=== PATIENT | female | born 1955 | race Caucasian/White ===

== ENCOUNTER → 2019-01-12 09:40 | Outpatient (CLI) | payer MEDICARE, SELFPAY ==
[2017-05-14 10:19] VITALS: BMI 25.9
[2019-01-12 13:11] LABS: Hemoglobin A1c 6.1 % (4.2-6.3)
[2019-01-12 13:15] LABS: Anion Gap 7 (5-15); BUN 26 mg/dL (7-18); BUN/Creat Ratio 25.2 RATIO (10-20); Chloride 107 mmol/L (98-107); Cholesterol 159 mg/dL (200); Creatinine, Serum 1.03 mg/dL (0.55-1.02); EST Glomerular Filtration Rate 57 mL/min (>60); Est Glom Filt Rate - Afr Amer 69 mL/min (>60); Glucose 116 mg/dL (74-106); High Density Lipoprotein 55 mg/dL; Potassium 4.9 mmol/L (3.5-5.1); Sodium Level 141 mmol/L (136-145); Triglycerides 110 mg/dL; Very Low Density Lipoprotein 22 mg/dL (5-40)
[2019-01-19 11:02] LABS: HPV Reflexed? NOT INDICATED
== END ==
PROVIDERS: Family Provider Family Medicine; PCP Family Medicine; Referring Provider Family Medicine; Visit Provider Family Medicine
DX: Z01.419 Encounter for gynecological examination (general) (routine) without abnormal findings (principal); E11.9 Type 2 diabetes mellitus without complications
CPT/HCPCS: 36415; 80048; 80061; 83036; 84443; 88175; G0145

== ENCOUNTER → 2019-12-30 11:39 | Outpatient (CLI) | payer MEDICARE, SELFPAY ==
[2017-05-14 10:19] VITALS: BMI 25.9
[2019-12-30 15:42] LABS: Absolute Lymphocyte Count 0.77 X10^3/uL (0.83-4.51); Absolute Neutrophil Count 5.3 X10^3/uL (2.0-7.7); Basophil# 0.01 X10^3/uL; Basophil% 0.2 % (0-1); Hematocrit 42.1 % (37-47); Hemoglobin 13.7 g/dL (12.0-15.0); Lymphocyte # 0.77 X10^3/ul (4.0); Lymphocyte % 12.5 % (19-41); Mean Corp Hgb Conc 32.5 g/dL (32-36); Mean Platelet Vol. 11.1 fl (6.2-12.0); Monocyte# 0.09 X10^3/uL; Monocyte% 1.5 % (0-10); NRBC Flagged by Analyzer 0 % (0-5); Neutrophil # 5.27 X10^3/uL (2.7-7.7); Neutrophil % 85.5 % (47-70); Platelet Count 211 K/mm3 (150-450); RBC Distribution Width CV 13.4 % (11.6-14.6); RBC Distribution Width SD 43.9 fl (35.1-43.9); Red Blood Count 4.73 M/mm3 (4.2-5.4); White Blood Count 6.2 K/mm3 (4.4-11.0)
[2019-12-30 16:14] LABS: ALB/GLOB Ratio 1.1 RATIO (0.9-2.4); AST(SGOT) 23 U/L (15-37); Alanine Aminotransfer ALT/SGPT 30 U/L (13-56); Albumin, Serum 4.2 g/dL (3.2-5.0); Alkaline Phosphatase 79 U/L (45-117); Anion Gap 4 (5-15); BUN 29 mg/dL (7-18); BUN/Creat Ratio 28.7 RATIO (10-20); Calcium,Total 9.4 mg/dL (8.5-10.1); Chloride 108 mmol/L (98-107); Creatinine, Serum 1.01 mg/dL (0.55-1.02); EST Glomerular Filtration Rate 59 mL/min (>60); Est Glom Filt Rate - Afr Amer 71 mL/min (>60); Globulin 3.7 g/dL (2.2-4.2); Glucose 178 mg/dL (74-106); Potassium 4.6 mmol/L (3.5-5.1); Protein, Total 7.9 g/dL (6.4-8.2); Sodium Level 139 mmol/L (136-145); Thyroid Stim Hormone (TSH) 0.53 uIU/mL (0.358-3.74)
== END ==
PROVIDERS: PCP Family Medicine; Referring Provider Family Medicine; Visit Provider Family Medicine
DX: E11.9 Type 2 diabetes mellitus without complications (principal); I10 Essential (primary) hypertension
CPT/HCPCS: 36415; 80053; 83036; 84443; 85025

== ENCOUNTER 2020-01-05 08:12 | Observation (INO) | payer MEDICARE, SELFPAY ==
[2020-01-05] VITALS (13 sets, daily range): BP systolic 142–192; BP diastolic 74–127; PULSE 68–93; RESP 16–22; TEMP 36.2–37; O2SAT 97–100; BMI 33.3; BMI 30.2; BMI 30.3
--- NOTE | 2020-01-05 08:15 | EKG12_ITS ---
Test Reason : STROKE Blood Pressure : / mmHG Vent. Rate : 085 BPM Atrial Rate : 085 BPM P-R Int : 184 ms QRS Dur : 090 ms QT Int : 352 ms P-R-T Axes : 032 -21 015 degrees QTc Int : 418 ms Normal sinus rhythm Minimal voltage criteria for LVH, may be normal variant Borderline ECG Confirmed by AFIA HOGAN, REGINALDO ([id number]), telegraph editor SAUL DUGAN ([id number]) on 01/11/2020 7:55:49 AM Referred By: GAVIN Confirmed By:NICKIE OREILLY MD
--- NOTE | 2020-01-05 08:16 | CT_ITS ---
STUDY: CTA HEAD AND NECK WITH CONTRAST REASON FOR EXAM: Female, 64 years old. NEURO DEFICIT, SEIZURES BIPOLAR, RECENT CVA RADIATION DOSAGE (If Supplied By Facility): CTDIvol = ( 27.96 ) mGy, DLP = ( 1650.69 ) mGycm TECHNIQUE: CT angiography was performed with a multi-detector CT scanner. Data acquisition was obtained from the skull base through the vertex following intravenous administration of IV 100ML ISOVUE 370. MIP images were reconstructed from the axial data set. Post-processing of the angiographic images was performed, with multiplanar reformation and 3D reconstruction. Individualized dose optimization techniques were used for this CT. COMPARISON: No relevant priors. FINDINGS: Normal bilateral petrous carotid arteries. Normal right cavernous carotid artery with a normal supraclinoid bifurcation. Normal left cavernous carotid artery with a normal supraclinoid bifurcation. Normal right A1 segments of the anterior cerebral artery. Normal left A1 segments of the anterior cerebral artery. Normal intact anterior communicating artery (ACOM). Normal bilateral A2 segments of the anterior cerebral arteries. Normal right M1 and M2 segments of the middle cerebral arteries, with a normal M1 bifurcation. Normal left M1 and M2 segments of the middle cerebral arteries, with a normal M1 bifurcation. Normal right posterior communicating artery (PCOM). Normal left posterior communicating artery (PCOM). Normal bilateral vertebral arteries. Normal basilar artery with a normal basilar bifurcation. The visualized bilateral superior cerebellar (SCA) arteries are normal. Normal bilateral P1, P2 and visualized P3 segments of the posterior cerebral arteries. There is no demonstrated aneurysm of the [place]. Stable lacunar type infarcts in the body and tail portions of the left caudate nucleus and right thalamus. AORTIC ARCH: Normal visualized aortic arch. Normal origins of the brachiocephalic, left common carotid, and left subclavian arteries. Atherosclerotic plaque formation at the origin of the left subclavian artery. RIGHT CAROTID ARTERIES: Normal right common carotid artery (CCA). Normal right common carotid bulb. There is moderate atherosclerotic plaque formation of the origin of the right internal carotid artery with an estimated stenosis of 50-69% stenosis. Normal visualized cervical portion of the right internal carotid artery. Normal origin of the right external carotid artery (ECA). LEFT CAROTID ARTERIES: Normal left common carotid artery (CCA). Normal left common carotid bulb. There is extensive atherosclerotic and soft plaque formation of the origin of the left internal carotid artery with an estimated stenosis of greater than 70%. Normal visualized cervical portion of the left internal carotid artery. Normal origin of the left external carotid artery (ECA). VERTEBRAL ARTERIES: Normal bilateral vertebral arteries. CT/CTA Head AND Neck W/ Contrast IMPRESSION: Greater than 70% stenosis at the origin of left internal carotid artery caused by combination of calcific and soft plaque. 50-69% stenosis at the origins of the right internal carotid artery secondary to atherosclerotic plaque. Electronically Signed: Germain Billings, at 9:44 EDT , Service support ,
[2020-01-05 08:24] LABS: Absolute Lymphocyte Count 1.74 X10^3/uL (0.83-4.51); Absolute Neutrophil Count 5.2 X10^3/uL (2.0-7.7); Basophil# 0.03 X10^3/uL; Basophil% 0.4 % (0-1); Eosinophil# 0.18 X10^3/uL; Eosinophils% 2.4 % (0-5); Hematocrit 42.3 % (37-47); Hemoglobin 13.9 g/dL (12.0-15.0); Lymphocyte # 1.74 X10^3/ul (4.0); Mean Corp Hgb Conc 32.9 g/dL (32-36); Mean Corpuscular Hgb 29.1 pg (27.0-32.0); Mean Corpuscular Volume 88.7 fL (81-99); Mean Platelet Vol. 10.3 fl (6.2-12.0); Monocyte# 0.38 X10^3/uL; NRBC Flagged by Analyzer 0 % (0-5); Neutrophil # 5.22 X10^3/uL (2.7-7.7); Neutrophil % 68.8 % (47-70); Platelet Count 180 K/mm3 (150-450); RBC Distribution Width CV 13.4 % (11.6-14.6); RBC Distribution Width SD 43.6 fl (35.1-43.9); Red Blood Count 4.77 M/mm3 (4.2-5.4); White Blood Count 7.6 K/mm3 (4.4-11.0)
[2020-01-05 08:32] LABS: Prothrombin Time (Protime)PT. 12.6 SECONDS (11.7-14.9)
[2020-01-05 08:33] LABS: Partial Thromboplast Time 24.9 Seconds (24.1-36.2)
[2020-01-05 08:45] LABS: Anion Gap 4 (5-15); BUN 21 mg/dL (7-18); BUN/Creat Ratio 19.3 RATIO (10-20); Calcium,Total 9.3 mg/dL (8.5-10.1); Chloride 105 mmol/L (98-107); Creatinine, Serum 1.09 mg/dL (0.55-1.02); EST Glomerular Filtration Rate 54 mL/min (>60); Est Glom Filt Rate - Afr Amer 65 mL/min (>60); Estimated Creatinine Clearance 43.13 ml/min; Glucose 164 mg/dL (74-106); Potassium 3.8 mmol/L (3.5-5.1); Sodium Level 138 mmol/L (136-145)
--- NOTE | 2020-01-05 09:04 | ED.VISSUMM ---
- ER Visit Summary Date of Service: 01/05/20 Chief Complaint: Slurred speech History of Present Illness: The patient is a [address] Daniel Lopez. She has an expressive aphasia that makes it difficult to obtain a history for her. She states that she has a history of a stroke 3 years ago that left her with right upper extremity paralysis and slurred speech. However, her speech is much worse over the past 4 days. She denies any numbness or weakness. No change in her vision. No vertigo. Patient denies chest pain or palpitations. No fever or chills. No dysuria or frequency. No headache. Physical Examination: Vitals: Stable. Afebrile. General: Well-nourished and well-developed. Head: Normocephalic atraumatic. Neck: Supple, no lymphadenopathy. No JVD. Nontender. Cardiovascular: Regular rate and rhythm. No murmurs. Respiratory: No respiratory distress. Clear to auscultation bilaterally. Abdominal: Soft, nontender, nondistended, normal bowel sounds. No guarding, rebound, or peritoneal signs. Back: Nontender. Extremities: Nontender, no edema. Skin: Normal color, no rash. Neurologic: Alert and oriented ?3. Cranial nerves II through XII are intact. 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 She has an NIH scale of 8 for this flaccid paralysis and her speech difficulties. Psych: Normal affect. Test Results: EKG is sinus at [address] changes. She does have a T wave inversion in lead III. However, this is unchanged from 2018. Troponin is negative. Coags are normal. Chem-7 shows a creatinine 1.09 and glucose 164. CBC is normal. UA shows 5-10 white blood cells. No bacteria. This was sent for culture. CT brain shows prior infarcts that are stable. No acute disease. Clinical Impression(s) from Imaging Studies Head/Neck CTA 01/05/20 08:16 IMPRESSION: Greater than 70% stenosis at the origin of left internal carotid artery caused by combination of calcific and soft plaque. 50-69% stenosis at the origins of the right internal carotid artery secondary to atherosclerotic plaque. Electronically Signed: Germain Billings, at 9:44 EDT , Service support , Emergency Department Course and Treatment: Patient is not a TPA candidate as this is occurred over the past 4 days. A CTA of the head was obtained to rule out a large vessel occlusion. Treatment Plan: Patient will be discussed with the hospitalist and admitted for further evaluation and treatment. Disposition: Admitted in stable condition. Impression: 1. Stroke. 2. Left internal carotid artery stenosis. This note was generated with [employer] dictation software. It may contain incorrect words, spelling, and punctuation that were not noted in review of the chart prior to signing ED Disposition - Plan for ED Patient: Referrals: Daniel Lopez MD [Primary Care Provider] -
[2020-01-05 09:38] LABS: Bacteria 0 SEEN /hpf (None Seen); Mucous, Urine 0 SEEN /hpf (<or=2+); Red Blood Cells-Urine 0 SEEN /hpf (0-5)
[2020-01-05 09:43] LABS: Color, Urine Yellow (Yellow); Glucose, Dipstick Normal (Normal); Ketone-Dipstick Negative (Negative); Leukocyte Esterase-Dipstick 500 /ul (Negative); Nitrite-Dipstick Negative (Negative); Occult Blood-Urine 10 /ul (Negative); Protein-Dipstick Negative (Negative); Urine Bilirubin Dipstick Negative (Negative); Urine Clarity Clear (Clear); Urine Urobilinogen Normal (Normal)
[2020-01-05 09:49] LABS: Squamous Epithelial Cells - UA 0-5 SEEN /hpf (5-10); White Blood Cells 5-10 SEEN /hpf (0-5)
[2020-01-05 10:02] LABS: Bedside Glucose 166 mg/dL (70-110)
--- NOTE | 2020-01-05 10:02 | NURSING ---
DR WEBSTER FOR DR ALONSO
--- NOTE | 2020-01-05 10:06 | NURSING ---
PCU OBS STROKE KOTSONIS
--- NOTE | 2020-01-05 11:42 | ECHOD_ITS ---
Reason For Study: TIA/CVA Procedure This was a 2D Doppler, Color Flow transthoracic echocardiogram. The study was technically difficult. Exam performed portable in patient room. Left Ventricle Normal LV size. The estimated ejection fraction is 55 %. Normal diastology for age. No regional wall motion abnormalities noted. Right Ventricle Normal RV size. Normal systolic function. Atria Normal left atrium. Normal right atrium. No doppler evidence for ASD. Mitral Valve There is no mitral valve stenosis. No mitral valve insufficiency. Tricuspid Valve There is no tricuspid stenosis. Unable to estimate RV systolic pressure due to inadequate jet, pulmonary artery pressure probably normal. Aortic Valve Trisinus/trileaflet aortic valve. There is no aortic stenosis. No aortic valve insufficiency. Pulmonic Valve There is no pulmonic valvular stenosis. No pulmonic valve insufficiency. Great Vessels Normal aortic root. Pericardium/Pleural No pericardial effusion. Medication Negative bubble study on previous echo. MMode/2D Measurements & Calculations LVIDd: 3.4 cm IVSd: 1.1 cm Ao root diam: 3.2 cm LVIDs: 2.0 cm LVPWd: 0.91 cm RVDd: 3.1 cm FS: 41.0 % LAV(MOD-bp): 36.5 ml LA A4 area: 13.7 cm2 LA dimension(2D): 2.9 cm LAV(MOD-bp) Indexed: 20.2 ml/m2 LAV(MOD-sp2): 39.4 ml LAV(MOD-sp4): 31.0 ml RA A4 area: 13.0 cm2 Doppler Measurements & Calculations MV E max reginald: 71.9 cm/sec Lat Peak E' Reginald: 6.0 cm/sec Med Peak E' Reginald: 5.9 cm/sec MV A max reginald: 105.5 cm/sec E/E' lat: 12.0 E/E' med: 12.1 MV E/A: 0.68 Ao V2 max: 122.4 cm/sec LV V1 max: 104.4 cm/sec PA V2 max: 90.4 cm/sec Ao max P.0 mmHg LV V1 max P.4 mmHg Interpretation Summary The estimated ejection fraction is 55 %. Normal diastology for age. Ordering Physician: Getachew Romeor Referring Physician: Daniel Lopez MD Performed By: Bhakti Ray RDCS
--- NOTE | 2020-01-05 11:42 | MRI_ITS ---
STUDY: MRI BRAIN WITHOUT CONTRAST REASON FOR EXAM: Female, 64 years old. CVA -- hx stroke 2017 with residual paralysis and speech change, increase garbled speech past 4 days TECHNIQUE: Standardized multiplanar fat and water weighted pulse sequences were obtained. COMPARISON: 05/08/2017 FINDINGS: There is moderate cerebral atrophy with widening of the extra-axial spaces and ventricular dilatation. There are multiple white matter hyperintensities, distributed throughout the deep white matter tracts of the cerebral hemispheres, consistent with moderate chronic white matter ischemic changes. Encephalomalacia and gliosis in left parietal lobe consistent with a chronic infarct. There is no evidence for recent intracranial ischemia or other cause of cytotoxic edema on diffusion weighted imaging (DWI). Normal T2* images of the brain without demonstrated susceptibility artifact. There is no demonstrated hemosiderin stain. Normal bilateral basal ganglia. Normal thalami. There is no extra-axial fluid accumulation. Normal flow voids within the major intracranial circulation suggesting patency by spin echo criteria. Normal sella turcica, pituitary gland, infundibular stalk, optic chiasm and hypothalamus. Normal tectal plate and pineal gland. Normal midbrain, jodie and medulla. Normal cerebellum. Normal basal cisterns. Normal bilateral temporal bones. Normal bilateral internal auditory canals. No demonstrated orbital abnormality, within the constraints of a routine brain study. Normal visualized paranasal sinuses. Normal calvarium and skull base. Normal visualized soft tissue structures. Normal visualized upper cervical spine. MRI/Brain without Contrast IMPRESSION: Involutional changes of the brain, as described above. No acute infarct. Electronically Signed: Joshua Livingston MD at 13:03 EDT Tel , Service support ,
--- NOTE | 2020-01-05 11:42 | CDU_ITS ---
Reason For Study: CVA Rt. Velocities/BP Lt. Velocities/BP Prox CCA 60.8/15.7 cm/sec. Prox CCA 69.2/14.2 cm/sec. Mid CCA 55.3/13.5 cm/sec. Mid CCA 63.9/16.8 cm/sec. Dist CCA 53.1/16.8 cm/sec. Dist CCA 53.5/16 cm/sec. Prox ICA 49.8/19 cm/sec. Prox ICA 115.6/37.1 cm/sec. Mid ICA 87.1/30 cm/sec. Mid ICA 90/35.3 cm/sec. Dist ICA 85/34.4 cm/sec. Dist ICA 77.3/24.3 cm/sec. Rt. ICA/CCA = 1.58. Lt. ICA/CCA = 1.81. Prox ECA 102.8 cm/sec. Prox ECA 96/8 cm/sec. Rt. Vert. 42.1/11.6 cm/sec. Lt. Vert. 50.9/24.5 cm/sec. Right Extracranial There is intimal thickening but no significant atherosclerotic plaque noted in the right common carotid artery. There is intimal thickening but no significant atherosclerotic plaque noted in the right internal carotid artery. There is heterogeneous, irregular atherosclerotic plaque noted in the right external carotid artery. Antegrade flow is noted in the right vertebral artery. Left Extracranial There is homogeneous, smooth atherosclerotic plaque noted in the left common carotid artery. There is heterogeneous, irregular atherosclerotic plaque noted in the left internal carotid artery. There is intimal thickening but no significant atherosclerotic plaque noted in the left external carotid artery. Antegrade flow is noted in the left vertebral artery. Procedure Carotid Duplex 22033. Exam performed portable in patient room. Interpretation Summary Minimal smooth plaque at the proximal right internal carotid artery with less than 50% stenosis. Irregular calcific plaque at the proximal right external carotid artery with less than 50% stenosis. Irregular calcific plaque with shadowing at the proximal left internal carotid artery with less than 50% stenosis. Less than 50% stenosis left external carotid artery Patent and antegrade vertebrals bilaterally Ordering Physician: Getachew Romero Referring Physician: Daniel Lopez MD Performed By: Justa Pires RVT
[2020-01-05] MEDS: 0.9% Normal Saline 1,000 ML 100 ML IV ×2 (13:30→22:48)
[2020-01-05] MEDS: 0.9% Saline Lock 10 ML Syringe IV ×2 (14:13→21:05)
[2020-01-05] MEDS: Clopidogrel Bisulfate 75 MG Tablet PO (14:13)
--- NOTE | 2020-01-05 16:31 | HP.PCM_ITS ---
History of Present Illness Date of Admission: 01/05/20 Chief Complaint: CVA The patient is a 64 year old F with a PMH as below who presents from home, with slurred speech. She has aphasia it appears at baseline however it has worsened over the last 4 days. It is difficult to obtain a history from her given her aphasia. But she did have a stroke about 3 years ago which left her paralyzed on the right upper extremity and with slurred speech. She states that at the end of last week she got out of bed and it looks like she hurt her back and went to an urgent care and was given steroids and since then her speech worsened. Per the , the injury to her back happened 2 weeks ago and she got a couple different prescriptions from doctors though he does not know what they were other than prednisone and states that since then, she started having the speech difficulty as well as mood swings and episodes of aggression which are new. He states that her seizures are generally more convulsive and she is only had 2 since her previous stroke. She said there was a medication that she had been on that made her mood issues worse, and this appears to be carbamazepine. He also states that years ago she was told that she had bipolar when she was started on a different medication that also made her act crazy. In the ER there is some concern for possible UTI there is no bacteria in the urine but there was 5-10 white blood cells therefore this was sent for culture but no antibiotics were started. She had no changes to her EKG and a CT scan of her brain showed prior infarct but nothing new. CTA of her head and neck did show 70% stenosis at the takeoff of the left internal carotid artery with a 50 to 69% stenosis at the origins of the right internal carotid artery. 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) Type 2 diabetes mellitus (Chronic) Hypertension (Chronic) Allergies No Known Allergies Allergy (Verified 01/05/20 08:39) Home Medications: Ambulatory Orders Medication Instructions Recorded Aspirin [Aspirin, Baby] 81 mg PO DAILY@0800 01/05/20 Levetiracetam [Keppra] 500 mg PO BID 01/05/20 Metformin HCl [Glucophage] 500 mg PO BID 01/05/20 Pravastatin [Pravachol] 40 mg PO DINNER 01/05/20 Ramipril 10 mg PO DINNER 01/05/20 Surgical History: no surgical history Psychiatric History: No pertinent psych hx [employer]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: 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 Smoking Status: Former smoker Tobacco Use: Cigarettes Alcohol: None Drugs: None - *Family History Maternal History Items: Diabetes, Stroke - age 77 Paternal History Items: Heart Disease Review of Systems Constitutional: Denies: Chills, Fever, Weight Change HEENT: Denies: Head Aches, Sinus Congestion, Sinus Drainage Cardiovascular: Denies: Chest Pain, Palpitations Respiratory: Denies: Cough, Shortness of breath at rest, Sputum production Gastrointestinal: Denies: Abdominal Pain, Nausea, Vomiting Genitourinary: Denies: Dysuria Musculoskeletal: Denies: Joint Pain, Joint Tenderness Skin: Denies: Rash, Wounds Neurological: Reports: Slurred speech. Denies: Focal weakness, Numbness, Tingling Psychiatric: Denies: Anxiety, Depression, Homicidal Ideations, Suicidal I deations Hematologic/ Lymphatic: Denies: Easy Bruising, Easy Bleeding VTE Information - Inpt Only VTE Present on Admission: No - Physical Exam Vitals/I&O's: Vital Signs Temp Pulse Resp BP Pulse Ox 98.0 F 74 18 142/91 H 97 01/05/20 11:15 01/05/20 15:00 01/05/20 11:15 01/05/20 11:15 01/05/20 13:50 Oxygen Flow Rate (L/min) 2 Oxygen Delivery Method Room Air Weight: 170 lb 13.732 oz Body Mass Index (BMI) 30.2 Finger Stick Blood Glucose 166 Intake and Output for Last 24 Hours 01/03/20 01/04/20 01/05/20 23:59 23:59 23:59 Intake Total 620 / 620 Balance 620 / 620 General: Alert, Oriented x3, Cooperative, No apparent distress HEENT: Atraumatic, PERRLA, EOMI, Normocephalic Oral: Moist Mucosa Neck: Supple, No JVD Lungs: Clear to auscultation, Normal air movement, No rhonchi, No wheeze, No rales, Diminished Cardiovascular: Regular rate, Regular Rhythm, Normal S1, Normal S2, No murmurs Abdomen: Soft, Non Tender, Non-Distended, No Hepato-splenomegaly Extremities: No edema, Capillary Refill Less than 3 Seconds Skin: No rashes, No breakdown Neurological: Cranial nerves II-XII grossly intact, Motor Exam 5/5 strength throughout - Of the unaffected limbs, Slurred Speech, Sensory exam intact to light touch and pain - Of the unaffected limbs, - - Paralysis of right upper extremity Psych/Mental Status: Normal Affect, Appropriate Laboratory Results 01/05/20 08:11: POC Glucose 166 H 01/05/20 08:15: WBC 7.6, RBC 4.77, Hgb 13.9, Hct 42.3, MCV 88.7, MCH 29.1, MCHC 32.9, RDW Std Deviation 43.6, RDW Coeff of Liudmila 13.4, Plt Count 180, MPV 10.3, Immature Gran % (Auto) 0.400, Neut % (Auto) 68.8, Lymph % (Auto) 23.0, Blanco % (Auto) 5.0, Eos % (Auto) 2.4, Baso % (Auto) 0.4, Absolute Neuts (auto) 5.2, Abs olute Lymphs (auto) 1.74, Nucleated RBC % 0 01/05/20 08:15: PT 12.6, INR 1.0, APTT 24.9 01/05/20 08:15: Sodium 138, Potassium 3.8, Chloride 105, Carbon Dioxide 29.0, Anion Gap 4 L, BUN 21 H, Creatinine 1.09 H, Estim Creat Clear Calc 43.13, Est GFR (MDRD) Af Amer 65, Est GFR (MDRD) Non-Af 54 L, BUN/Creatinine Ratio 19.3, Glucose 164 H, Calcium 9.3, Troponin I < 0.015 01/05/20 09:30: Urine Color Yellow, Urine Clarity Clear, Urine pH 6.0, Ur Specific [place] 1.010, Urine Protein Negative, Urine Glucose (UA) Normal, Urine Ketones Negative, Urine Occult Blood 10 H, Urine Nitrite Negative, Urine Bilirubin Negative, Urine Urobilinogen Normal, Ur Leukocyte Esterase 500 H, Urine RBC 0 SEEN, Urine WBC 5-10 SEEN, Ur Squamous Epith Cells 0-5 SEEN, Urine Bacteria 0 SEEN, Urine Mucus 0 SEEN Current Medications Clopidogrel Bisulfate (Plavix) 75 mg PO DAILY [facility] Last Admin: 01/05/20 14:13 Dose: 75 mg Documented by: Enoxaparin Sodium (Lovenox) 40 mg SC DAILY [facility] Hydralazine HCl (Apresoline Iv) 5 mg IV Q30M PRN PRN Reason: to maintain BP goals Sodium Chloride () 500 mls @ 999 mls/hr IV .Q31M ONE Last Infusion: 01/05/20 09:05 Dose: Infused Documented by: Sodium Chloride () 1,000 mls @ 100 mls/hr IV .Q10H JOSEPH Last Admin: 01/05/20 13:30 Dose: 100 mls/hr Documented by: Sodium Chloride () 250 mls @ 15 mls/hr IV .[id number] PRN PRN Reason: Saline Flush Sodium Chloride () 250 mls @ 15 mls/hr IV .[id number] PRN PRN Reason: Additional IVPB Infusion Labetalol HCl (Trandate) 10 - 20 mg IV Q10M PRN PRN PRN Reason: to Maintain BP Goals Sodium Chloride () 10 - 40 ml IV UD PRN PRN Reason: SALINE FLUSH Last Admin: 01/05/20 14:13 Dose: 10 ml Documented by: Assessment/Plan All Active Problems Seizures (Acute) Acute ischemic stroke (Resolved) Hypertensive emergency (Resolved) 1. New CVA/history of CVA/history of seizures/HTN/HLD -MRI is negative for new stroke -She is 4 days out since symptoms onset therefore she did not qualify for TPA -We will continue with medical management, and start her on Plavix as well as aspirin -We will allow some permissive hypertension and restart her ramipril in the morning -We will continue with her home statin -Continue with Kellen, and will consult neuro and obtain an EEG given her sudden onset of issues and her seizure disorder -Also obtain a TSH and vitamin B12 -We will obtain an echo -Carotid duplex with With less than 50% stenosis on bilateral internal and external carotid arteries -PT/OT/speech 2. DM 2 -We will start her on a diabetic diet -Placed on a sliding scale insulin with Accu-Cheks AC at bedtime DVT: Lovenox OBSV E&M: [id number] Initial observation care L3
[2020-01-05] MEDS: Insulin Lispro 100 UNIT/ML INSULN.PEN SC (17:58)
[2020-01-05] MEDS: Pravastatin 40 MG Tablet PO (17:58)
[2020-01-05 18:01] LABS: Bedside Glucose 176 mg/dL (70-110)
--- NOTE | 2020-01-05 18:04 | TELEMED_ITS ---
[facility] Tele[facility] has confirmed receipt of a request for visit. This document confirms receipt of the order initiating the consult. To find the results of the consultation, please view the patient's reports for the scanned Telemed Consult.
[2020-01-05 19:05] LABS: Thyroid Stim Hormone (TSH) 0.84 uIU/mL (0.358-3.74)
--- NOTE | 2020-01-05 20:11 | PN_ITS ---
Progress Note Following tele-neurologist consult by attending MD, telemetry neurologist requested a phone call. Case was discussed with tele-neurologist who r ecommended the patient should be treated for UTI since UTI may be bringing her symptoms back in the setting of abnormal urinalysis. Also telemetry neurologist recommended an EEG. EEG already ordered by attending MD. Also MRI without contrast did not show stroke. Tele-neurologist recommended MRI with contrast. A telemetry neurologist recommended reconsulting (tele-neurologist) after EEG and brain MRI with contrast is back. Brain MRI with contrast ordered. STROKE Vital Signs/Narrative: Vital Signs Temp Pulse Resp BP Pulse Ox 01/05/20 19:00 78 01/05/20 16:45 98.6 F 85 18 143/74 H 98
[2020-01-05] MEDS: levETIRAcetam 500 MG Tablet PO (22:36)
[2020-01-05 22:40] LABS: Bedside Glucose 136 mg/dL (70-110)
[2020-01-05] MEDS: Ceftriaxone 1 GM/50 ML BAG IV (22:46)
[2020-01-06] VITALS (10 sets, daily range): BP systolic 135–165; BP diastolic 84–106; PULSE 72–85; RESP 16–18; TEMP 36.4–37.5; O2SAT 96–98; BMI 30.2
[2020-01-06 06:50] LABS: Bedside Glucose 137 mg/dL (70-110)
[2020-01-06 08:29] LABS: Absolute Lymphocyte Count 1.28 X10^3/uL (0.83-4.51); Absolute Neutrophil Count 3.3 X10^3/uL (2.0-7.7); Basophil# 0.02 X10^3/uL; Basophil% 0.4 % (0-1); Eosinophil# 0.17 X10^3/uL; Eosinophils% 3.3 % (0-5); Hematocrit 38.6 % (37-47); Hemoglobin 12.9 g/dL (12.0-15.0); Lymphocyte # 1.28 X10^3/ul (4.0); Lymphocyte % 24.8 % (19-41); Mean Corp Hgb Conc 33.4 g/dL (32-36); Mean Corpuscular Hgb 29.4 pg (27.0-32.0); Mean Corpuscular Volume 87.9 fL (81-99); Mean Platelet Vol. 10.7 fl (6.2-12.0); Monocyte# 0.35 X10^3/uL; Monocyte% 6.8 % (0-10); NRBC Flagged by Analyzer 0 % (0-5); Neutrophil # 3.33 X10^3/uL (2.7-7.7); Neutrophil % 64.5 % (47-70); Platelet Count 139 K/mm3 (150-450); RBC Distribution Width CV 13.2 % (11.6-14.6); Red Blood Count 4.39 M/mm3 (4.2-5.4); White Blood Count 5.2 K/mm3 (4.4-11.0)
[2020-01-06 08:59] LABS: Anion Gap 4 (5-15); BUN 14 mg/dL (7-18); BUN/Creat Ratio 18.5 RATIO (10-20); Calcium,Total 8.7 mg/dL (8.5-10.1); Chloride 113 mmol/L (98-107); Cholesterol 127 mg/dL (200); Creatinine, Serum 0.76 mg/dL (0.55-1.02); EST Glomerular Filtration Rate 82 mL/min (>60); Est Glom Filt Rate - Afr Amer 99 mL/min (>60); Estimated Creatinine Clearance 61.86 ml/min; Glucose 141 mg/dL (74-106); High Density Lipoprotein 64 mg/dL; Potassium 4.2 mmol/L (3.5-5.1); Sodium Level 141 mmol/L (136-145); Triglycerides 113 mg/dL; Very Low Density Lipoprotein 23 mg/dL (5-40)
--- NOTE | 2020-01-06 09:00 | MRI_ITS ---
STUDY: MRI BRAIN WITH CONTRAST REASON FOR EXAM: Female, 64 years old. speech changes, garbled speech, follow up to non contrast brain mri done 01/05/20 TECHNIQUE: Standardized multiplanar fat and water weighted pulse sequences were obtained. IV Dotarem 15ml was administered for the contrast portion of the examination. COMPARISON: 01/05/2020 FINDINGS: There is moderate cerebral atrophy with widening of the extra-axial spaces and ventricular dilatation. There are multiple white matter hyperintensities, distributed throughout the deep white matter tracts of the cerebral hemispheres, consistent with moderate chronic white matter ischemic changes. Normal bilateral basal ganglia. Normal thalami. There is no extra-axial fluid accumulation. Normal flow voids within the major intracranial circulation suggesting patency by spin echo criteria. Normal venous enhancement. There is no enhancing intra-axial or extra-axial abnormality. Normal sella turcica, pituitary gland, infundibular stalk, optic chiasm and hypothalamus. Normal tectal plate and pineal gland. Normal midbrain, jodie and medulla. Normal cerebellum. Normal basal cisterns. Normal bilateral temporal bones. Normal bilateral internal auditory canals. No demonstrated orbital abnormality, within the constraints of a routine brain study. Normal visualized paranasal sinuses. Normal calvarium and skull base. Normal visualized soft tissue structures. Normal visualized upper cervical spine. MRI/Brain WITH Contrast IMPRESSION: No abnormal contrast enhancement. Electronically Signed: Joshua Livingston MD at 10:34 EDT Tel , Service support ,
[2020-01-06] MEDS: 0.9% Normal Saline 1,000 ML 100 ML IV ×2 (09:05→20:08)
[2020-01-06 09:37] LABS: Vitamin B12 320 pg/mL (211-911)
[2020-01-06] MEDS: Aspirin 81 MG TAB.CHEW PO (10:07)
[2020-01-06] MEDS: levETIRAcetam 500 MG Tablet PO ×2 (10:07→22:08)
[2020-01-06] MEDS: Clopidogrel Bisulfate 75 MG Tablet PO (10:07)
[2020-01-06] MEDS: Enoxaparin 40 MG/0.4 ML Syringe SC (10:08)
[2020-01-06] MEDS: Ceftriaxone 1 GM/50 ML BAG IV (10:42)
[2020-01-06] MEDS: Insulin Lispro 100 UNIT/ML INSULN.PEN SC (11:20)
[2020-01-06 11:25] LABS: Bedside Glucose 165 mg/dL (70-110)
--- NOTE | 2020-01-06 13:25 | CASEMGMT ---
This RN CM to room with WALKER form at this time, explanation done-pt voices understanding, and signed WALKER form at this time. Original to chart and copy to pt at this time. Per Speech therapy, pt would benefit from further OP speech therapy at this time. Pt is agreeable at this time and states she has been to [facility] in the past. [facility] Pt does have some dyarthria at this time but voices no further questions/concerns/needs at this time. [place] KEVIN CM
[2020-01-06 16:21] LABS: Bedside Glucose 100 mg/dL (70-110)
[2020-01-06] MEDS: Pravastatin 40 MG Tablet PO (17:29)
--- NOTE | 2020-01-06 18:34 | PCM.PN.HOSP ---
Subjective: Doing well, no change in her symptoms. No issues overnight. Vitals/I&O's: Vital Signs Temp Pulse Resp BP Pulse Ox 99.5 F H 77 18 165/97 H 97 01/06/20 16:15 01/06/20 16:15 01/06/20 16:15 01/06/20 16:15 01/06/20 16:15 Oxygen Flow Rate (L/min) 2 Oxygen Delivery Method Room Air Weight: 170 lb 13.732 oz Body Mass Index (BMI) 30.2 Finger Stick Blood Glucose 166 Intake and Output for Last 24 Hours 01/04/20 01/05/20 01/06/20 23:59 23:59 23:59 Intake Total 1937.33 / 1937.33 1463.34 / 1463.34 Balance 1937. / 1937. 1463.34 / 1463.34 General: Alert, Oriented x3, Cooperative, No apparent distress HEENT: Atraumatic, PERRLA, EOMI, Normocephalic Oral: Moist Mucosa Neck: Supple, No JVD Lungs: Clear to auscultation, Normal air movement, No rhonchi, No wheeze, No rales, Diminished Cardiovascular: Regular rate, Regular Rhythm, Normal S1, Normal S2, No murmurs Abdomen: Soft, Non Tender, Non-Distended, No Hepato-splenomegaly Extremities: No edema, Capillary Refill Less than 3 Seconds Skin: No rashes, No breakdown Neurological: Cranial nerves II-XII grossly intact, Motor Exam 5/5 strength throughout - Of the unaffected limbs, Slurred Speech, Sensory exam intact to light touch and pain - Of the unaffected limbs, - - Paralysis of right upper extremity Psych/Mental Status: Normal Affect, Appropriate Laboratory Results 01/05/20 08:15: TSH 0.84 01/05/20 22:33: POC Glucose 136 H 01/06/20 06:43: POC Glucose 137 H 01/06/20 08:13: WBC 5.2, RBC 4.39, Hgb 12.9, Hct 38.6, MCV 87.9, MCH 29.4, MCHC 33.4, RDW Std Deviation 43.0, RDW Coeff of Liudmila 13.2, Plt Count 139 L, MPV 10.7, Immature Gran % (Auto) 0.200, Neut % (Auto) 64.5, Lymph % (Auto) 24.8, Josephine % (Auto) 6.8, Eos % (Auto) 3.3, Baso % (Auto) 0.4, Absolute Neuts (auto) 3.3, Absolute Lymphs (auto) 1.28, Nucleated RBC % 0 01/06/20 08:13: Sodium 141, Potassium 4.2, Chloride 113 H, Carbon Dioxide 24.0, Anion Gap 4 L, BUN 14, Creatinine 0.76, Estim Creat Clear Calc 61.86, Est GFR (MDRD) Af Amer 99, Est GFR (MDRD) Non-Af 82, BUN/Creatinine Ratio 18.5, Glucose 141 H, Calcium 8.7, Triglycerides 113, Cholesterol 127, LDL Cholesterol 40, VLDL Cholesterol 23, HDL Cholesterol 64 01/06/20 08:13: Vitamin B12 320 01/06/20 11:18: POC Glucose 165 H 01/06/20 16:14: POC Glucose 100 Current Medications Aspirin (Aspirin, Baby) 81 mg PO DAILY@0800 [facility] Last Admin: 01/06/20 10:07 Dose: 81 mg Documented by: Clopidogrel Bisulfate (Plavix) 75 mg PO DAILY [facility] Last Admin: 01/06/20 10:07 Dose: 75 mg Documented by: Dextrose (D50w Syringe) 0 gm IV X1 PRN; Protocol PRN Reason: Hypoglycemia Enoxaparin Sodium (Lovenox) 40 mg SC DAILY [facility] Last Admin: 01/06/20 10:08 Dose: 40 mg Documented by: Glucagon () 1 mg IM .X1 PRN PRN Reason: Hypoglycemia Hydralazine HCl (Apresoline Iv) 5 mg IV Q30M PRN PRN Reason: to maintain BP goals Sodium Chloride () 500 mls @ 999 mls/hr IV .Q31M ONE Last Infusion: 01/05/20 09:05 Dose: Infused Documented by: Sodium Chloride () 1,000 mls @ 100 mls/hr IV .Q10H JOSEPH Last Infusion: 01/06/20 11:15 Dose: 100 mls/hr Documented by: Sodium Chloride () 250 mls @ 15 mls/hr IV .[id number] PRN PRN Reason: Saline Flush Sodium Chloride () 250 mls @ 15 mls/hr IV .[id number] PRN PRN Reason: Additional IVPB Infusion Ceftriaxone Sodium (Rocephin) 1 gm in 50 mls @ 100 mls/hr IV Q24 [facility] Last Infusion: 01/06/20 11:15 Dose: Infused Documented by: Insulin Human Lispro (Humalog Kwikpen (Bkc)) 0 unit SC ACHS [facility]; Protocol Last Admin: 01/06/20 16:34 Dose: Not Given Documented by: Labetalol HCl (Trandate) 10 - 20 mg IV Q10M PRN PRN PRN Reason: to Maintain BP Goals Levetiracetam (Keppra Tablet) 500 mg PO BID [facility] Last Admin: 01/06/20 10:07 Dose: 500 mg Documented by: Pravastatin Sodium (Pravachol) 40 mg PO DINNER [facility] Last Admin: 01/06/20 17:29 Dose: 40 mg Documented by: Sodium Chloride () 10 - 40 ml IV UD PRN PRN Reason: SALINE FLUSH Last Admin: 01/05/20 21:05 Dose: 10 ml Documented by: STROKE Vital Signs/Narrative: Vital Signs Temp Pulse Resp BP Pulse Ox 01/06/20 16:15 99.5 F H 77 18 165/97 H 97 01/06/20 15:00 85 Medical Necessity - Tobacco Use Smoking Status: Former smoker Tobacco Use: Cigarettes Assessment/Plan All Active Problems Seizures (Acute) Acute ischemic stroke (Resolved) Hypertensive emergency (Resolved) 1. New CVA/history of CVA/history of seizures/HTN/HLD -MRI is negative for new stroke -She is 4 days (possibly 2 weeks) out since symptoms onset therefore she did not qualify for TPA -We will continue with medical management, and start her on Plavix as well as aspirin -We will restart her ramipril today -We will continue with her home statin -Continue with Keppra, EEG is still pending repeat MRI with contrast was also negative for any other findings, if the EEG is also negative will reconsult neurology -TSH 0.84 and vitamin B12 320 -Echo was unremarkable -Carotid duplex with less than 50% stenosis on bilateral internal and external carotid arteries -PT/OT/speech -UA was unremarkable for significant UTI burden however she did have 500+ leukocyte esterase as well as 5-10 WBCs therefore she was started on Rocephin overnight. Her urine culture is pending. 2. DM 2 -We will start her on a diabetic diet -Placed on a sliding scale insulin with Accu-Cheks AC at bedtime DVT: Lovenox OBSV E&M: 76084 Subsequent observation care L2
[2020-01-06] MEDS: Ramipril 10 MG Capsule PO (20:08)
[2020-01-06 22:36] LABS: Bedside Glucose 107 mg/dL (70-110)
[2020-01-07 03:00] VITALS: PULSE 73
[2020-01-07 04:20] VITALS: BP 159/86; PULSE 72; RESP 16; TEMP 36.7; O2SAT 96
[2020-01-07 06:51] LABS: Bedside Glucose 146 mg/dL (70-110)
[2020-01-07 07:19] VITALS: PULSE 82
[2020-01-07] MEDS: Ceftriaxone 1 GM/50 ML BAG IV (09:08)
[2020-01-07] MEDS: Aspirin 81 MG TAB.CHEW PO (09:09)
[2020-01-07] MEDS: levETIRAcetam 500 MG Tablet PO (09:09)
[2020-01-07] MEDS: Clopidogrel Bisulfate 75 MG Tablet PO (09:09)
[2020-01-07] MEDS: Enoxaparin 40 MG/0.4 ML Syringe SC (09:09)
[2020-01-07 10:20] VITALS: BP 158/80; PULSE 78; RESP 16; TEMP 36.9; O2SAT 96
[2020-01-07] MEDS: 0.9% Normal Saline 1,000 ML 100 ML IV (10:28)
[2020-01-07 10:45] VITALS: BMI 30.2
[2020-01-07 11:35] LABS: Bedside Glucose 150 mg/dL (70-110)
[2020-01-07 14:05] LABS: Bedside Glucose 101 mg/dL (70-110)
--- NOTE | 2020-01-07 15:00 | NURSING ---
Addendum entered by Mckayla Valverde 01/07/20 18:08: Called pt's , Christian, @ [phone] asking for an approximate ETA for his arrival to hospital. Christian stated that he would be there in a few minutes and asked if the patient was ready. This RN asked Christian if he was still planning on talking with the doctor in which he replied 'nope, this is the third time that she has been there and you are doing nothing for her and sending her home without answers, so no.' Discussed with Christian that we would have the patient at the main entrance for him to citrus picker. This RN reviewed discharge instructions and paperwork with patient in which she voiced understanding. Provided opportunity to answer questions in which the patient had none. DRAFTER LANDSCAPE reports when meeting Christian at the main entrance with patient, that he was very frustrated with care received. Original Note: spoke with pt's , Christian Clay, @ 1500 and informed him that the doctor is going to discharge the patient. Informed that all testing here has been negative and [facility] neuro consult complete and that neurology did not have any further recommendations, pt to d/c home and f/u with Dr Reyes. Pt's very upset and asking 'Why are you discharging, she is not ready and this speech is worse than normal. You guys don't do anything for her and don't figure out what is wrong. What am I supposed to do when I get her home and her speech is worse?' Explained again to Christian the testing that was done and POC for d/c. Christian states 'I don't have time to deal with this right now and can't get there until 5 oclock.' At this point, this RN offered to have Dr Romero come and talk with the patient at that time in which he replied 'okay.' Notified Dr Romero and he is okay with coming to talk with pt's when he gets here, just send him a text and he will come over.
[2020-01-07 16:18] VITALS: BP 159/86; PULSE 84; RESP 16; TEMP 36.9; O2SAT 95
--- NOTE | 2020-01-07 16:33 | DCINST_ITS ---
You will use the following diet at home:: Calorie/Carbohydrate Controlled (specify 1200, 1400, etc) Your food should be the consistency of: Regular Your liquids should be the consistency of: Regular/Thin Discharge Activity: Return to Normal Activity Call your doctor if you observe: Fever of 101 or Higher, Shortness of breath, Dizziness, Fainting spells, Swelling in the ankles, Chest pain, Increased palpitations (irregular heartbeat) Allergies/Adverse Reactions: Allergies No Known Allergies Allergy (Verified 01/05/20 08:39) Medications to take at Discharge Aspirin [Aspirin, Baby] 81 mg PO DAILY@0800 01/05/20 Levetiracetam [Keppra] 500 mg PO BID 01/05/20 Metformin HCl [Glucophage] 500 mg PO BID 01/05/20 Pravastatin [Pravachol] 40 mg PO DINNER 01/05/20 Ramipril 10 mg PO DINNER 01/05/20 Primary Care Physician: Daniel Lopez MD [Primary Care Provider] - Please follow up with your Primary Care Physician in: 3-5 days Test Results: Test results from this visit will be discussed in further detail at your follow- up appointment, if applicable. Please Follow Up With: Stanislaw Reyes MD When: 2 weeks
--- NOTE | 2020-01-07 16:47 | DS.PCM_ITS ---
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 50-69% stenosis at the origins of the right internal carotid artery secondary to atherosclerotic plaque. Electronically Signed: Germain Billings, at 9:44 EDT , Service support , Brain MRI 01/05/20 11:42 IMPRESSION: Involutional changes of the brain, as described above. No acute infarct. Electronically Signed: Joshua Livingston MD at 13:03 EDT Tel , Service support , Brain MRI 01/06/20 09:00 IMPRESSION: No abnormal contrast enhancement. Electronically Signed: Joshua Livingston MD at 10:34 EDT Tel , Service support , Carotid Duplex: Reason For Study: CVA Rt. Velocities/BP Lt. Velocities/BP Prox CCA 60.8/15.7 cm/sec. Prox CCA 69.2/14.2 cm/sec. Mid CCA 55.3/13.5 cm/sec. Mid CCA 63.9/16.8 cm/sec. Dist CCA 53.1/16.8 cm/sec. Dist CCA 53.5/16 cm/sec. Prox ICA 49.8/19 cm/sec. Prox ICA 115.6/37.1 cm/sec. Mid ICA 87.1/30 cm/sec. Mid ICA 90/35.3 cm/sec. Dist ICA 85/34.4 cm/sec. Dist ICA 77.3/24.3 cm/sec. Rt. ICA/CCA = 1.58. Lt. ICA/CCA = 1.81. Prox ECA 102.8 cm/sec. Prox ECA 96/8 cm/sec. Rt. Vert. 42.1/11.6 cm/sec. Lt. Vert. 50.9/24.5 cm/sec. Right Extracranial There is intimal thickening but no significant atherosclerotic plaque noted in the right common carotid artery. There is intimal thickening but no significant atherosclerotic plaque noted in the right internal carotid artery. There is heterogeneous, irregular atherosclerotic plaque noted in the right external carotid artery. Antegrade flow is noted in the right vertebral artery. Left Extracranial There is homogeneous, smooth atherosclerotic plaque noted in the left common carotid artery. There is heterogeneous, irregular atherosclerotic plaque noted in the left internal carotid artery. There is intimal thickening but no significant atherosclerotic plaque noted in the left external carotid artery. Antegrade flow is noted in the left vertebral artery. Procedure Carotid Duplex [id number]. Exam performed portable in patient room. Interpretation Summary Minimal smooth plaque at the proximal right internal carotid artery with less than 50% stenosis. Irregular calcific plaque at the proximal right external carotid artery with less than 50% stenosis. Irregular calcific plaque with shadowing at the proximal left internal carotid artery with less than 50% stenosis. Less than 50% stenosis left external carotid artery Patent and antegrade vertebrals bilaterally Echo: Interpretation Summary The estimated ejection fraction is 55 %. Normal diastology for age. Consults: [facility] Neurology Operations: None Procedures: 2-D Echocardiogram, Electroencephalogram Summary of Care Provided: Per HPI: The patient is a 64 year old F with a PMH as below who presents from home, with slurred speech. She has aphasia it appears at baseline however it has worsened over the last 4 days. It is difficult to obtain a history from her given her aphasia. But she did have a stroke about 3 years ago which left her paralyzed on the right upper extremity and with slurred speech. She states that at the end of last week she got out of bed and it looks like she hurt her back and went to an urgent care and was given steroids and since then her speech worsened. Per the , the injury to her back happened 2 weeks ago and she got a couple different prescriptions from doctors though he does not know what they were other than prednisone and states that since then, she started having the speech difficulty as well as mood swings and episodes of aggression which are new. He states that her seizures are generally more convulsive and she is only had 2 since her previous stroke. She said there was a medication that she had been on that made her mood issues worse, and this appears to be carbamazepine. He also states that years ago she was told that she had bipolar when she was started on a different medication that also made her act crazy. In the ER there is some concern for possible UTI there is no bacteria in the urine but there was 5-10 white blood cells therefore this was sent for culture but no antibiotics were started. She had no changes to her EKG and a CT scan of her brain showed prior infarct but nothing new. CTA of her head and neck did show 70% stenosis at the takeoff of the left internal carotid artery with a 50 to 69% stenosis at the origins of the right internal carotid artery. Hospital Course: 1. Slurred speech/history of CVA with post CVA seizures/HTN/GGY-64-jkab-old female presents to the hospital with worsening slurred speech. She has had slurred speech since her initial stroke 3 years ago but usually you she can be understood however this time over the period of 2 weeks she had worsening slurred speech. Initially on presentation to the ER she had an NIH of 8 and underwent a CTA of the head and neck which was initially read as having a 70% stenosis at the origin of the left internal carotid artery with a 50 to 69% stenosis the origins of the right internal carotid artery, so a carotid duplex was obtained which showed that the stenoses were less than 50% bilaterally. She underwent a MRI without contrast which did not show a new stroke and [facility] neurology was consulted who felt that an EEG should be obtained as well as treatment for a possible UTI. She was started on Rocephin which she received 3 doses for and her urine culture came back as mixed bassem with 1000-10,000 CFU's, therefore an not a true UTI however she did complete a course of antibiotics regardless. She also had an EEG yesterday which was read today as normal. An MRI with contrast was then also obtained which was also read as normal. So [facility] neurology was reconsulted since work-up was negative and they felt that there is nothing else left to do other than outpatient follow-up. This was discussed with the patient and she expressed understanding of the risks and benefits of going home today. She would like to go home, there is no changes to her home medications at this time. I unfortunately did not have a chance to talk with her today about the discharge plan, he was initially wanted to discuss her care at 5 pm and then called at 6 pm to state that he wanted us to drop his off at the front door for him. 2. Type 2 diabetes is noted chronic medical condition which complicates her care. Her home medications were continued where appropriate - Physical Exam Vitals/I&O's: Vital Signs Temp Pulse Resp BP Pulse Ox 98.5 F 84 16 159/86 H 95 01/07/20 16:18 01/07/20 16:18 01/07/20 16:18 01/07/20 16:18 01/07/20 16:18 Oxygen Flow Rate (L/min) 2 Oxygen Delivery Method Room Air Weight: 170 lb 13.732 oz Body Mass Index (BMI) 30.2 Finger Stick Blood Glucose 166 Intake and Output for Last 24 Hours 01/05/20 01/06/20 01/07/20 23:59 23:59 23:59 Intake Total 1937.33 / 1937.33 2736.67 / 2976.67 1265 / 1265 Balance 1937.33 / 1937.33 2736.67 / 2976.67 1265 / 1265 General: Alert, Oriented x3, Cooperative, No apparent distress HEENT: Atraumatic, PERRLA, EOMI, Normocephalic Oral: Moist Mucosa Neck: Supple, No JVD Lungs: Clear to auscultation, Normal air movement, No rhonchi, No wheeze, No rales, Diminished Cardiovascular: Regular rate, Regular Rhythm, Normal S1, Normal S2, No murmurs Abdomen: Soft, Non Tender, Non-Distended, No Hepato-splenomegaly Extremities: No edema, Capillary Refill Less than 3 Seconds Skin: No rashes, No breakdown Neurological: Cranial nerves II-XII grossly intact, Motor Exam 5/5 strength throughout - Of the unaffected limbs, Slurred Speech-improving, Sensory exam intact to light touch and pain - Of the unaffected limbs, - - Paralysis of right upper extremity Psych/Mental Status: Normal Affect, Appropriate Microbiology Past 72 Hours 01/05/20 09:30 Urine, Random Urine Culture - Final Mixed Gram Positive Organisms Laboratory Results 01/06/20 22:07: POC Glucose 107 01/07/20 06:44: POC Glucose 146 H 01/07/20 11:29: POC Glucose 150 H 01/07/20 14:02: POC Glucose 101 Current Medications Aspirin (Aspirin, Baby) 81 mg PO DAILY@0800 [facility] Last Admin: 01/07/20 09:09 Dose: 81 mg Documented by: Clopidogrel Bisulfate (Plavix) 75 mg PO DAILY [facility] Last Admin: 01/07/20 09:09 Dose: 75 mg Documented by: Dextrose (D50w Syringe) 0 gm IV X1 PRN; Protocol PRN Reason: Hypoglycemia Enoxaparin Sodium (Lovenox) 40 mg SC DAILY [facility] Last Admin: 01/07/20 09:09 Dose: 40 mg Documented by: Glucagon () 1 mg IM .X1 PRN PRN Reason: Hypoglycemia Hydralazine HCl (Apresoline Iv) 5 mg IV Q30M PRN PRN Reason: to maintain BP goals Sodium Chloride () 500 mls @ 999 mls/hr IV .Q31M ONE Last Infusion: 01/05/20 09:05 Dose: Infused Documented by: Sodium Chloride () 1,000 mls @ 100 mls/hr IV .Q10H [facility] Last Admin: 01/07/20 10:28 Dose: 100 mls/hr Documented by: Sodium Chloride () 250 mls @ 15 mls/hr IV .[id number] PRN PRN Reason: Saline Flush Sodium Chloride () 250 mls @ 15 mls/hr IV .[id number] PRN PRN Reason: Additional IVPB Infusion Ceftriaxone Sodium (Rocephin) 1 gm in 50 mls @ 100 mls/hr IV Q24 [facility] Last Infusion: 01/07/20 09:55 Dose: Infused Documented by: Insulin Human Lispro (Humalog Kwikpen (Bkc)) 0 unit SC ACHS [facility]; Protocol Last Admin: 01/07/20 12:40 Dose: Not Given Documented by: Labetalol HCl (Trandate) 10 - 20 mg IV Q10M PRN PRN PRN Reason: to Maintain BP Goals Levetiracetam (Keppra Tablet) 500 mg PO BID [facility] Last Admin: 01/07/20 09:09 Dose: 500 mg Documented by: Pravastatin Sodium (Pravachol) 40 mg PO DINNER [facility] Last Admin: 01/06/20 17:29 Dose: 40 mg Documented by: Ramipril (Altace) 10 mg PO DINNER [facility] Last Admin: 01/06/20 20:08 Dose: 10 mg Documented by: Sodium Chloride () 10 - 40 ml IV UD PRN PRN Reason: SALINE FLUSH Last Admin: 01/05/20 21:05 Dose: 10 ml Documented by: Discharge Activity: Return to Normal Activity Call your doctor if you observe: Fever of 101 or Higher, Shortness of breath, Dizziness, Fainting spells, Swelling in the ankles, Chest pain, Increased palpitations (irregular heartbeat) Home Medications: Medications to take at Discharge Aspirin [Aspirin, Baby] 81 mg PO DAILY@0800 01/05/20 Levetiracetam [Keppra] 500 mg PO BID 01/05/20 Metformin HCl [Glucophage] 500 mg PO BID 01/05/20 Pravastatin [Pravachol] 40 mg PO DINNER 01/05/20 Ramipril 10 mg PO DINNER 01/05/20 Primary Care Physician: Daniel Lopez MD [Primary Care Provider] - Please follow up with your Primary Care Physician in: 3-5 days Please Follow Up With: Stanislaw Reyes MD When: 2 weeks Disposition: Home Minutes spent on discharge:: 35 Patient Condition:: Stable Medical Necessity - Tobacco Use Smoking Status: Former smoker Tobacco Use: Cigarettes Meaningful Use Info Meaningful Use Diagnoses (Choose all that apply): None applicable OBSV E&M: 96906 Observation care discharge
== END 2020-01-07 16:45 | disposition home or self-care (01) ==
LOC: ED 09:24 → PCU 11:33
PROVIDERS: Admitting Provider Family Medicine; Emergency Provider Emergency Medicine; PCP Family Medicine; Visit Provider Family Medicine
DX: R47.01 Aphasia (principal); I69.331 Monoplegia of upper limb following cerebral infarction affecting right dominant side; E11.9 Type 2 diabetes mellitus without complications; I10 Essential (primary) hypertension; I69.328 Other speech and language deficits following cerebral infarction; G40.909 Epilepsy, unspecified, not intractable, without status epilepticus; E78.5 Hyperlipidemia, unspecified; R29.708 NIHSS score 8; Z87.891 Personal history of nicotine dependence; Z79.899 Other long term (current) drug therapy; Z79.84 Long term (current) use of oral hypoglycemic drugs; Z79.82 Long term (current) use of aspirin
CPT/HCPCS: 70496; 70498; 70551; 70552; 80048; 80061; 81001; 82607; 82962; 84443; 84484; 85025; 85610; 85730; 87086; 87088; 92507; 92523; 92526; 92610; 93005; 93306; 93880; 94762; 95819; 96361; 96365; 96366; 96372; 97162; 97166; 99218; 99285; 99406; A9575; J7030; Q9967; A4216; G0378

== ENCOUNTER → 2020-03-16 10:10 | Outpatient (CLI) | payer MEDICARE, SELFPAY ==
[2020-03-16 13:08] LABS: ALB/GLOB Ratio 1.1 RATIO (0.9-2.4); AST(SGOT) 30 U/L (15-37); Alanine Aminotransfer ALT/SGPT 32 U/L (13-56); Albumin, Serum 4.1 g/dL (3.2-5.0); Alkaline Phosphatase 97 U/L (45-117); Anion Gap 4 (5-15); BUN 24 mg/dL (7-18); BUN/Creat Ratio 23.5 RATIO (10-20); Calcium,Total 9.2 mg/dL (8.5-10.1); Chloride 108 mmol/L (98-107); Creatinine, Serum 1.02 mg/dL (0.55-1.02); EST Glomerular Filtration Rate 58 mL/min (>60); Est Glom Filt Rate - Afr Amer 70 mL/min (>60); Globulin 3.7 g/dL (2.2-4.2); Glucose 102 mg/dL (74-106); Potassium 4.6 mmol/L (3.5-5.1); Protein, Total 7.8 g/dL (6.4-8.2); Sodium Level 139 mmol/L (136-145)
[2020-03-16 13:19] LABS: Microalbumin,Random Urine 21.7 mg/L (NO RANGE EST.); Microalbumin:Creatinine Ratio 20.3 mg/g CRE (<30 mg/g CRE)
[2020-03-16 13:39] LABS: Hemoglobin A1c 6.9 % (3.8-5.6)
== END ==
PROVIDERS: PCP Family Medicine; Referring Provider Family Medicine; Visit Provider Family Medicine
DX: E11.9 Type 2 diabetes mellitus without complications (principal)
CPT/HCPCS: 36415; 80053; 82043; 82570; 83036

== ENCOUNTER 2020-04-05 16:49 | Emergency (ER) | payer MEDICARE, SELFPAY ==
[2020-04-05 16:50] VITALS: BP 197/111; PULSE 76; RESP 18; TEMP 36.1; O2SAT 99; BMI 29.5
--- NOTE | 2020-04-05 17:15 | RAD_ITS ---
STUDY: X-RAY - RIGHT ELBOW REASON FOR EXAM: Female, 65 years old. Fall. Elbow pain. TECHNIQUE: 2 view(s) of the elbow. COMPARISON: None. FINDINGS: Generalized osteopenia of the visualized bony structures. There is a comminuted fracture of the distal humerus without marked displacement. There is no obvious fracture of the radius or ulna. There is degenerative arthrosis of the radiocapitellar and ulnotrochlear articulations. There is diffuse soft tissue swelling. RAD/Elbow 2 Views IMPRESSION: Comminuted fracture of the distal humerus. There is no visualized dislocation. Electronically Signed: Victor Hugo Tobar DO at 17:35 EST Tel [phone], Service support ,
--- NOTE | 2020-04-05 17:44 | ED.VISSUMM ---
- ER Visit Summary Date of Service: 04/05/20 Chief Complaint: [Injury right elbow] History of Present Illness: The patient is a 65 F [presents to the emergency department after falling today and injuring her right elbow around 4:30 PM. Patient states that her foot got caught on a rug on her front porch causing her to fall onto her right side. Patient states her right arm is paralyzed from a prior stroke but she fell directly on her elbow. She is complaining of pain and swelling to the elbow and pain with range of motion. Patient denies wrecking her head. She denies neck pain. She denies any other injuries. She has been ambulatory.] Physical Examination: [HEENT-PERRLA, EOMI. Cranial nerves II through XII grossly intact. TMs clear. Mucous membranes moist. No adenopathy. Cardiovascular-regular rate and rhythm without murmur or ectopy Lungs-clear to auscultation, chest wall stable without crepitus or subcu emphysema Abdomen-normoactive bowel sounds, soft, nontender, no rebound or rigidity, no peritoneal signs. Extremities-intact ?4, normal range of motion, normal pulses. Right elbow-patient has diffuse soft tissue swelling with limited range of motion secondary to pain. No open skin noted. Right arm is essentially flaccid and holds the fingers contracted secondary to prior stroke.] Test Results: [Rays of the right elbow obtained. X-rays interpreted by myself as a supracondylar fracture of the distal humerus that is comminuted however minimally displaced. Radiology in agreement with interpretation.] Emergency Department Course and Treatment: [She was placed in a posterior long arm splint.] Case was discussed with orthopedic surgeon on-call Dr. Lamar Zee who will see patient in the office. Treatment Plan: [Patient will be given a prescription for [place] for pain and referred to orthopedics.] Disposition: [Discharged home in stable condition] Impression: [Right distal humerus fracture] This note was generated with [employer] software. It may contain incorrect words, spelling, and punctuation that were not noted in review of the chart prior to signing ED Disposition - Plan for ED Patient: Referrals: Daniel Lopez MD [Primary Care Provider] -
--- NOTE | 2020-04-05 17:46 | DCINST.ED_ITS ---
ED Disposition - Plan for ED Patient: Instructions: ED Elbow Fracture Prescriptions: Hydrocodone Bitart/Apap 5-325 [[place] 5MG-325MG] 1 tab PO Q4H PRN PRN 2 Days #20 tab PRN Reason: Pain Prescription Printed Referrals: Daniel Lopez MD [Primary Care Provider] - Amina Zee DO [STAFF PHYSICIAN] - 3-5 Days
== END 2020-04-05 18:07 | disposition home or self-care (01) ==
LOC: ED 18:04
PROVIDERS: Emergency Provider Emergency Medicine; PCP Family Medicine
DX: S42.421A Displaced comminuted supracondylar fracture without intercondylar fracture of right humerus, initial encounter for closed fracture (principal); W19.XXXA Unspecified fall, initial encounter; Z86.73 Personal history of transient ischemic attack (TIA), and cerebral infarction without residual deficits; E11.9 Type 2 diabetes mellitus without complications; I10 Essential (primary) hypertension; E78.00 Pure hypercholesterolemia, unspecified
CPT/HCPCS: 29105; 73070; 99283

== ENCOUNTER 2020-04-12 11:01 | Outpatient (RCR) | payer MEDICARE, SELFPAY ==
--- NOTE | 2020-04-12 15:42 | HP.OTEVAL_ITS ---
Patient's Visit Information ROCÍO ORDONEZ is a 65 year old F, referred to Occupational Therapy by SOLEDAD Galvan, with a diagnosis of right humerus fx. Date of Evaluation: 04/12/20 Occupational Therapist: Misty Pool, GREGG/Brody, CHT - Subjective This 65 year old female was seen for OT eval with dx of right humrus fx. pt is in need of custom orthosis to provide support and protection to pt as fx heals. 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 has requested removal long arm orthosis for right UE. pt suffered fall 04/05/20. - Quick DASH-Disab of Arm,Shoulder& Hand Quick DASH Score: 75.0000 - Goals Goal:: pt will demo ind. doffing and donning of custom orthosis for right UE by end of 1st session. pt will demo understanding of skin care and precuations of use of orthosis by end of 1st session. - Rehabilitation General Assessment: pt is one week from right humerus fx and in need of custom orthosis for protection and support while fx is healing. pt demo a need of skilled OT services 1x week for 6 weeks to ensure orthosis is fitting well and skin is not breaking down. Today therapist jean-claude. custom long arm orthosis to provide support and protection to right UE. Pt ed. pt on use and care of orthosis. Skin care and precautions . pt to return to clinic if orthosis is in need of adj. pt agree and demo understanding of orthosis use, she demo understanding of ind. doffing and donning of orthosis. Rehabilitation Potential: Good - Anticipated Interventions Orthoses, Joint Protection/Energy Conservation, Home Program Other Interventions: orthosis use. skin checks - Visit Plan Frequency: 1x/Week Duration: 6 Weeks TEXT: Thank you for the opportunity to evaluate your patient. For Medicare and Medicare HMO plans, please review the plan of care and approve it. It will need to be FAXED BACK to us at [phone] for Medicare purposes. Please let me know if there are questions or concerns regarding this plan of care. Physician Signature:_ Date:
--- NOTE | 2020-07-11 14:41 | HP.OT.NRP ---
ROCÍO ORDONEZ was seen in my office for initial evaluation on 04/12/20. The following Plan of Care was established for this patient: Initial Frequency: 1x/Week Initial Duration: 6 Weeks Anticipated Interventions: Orthoses, Joint Protection/Energy Conservation, Home Program Other Interventions: orthosis use. skin checks This patient was last seen in our office 04/12/20. Pertinent comments regarding their Occupational therapy will appear below: pt was jean-claude. custom orthosis at her first visit- pt has not returned for adj or further tx. due to time lapse in services pt d/c. At this point I will be discontinuing this patient from occupational therapy. I would be happy to see this patient again in the future if found appropriate by the physician. Thank you! Misty Pool, OTR/L, CHT
== END 2020-04-12 19:00 | disposition home or self-care (01) ==
LOC: OT 11:01
PROVIDERS: PCP Family Medicine; Referring Provider Physician Assistant; Visit Provider Physician Assistant
DX: S42.491A Other displaced fracture of lower end of right humerus, initial encounter for closed fracture (principal); S42.301D Unspecified fracture of shaft of humerus, right arm, subsequent encounter for fracture with routine healing
CPT/HCPCS: 97166

== ENCOUNTER → 2020-05-03 12:50 | Outpatient (CLI) | payer MEDICARE, SELFPAY ==
[2020-04-05 16:50] VITALS: BMI 29.5
--- NOTE | 2020-05-03 12:52 | CT_ITS ---
STUDY: CT RIGHT SHOULDER REASON FOR EXAM: Female, 65 years old. POST FALL, INJURY RADIATION DOSAGE (If Supplied By Facility): CTDIvol = ( 28.44 ) mGy, DLP = ( 1046.54 ) mGycm TECHNIQUE: The patient was scanned in a multi detector CT scanner. High resolution transaxial imaging was performed without the administration of intravenous contrast material. Sagittal and coronal images were reconstructed. Individualized dose optimization techniques were used for this CT. COMPARISON: None. FINDINGS: There is mild osteoarthritis of the glenohumeral articulation, with mild articular joint space narrowing and mild osteoarthritic spurring. Normal glenoid rim, neck and visualized scapula. Normal humeral head, neck and tuberosities. Normal coracoid process. Normal visualized lateral clavicle. There is mild osteoarthritis with articular joint space narrowing. There is a Type II morphology (curved), with a neutral orientation. Normal visualized muscles and soft tissue structures. CT/Extremity Upper without Contra IMPRESSION: There is a comminuted fracture of the lateral part of the right clavicle of the right clavicle possibly a pathologic fracture. There is probably an underlying osteolytic lesion at the fracture site. Electronically Signed: Perico Martinez, at 13:25 EST Tel , Service support ,
== END ==
PROVIDERS: PCP Family Medicine; Referring Provider Physician Assistant; Visit Provider Physician Assistant
DX: G83.21 Monoplegia of upper limb affecting right dominant side (principal); M25.511 Pain in right shoulder; S49.91XA Unspecified injury of right shoulder and upper arm, initial encounter
CPT/HCPCS: 73200

== ENCOUNTER → 2020-06-22 12:09 | Outpatient (CLI) | payer MEDICARE, SELFPAY ==
--- NOTE | 2020-06-22 12:20 | BD_ITS ---
STUDY: DUAL ENERGY X-RAY ABSORPTIOMETRY / DXA REASON FOR EXAM: Female, 65 years old. Patient unsure of devora age. Pat is 177.7# and 63.25 and quot; a loss of .75 and quot; loss. Past hx of smoking. Exercises a little to none. Hx of a right elbow and right shoulder fx''s. TECHNIQUE: Bone Mineral Density (BMD) measurements of lumbar spine and bilateral hips were obtained. COMPARISON: None. FINDINGS: Lumbar Spine (L1-L4): g/cm2 (0.911) / T-score (-2.2) / Z-score (0.6) Findings are suggestive of osteopenia with a high fracture risk. Left Femur Total: g/cm2 (0.780) / T-score (-1.8) / Z-score (0.7) Left Femoral Neck: g/cm2 (0.697) / T-score (-2.5) / Z-score (-1.0) Right Femur Total: g/cm2 (0.721) / T-score (-2.3) / Z-score (-1.1) Right Femoral Neck: g/cm2 (0.664) / T-score (-2.7) / Z-score (-1.2) BD/Dexa Bone Density Study IMPRESSION: The patient is considered osteoporotic as outlined below according to World Min Organization (WHO) criteria with a high fracture risk. Reference Information: The T-score is the number of standard deviations above or below the standard which is normal for young adults at their peak bone mineral density. The World Health Organization (WHO) interprets the T-scores as follows: Above -1 Normal bone density Between -1 and -2.5 Osteopenia Equal to / or below -2.5 Osteoporosis As a practical clinical guideline, osteopenia may be graded as follows: Mild -1 through -1.5 Moderate -1.6 through -2.0 Severe -2.1 through -2.4 The Z-score is the number of standard deviations above or below age-matched controls. A Z-score of less than -1.5 would be considered abnormal. References: 1. NIH Osteoporosis and Related Bone Diseases www osteo.org 2. International Society for Clinical Densitometry www iscd.org 3. National Osteoporosis Foundation www nof.org Electronically Signed: Germain Billings MD at 15:33 EST , Service support ,
== END ==
PROVIDERS: PCP Family Medicine; Referring Provider Family Medicine; Visit Provider Family Medicine
DX: Z78.0 Asymptomatic menopausal state (principal)
CPT/HCPCS: 77080

== ENCOUNTER 2021-01-03 16:28 | Inpatient (IN) | payer MEDICARE, SELFPAY ==
[2021-01-03 16:29] VITALS: BP 137/93; PULSE 95; RESP 17; TEMP 37; O2SAT 96
[2021-01-03 16:51] VITALS: BMI 30.3
--- NOTE | 2021-01-03 17:04 | CT_ITS ---
We are attempting to reach an attending provider to discuss findings. An addendum with communication details will be sent when the communication is complete. STUDY: CT HEAD STROKE PROTOCOL W/O CONTRAST INJECTION REASON FOR EXAM: Female, 65 years old. Neuro deficit, acute, stroke suspected RADIATION DOSAGE (If Supplied By Facility): CTDIvol = ( ) mGy, DLP = ( 812.98 ) mGycm TECHNIQUE: Transaxial CT imaging of the brain was performed without administration of intravenous contrast material. Individualized dose optimization techniques were used for this CT. COMPARISON: 05/14/2018 FINDINGS: Normal soft tissue structures. Normal calvarium. Calcification of cavernous carotids. Normal size ventricles and extra-axial spaces for the patient''s age. Normal white matter tracts of the cerebral hemispheres. Old lacunar infarcts in the body of the left caudate nucleus and thalamus.. Normal brainstem. Normal cerebellum. Tiny hypoattenuated density in the right thalamus consistent with old infarct There is no intracranial hemorrhage. There are no findings of an acute ischemic infarction. Normal visualized paranasal sinuses. No significant change since prior exam. CT/STROKE Brain/Head without Cont IMPRESSION: Mild periventricular white matter ischemic changes and old bilateral lacunar infarcts. No acute bleed. If concern for acute infarct MRI recommended.. Electronically Signed: Marquise Gonzalez MD at 17:43 EDT , Service support ,
--- NOTE | 2021-01-03 17:04 | EKG12_ITS ---
Test Reason : NEURO Blood Pressure : / mmHG Vent. Rate : 084 BPM Atrial Rate : 084 BPM P-R Int : 218 ms QRS Dur : 088 ms QT Int : 396 ms P-R-T Axes : 021 -25 011 degrees QTc Int : 467 ms Sinus rhythm with 1st degree A-V block Otherwise normal ECG Confirmed by AFIA HOGAN, REGINALDO ([id number]), primer expeditor and drier SAUL DUAGN ([id number]) on 01/04/2021 12:56:10 PM Referred By: DELIA Confirmed By:NICKIE OREILLY MD
--- NOTE | 2021-01-03 17:10 | ED.VIS.STROK ---
HPI History of Present Illness Chief Complaint: Neuro S/Sx Informant: patient and family Onset/Context/Timing Onset: Days Timing: Continuous Quality and Location: Positive for Slurred Speech and Expressive Aphasia Current Severity: Moderate Maximum Severity: Moderate Associated Symptoms Associated Symptoms: Negative for Headache, Nausea, Vomiting and Chest Pain Narrative Narrative: 65-year-old female history of a prior stroke 4 to 5 years ago for which she has had chronic right hand and arm weakness. Last known well approximately Friday at 5:30 PM. Yesterday noticed a change in her speech. Today they barely can understand her. They deny any nausea, vomiting, diarrhea or fever. She is on a daily aspirin. No other blood thinners. Prior similar symptoms: Yes Recent Illness/Hospitalization: No PFSH PFSH Medical History Diabetes mellitus HTN (hypertension) hx of stroke Seizure Home Medications aspirin 81 mg PO DAILY@0800 01/05/20 [History Last Taken 01/04/20 17:00] metformin 500 mg PO BID 01/05/20 [History Last Taken 01/05/20 06:00] pravastatin 40 mg PO DINNER 01/05/20 [History Last Taken 01/04/20 17:00] alendronate 70 mg tablet 70 mg PO MARTINEZ 06/22/20 [History Last Taken 12/24/20] carvedilol 3.125 mg PO DAILY 01/03/21 [History Last Taken Unknown] levetiracetam 1,000 mg PO BID 01/03/21 [History Last Taken Unknown] Allergy/AdvReac Type Severity Reaction Status Date / Time STEROIDS AdvReac PT UNSURE Uncoded 01/03/21 16:29 OF REACTION Social History Smoking Status: Unknown if ever smoked ROS ROS ED ROS Narrative Denies recent illness. Review of Systems ROS Unobtainable: Denies due to encephalopathy Constitutional Constitutional ED: Denies fever(s) or subjective Eyes Eyes: Denies change in vision ENT ENT ED: Denies ear pain or rhinorrhea Cardiovascular Cardiovascular: Denies chest pain Respiratory/Chest Respiratory/Chest: Denies cough or dyspnea Gastrointestinal Gastrointestinal: Denies abdominal pain, diarrhea, nausea or vomiting Genitourinary Genitourinary ED: Denies dysuria Musculoskeletal Musculoskeletal: Denies myalgias Integumentary Denies rash Neurologic Neurologic: Denies headache(s) Psychiatric Psychiatric: Denies depression Endocrine Endocrinology: Denies polyuria Hematologic/Lymphatic Hematologic/Lymphatic: Denies easy bruising Allergic/Immunologic Allergic/Immunologic ED: Denies urticaria EXAM Physical Exam Narrative Exam Narrative: Older female no acute distress vital signs stable afebrile. H EENT exam no trauma. Mild right facial droop.. Last motions are intact. Obviously slurred speech and expressive aphasia. Neck nontender. Lungs clear to auscultation bilaterally. Heart regular rate and rhythm no murmur. Abdomen soft nontender. Extremities she has weakness and contracture of the right hand and arm. Both lower extremities have normal strength. No drift. Left upper extremity unremarkable normal strength and sensation. Neurologically she has an obvious expressive aphasia, slurred speech, mild right facial droop and chronic right arm weakness that is from the prior stroke 4 to 5 years ago. Const Vital Signs: 01/03/21 16:29 01/03/21 17:11 01/03/21 18:59 Temperature 98.6 F Temperature Source Temporal Pulse Rate 95 62 Respiratory Rate 17 15 Blood Pressure 137/93 H 131/59 H Blood Pressure Mean 107 83 Pulse Ox 96 96 Oxygen Delivery Method Room Air Room Air Room Air Positive well nourished and well developed; Negative for unkempt General Appearance ED: well developed and NAD; Negative for unkempt HEENT Reports moist mucous membranes atraumatic Eyes PERRL and EOMs intact bilaterally Neck no lymphadenopathy, supple and no JVD General: Negative for tenderness Chest Wall inspection of chest normal and palpation of chest normal Resp normal respiratory effort and clear to auscultation bilaterally Auscultation: Negative for rales, rhonchi or wheezes Cardio no murmurs Rate: regular rate Rhythm: regular rhythm Heart Sounds: Negative for S1 normal or S2 normal GI normal to inspection, nondistended, normoactive bowel sounds, soft to palpation, non-tender, non-distended and no masses Auscultation: normoactive bowel sounds Palpation: Negative for tender, guarding or rebound tenderness present Back/Spine no CVA tenderness Extremity normal to inspection Extremity Narrative: Right arm weakness and contracture right hand from old stroke. Other extremities nontender. No edema. Normal motor strength and sensation. Neuro Neuro Narrative: Right facial droop mild. Expressive aphasia. Slurred speech. Chronic right arm weakness and contracture. NIH score of at least 5. Sensorium / Orientation: alert Speech: Negative for speech normal Psych mental status grossly normal Appearance: Negative for unkempt Mood & Affect: Negative for depressed Skin Lesions: no lesions Rashes: no rashes STROKE Vital Signs/Narrative: Vital Signs Temp Pulse Resp BP Pulse Ox 01/03/21 18:59 62 15 131/59 H 96 01/03/21 16:29 98.6 F 95 17 137/93 H 96 MDM MDM MDM Narrative Medical decision making narrative: 65-year-old with expressive aphasia appears to have an acute on chronic prior stroke. CTA and labs are pending. She will need admitted. She is outside the TPA window. Lab Data Attestation: I reviewed the patient's lab results. Lab results narrative: CBC shows a white count of 6. Hemoglobin 13. PT/INR PTT unremarkable electrolytes show a gap of 5 creatinine 1.14 glucose 1.23 normal troponin. Labs: Laboratory Results - last 24 hr 01/03/21 01/03/21 01/03/21 17:00 17:00 17:00 WBC 6.5 RBC 4.58 Hgb 13.3 Hct 39.6 MCV 86.5 MCH 29.0 MCHC 33.6 RDW Std Deviation 41.6 RDW Coeff of Liudmila 13.3 Plt Count 171 MPV 11.0 Immature Gran % (Auto) 0.300 Neut % (Auto) 66.9 Lymph % (Auto) 22.3 [place] % (Auto) 7.7 Eos % (Auto) 2.3 Baso % (Auto) 0.5 Absolute Neuts (auto) 4.3 Absolute Lymphs (auto) 1.45 Nucleated RBC % 0 PT 13.5 INR 1.1 APTT 28.3 Sodium 140 Potassium 4.3 Chloride 109 H Carbon Dioxide 26.0 Anion Gap 5 BUN 33 H Creatinine 1.14 H Estim Creat Clear Calc 42.48 Est GFR (MDRD) Af Amer 61 Est GFR (MDRD) Non-Af 51 L BUN/Creatinine Ratio 28.9 H Glucose 123 H Calcium 9.0 Troponin I High Sens 8 Radiography Diagnostic Testing: Radiology Impression Brain CT 01/03/21 17:04 IMPRESSION: Mild periventricular white matter ischemic changes and old bilateral lacunar infarcts. No acute bleed. If concern for acute infarct MRI recommended.. Electronically Signed: Marquise Gonzalez MD at 17:43 EDT , Service support , ADDENDUM: 01/03/21 1801 IMPRESSION: Mild periventricular white matter ischemic changes and old bilateral lacunar infarcts. No acute bleed. If concern for acute infarct MRI recommended.. N.B. : The above Results were Read Back by Marquise Gonzalez MD to Dr Donnie MD, and understanding confirmed on 01/03/2021 17:54:44 (ET). Electronically Signed: Marquise Gonzalez MD at 17:43 EDT , Service support , Chest X-Ray 01/03/21 17:25 IMPRESSION: Normal x-ray examination of the chest. Electronically Signed: Marquise Gonzalez MD at 18:18 EDT , Service support , Head/Neck CTA 01/03/21 17:28 IMPRESSION: Minor atherosclerotic changes of the brain. 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 : The above Results were Read Back by Marquise Gonzalez MD to ??, AA, and understanding confirmed on 01/03/2021 17:55:25 (ET). Electronically Signed: Marquise Gonzalez MD at 17:55 EDT , Service support , ADDENDUM: 01/03/21 1802 IMPRESSION: Minor atherosclerotic changes of the brain. 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 : The above Results were Read Back by Marquise Gonzalez MD to ??, AA, and understanding confirmed on 01/03/2021 17:55:25 (ET). Electronically Signed: Marquise Gonzalez MD at 17:55 EDT , Service support , Rhythm Strip Rhythm Strip: Sinus Rhythm Rate: 84 Ectopy: None EKG Initial EKG: Attestation: I personally reviewed and interpreted this EKG as follows: Interpretation: Sinus Rhythm and No Acute Injury Pattern Comments: Normal sinus rhythm rate 84 no acute signs of [place] or ischemia unchanged from prior. Prior: Unchanged Stroke Documentation Questions Stroke Team Activated: No Reviewed Inclusion/Exclusion criteria: Yes Was Patient considered for Endovascular Intervention?: No IV Alteplase (t-PA) Administered: No No contraindications for IV Alteplase (t-PA) administration.: No Alteplase (t-PA) risks, benefits, alternative discussed: No Not given: Patient refusal: No Discharge Plan Triage Chief Complaint: Neuro S/Sx ED Provider: Quang Fields Dx/Rx/DC Orders Clinical Impression: Stroke, Diabetes Prescriptions: No Action alendronate 70 mg tablet 70 mg PO MARTINEZ RF: 0 metformin 500 MG tablet 500 mg PO BID RF: 0 pravastatin 40 MG tablet 40 mg PO DINNER RF: 0 aspirin 81 MG tablet,chewable 81 mg PO DAILY@0800 RF: 0 carvedilol 3.125 mg tablet 3.125 mg PO DAILY RF: 0 levetiracetam 500 mg tablet 1,000 mg PO BID RF: 0 Primary Care Provider: Daniel Lopez Referrals: Daniel Lopez MD [Primary Care Provider] - Disposition Disposition: Acute Care Hospital [facility]
--- NOTE | 2021-01-03 17:25 | RAD_ITS ---
STUDY: X-RAY CHEST REASON FOR EXAM: Female, 65 years old. Neuro deficit, acute, stroke suspected TECHNIQUE: AP portable COMPARISON: None. FINDINGS: The lungs are clear and expanded. There is no demonstrated pleural abnormality. Normal size heart. Normal mediastinum and zee. Normal visualized pulmonary arteries. Normal visualized aortic arch and descending thoracic aorta. Normal visualized thoracic spine. Normal visualized ribs, clavicles, and shoulders. There is no demonstrated abnormality of the visualized soft tissue structures of the upper abdomen. RAD/Chest 1 View IMPRESSION: Normal x-ray examination of the chest. Electronically Signed: Marquise Gonzalez MD at 18:18 EDT , Service support ,
--- NOTE | 2021-01-03 17:28 | CT_ITS ---
STUDY: CTA HEAD AND NECK WITH CONTRAST REASON FOR EXAM: Female, 65 years old. Neuro deficit, acute, stroke suspected RADIATION DOSAGE (If Supplied By Facility): CTDIvol = ( 15.75 ) mGy, DLP = ( 701.50 ) mGycm TECHNIQUE: CT angiography was performed with a multi-detector CT scanner. Data acquisition was obtained from the skull base through the vertex following intravenous administration of IV 100mL [id number]-[id number]. MIP images were reconstructed from the axial data set. Post-processing of the angiographic images was performed, with multiplanar reformation and 3D reconstruction. Individualized dose optimization techniques were used for this CT. COMPARISON: No relevant priors. FINDINGS: Normal bilateral petrous carotid arteries. Normal right cavernous carotid artery with a normal supraclinoid bifurcation. Mild calcific plaquing of the left cavernous carotid artery with a normal supraclinoid bifurcation. Normal right A1 segments of the anterior cerebral artery. Normal left A1 segments of the anterior cerebral artery. Anterior communicating artery not visualized consistent with normal variant Normal bilateral A2 segments of the anterior cerebral arteries. Normal right M1 and M2 segments of the middle cerebral arteries, with a normal M1 bifurcation. Normal left M1 and M2 segments of the middle cerebral arteries, with a normal M1 bifurcation. Normal right posterior communicating artery (PCOM). Normal left posterior communicating artery (PCOM). Normal bilateral vertebral arteries. Normal basilar artery with a normal basilar bifurcation. The visualized bilateral superior cerebellar (SCA) arteries are normal. Normal bilateral P1, P2 and visualized P3 segments of the posterior cerebral arteries. There is no demonstrated aneurysm of the [place]. There is no demonstrated abnormality of the visualized brain. AORTIC ARCH: Normal visualized aortic arch. Normal origins of the brachiocephalic, left common carotid, and left subclavian arteries. RIGHT CAROTID ARTERIES: Normal right common carotid artery (CCA). Moderate calcific plaquing of the right common carotid bulb. Normal origin of the right internal carotid (ICA) artery without a hemodynamically significant stenosis. Normal visualized cervical portion of the right internal carotid artery. Normal origin of the right external carotid artery (ECA). LEFT CAROTID ARTERIES: Normal left common carotid artery (CCA). Normal left common carotid bulb. Moderate to severe calcific plaquing of the origin of the left internal carotid (ICA) artery with greater than 70% stenosis of the left carotid bulb. Mild calcific plaquing of the origin of the left internal carotid artery without hemodynamically significant stenosis Normal visualized cervical portion of the left internal carotid artery. Normal origin of the left external carotid artery (ECA). VERTEBRAL ARTERIES: Normal bilateral vertebral arteries. Findings are not changed appreciably since prior study 01/23/2020 CT/STROKE CTA Head AND Neck W/Con IMPRESSION: Minor atherosclerotic changes of the brain. 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 : The above Results were Read Back by Marquise Gonzalez MD to ??, AA, and understanding confirmed on 01/03/2021 17:55:25 (ET). Electronically Signed: Marquise Gonzalez MD at 17:55 EDT , Service support ,
[2021-01-03 17:41] LABS: Absolute Lymphocyte Count 1.45 X10^3/uL (0.83-4.51); Absolute Neutrophil Count 4.3 X10^3/uL (2.0-7.7); Basophil# 0.03 X10^3/uL; Basophil% 0.5 % (0-1); Eosinophil# 0.15 X10^3/uL; Eosinophils% 2.3 % (0-5); Hematocrit 39.6 % (37-47); Hemoglobin 13.3 g/dL (12.0-15.0); Lymphocyte # 1.45 X10^3/ul (0.83-4.51); Lymphocyte % 22.3 % (19-41); Mean Corp Hgb Conc 33.6 g/dL (32-36); Mean Corpuscular Volume 86.5 fL (81-99); Monocyte% 7.7 % (0-10); NRBC Flagged by Analyzer 0 % (0-5); Neutrophil # 4.34 X10^3/uL (2.7-7.7); Neutrophil % 66.9 % (47-70); Platelet Count 171 K/mm3 (150-450); RBC Distribution Width CV 13.3 % (11.6-14.6); RBC Distribution Width SD 41.6 fl (35.1-43.9); Red Blood Count 4.58 M/mm3 (4.2-5.4); White Blood Count 6.5 K/mm3 (4.4-11.0)
[2021-01-03 17:46] LABS: International Normalized Ratio 1.1; Prothrombin Time (Protime)PT. 13.5 SECONDS (11.7-14.9)
[2021-01-03 17:47] LABS: Partial Thromboplast Time 28.3 Seconds (24.1-36.2)
[2021-01-03 17:52] LABS: Anion Gap 5 (5-15); BUN 33 mg/dL (7-18); BUN/Creat Ratio 28.9 RATIO (10-20); Chloride 109 mmol/L (98-107); Creatinine, Serum 1.14 mg/dL (0.55-1.02); EST Glomerular Filtration Rate 51 mL/min (>60); Est Glom Filt Rate - Afr Amer 61 mL/min (>60); Estimated Creatinine Clearance 42.48 ml/min; Glucose 123 mg/dL (74-106); Potassium 4.3 mmol/L (3.5-5.1); Sodium Level 140 mmol/L (136-145); Troponin-I HS 8 pg/mL (3.0-54.0)
[2021-01-03 18:59] VITALS: BP 131/59; PULSE 62; RESP 15; O2SAT 96
[2021-01-03 19:00] VITALS: BMI 30.3
--- NOTE | 2021-01-03 19:20 | HP.PCM.HOS_ITS ---
HPI - General General Date of Admission: 01/03/21 Date of Service: 01/03/21 Chief Complaint: Aphasia HPI Narrative ROCÍO ORDONEZ, is a 65 F with a significant history of CVA and diabetes mellitus who presents to the emergency department with expressive aphasia. Her symptoms was noticed a day before presentation. Her family think that her expressive aphasia has improved since being at emergency department. Last time she was found well was 2 days before presentation. Also patient have chronic right- sided weakness from her stroke about 4 to 5 years ago. Further, patient has right facial droop the family think is unchanged. [facility] Medical History Diabetes mellitus HTN (hypertension) hx of stroke Seizure Home Medications aspirin 81 mg PO DAILY@0800 01/05/20 [History Last Taken 01/04/20 17:00] metformin 500 mg PO BID 01/05/20 [History Last Taken 01/05/20 06:00] pravastatin 40 mg PO DINNER 01/05/20 [History Last Taken 01/04/20 17:00] alendronate 70 mg tablet 70 mg PO MARTINEZ 06/22/20 [History Last Taken 12/24/20] carvedilol 3.125 mg PO DAILY 01/03/21 [History Last Taken Unknown] levetiracetam 1,000 mg PO BID 01/03/21 [History Last Taken Unknown] Allergy/AdvReac Type Severity Reaction Status Date / Time STEROIDS AdvReac PT UNSURE Uncoded 01/03/21 16:29 OF REACTION Family History (Updated 01/03/21 @ 19:[address] Parker Jacobson MD) Other Diabetes no surgical history Social History (Updated 01/03/21 @ 19:[address] Parker Jacobson MD) Smoking Status: Former smoker ROS ROS Narrative Constitutional: Denies anorexia and change in weight Eyes: Denies blurry vision, change in eye color, change in vision, discharge from eye(s), double vision, erythema, eye pain, loss of vision or other HEENT: Denies abnormal hearing, dysphagia, ear pain, epistaxis, headache(s), hearing loss, nasal congestion, nasal discharge, post nasal drip, sinus pressure, sore throat or other Cardiovascular: Denies chest pain. Denies dyspnea on exertion, orthopnea and paroxysmal nocturnal dyspnea Respiratory/Chest: Denies cough, excessive phlegm production, shortness of breath with exertion and wheezing Gastrointestinal: Denies abdominal pain, coffee ground emesis, constipation, diarrhea, dyspepsia, hematemesis, hematochezia, loose stools, melena, nausea, vomiting or other Genitourinary: Denies burning urination, difficulty urinating, dysuria, hematuria, nocturia, urinary frequency, urinary hesitancy, urinary incontinence, urinary urgency or other Musculoskeletal: Denies arthralgias, back pain, joint pain, joint stiffness, joint swelling, myalgias, neck pain or other Neurologic: Reports expressive aphasia and dysarthria. Right upper extremity paralysis. Denies confusion, disequilibrium, dizziness, headache(s), numbness, paresthesias, seizure-like activity, seizures, syncope, tingling, tremor(s) or other Psychiatric: Denies anxiety, depression, homicidal ideation, suicidal ideation or other Endocrinology: Denies change in body appearance, cold intolerance, excessive sweating, heat intolerance, polydipsia, polyuria or other Hematologic/Lymphatic: Denies anemia, easy bleeding, easy bruising, lymphadenopathy or other Integumentary: Denies rashes Allergic/Immunologic: Denies rhinitis, hives, eczema, asthma or other Vital Signs Vital Signs Vital Signs: 01/03/21 16:29 01/03/21 17:11 01/03/21 18:59 Temperature 98.6 F Temperature Source Temporal Pulse Rate 95 62 Respiratory Rate 17 15 Blood Pressure 137/93 H 131/59 H Blood Pressure Mean 107 83 Pulse Ox 96 96 Oxygen Delivery Method Room Air Room Air Room Air Weight Weight: 80.2 kg Body Mass Index (BMI) 30.3 Physical Exam Narrative Physical exam: General: Well-nourished, well-developed. Head: Normocephalic, atraumatic, no tenderness Eyes: PERRLA, EOMI ENT, no trauma, moist mucous membranes, no rhinorrhea Neck: Nontender, full range of motion, no spinal tenderness, deformities, step- off CVS: Regular rate and rhythm. S1-S2 present. No murmur, gallop or rub. Respiratory : clear to auscultation bilaterally, chest wall nontender, no wheezing Abdomen: Soft, nontender, nondistended, normal bowel sounds, no masses : Deferred Back: Nontender, no CVA tenderness, no midline spinal tenderness, deformities, step-offs Extremities: Nontender full range of motion, no trauma Skin: Normal color, no trauma, abrasions Neuro: Right upper extremity strength 0 out of 5. Strength in all other extremities 5 out of 5. Deep tendon reflexes not hyperreflexia, throughout. Decreased strength in shrugging the right shoulder. Can shrug left shoulder. C an do geikgk-oy-htdl test with fingers of the left hand. Unable to do zjschu-ey-[id number] test with fingers of the right hand secondary to weakness. Patient is refusing to do affx-jh-ukeg test while being very jovial. Slight flattening of the nasolabial fold of the right face. Psychiatry: Normal mood. Normal affect. Not depressed. Not anxious. Results Lab / Micro Data Result Diagrams: 01/03/21 17:00 01/03/21 17:00 Labs: Laboratory Results - last 24 hr 01/03/21 17:00: WBC 6.5, RBC 4.58, Hgb 13.3, Hct 39.6, MCV 86.5, MCH 29.0, MCHC 33.6, RDW Std Deviation 41.6, RDW Coeff of Liudmila 13.3, Plt Count 171, MPV 11.0, Immature Gran % (Auto) 0.300, Neut % (Auto) 66.9, Lymph % (Auto) 22.3, [place] % (Auto) 7.7, Eos % (Auto) 2.3, Baso % (Auto) 0.5, Absolute Neuts (auto) 4.3, Absolute Lymphs (auto) 1.45, Nucleated RBC % 0 01/03/21 17:00: PT 13.5, INR 1.1, APTT 28.3 01/03/21 17:00: Sodium 140, Potassium 4.3, Chloride 109 H, Carbon Dioxide 26.0, Anion Gap 5, BUN 33 H, Creatinine 1.14 H, Estim Creat Clear Calc 42.48, Est GFR (MDRD) Af Amer 61, Est GFR (MDRD) Non-Af 51 L, BUN/Creatinine Ratio 28.9 H, Glucose 123 H, Calcium 9.0, Troponin I High Sens 8 Rhythm Strip Rhythm Strip: Sinus Rhythm Rate: 84 Ectopy: None Radiology Impression Brain CT 01/03/21 17:04 IMPRESSION: Mild periventricular white matter ischemic changes and old bilateral lacunar infarcts. No acute bleed. If concern for acute infarct MRI recommended.. Electronically Signed: Marquise Gonzalez MD at 17:43 EDT , Service support , ADDENDUM: 01/03/21 1801 IMPRESSION: Mild periventricular white matter ischemic changes and old bilateral lacunar infarcts. No acute bleed. If concern for acute infarct MRI recommended.. N.B. : The above Results were Read Back by Marquise Gonzalez MD to Dr Donnie MD, and understanding confirmed on 01/03/2021 17:54:44 (ET). Electronically Signed: Marquise Gonzalez MD at 17:43 EDT , Service support , Chest X-Ray 01/03/21 17:25 IMPRESSION: Normal x-ray examination of the chest. Electronically Signed: Marquise Gonzalez MD at 18:18 EDT , Service support , Head/Neck CTA 01/03/21 17:28 IMPRESSION: Minor atherosclerotic changes of the brain. 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 : The above Results were Read Back by Marquise Gonzalez MD to ??, AA, and understanding confirmed on 01/03/2021 17:55:25 (ET). Electronically Signed: Marquise Gonzalez MD at 17:55 EDT , Service support , ADDENDUM: 01/03/21 1802 IMPRESSION: Minor atherosclerotic changes of the brain. 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 : The above Results were Read Back by Marquise Gonzalez MD to ??, AA, and understanding confirmed on 01/03/2021 17:55:25 (ET). Electronically Signed: Marquise Gonzalez MD at 17:55 EDT , Service support , Assessment & Plan Assessment/Plan (1) Stroke: QUALIFIERS: CVA mechanism: unspecified Qualified Code(s): I63.9 - Cerebral infarction, unspecified PLAN: Strokelike symptom Serial NINDS NIH Scale ordered Radiologist impression CT of the head: Mild periventricular white matter ischem ic changes and old bilateral lacunar infarcts. No acute bleed. Actual CT of the head was independently interpreted and agree with radiologist interpretation. Radiologist impression of head and neck CTA: Minor atherosclerotic changes of the brain. Moderate to severe of sclerotic disease in the neck with greater than 70% stenosis of the left carotid bulb utilizing NASCET criteria. Review of old records show that on 01/05/2020 patient had a head/neck CTA results of which is unchanged from current. Patient had carotid Dopplers on 01/05/2020 with interpretation summary as below: Minimal smooth plaque at the proximal right internal carotid artery with less than 50% stenosis. Irregular calcific plaque at the proximal right external carotid artery with less than 50% stenosis. Irregular calcific plaque with shadowing at the proximal left internal carotid artery with less than 50% stenosis. Less than 50% stenosis left external carotid artery Patent and antegrade vertebrals bilaterally. We will repeat carotid duplex. -Check Hba1c, Lipid level Physical therapy, occupational therapy and speech therapy to work with patient. N.p.o. until bedside swallow eval. Daily aspirin continued. Will Plavix to regimen. Patient is on home pravastatin 40 mg nightly. Unclear why patient is on days moderate intensity statin. Consider further discussion with patient/ family on while patient is on this regimen in the setting of prior stroke. For now we will continue pravastatin 40 mg nightly. Check CMP in the a.m. Permissive hypertension. Control blood pressure with labetalol for systolic blood pressure of more than 220 or diastolic blood pressure of more than 120. MRI of head ordered. Echocardiogram ordered. Hypertension Blood pressure is not within goal In the setting of stroke home carvedilol held. Labetalol and hydralazine as needed for permissive hypertension. Trend blood pressure and adjust blood pressure medications. Diabetes mellitus Patient with mild hyperglycemia on presentation Hold home Metformin. Accu-Chek QA [facility] with correction scale insulin ordered. Osteoporosis: Alendronate continued. DVT prophylaxis: SCD ordered. Charges/Coding Visit Charges Inpatient E&M: 03046 Init Hosp L3
[2021-01-03 19:56] VITALS: BP 131/79; PULSE 87; RESP 14; TEMP 36.6; O2SAT 97
--- NOTE | 2021-01-03 20:08 | ECHOD_ITS ---
Version 2 Reason For Study: TIA/CVA Procedure This was a 2D Doppler, Color Flow transthoracic echocardiogram. Exam performed portable in patient room. Left Ventricle Normal LV size. The estimated ejection fraction is 65 %. No evidence for diastolic dysfunction. No regional wall motion abnormalities noted. Right Ventricle Normal RV size. Normal systolic function. Atria Normal left atrium. Normal right atrium. No doppler evidence for ASD. Bubble contrast study negative for right to left interatrial shunt. Mitral Valve There is no mitral valve stenosis. No mitral valve insufficiency. Tricuspid Valve There is no tricuspid stenosis. Unable to estimate RV systolic pressure due to insufficient tricuspid regurgitant envelope. Aortic Valve Trisinus/trileaflet aortic valve. There is no aortic stenosis. No aortic valve insufficiency. Pulmonic Valve There is no pulmonic valvular stenosis. No pulmonic valve insufficiency. Great Vessels Normal aortic root. Pericardium/Pleural No pericardial effusion. Medication Performed a rapid injection of agitated mix of 9 cc saline and 1cc air to assess for atrial septal defect. MMode/2D Measurements & Calculations LVIDd: 3.9 cm IVSd: 0.84 cm Ao root diam: 3.1 cm LVIDs: 2.5 cm LVPWd: 1.1 cm RVDd: 3.2 cm FS: 35.4 % LAV(MOD-bp): 57.1 ml LA A4 area: 18.8 cm2 LA dimension(2D): 3.3 cm LAV(MOD-bp) Indexed: 30.8 ml/m2 LAV(MOD-sp2): 55.5 ml LAV(MOD-sp4): 55.9 ml Time Measurements MV dec time: 0.25 sec Doppler Measurements & Calculations MV E max reginald: 78.0 cm/sec Lat Peak E' Reginald: 8.6 cm/sec Med Peak E' Reginald: 6.3 cm/sec MV A max reginald: 103.4 cm/sec E/E' lat: 9.1 E/E' med: 12.5 MV E/A: 0.75 Ao V2 max: 119.1 cm/sec LV V1 max: 117.0 cm/sec PA V2 max: 90.9 cm/sec Ao max P.7 mmHg LV V1 max P.5 mmHg ECHO/Echo Complete Interpretation Summary The estimated ejection fraction is 65 %. No evidence for diastolic dysfunction. Ordering Physician: Parker Jacobson Referring Physician: Daniel Lopez Performed By: Rachel Salguero RDCS, RVT
--- NOTE | 2021-01-03 20:08 | MRI_ITS ---
STUDY: MRI BRAIN WITHOUT CONTRAST REASON FOR EXAM: Female, 65 years old. cva TECHNIQUE: Standardized multiplanar fat and water weighted pulse sequences were obtained. COMPARISON: CT 01/03/2021, MRI 01/06/2020 FINDINGS: There is mild cerebral atrophy with widening of the extra-axial spaces and ventricular dilatation. There are a limited number of small white matter hyperintensities, distributed throughout the deep white matter tracts of the cerebral hemispheres, consistent with mild chronic white matter ischemic changes. There is no evidence for recent intracranial ischemia or other cause of cytotoxic edema on diffusion weighted imaging (DWI). Normal T2* images of the brain without demonstrated susceptibility artifact. There is no demonstrated hemosiderin stain. Normal bilateral basal ganglia. Normal thalami. There is no extra-axial fluid accumulation. Normal flow voids within the major intracranial circulation suggesting patency by spin echo criteria. Normal sella turcica, pituitary gland, infundibular stalk, optic chiasm and hypothalamus. Normal tectal plate and pineal gland. Normal midbrain, jodie and medulla. Normal cerebellum. Normal basal cisterns. Normal bilateral temporal bones. Normal bilateral internal auditory canals. No demonstrated orbital abnormality, within the constraints of a routine brain study. Normal visualized paranasal sinuses. Normal calvarium and skull base. Normal visualized soft tissue structures. Normal visualized upper cervical spine. MRI/Brain without Contrast IMPRESSION: Involutional changes of the brain, as described above. No acute infarct. Electronically Signed: Joshua Livingston MD at 11:11 EDT Tel , Service support ,
[2021-01-03 20:20] VITALS: BP 146/78; PULSE 92; RESP 18; TEMP 36.8; O2SAT 99
[2021-01-03 20:36] VITALS: PULSE 85
[2021-01-03 21:16] LABS: Bedside Glucose 123 mg/dL (70-110)
--- NOTE | 2021-01-03 21:34 | CDU_ITS ---
Reason For Study: CVA Rt. Velocities/BP Lt. Velocities/BP Prox CCA 68.5/13.5 cm/sec. Prox CCA 163.8/32.0 cm/sec. Mid CCA 60.8/15.7 cm/sec. Mid CCA 104.5/23.3 cm/sec. Dist CCA 72.9/22.3 cm/sec. Dist CCA 69.5/16.7 cm/sec. Prox ICA 84.2/29.2 cm/sec. Prox ICA 181.3/54.0 cm/sec. Mid ICA 92.8/30.2 cm/sec. Mid ICA 130.8/34.2 cm/sec. Dist ICA 51.9/19.4 cm/sec. Dist ICA 113.3/43.0 cm/sec. Rt. ICA/CCA = 1.4. Lt. ICA/CCA = 1.7. Prox ECA 163.1/9.4 cm/sec. Prox ECA 128.6/14.5 cm/sec. Rt. Vert. 42.1/13.8 cm/sec. Lt. Vert. 62.8/29.9 cm/sec. Right Extracranial There is homogeneous, smooth atherosclerotic plaque noted in the right common carotid artery. There is homogeneous, irregular atherosclerotic plaque noted in the right internal carotid artery. There is heterogeneous, irregular atherosclerotic plaque noted in the right external carotid artery. The right external carotid artery is not well visualized. Antegrade flow is noted in the right vertebral artery. Left Extracranial There is homogeneous, smooth atherosclerotic plaque noted in the left common carotid artery. There is heterogeneous, irregular atherosclerotic plaque noted in the left internal carotid artery. The left external carotid artery is not well visualized. Antegrade flow is noted in the left vertebral artery. There is heterogeneous, irregular atherosclerotic plaque noted in the left bulb. Procedure Carotid Duplex 09428. The study was technically difficult. Exam performed portable in patient room. VL/Carotid Duplex Ultrasound Interpretation Summary Mild calcific plaque of the proximal right internal carotid artery with less th an 50% stenosis Less than 50% stenosis right external carotid artery Irregular calcific plaque at the proximal left internal carotid with 50 to 69% stenosis of the left internal carotid Less than 50% stenosis left external carotid Patent and antegrade vertebrals bilaterally The exam was noted to be technically difficult to perform Ordering Physician: Parker Jacobson Referring Physician: DON RUCKER Performed By: Lucille Garcia, PEDRO, RVT
--- NOTE | 2021-01-03 22:11 | PCS.PANDOC ---
PANDEMIC DOCUMENTATION INITIATED: Date: 12/18/2020 Time: 190
[2021-01-03 22:34] VITALS: O2SAT 96
[2021-01-04] VITALS (11 sets, daily range): BP systolic 110–163; BP diastolic 62–88; PULSE 76–91; RESP 12–18; TEMP 36.4–36.8; O2SAT 95–97
[2021-01-04 06:51] LABS: Bedside Glucose 117 mg/dL (70-110)
[2021-01-04 07:27] LABS: ALB/GLOB Ratio 0.9 RATIO (0.9-2.4); AST(SGOT) 27 U/L (15-37); Alanine Aminotransfer ALT/SGPT 23 U/L (13-56); Albumin, Serum 3.4 g/dL (3.2-5.0); Alkaline Phosphatase 63 U/L (45-117); Anion Gap 4 (5-15); BUN 24 mg/dL (7-18); Calcium,Total 8.7 mg/dL (8.5-10.1); Chloride 109 mmol/L (98-107); Cholesterol 101 mg/dL (200); EST Glomerular Filtration Rate 76 mL/min (>60); Est Glom Filt Rate - Afr Amer 92 mL/min (>60); Estimated Creatinine Clearance 60.54 ml/min; Globulin 3.6 g/dL (2.2-4.2); Glucose 130 mg/dL (74-106); High Density Lipoprotein 45 mg/dL; Potassium 3.9 mmol/L (3.5-5.1); Sodium Level 138 mmol/L (136-145); Triglycerides 105 mg/dL; Very Low Density Lipoprotein 21 mg/dL (5-40)
[2021-01-04 07:38] LABS: Hemoglobin A1c 6.9 % (3.8-5.6)
[2021-01-04] MEDS: Aspirin 81 MG TAB.CHEW PO (08:10)
[2021-01-04] MEDS: Clopidogrel Bisulfate 75 MG Tablet PO (09:26)
[2021-01-04 11:41] LABS: Bedside Glucose 143 mg/dL (70-110)
--- NOTE | 2021-01-04 12:47 | CASEMGMT ---
As per RN, stroke has been ruled out, therefore PHQ-9 not completed at this time. JORGE A Turner
--- NOTE | 2021-01-04 15:47 | PN.HOSP_ITS ---
Documented by User: Tevin ROWE 01/04/21 15:58 Subjective Subjective Patient is a 65-year-old female lying in bed, alert and oriented to self. Is difficult to assess patient insight into current condition as she responds inappropriately to questions. It is unclear at this time whether patient is at her baseline or that she is acutely confused. Objective Data Objective Data Vital Signs: Vital Signs Temp Pulse Resp BP Pulse Ox 97.9 F 91 12 150/73 H 97 01/04/21 15:34 01/04/21 15:34 01/04/21 15:34 01/04/21 15:34 01/04/21 15:34 Oxygen Delivery Method Room Air Weight: 175 lb 4.28 oz Body Mass Index (BMI) 30.0 Intake & Output: Intake and Output for Last 24 Hours 01/02/21 01/03/21 01/04/21 23:59 23:59 23:59 Intake Total 220 / 220 360 / 360 Balance 220 / 220 360 / 360 Lab / Micro Data Result Diagrams: 01/03/21 17:00 01/04/21 05:50 Labs: Laboratory Results - last 24 hr 01/03/21 17:00: WBC 6.5, RBC 4.58, Hgb 13.3, Hct 39.6, MCV 86.5, MCH 29.0, MCHC 33.6, RDW Std Deviation 41.6, RDW Coeff of Liudmila 13.3, Plt Count 171, MPV 11.0, Immature Gran % (Auto) 0.300, Neut % (Auto) 66.9, Lymph % (Auto) 22.3, [place] % (A uto) 7.7, Eos % (Auto) 2.3, Baso % (Auto) 0.5, Absolute Neuts (auto) 4.3, Absolute Lymphs (auto) 1.45, Nucleated RBC % 0 01/03/21 17:00: PT 13.5, INR 1.1, APTT 28.3 01/03/21 17:00: Sodium 140, Potassium 4.3, Chloride 109 H, Carbon Dioxide 26.0, Anion Gap 5, BUN 33 H, Creatinine 1.14 H, Estim Creat Clear Calc 42.48, Est GFR (MDRD) Af Amer 61, Est GFR (MDRD) Non-Af 51 L, BUN/Creatinine Ratio 28.9 H, Glucose 123 H, Calcium 9.0, Troponin I High Sens 8 01/03/21 20:55: POC Glucose 123 H 01/04/21 05:50: Sodium 138, Potassium 3.9, Chloride 109 H, Carbon Dioxide 25.0, Anion Gap 4 L, BUN 24 H, Creatinine 0.80, Estim Creat Clear Calc 60.54, Est GFR (MDRD) Af Amer 92, Est GFR (MDRD) Non-Af 76, BUN/Creatinine Ratio 30.0 H, Glucose 130 H, Calcium 8.7, Total Bilirubin 0.50, AST 27, ALT 23, Alkaline Phosphatase 63, Total Protein 7.0, Albumin 3.4, Globulin 3.6, Albumin/Globulin Ratio 0.9, Triglycerides 105, Cholesterol 101, LDL Cholesterol 35, VLDL Cholesterol 21, HDL Cholesterol 45 01/04/21 05:50: Hemoglobin A1c 6.9 H 01/04/21 06:30: POC Glucose 117 H 01/04/21 11:30: POC Glucose 143 H Radiography Diagnostic Testing: Radiology Impression Brain CT 01/03/21 17:04 IMPRESSION: Mild periventricular white matter ischemic changes and old bilateral lacunar infarcts. No acute bleed. If concern for acute infarct MRI recommended.. Electronically Signed: Marquise Gonzalez MD at 17:43 EDT , Service support , ADDENDUM: 01/03/21 1801 IMPRESSION: Mild periventricular white matter ischemic changes and old bilateral lacunar infarcts. No acute bleed. If concern for acute infarct MRI recommended.. N.B. : The above Results were Read Back by Marquise Gonzalez MD to Dr Donnie MD, and understanding confirmed on 01/03/2021 17:54:44 (ET). Electronically Signed: Marquise Gonzalez MD at 17:43 EDT , Service support , Chest X-Ray 01/03/21 17:25 IMPRESSION: Normal x-ray examination of the chest. Electronically Signed: Marquise Gonzalez MD at 18:18 EDT , Service support , Head/Neck CTA 01/03/21 17:28 IMPRESSION: Minor atherosclerotic changes of the brain. 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 : The above Results were Read Back by Marquise Gonzalez MD to ??, AA, and understanding confirmed on 01/03/2021 17:55:25 (ET). Electronically Signed: Marquise Gonzalez MD at 17:55 EDT , Service support , ADDENDUM: 01/03/21 1802 IMPRESSION: Minor atherosclerotic changes of the brain. 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 : The above Results were Read Back by Marquise Gonzalez MD to ??, AA, and understanding confirmed on 01/03/2021 17:55:25 (ET). Electronically Signed: Marquise Gonzalez MD at 17:55 EDT , Service support , Brain MRI 01/03/21 20:08 IMPRESSION: Involutional changes of the brain, as described above. No acute infarct. Electronically Signed: Joshua Livingston MD at 11:11 EDT Tel , Service support , Echocardiogram 01/03/21 20:08 Interpretation Summary The estimated ejection fraction is 65 %. No evidence for diastolic dysfunction. Ordering Physician: Parker Jaocbson Referring Physician: Daniel Lopez Performed By: Rachel Salguero, PEDRO, RVT Rhythm Strip Rhythm Strip: Sinus Rhythm Rate: 84 Ectopy: None Physical Exam Const alert Orientation / Consciousness: confused HEENT head/scalp atraumatic, moist oral mucous membranes and oropharynx normal Head and Scalp: normocephalic Eyes PERRL, EOMs intact bilaterally and conjunctivae normal Neck no lymphadenopathy, supple and no JVD Resp normal respiratory effort, no retractions, no use of accessory muscles and clear to auscultation bilaterally Cardio regular rate, regular rhythm, no murmurs and no JVD GI normal to inspection, nondistended, normoactive bowel sounds, soft to palpation and non-tender Extremity normal to inspection, full ROM and no clubbing, cyanosis or edema Skin no rashes or lesions noted, no wounds, skin turgor normal and no jaundice Neuro CN's II-XII intact bilaterally Psych affect normal Assessment & Plan Assessment/Plan (1) Stroke: QUALIFIERS: CVA mechanism: unspecified Qualified Code(s): I63.9 - Cerebral infarction, unspecified (2) Hypertension: QUALIFIERS: Hypertension type: essential hypertension (3) Diabetes: PLAN: Day 2 Discharge planning: Patient to discharge home when medically ready. 1) aphasia/right upper extremity weakness Brain MRI did not demonstrate any evidence of acute infarct, and only showed involutional changes of the brain. Head and neck CTA demonstrated greater than 70 percent stenosis in the left carotid artery. Carotid ultrasound ordered/ pending. SOC telemetry neurology consult obtained recommendations as follows: Obtain EEG continue aspirin, Plavix and statin. It is unclear at this time whether patient is at baseline or whether these symptoms are acute, will attempt to contact family to ascertain history. 2) HTN Continue home BP regimen. 3) DM2 Hold Metformin, continue Accu-Cheks with sliding scale insulin. 4) osteoporosis Continue alendronate. DVT prophylaxis - SCDs Patient seen by Tevin Will PA-C, under the supervision of Dr. Chester. Documented by User: Dr. Daniel Chester DO 01/04/21 16:24 Subjective Subjective Patient is able to articulate that her speech is at baseline and she does have chronic right upper extremity weakness which appears to be at baseline as well. Objective Data Lab / Micro Data Result Diagrams: 01/03/21 17:00 01/04/21 05:50 Physical Exam Narrative Noted that this patient were being evaluated for stroke but also while on TV there was stroke information on Dr. Vogt and when I brought this up to the patient about the irony, she was able to perhaps jokingly call me bastard. Resp normal respiratory effort, no retractions, no use of accessory muscles and clear to auscultation bilaterally Cardio regular rate, regular rhythm, S1 normal heart sound and S2 normal heart sound GI normal to inspection, nondistended, normoactive bowel sounds, soft to palpation, non-tender and non-distended Extremity normal to inspection Neuro Neuro Narrative: Right facial droop. Dysarthria. Sensorium / Orientation: awake Psych affect normal Assessment & Plan Assessment/Plan (1) Acute ischemic stroke: PLAN: Patient seen and examined independently. Data and vitals reviewed. I agree with the above note by the physician administrative assistant office manager. 1. Aphasia and right extremity weakness Unclear these are new findings. Patient has dysarthria at baseline. As well as a right upper strandy weakness. Seen by neurology who recommended continue with the patient's levetiracetam and to check an EEG. Charges/Coding Visit Charges Inpatient E&M: 84045 Subs Hosp L2
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
[2021-01-04 16:17] LABS: Bedside Glucose 128 mg/dL (70-110)
[2021-01-04] MEDS: Pravastatin 40 MG Tablet PO (21:23)
[2021-01-04] MEDS: Insulin Lispro 100 UNIT/ML INSULN.PEN SC (21:23)
[2021-01-04 21:41] LABS: Bedside Glucose 219 mg/dL (70-110)
[2021-01-05 03:00] VITALS: PULSE 76
[2021-01-05 03:34] VITALS: BP 159/93; PULSE 80; RESP 16; TEMP 36.7; O2SAT 97
[2021-01-05] MEDS: Acetaminophen 325 MG Tablet 650 MG PO (03:41)
[2021-01-05 06:06] LABS: Anion Gap 7 (5-15); BUN 17 mg/dL (7-18); BUN/Creat Ratio 23.9 RATIO (10-20); Calcium,Total 8.5 mg/dL (8.5-10.1); Chloride 108 mmol/L (98-107); Creatinine, Serum 0.71 mg/dL (0.55-1.02); EST Glomerular Filtration Rate 87 mL/min (>60); Est Glom Filt Rate - Afr Amer 106 mL/min (>60); Estimated Creatinine Clearance 68.21 ml/min; Glucose 134 mg/dL (74-106); Sodium Level 139 mmol/L (136-145)
[2021-01-05] MEDS: Insulin Lispro 100 UNIT/ML INSULN.PEN SC ×2 (06:50→11:19)
[2021-01-05 06:55] LABS: Bedside Glucose 153 mg/dL (70-110)
[2021-01-05 07:00] VITALS: PULSE 83
[2021-01-05 07:58] VITALS: O2SAT 95
[2021-01-05 08:08] VITALS: BP 176/97; PULSE 89; RESP 14; TEMP 37.1; O2SAT 98
[2021-01-05] MEDS: Carvedilol 3.125 MG TABLET PO (08:13)
[2021-01-05] MEDS: Aspirin 81 MG TAB.CHEW PO (08:13)
[2021-01-05] MEDS: Clopidogrel Bisulfate 75 MG Tablet PO (08:13)
--- NOTE | 2021-01-05 11:23 | PCM.DC ---
Discharge Instructions Diet Discharge Diet: No restrictions Activity Discharge Activity: Return to Normal Activity Weight Bearing Status: Weight bearing as tolerated Dressing / Incision Call your doctor if you observe: Fever of 101 or Higher, Numbness or Tingling, Shortness of breath, Dizziness, Chest pain, Increased palpitations (irregular heartbeat) and Calf discomfort Follow Up Care Please Follow Up With: Primary care provider When: Within the next two weeks. Test Results: Test results from this visit will be discussed in further detail at your follow-up appointment, if applicable. Discharge Plan Admission Admit Date/Time: 01/03/21 19:19 Primary Reason for Your Visit: Aphasia/right upper extremity weakness Attending Provider: Daniel Chester Primary Care Provider: Daniel Lopez Discharge Orders/Prescriptions Prescriptions: Continued alendronate 70 mg tablet 70 mg PO MARTINEZ RF: 0 metformin 500 MG tablet 500 mg PO BID RF: 0 pravastatin 40 MG tablet 40 mg PO DINNER RF: 0 aspirin 81 MG tablet,chewable 81 mg PO DAILY@0800 RF: 0 carvedilol 3.125 mg tablet 3.125 mg PO DAILY RF: 0 levetiracetam 500 mg tablet 1,000 mg PO BID RF: 0 Referrals / Follow Up: Branden Lincoln MD [STAFF PHYSICIAN] - Within 2 Weeks Daniel Lopez MD [Primary Care Provider] - Within 2 Weeks Trey Multani MD [STAFF PHYSICIAN] - Within 2 Weeks Disposition Disposition (needs filled in before D/C Order can be placed): Home, Self Care
[2021-01-05 11:25] LABS: Bedside Glucose 216 mg/dL (70-110)
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
[2021-01-05 14:33] VITALS: BP 130/94; PULSE 91; RESP 16; TEMP 37.1; O2SAT 97
--- NOTE | 2021-01-09 15:50 | CASEMGMT ---
RN CM Discharge Follow-up Phone Call: YOUSIF: 10 Strata: 3 Call Date: 01/09/21 Discharge Date: 01/05/21 Time of Call: 1545 Duration: 1 min Admitting Diagnosis: Acute CVA RN CM attempted to complete follow-up phone call after recent hospitalization. No answer, voice mailbox not setup and unable to leave message. CM to attempted again at later time.
== END 2021-01-05 15:05 | disposition home or self-care (01) | DRG 68 ==
LOC: ED 19:02 → PCU 19:29
PROVIDERS: Physician Assistant; Admitting Provider Hospitalist; Emergency Provider Emergency Medicine; PCP Family Medicine
DX: I65.22 Occlusion and stenosis of left carotid artery (principal); I69.320 Aphasia following cerebral infarction; E11.9 Type 2 diabetes mellitus without complications; I10 Essential (primary) hypertension; R29.810 Facial weakness; G83.21 Monoplegia of upper limb affecting right dominant side; H54.7 Unspecified visual loss; M24.541 Contracture, right hand; M81.0 Age-related osteoporosis without current pathological fracture; Z79.02 Long term (current) use of antithrombotics/antiplatelets; Z79.82 Long term (current) use of aspirin; Z79.83 Long term (current) use of bisphosphonates; Z79.84 Long term (current) use of oral hypoglycemic drugs; Z83.3 Family history of diabetes mellitus; Z87.891 Personal history of nicotine dependence; R94.01 Abnormal electroencephalogram [EEG]; R47.1 Dysarthria and anarthria
CPT/HCPCS: 36415; 70450; 70496; 70498; 70551; 71045; 80048; 80053; 80061; 82962; 83036; 84484; 85025; 85610; 85730; 92507; 92523; 92610; 93005; 93306; 93880; 95819; 97162; 97166; 99284; J7030; Q9967; A4216

== ENCOUNTER → 2021-01-16 09:14 | Outpatient (CLI) | payer MEDICARE, SELFPAY | PROVIDERS: PCP Family Medicine; Referring Provider Family Medicine; Visit Provider Family Medicine | DX: Z00.00 Encounter for general adult medical examination without abnormal findings (principal) ==

== ENCOUNTER 2021-01-20 10:27 | Emergency (ER) | payer MEDICARE, SELFPAY ==
[2021-01-20 10:30] VITALS: BP 144/87; PULSE 91; RESP 14; TEMP 36.8; O2SAT 98; BMI 28.5
--- NOTE | 2021-01-20 10:34 | ED.RN ---
rt arm deficit from previous stroke
--- NOTE | 2021-01-20 10:43 | ED.RN ---
speech deficit from previous stroke
--- NOTE | 2021-01-20 10:44 | CT_ITS ---
STUDY: CT BRAIN WITHOUT CONTRAST REASON FOR EXAM: Female, 65 years old. altered mental status RADIATION DOSAGE (If Supplied By Facility): CTDIvol = ( 44.99 ) mGy, DLP = ( 762.36 ) mGycm TECHNIQUE: Transaxial CT imaging of the brain was performed without administration of intravenous contrast material. Individualized dose optimization techniques were used for this CT. COMPARISON: 01/03/2021 FINDINGS: Normal soft tissue structures. Normal calvarium. There is mild cerebral atrophy with widening of the extra-axial spaces and ventricular dilatation. Focal encephalomalacia within the paravertebral white matter of the left parietal lobe consistent with a chronic white matter infarct. Chronic lacunar infarcts of the thalami bilaterally. Normal brainstem. Normal cerebellum. There is no intracranial hemorrhage. There are no findings of an acute ischemic infarction. Normal visualized paranasal sinuses. CT/Brain/Head without Contrast IMPRESSION: Chronic involutional changes of the brain. Electronically Signed: Joshua Livingston MD at 13:00 EDT Tel , Service support ,
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
[2021-01-20 11:18] LABS: Absolute Lymphocyte Count 1.19 X10^3/uL (0.83-4.51); Absolute Neutrophil Count 4.5 X10^3/uL (2.0-7.7); Basophil# 0.03 X10^3/uL; Basophil% 0.5 % (0-1); Eosinophil# 0.12 X10^3/uL; Eosinophils% 1.9 % (0-5); Hematocrit 41.6 % (37-47); Hemoglobin 13.6 g/dL (12.0-15.0); Lymphocyte # 1.19 X10^3/ul (0.83-4.51); Mean Corp Hgb Conc 32.7 g/dL (32-36); Mean Corpuscular Hgb 29.1 pg (27.0-32.0); Mean Corpuscular Volume 89.1 fL (81-99); Mean Platelet Vol. 10.9 fl (6.2-12.0); Monocyte# 0.45 X10^3/uL; Monocyte% 7.2 % (0-10); NRBC Flagged by Analyzer 0 % (0-5); Neutrophil # 4.45 X10^3/uL (2.7-7.7); Neutrophil % 71.1 % (47-70); Platelet Count 175 K/mm3 (150-450); RBC Distribution Width CV 13.2 % (11.6-14.6); RBC Distribution Width SD 42.8 fl (35.1-43.9); Red Blood Count 4.67 M/mm3 (4.2-5.4); White Blood Count 6.3 K/mm3 (4.4-11.0)
[2021-01-20 11:33] LABS: ALB/GLOB Ratio 0.8 RATIO (0.9-2.4); AST(SGOT) 36 U/L (15-37); Alanine Aminotransfer ALT/SGPT 34 U/L (13-56); Albumin, Serum 3.3 g/dL (3.2-5.0); Alkaline Phosphatase 97 U/L (45-117); Anion Gap 5 (5-15); BUN 15 mg/dL (7-18); BUN/Creat Ratio 15.9 RATIO (10-20); Calcium,Total 8.6 mg/dL (8.5-10.1); Chloride 105 mmol/L (98-107); Creatinine, Serum 0.94 mg/dL (0.55-1.02); EST Glomerular Filtration Rate 63 mL/min (>60); Est Glom Filt Rate - Afr Amer 76 mL/min (>60); Estimated Creatinine Clearance 53.69 ml/min; Globulin 3.9 g/dL (2.2-4.2); Glucose 233 mg/dL (74-106); Potassium 3.8 mmol/L (3.5-5.1); Protein, Total 7.2 g/dL (6.4-8.2); Sodium Level 138 mmol/L (136-145); Troponin-I HS 9 pg/mL (3.0-54.0)
[2021-01-20 13:00] VITALS: BP 158/82; PULSE 88; RESP 16; O2SAT 98
[2021-01-20 13:46] LABS: Mucous, Urine 0 SEEN /hpf (<or=2+)
[2021-01-20 13:47] LABS: Color, Urine Yellow (Yellow); Glucose, Dipstick 250 mg/dl (Normal); Ketone-Dipstick Negative (Negative); Leukocyte Esterase-Dipstick 500 /ul (Negative); Nitrite-Dipstick Negative (Negative); Occult Blood-Urine 150 /ul (Negative); Protein-Dipstick 30 mg/dl (Negative); Specific Gravity, Urine 1.025 (1.002-1.030); Urine Bilirubin Dipstick Negative (Negative); Urine Clarity Cloudy (Clear); Urine Urobilinogen Normal (Normal)
[2021-01-20 13:50] LABS: Bacteria 2+ /hpf (None Seen); Hyaline Cast 0-5 SEEN /lpf (0-5); Red Blood Cells-Urine 0-5 SEEN /hpf (0-5); Squamous Epithelial Cells - UA 0-5 SEEN /hpf (5-10); White Blood Cells 5-10 SEEN /hpf (0-5)
[2021-01-20 14:09] LABS: Amphetamine Urine VISTA NEGATIVE (<1000 ng/mL); Barbiturate Urine VISTA NEGATIVE (< 200 ng/mL); Benzodiazepine Urine VISTA NEGATIVE (< 200 ng/mL); Cocaine Urine VISTA NEGATIVE (< 300 ng/mL); Ecstacy Urine VISTA NEGATIVE (< 500 ng/mL); Methadone Urine VISTA NEGATIVE (< 300 ng/mL); PCP Urine VISTA NEGATIVE (< 25 ng/mL); THC Urine VISTA NEGATIVE (< 50 ng/mL); Vista UDS pH Range 5
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
[2021-01-20 15:24] VITALS: BP 145/81; PULSE 91; RESP 16; O2SAT 96
[2021-01-20] MEDS: Smz/Tmp Ds Tablet 1 TABLET PO (15:33)
--- NOTE | 2021-01-20 15:50 | CM.ED ---
SOCIAL WORK Patient's step-daughter, Esther ([phone]) arrived. Esther reports concerns for patient due to son's drug use and patient's deficits from stroke. Esther in agreement to take patient home with her. Informed this worker will be updating Adult Protective Services on Friday. Patient feels comfortable and safe with plan to return home with Esther and follow up with PCP due to UTI. Nursing reviewed d/c instructions with patient and step-daughter. No questions or concerns. Plan: Home with step-daughter Jimmy Luna, MUD MIXER HELPER, UI PROGRAMMER
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
== END 2021-01-20 15:54 | disposition home or self-care (01) ==
PROVIDERS: Emergency Provider Emergency Medicine; PCP Family Medicine
DX: N39.0 Urinary tract infection, site not specified (principal); E11.65 Type 2 diabetes mellitus with hyperglycemia; W07.XXXA Fall from chair, initial encounter; I10 Essential (primary) hypertension; Z79.82 Long term (current) use of aspirin; Z79.84 Long term (current) use of oral hypoglycemic drugs; Z86.73 Personal history of transient ischemic attack (TIA), and cerebral infarction without residual deficits; Z87.891 Personal history of nicotine dependence; R41.82 Altered mental status, unspecified
CPT/HCPCS: 70450; 80053; 80307; 81001; 82077; 84484; 85025; 87086; 87088; 99285; A4216

== ENCOUNTER 2021-03-14 13:00 | Outpatient (RCR) | payer MEDICARE, SELFPAY ==
--- NOTE | 2021-01-22 15:20 | HP.OTEVAL ---
Patient's Visit Information ROCÍO ORDONEZ is a 65 year old F, referred to Occupational Therapy by Dr. Daniel Lopez MD, with a diagnosis of CVA. Date of Evaluation: 01/22/21 Occupational Therapist: Misty Pool, GREGG/Brody, CHT - Subjective This 65 year old female was seen for OT eval with dx of CVA- pt has had a change in her right UE tone limiting use- pt reports LF and RF are painful with PROM- pt struggling with her PROM to stretch out her right UE. - ADLs Comments: Pt has reached a KEYON with use of left hand for all ADLs. - Pain right hand 0 - ROM Shoulder: left WNL right trace Elbow: left WNL right trace Forearm: left WNL right NA - Movement Muscle Tone: right hand wrist Max tone Movement Comments: pt demo with fisted right hand no ability to open hand ind. tone in high pt is at risk to develop contracture of right hand/wrist increasing risk of skin break down. - Quick DASH-Disab of Arm,Shoulder& Hand Quick DASH Score: 30.0000 - Goals Goal:: Pt will demo tolerance of PROM to right UE in Full ROM with no increase in tone noted greater than min by d.c. pt will demo the ability to extend digits and wrist actively by 30* indicating a decrease in flexor tone and increase in extensor movement by d/c Goal:: pt will report no pain greater than 1/10 with PROM - Rehabilitation General Assessment: PT demo with significant tone of right hand/wrist increasing risk of skin integrity. pt would benefit from skilled OT services 2x week for 6 weeks to decrease tone- ed. pt on PROM- as well as supportive hand/wrist brace to decrease flexion tone- pt may benefit from Botox injections to assist in decreasing contractures. pt agrees to POC. Rehabilitation Potential: Fair - Anticipated Interventions A/AAROM/PROM, Triggerpoint Release, Desensitization, Modalities, Orthoses, Ergonomic Education, Neuro Reeducation, Sensory Stimulation, ADL Training, Education re assistive Equipment, Education re Diagnosis, Caregiver Training, Home Program - Visit Plan Frequency: 1-2x /Week Duration: 6 Weeks TEXT: Thank you for the opportunity to evaluate your patient. For Medicare and Medicare HMO plans, please review the plan of care and approve it. It will need to be FAXED BACK to us at [phone] for Medicare purposes. Please let me know if there are questions or concerns regarding this plan of care. Physician Signature: Date:
--- NOTE | 2021-03-14 13:54 | HP.OTDCSUM ---
It has been my pleasure to treat ROCÍO ORDONEZ under orders from Dr. Daniel Lopez MD, for the diagnosis of CVA for a total of 6 visit(s). Please see the following information for a summary of their discharge status. Objective/Function: pt continues to demo with significant right wrist and digit tone that increases her risk of skin break down and contracture. pt will see dr in Apr. and discuss possible Botox injection and or muscle relaxer. Patient Goals: Regain Mobility, Decrease Muscle Tone Goal:: Pt will demo tolerance of PROM to right UE in Full ROM with no increase in tone noted greater than min by d.c. pt will demo the ability to extend digits and wrist actively by 30* indicating a decrease in flexor tone and increase in extensor movement by d/c Goal:: pt will report no pain greater than 1/10 with PROM Plan: D/C Discharge Comments: pt was seen for 6 OT visits- no change in pts right UE tone at this time- pt d/c due to pts limited progress. pt advised to return to her and reta osborne for tone and contractures. pt agree to d/c and reported she would talk to her regarding her tone. If there are questions or concerns regarding this patient's occupational therapy, please fell free to call me at [phone]. Thank you for the referral of this patient. Sincerely, Misty Pool, OTR/L, CHT
== END 2021-03-14 19:00 | disposition home or self-care (01) ==
LOC: OT 13:00
PROVIDERS: PCP Family Medicine; Referring Provider Family Medicine; Visit Provider Family Medicine
DX: I69.354 Hemiplegia and hemiparesis following cerebral infarction affecting left non-dominant side (principal)
CPT/HCPCS: 97140; 97166; 97530

== ENCOUNTER → 2021-10-18 | Outpatient (CLI) | payer MEDICARE, SELFPAY ==
[2021-10-18 18:44] LABS: ALB/GLOB Ratio 1.1 RATIO (0.9-2.4); AST(SGOT) 27 U/L (15-37); Alanine Aminotransfer ALT/SGPT 25 U/L (13-56); Albumin, Serum 4.1 g/dL (3.2-5.0); Alkaline Phosphatase 94 U/L (45-117); Anion Gap 4 (5-15); BUN 22 mg/dL (7-18); BUN/Creat Ratio 22.4 RATIO (10-20); Calcium,Total 9.7 mg/dL (8.5-10.1); Chloride 107 mmol/L (98-107); Creatinine, Serum 0.98 mg/dL (0.55-1.02); EST Glomerular Filtration Rate 60 mL/min (>60); Est Glom Filt Rate - Afr Amer 73 mL/min (>60); Globulin 3.6 g/dL (2.2-4.2); Glucose 93 mg/dL (74-106); Potassium 4.1 mmol/L (3.5-5.1); Protein, Total 7.7 g/dL (6.4-8.2); Sodium Level 141 mmol/L (136-145)
== END | disposition home or self-care (01) ==
LOC: MFPLAB 17:03
PROVIDERS: PCP Family Medicine; Referring Provider Family Medicine; Visit Provider Family Medicine
DX: I10 Essential (primary) hypertension (principal)
CPT/HCPCS: 36415; 80053

== ENCOUNTER → 2022-04-09 | Outpatient (CLI) | payer MEDICARE, SELFPAY ==
[2022-04-09 18:04] LABS: AST(SGOT) 24 U/L (15-37); Alanine Aminotransfer ALT/SGPT 27 U/L (13-56); Albumin, Serum 3.7 g/dL (3.2-5.0); Alkaline Phosphatase 96 U/L (45-117); Anion Gap 8 (5-15); BUN 18 mg/dL (7-18); BUN/Creat Ratio 21.1 RATIO (10-20); Calcium,Total 9.7 mg/dL (8.5-10.1); Chloride 103 mmol/L (98-107); Creatinine, Serum 0.86 mg/dL (0.55-1.02); EST Glomerular Filtration Rate 70 mL/min (>60); Est Glom Filt Rate - Afr Amer 85 mL/min (>60); Globulin 3.6 g/dL (2.2-4.2); Glucose 159 mg/dL (74-106); Potassium 4.1 mmol/L (3.5-5.1); Protein, Total 7.3 g/dL (6.4-8.2); Sodium Level 138 mmol/L (136-145)
== END | disposition home or self-care (01) ==
LOC: MFPLAB 15:19
PROVIDERS: PCP Family Medicine; Referring Provider Family Medicine; Visit Provider Family Medicine
DX: I10 Essential (primary) hypertension (principal)
CPT/HCPCS: 36415; 80053

== ENCOUNTER 2022-06-11 12:47 | Inpatient (IN) | payer MEDICARE, SELFPAY ==
[2022-06-11] VITALS (8 sets, daily range): BP systolic 121–157; BP diastolic 59–87; PULSE 76–98; RESP 18–24; TEMP 36.2–36.8; O2SAT 96–98; BMI 24.3; BMI 25.2
--- NOTE | 2022-06-11 12:56 | EKG12_ITS ---
Test Reason : Blood Pressure : / mmHG Vent. Rate : 080 BPM Atrial Rate : 080 BPM P-R Int : 214 ms QRS Dur : 074 ms QT Int : 354 ms P-R-T Axes : 056 013 038 degrees QTc Int : 408 ms Sinus rhythm with 1st degree A-V block Otherwise normal ECG Confirmed by RAYMOND HOGAN, JHONATHAN ([id number]), society editor SAUL DUGAN ([id number]) on 06/13/2022 11:40:37 AM Referred By: SHANNON Confirmed By:JHONATHAN ANDRADE MD
--- NOTE | 2022-06-11 12:57 | CT_ITS ---
STUDY: CT BRAIN WITHOUT CONTRAST REASON FOR EXAM: Female, 67 years old. Stroke symptoms. PREVIOUS CVA RADIATION DOSAGE (If Supplied By Facility): CTDIvol = ( 44.99 ) mGy, DLP = ( 812.98 ) mGycm TECHNIQUE: Transaxial CT imaging of the brain was performed without administration of intravenous contrast material. Individualized dose optimization techniques were used for this CT. COMPARISON: Comparison is made with prior study dated 01/20/2021. FINDINGS: Normal soft tissue structures. Normal calvarium. There is mild cerebral atrophy with widening of the extra-axial spaces and ventricular dilatation. There are areas of decreased attenuation within the white matter tracts of the supratentorial brain, consistent with microvascular disease changes. Stable lacunar infarcts in the left thalamus. Normal brainstem. Normal cerebellum. There is no intracranial hemorrhage. There are no findings of an acute ischemic infarction. Atherosclerotic calcific plaques of the cavernous portions of the internal carotid arteries bilaterally. Normal visualized paranasal sinuses. CT/Brain/Head without Contrast IMPRESSION: Chronic involutional changes of the brain. Stable examination. Electronically Signed: Germain Billings MD at 14:15 EST ,
--- NOTE | 2022-06-11 12:59 | ED.RN ---
NO STROKE ALERT AT THIS TIME, SX STARTED FRIDAY. CT HEAD SCAN ORDERED PER DR DUMONT. ALLERGIC TO IODINE CONTRAST SO NO CTA ORDERED AT THIS TIME
[2022-06-11 13:12] LABS: Absolute Lymphocyte Count 1.61 X10^3/uL (0.83-4.51); Absolute Neutrophil Count 4.5 X10^3/uL (2.0-7.7); Basophil# 0.04 X10^3/uL; Basophil% 0.6 % (0-1); Eosinophil# 0.22 X10^3/uL; Eosinophils% 3.2 % (0-5); Hematocrit 40.4 % (37-47); Hemoglobin 13.4 g/dL (12.0-15.0); Lymphocyte # 1.61 X10^3/ul (0.83-4.51); Lymphocyte % 23.4 % (19-41); Mean Corp Hgb Conc 33.2 g/dL (32-36); Mean Corpuscular Volume 87.4 fL (81-99); Mean Platelet Vol. 10.1 fl (6.2-12.0); Monocyte# 0.47 X10^3/uL; Monocyte% 6.8 % (0-10); NRBC Flagged by Analyzer 0 % (0-5); Neutrophil # 4.53 X10^3/uL (2.7-7.7); Neutrophil % 65.9 % (47-70); Platelet Count 203 K/mm3 (150-450); RBC Distribution Width CV 13.7 % (11.6-14.6); RBC Distribution Width SD 43.8 fl (35.1-43.9); Red Blood Count 4.62 M/mm3 (4.2-5.4); White Blood Count 6.9 K/mm3 (4.4-11.0)
[2022-06-11 13:21] LABS: Prothrombin Time (Protime)PT. 12.5 SECONDS (11.7-14.9)
[2022-06-11 13:22] LABS: Partial Thromboplast Time 28.3 Seconds (24.1-36.2)
[2022-06-11 13:24] LABS: Anion Gap 7 (5-15); BUN 19 mg/dL (7-18); BUN/Creat Ratio 19.8 RATIO (10-20); Chloride 106 mmol/L (98-107); Creatinine, Serum 0.96 mg/dL (0.55-1.02); EST Glomerular Filtration Rate 62 mL/min (>60); Est Glom Filt Rate - Afr Amer 75 mL/min (>60); Estimated Creatinine Clearance 51.17 ml/min; Glucose 118 mg/dL (74-106); Potassium 4.3 mmol/L (3.5-5.1); Sodium Level 141 mmol/L (136-145)
--- NOTE | 2022-06-11 14:05 | RAD_ITS ---
STUDY: X-RAY CHEST REASON FOR EXAM: Female, 67 years old. Stroke TECHNIQUE: Single AP portable view of the chest. COMPARISON: Comparison is made with prior study dated 01/03/2021. FINDINGS: The lungs are clear and expanded. There is no demonstrated pleural abnormality. Normal size heart. Normal mediastinum and zee. Normal visualized pulmonary arteries. There is atherosclerotic calcification of the aortic arch with tortuosity. There are diffuse degenerative changes of the visualized thoracic spine. Normal visualized ribs, clavicles, and shoulders. There is no demonstrated abnormality of the visualized soft tissue structures of the upper abdomen. RAD/Chest 1 View (Portable) IMPRESSION: No acute abnormality is seen. Electronically Signed: Germain Billings MD at 14:35 EST ,
--- NOTE | 2022-06-11 15:26 | EDS_ITS ---
HPI History of Present Illness Chief Complaint: Neuro S/Sx Detail of Chief Complaint: Strokelike symptoms (slurred speech and expressive aphasia) Informant: patient and family (Granddaughter supplemented history) Onset/Context/Timing Onset: Yesterday (Greater than 24 hours ago) Timing: Continuous (The slurred speech is constant the expressive aphasia is intermittent) Quality and Location: Positive for Slurred Speech, Expressive Aphasia and - (Patient has no use of her right upper extremity due to prior stroke, 6 years ago) Onset: Yesterday morning Current Severity: Mild Maximum Severity: Moderate Worsened by: Nothing Relieved by: Nothing Associated Symptoms Associated Symptoms: Negative for Headache, Nausea, Vomiting or Chest Pain Narrative Narrative: Patient is a 67-year-old woman with history of left hemispheric stroke with right upper extremity residual and mild slurred speech who presents with worsening speech and expressive aphasia. She denies any sensory or motor abnormality. Granddaughter is concerned because her speech is difficult to understand and at times what she says does not make sense. There was 3 episodes that she is aware of. Patient denies any problems with balance or coordination. She denies problems with speech. Patient denies double vision, blurred vision loss of vision. Eyes regular use of decreased hearing. She does have history of type 2 diabetes, hypertension, prior stroke and seizure disorder. Prior similar symptoms: Yes Recent Illness/Hospitalization: No PFSH PFS Medical History Acute ischemic stroke Diabetes Diabetes mellitus HTN (hypertension) hx of stroke Hypertension Seizure Stroke Home Medications aspirin 81 mg chewable tablet 81 mg PO DAILY@0800 01/05/20 [History Last Taken 0 01/04/20 17:00] metformin 500 mg tablet 500 mg PO BID 01/05/20 [History Last Taken 01/05/20 06:00] alendronate 70 mg tablet 70 mg PO MARTINEZ BONES 06/22/20 [History Last Taken 12/24/20] carvedilol 3.125 mg tablet 3.125 mg PO DAILY 01/03/21 [History Last Taken Unknown] levetiracetam 500 mg tablet 1,000 mg PO BID 01/03/21 [History Last Taken Unknown] atorvastatin 80 mg tablet (Lipitor) 80 mg PO QHS #30 tabs 01/05/21 [Rx Last Taken Unknown] sulfamethoxazole 800 mg-trimethoprim 160 mg tablet 1 tab PO BID #14 TABLETS 01/20/21 [Rx Last Taken Unknown] Allergy/AdvReac Type Severity Reaction Status Date / Time Iodinated Contrast Media Allergy Other Verified 06/11/22 12:50 [CONTRASTS] Corticosteroids AdvReac PT UNSURE Verified 06/11/22 12:50 (Glucocorticoids) OF REACTION [steroids] Family History Other Diabetes Social History (Updated 06/11/22 @ 15:[address] Rodrigo Vitale MD) household members: none Smoking Status: Former smoker substance use type: does not use ROS ROS ED Constitutional Constitutional ED: Denies chills, fever(s), subjective, sweats or weakness Eyes Eyes: Denies blurry vision, change in vision or diplopia ENT ENT ED: Denies ear pain, rhinorrhea or sore throat Cardiovascular Cardiovascular: Denies chest pain, palpitations, paroxysmal nocturnal dyspnea or racing heartbeat Respiratory/Chest Respiratory/Chest: Denies cough, dyspnea, dyspnea on exertion, paroxysmal nocturnal dyspnea or sputum Gastrointestinal Gastrointestinal: Denies abdominal pain, constipation, diarrhea, melena, nausea or vomiting Genitourinary Genitourinary ED: Denies dysuria, hematuria or urinary frequency Musculoskeletal Musculoskeletal: Denies arthralgias, back pain, myalgias or neck pain Neurologic Neurologic: Reports other Details: Per HPI narrative ; Denies headache(s), paresthesias or weakness Psychiatric Psychiatric: Denies anxiety or depression Endocrine Endocrinology: Denies polydipsia, polyphagia or polyuria Hematologic/Lymphatic Hematologic/Lymphatic: Denies easy bleeding or easy bruising EXAM Physical Exam Const Vital Signs: 06/11/22 12:48 06/11/22 15:04 06/11/22 15:06 Temperature 97.8 F Temperature Source Temporal Pulse Rate 98 86 Respiratory Rate 18 24 H Blood Pressure 132/85 H 121/77 H Blood Pressure Mean 100 91 Pulse Ox 98 97 98 Oxygen Delivery Method Room Air Room Air Room Air Positive well nourished and well developed Constitutional Narrative: There is no deviation time of protrusion. Uvula is midline. There is no drooling. General Appearance ED: well developed and NAD HEENT Reports moist mucous membranes atraumatic Eyes PERRL and EOMs intact bilaterally Eyes Narrative: There is no nystagmus. General Eye ED: Negative for pale conjunctiva or scleral icterus Neck no lymphadenopathy, supple and no JVD Neck Narrative: Trachea is midline. Chest Wall inspection of chest normal and palpation of chest normal Resp normal respiratory effort and clear to auscultation bilaterally Cardio Rate: regular rate Rhythm: regular rhythm Heart Sounds: S1 normal and S2 normal GI normal to inspection, nondistended, normoactive bowel sounds, soft to palpation, non-tender, non-distended and no masses Back/Spine no CVA tenderness Extremity Negative for normal to inspection Extremity Narrative: Patient has contracture on the right due to prior stroke. Neuro oriented x3, CN's II-XII intact bilaterally and no sensory deficits noted [place] Coma Scale: document GCS findings Spontaneous Obeys Commands Oriented 15 Sensorium / Orientation: alert Speech: Negative for speech normal Sensory Exam: No sensory level loss detected Motor Exam: Negative for strength 5/5 throughout Psych mental status grossly normal Skin no wounds General Skin Exam: Negative for jaundice Lesions: no lesions Rashes: no rashes NIHSS NIHSS Initial: 1a Level of Consciousness: 0 1b LOC Questions (Score 2 if aphasic/stupor): 0 1c LOC Commands (Only score 1st attempt): 0 2 Best Gaze (If aphasic, use reflexive mvmts.): 0 3 Visual: 0 4 Facial Palsy: 0 5 Motor Arm Right (UN = amputation/fusion): 4 (Due to prior stroke 6 years ago) 5 Motor Arm Left: 0 6 Motor Leg Right: 0 6 Motor Leg Left: 0 7 Limb ataxia (Only + if out of proportion): 0 8 Sensory (Aphasia/stupor=0 or 1, coma=2): 0 9 Best Language: 0 10 Dysarthria (mute, coma=2, intubated=UN): 2 11 Extinction and Inattention (only scored if +): 0 Total Score: 6 MDM MDM MDM Narrative Medical decision making narrative: Patient presents with stuttering expressive aphasia and dysarthria. The dysarthria has been constant. The expressive aphasia has been intermittent. Granddaughter is aware of 3 separate incidences. Stroke order set was initiated. Patient apparently has an appointment with [facility] because of cystocele. The appointment was canceled. Patient did have a stroke approximately 6 years ago. 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 She did have problems with speech 6 years ago as well. There was mild residual. Per the granddaughter her speech is significantly worse The expressive aphasia did not occur with prior stroke. Lab Data Attestation: I reviewed the patient's lab results. Lab results narrative: CBC is unremarkable. H&H is unremarkable. Platelet count is unremarkable. Coags unremarkable. Basic metabolic panel is unremarkable. Glucose is slightly elevated 1. Labs: Laboratory Results - last 24 hr 06/11/22 06/11/22 06/11/22 13:01 13:01 13:01 WBC 6.9 RBC 4.62 Hgb 13.4 Hct 40.4 MCV 87.4 MCH 29.0 MCHC 33.2 RDW Std Deviation 43.8 RDW Coeff of Liudmila 13.7 Plt Count 203 MPV 10.1 Immature Gran % (Auto) 0.100 Neut % (Auto) 65.9 Lymph % (Auto) 23.4 [place] % (Auto) 6.8 Eos % (Auto) 3.2 Baso % (Auto) 0.6 Absolute Neuts (auto) 4.5 Absolute Lymphs (auto) 1.61 Nucleated RBC % 0 PT 12.5 INR 1.0 APTT 28.3 Sodium 141 Potassium 4.3 Chloride 106 Carbon Dioxide 28.0 Anion Gap 7 BUN 19 H Creatinine 0.96 Estim Creat Clear Calc 51.17 Est GFR (MDRD) Af Amer 75 Est GFR (MDRD) Non-Af 62 BUN/Creatinine Ratio 19.8 Glucose 118 H Calcium 10.0 Radiography Diagnostic Testing: Clinical Impression(s) from Imaging Studies Brain CT 06/11/22 12:57 IMPRESSION: Chronic involutional changes of the brain. Stable examination. Electronically Signed: Germain Billings MD at 14:15 EST , Chest X-Ray 06/11/22 14:05 IMPRESSION: No acute abnormality is seen. Electronically Signed: Germain Billings MD at 14:35 EST , Single view chest x-ray reveals no acute process. Cardiac silhouette and size unremarkable. Perihilar region unremarkable. Osseous structures are unremarkable. EKG Initial EKG: Attestation: I personally reviewed and interpreted this EKG as follows: Interpretation: Sinus Rhythm (Rate is 80. There is a first-degree AV block with PA interval of 214 ms. There is duration 74 ms. QT duration 354 ms. [place] is normal.) Stroke Documentation Questions Stroke Team Activated: No Reviewed Inclusion/Exclusion criteria: No IV Thrombolytic Administered: No (Patient was outside the window for thrombolytic and retrieval) Discharge Plan Dx/Rx/DC Orders Clinical Impression: Dysarthria due to acute stroke, Type 2 diabetes mellitus, Expressive aphasia, History of CVA in adulthood, History of hypertension, Hx of hypercholesterolemia Disposition Disposition: Acute Care Hospital [facility]
[2022-06-11 16:26] LABS: Magnesium 1.9 mg/dL (1.6-2.6)
[2022-06-11] MEDS: Aspirin 325 MG Tablet PO (16:37)
--- NOTE | 2022-06-11 16:37 | HP.PCM.HOS_ITS ---
HPI - General General Date of Admission: 06/11/22 Date of Service: 06/11/22 Chief Complaint: Confusion, slurred speech, aphasia (expressive). HPI Narrative The patient is a 67 y/o F w/ PMHx: Diabetes mellitus type II, HTN, HLD, Seizure disorder, Hx CVA w/ RUE monoparesis, Former tobacco use who presents to the [facility] ED on 06/11/22 with history of onset while at PCP evaluation at 10 am the day prior to current presentation for routine care with onset expressive aphasia and slurred speech as well as persistent confusion with reportedly the expressive aphasia noted to be intermittent and the slurred speech constant in nature with no recent headache, nausea, emesis, light or sound sensitivity or seizure like activity. The patient RUE debilities stable from prior CVA. Patient NIHSS in the ED noted to be 2 dysarthria, 4 RUE motor which again is chronic. Her LOC/questions were appropriate and she did not demonstrate ongoing expressive aphasia upon ED evaluation. Patient in the ED does admit that she has not been taking her aspirin for some time and she reportedly stopped taking it for at least the last several months secondary to onset of bleeding when she attempted to shave. This medication and the importance of taking it especially given her history was discussed at length and she reports being amenable to using it. She does report that she has difficulty getting the medications out of the bottle because of her monoparesis and discussed that this is certainly something that her family was present could help her with and they were amenable. Patient is amenable to therapies if they are needed when she is discharged but she notes significant difficulty getting to these places. Work-up in the ED included T97.8, heart rate 98, BP 132/85, respiratory rate 18, 98% on room air, CBC with WC 6.9, hemoglobin 13.4, platelet 203 without marked shift, unremarkable coags, BMP with BUN/creatinine 19/0.96, glucose 118 otherwise unremarkable, chest x-ray with no acute cardiopulmonary finding, CT of the brain with chronic involutional changes with no acute intracranial findings, EKG with SR rate 80 with 1AVB with no acute evidence of ischemia. [facility] Medical History (Updated 06/11/22 @ 16:[address] Rosalinda Blandon MD) Diabetes mellitus Former tobacco use History of CVA (cerebrovascular accident) HLD (hyperlipidemia) Hypertension Monoparesis of right upper extremity Seizure Home Medications metformin 500 mg tablet 500 mg PO BID 01/05/20 [History Last Taken 01/05/20 06:00] alendronate 70 mg tablet 70 mg PO MARTINEZ BONES 06/22/20 [History Last Taken 12/24/20] amlodipine 5 mg tablet 5 mg PO DAILY BLOOD PRESSURE 06/11/22 [History Last Taken 06/11/22] atorvastatin 80 mg tablet (Lipitor) 80 mg PO QHS CHLESTEROL 06/11/22 [History Last Taken 06/10/22] levetiracetam 500 mg tablet 1,000 mg PO BID SEIZURES 06/11/22 [History Last Taken 06/11/22] ramipril 10 mg capsule 10 mg PO DAILY BLOOD PRESSURE 06/11/22 [History Last Take n 06/11/22] Allergy/AdvReac Type Severity Reaction Status Date / Time Iodinated Contrast Media Allergy Other Verified 06/11/22 12:50 [CONTRASTS] Corticosteroids AdvReac PT UNSURE Verified 06/11/22 12:50 (Glucocorticoids) OF REACTION [steroids] Family History (Updated 06/11/22 @ 15:[address] Rosalinda Blandon MD) Mother Diabetes CVA (cerebral vascular accident) Father Heart disease Surgical History (Updated 06/11/22 @ 16:[address] Rosalinda Blandon MD) No history of previous surgery Social History (Updated 06/11/22 @ 16:[address] Rosalinda Blandon MD) household members: none Smoking Status: Former smoker quit date: 05/05/00 pack-years: 20 alcohol intake: never substance use type: does not use ROS ROS Narrative Admission Review of Systems: CONSTITUTIONAL: No weight loss, fever, chills, + weakness or fatigue. HEENT: Eyes: No visual loss, blurred vision, double vision or yellow sclerae. Ears, Nose, Throat: No hearing loss, sneezing, congestion, runny nose or sore throat. SKIN: No rash or itching, lesions, wounds. CARDIOVASCULAR: No chest pain, chest pressure or chest discomfort, palpitations, edema, orthopnea, syncopal events. RESPIRATORY: No shortness of breath, cough or sputum, wheezing, hemoptysis. GASTROINTESTINAL: No anorexia, nausea, vomiting or diarrhea, abdominal pain, melena, BRBPR. GENITOURINARY: No dysuria, frequency, urgency or retention. NEUROLOGICAL: + Chronic right-sided upper extremity monoparesis, seizure disorder history, recent onset expressive aphasia bouts as well as ongoing persistent dysarthria, no headache, dizziness, syncope, numbness or tingling in the extremities, change in bowel or bladder control, seizure. MUSCULOSKELETAL: + muscle, back pain, joint pain or stiffness. HEMATOLOGIC: + Easy bleeding or bruising. LYMPHATICS: No enlarged nodes. No history of splenectomy. PSYCHIATRIC: + Patient does admit to recent depression. ENDOCRINOLOGIC: No reports of sweating, cold or heat intolerance. No polyuria or polydipsia. ALLERGIES: No history of asthma, hives, eczema or rhinitis. Vital Signs Vital Signs Vital Signs: 06/11/22 12:48 06/11/22 15:04 06/11/22 15:06 Temperature 97.8 F Temperature Source Temporal Pulse Rate 98 86 Respiratory Rate 18 24 H Blood Pressure 132/85 H 121/77 H Blood Pressure Mean 100 91 Pulse Ox 98 97 98 Oxygen Delivery Method Room Air Room Air Room Air Weight Weight: 145 lb 15.983 oz Body Mass Index (BMI) 24.3 Physical Exam Narrative Physical Examination: General: Awake, alert, oriented currently to self, place and recent events, does appear intermittently to be confused and very impulsive, remains cooperative, seated upright in the ED bed, with lengthy discussions does admit to recent depression and became tearful. Skin: Normal color, normal turgor, no icterus, no cyanosis. HEENT: AT/NC, EOMI, PERRLA, MMM, no carotid bruits or JVD noted; however, patient is very impulsive and continues to talk during evaluation with referred sounds. Lungs: Mildly diminished, greater bases, appropriate effort no rales, ronchi or wheezing. Heart: Currently regular rate and rhythm; no gallop, rub audible. Abdomen: Soft, NTTP, ND, distant normal BS, no HSM. Extremities: No cyanosis, clubbing, or edema, chronic right upper extremity monoparesis with peripheral pulses intact, sensation normal. Neurological: Patient awake, alert, oriented as noted, cognitive function currently not baseline intact with from discussions suspected intermittent confusion with confusion noted and recent issues even taking her medications which was not her baseline previously per discussion with family, ongoing persistent dysarthria, reported prior expressive aphasia not currently evident, pupils equally reactive to light and accommodation, cranial nerves grossly normal, moving left upper extremity and bilateral lower extremities, chronic right upper extremity monoparesis is noted, appropriate [id number] of the left upper extremity, appropriate [id number] bilateral lower extremity, equivocal Babinski, again patient is extremely impulsive. Psychiatric: Affect appears labile, did admit to recent depression especially with her strokelike ongoing symptoms, more frustrated given current present ation, not on any regimen, no SI. Results Lab / Micro Data Result Diagrams: 06/11/22 13:01 06/11/22 13:01 Labs: Laboratory Results - last 24 hr 06/11/22 13:01: WBC 6.9, RBC 4.62, Hgb 13.4, Hct 40.4, MCV 87.4, MCH 29.0, MCHC 33.2, RDW Std Deviation 43.8, RDW Coeff of Liudmila 13.7, Plt Count 203, MPV 10.1, Immature Gran % (Auto) 0.100, Neut % (Auto) 65.9, Lymph % (Auto) 23.4, [place] % (Auto) 6.8, Eos % (Auto) 3.2, Baso % (Auto) 0.6, Absolute Neuts (auto) 4.5, Absolute Lymphs (auto) 1.61, Nucleated RBC % 0 06/11/22 13:01: PT 12.5, INR 1.0, APTT 28.3 06/11/22 13:01: Sodium 141, Potassium 4.3, Chloride 106, Carbon Dioxide 28.0, Anion Gap 7, BUN 19 H, Creatinine 0.96, Estim Creat Clear Calc 51.17, Est GFR (MDRD) Af Amer 75, Est GFR (MDRD) Non-Af 62, BUN/Creatinine Ratio 19.8, Glucose 118 H, Calcium 10.[address] 06/11/22 12:57 IMPRESSION: Chronic involutional changes of the brain. Stable examination. Electronically Signed: Germain Billings MD at 14:15 EST , Chest X-Ray 02/07/23 14:05 IMPRESSION: No acute abnormality is seen. Electronically Signed: Germain Billings MD at 14:35 EST , Assessment & Plan Assessment/Plan (1) CVA (cerebral vascular accident): PLAN: Plan The patient is a 67 y/o F w/ PMHx: Diabetes mellitus type II, HTN, HLD, Seizure disorder, Hx CVA w/ RUE monoparesis, Former tobacco use who presents to the [facility] ED on 06/11/22 with history of onset while at PCP evaluation at 10 am the day prior to current presentation for routine care with onset expressive aphasia and slurred speech as well as persistent confusion with reportedly the expressive aphasia noted to be intermittent and the slurred speech constant in nature with no recent headache, nausea, emesis, light or sound sensitivity or seizure like activity. #1. Aphasia as well as slurred speech and increased confusion concerning for possible acute CVA with prior history as noted #2: Will admit to PCU, will obtain MRI Brain, MRA Head and carotid US given contrast allergy, previous 01/03/2021 ECHO performed for TIA/CVA with bubble study at that time with EF 65% and no evidence of diastolic dysfunction thus will not repeat, PT/OT/Speech/Nutr ition evaluation per protocol. Will allow permissive HTN temporarily, will reinitiate aspirin therapy as unfortunately patient for several months has discontinued the specific medication because of bleeding with shaving with education given at length and the importance of taking this medication disc ussed, may necessitate possible Plavix addition but will await further work-up and evaluation, statin w/ AM FLP, fall precautions. Magnesium, TSH, FLP, hemoglobin C requested. 01/2022 CVA admission with work-up at that time with CTA Head and Neck w/ minor atherosclerotic changes of the brain, moderate to severe sclerotic disease in the neck with greater than 70% stenosis of the left carotid bulb with follow-up carotid ultrasound with mild calcific plaque at the proximal right ICA with less than 50% stenosis, less than 50% stenosis right external carotid, irregular calcific plaque in the proximal left ICA with 50 to 69% stenosis of the left internal carotid, less than 50% stenosis left external carotid with patent and antegrade vertebrals bilaterally with repeats requested and is noted especially given that patient is not taking aspirin therapy. Once work-up and imaging obtained low threshold to re-involve neurology given history. If MRI of the brain is negative given seizure disorder history certainly could be an etiology for this presentation and EEG would be appropriate at that time. #2. Depression, untreated: Lengthy discussion given current presentation and she does admit to depression without SI secondary to persistent disease history and deficits with stroke and inability to care for self. She notes frustration with her current presentation especially that she stopped taking her aspirin and was unaware that this was extremely important to continue taking. She notes frustration and not being able to care for herself as far as getting her on medications and getting herself to visits. Given current presentation we will hold on immediate medication regimen but will per discussion have her follow-up early with PCP for reevaluation and potential medication initiation and therapy set up. #3. History of prior CVA: Patient with history of prior CVA with right upper extremity monoparesis, will reinitiate aspirin therapy, continue home statin, temporary permissive hypertension given acute presentation #1, will continue evaluation and work-up as noted for further recommendations. #4. Seizure disorder: We will continue patient on Keppra regimen, as noted above #1 we will continue evaluation and treatment with MRI brain however this is negative and patient continues to have these types of symptoms would be appropriate to obtain EEG at that time and as noted low threshold for neurology involvement. #5. Diabetes mellitus type II: Hold oral home regimen, if passes swallow bedside evaluation may reinitiate ADA diet, accu checks w/ ISS, hemoglobin A1c requested, nutrition consulted for evaluation given acute presentation #1. #6. Hypertension w/ prior noted Hypertension Emergency presentation: Will maintain on permissive hypertension, add back regimen once appropriate. As needed agents per stroke protocol in the interim. #7. Hyperlipidemia: We will continue patient on statin therapy, FLP in AM. #8. Former tobacco use: Encourage continued tobacco cessation. #9. DVT prophylaxis: SCDs, Lovenox. Admission Evaluation Time spent evaluating chart, patient history, patient evaluation, care planning and discussion with specialists: 77 minutes. Charges/Coding Visit Charges Inpatient E&M: 93819 Init Hosp L3
--- NOTE | 2022-06-11 16:57 | CDU_ITS ---
Reason For Study: CVA Rt. Velocities/BP Lt. Velocities/BP Prox CCA 65.5/10.7 cm/sec. Prox CCA 115.8/29.8 cm/sec. Mid CCA 47.5/11.6 cm/sec. Mid CCA 77.7/16.3 cm/sec. Dist CCA 54.1/17.3 cm/sec. Dist CCA 72.8/28.6 cm/sec. Prox ICA 91.2/22.5 cm/sec. Prox ICA 172.5/51.8 cm/sec. Mid ICA 87.6/27.4 cm/sec. Mid ICA 119.9/32.0 cm/sec. Dist ICA 66.2/26.1 cm/sec. Dist ICA 66.8/26.7 cm/sec. Rt. ICA/CCA = 1.9. Lt. ICA/CCA = 2.2. Prox ECA 125.6/9.0 cm/sec. Prox ECA 124.7/31.6 cm/sec. Rt. Vert. 35.6/9.8 cm/sec. Lt. Vert. 58.3/17.7 cm/sec. Right Extracranial There is heterogeneous, irregular atherosclerotic plaque noted in the right common carotid artery. There is heterogeneous, irregular atherosclerotic plaque noted in the right internal carotid artery. There is heterogeneous, irregular atherosclerotic plaque noted in the right external carotid artery. Antegrade flow is noted in the right vertebral artery. Left Extracranial There is heterogeneous, irregular atherosclerotic plaque noted in the left common carotid artery. There is heterogeneous, irregular atherosclerotic plaque noted in the left internal carotid artery. There is heterogeneous, irregular atherosclerotic plaque noted in the left external carotid artery. Antegrade flow is noted in the left vertebral artery. Procedure Carotid Duplex [id number]. This is a Carotid Duplex examination using B-mode, color flow and specral Doppler. The exam was diagnostic. The study was technically difficult. Exam performed portable in patient room. VL/Carotid Duplex Ultrasound Interpretation Summary Irregular calcific plaque at the proximal right internal carotid artery with le ss than 50% stenosis Less than 50% stenosis right external carotid artery Irregular calcific plaque with shadowing at the proximal left internal carotid artery with 50 to 69% stenosis Less than 50% stenosis left external carotid artery Patent and antegrade vertebral arteries bilaterally No change from the previous examination of January 04, 2021 Ordering Physician: Rosalinda Blandon Referring Physician: Daniel Lopez Performed By: Arturo Holm RVT
[2022-06-11] MEDS: 0.9% Normal Saline 1,000 ML 100 ML IV (17:53)
[2022-06-11 18:16] LABS: Bedside Glucose 102 mg/dL (74-106)
[2022-06-11] MEDS: levETIRAcetam 500 MG Tablet 1000 MG PO (20:49)
[2022-06-11] MEDS: Atorvastatin Calcium 80 MG Tablet PO (20:50)
[2022-06-12] LABS: Bedside Glucose 124 mg/dL (74-106)
[2022-06-12 03:25] VITALS: BP 139/81; PULSE 86; RESP 18; TEMP 36.6; O2SAT 98
[2022-06-12] MEDS: 0.9% Normal Saline 1,000 ML 100 ML IV (03:53)
--- NOTE | 2022-06-12 06:20 | NURSING ---
Pt noted with excessive pressured speech, that is both fact and fiction. pt tells this RN 2 two family members have committed suicide. This RN asks pt if she is going to hurt herself? pt states, No, but I feel like it due to pt excessive illusions, and unorganized speech, pt hurting herself is not likely. Event reported to Dr Jacobson. No new orders. will monitor pt.
[2022-06-12 06:24] LABS: Absolute Neutrophil Count 3.5 X10^3/uL (2.0-7.7); Basophil# 0.03 X10^3/uL; Basophil% 0.5 % (0-1); Eosinophil# 0.22 X10^3/uL; Hematocrit 35.1 % (37-47); Hemoglobin 11.5 g/dL (12.0-15.0); Lymphocyte % 23.8 % (19-41); Mean Corp Hgb Conc 32.8 g/dL (32-36); Mean Corpuscular Hgb 28.8 pg (27.0-32.0); Mean Corpuscular Volume 87.8 fL (81-99); Monocyte% 7.3 % (0-10); NRBC Flagged by Analyzer 0 % (0-5); Neutrophil % 64.2 % (47-70); Platelet Count 143 K/mm3 (150-450); RBC Distribution Width CV 13.5 % (11.6-14.6); RBC Distribution Width SD 43.2 fl (35.1-43.9); White Blood Count 5.5 K/mm3 (4.4-11.0)
[2022-06-12 06:45] LABS: Bedside Glucose 103 mg/dL (74-106)
[2022-06-12 07:04] LABS: ALB/GLOB Ratio 0.8 RATIO (0.9-2.4); AST(SGOT) 24 U/L (15-37); Alanine Aminotransfer ALT/SGPT 19 U/L (13-56); Alkaline Phosphatase 83 U/L (45-117); Anion Gap 5 (5-15); BUN 15 mg/dL (7-18); BUN/Creat Ratio 19.6 RATIO (10-20); Calcium,Total 8.7 mg/dL (8.5-10.1); Chloride 111 mmol/L (98-107); Cholesterol 86 mg/dL (200); Creatinine, Serum 0.76 mg/dL (0.55-1.02); EST Glomerular Filtration Rate 80 mL/min (>60); Est Glom Filt Rate - Afr Amer 97 mL/min (>60); Estimated Creatinine Clearance 45.16 ml/min; Globulin 3.7 g/dL (2.2-4.2); Glucose 101 mg/dL (74-106); High Density Lipoprotein 55 mg/dL; Potassium 4.3 mmol/L (3.5-5.1); Protein, Total 6.7 g/dL (6.4-8.2); Sodium Level 140 mmol/L (136-145); Thyroid Stim Hormone (TSH) 0.89 uIU/mL (0.358-3.74); Triglycerides 68 mg/dL; Very Low Density Lipoprotein 14 mg/dL (5-40)
[2022-06-12 07:24] VITALS: BP 109/80; PULSE 84; RESP 16; TEMP 36.4; O2SAT 97
--- NOTE | 2022-06-12 07:41 | PCM.PN.HOSP ---
Reason for Visit Reason for Visit: Diagnoses Cerebral infarction, unspecified (06/11/22) Subjective Subjective Patient is a 67-year-old lady with past medical history single for previous CVA with residual right upper extremity weakness as well as slurred speech who presented with speech difficulty as well as confusion admitted to a monitored bed for further management Objective Data Objective Data Vital Signs: Vital Signs Temp Pulse Resp BP Pulse Ox O2 Del Method 97.6 F L 84 16 109/80 97 Room Air 06/12/22 07:24 06/12/22 07:24 06/12/22 07:24 06/12/22 07:24 06/12/22 07:24 06/12/22 07:24 Oxygen Delivery Method Room Air Weight: 65.4 kg Body Mass Index (BMI) 25.2 Intake & Output: Intake and Output for Last 24 Hours 06/10/22 06/11/22 06/12/22 23:59 23:59 23:59 Intake Total 350 / 350 1120 / 1120 Balance 350 / 350 1120 / 1120 Lab / Micro Data Result Diagrams: 06/12/22 06:10 06/12/22 06:10 Labs: Laboratory Results - last 24 hr 06/11/22 13:01: WBC 6.9, RBC 4.62, Hgb 13.4, Hct 40.4, MCV 87.4, MCH 29.0, MCHC 33.2, RDW Std Deviation 43.8, RDW Coeff of Liudmila 13.7, Plt Count 203, MPV 10.1, Immature Gran % (Auto) 0.100, Neut % (Auto) 65.9, Lymph % (Auto) 23.4, [place] % (Auto) 6.8, Eos % (Auto) 3.2, Baso % (Auto) 0.6, Absolute Neuts (auto) 4.5, Absolute Lymphs (auto) 1.61, Nucleated RBC % 0 06/11/22 13:01: PT 12.5, INR 1.0, APTT 28.3 06/11/22 13:01: Sodium 141, Potassium 4.3, Chloride 106, Carbon Dioxide 28.0, Anion Gap 7, BUN 19 H, Creatinine 0.96, Estim Creat Clear Calc 51.17, Est GFR (MDRD) Af Amer 75, Est GFR (MDRD) Non-Af 62, BUN/Creatinine Ratio 19.8, Glucose 118 H, Calcium 10.0 06/11/22 13:01: Magnesium 1.9 06/11/22 17:52: POC Glucose 102 06/11/22 20:49: POC Glucose 124 H 06/12/22 06:10: WBC 5.5, RBC 4.00 L, Hgb 11.5 L, Hct 35.1 L, MCV 87.8, MCH 28.8, MCHC 32.8, RDW Std Deviation 43.2, RDW Coeff of Liudmila 13.5, Plt Count 143 L, MPV 10.0, Immature Gran % (Auto) 0.200, Neut % (Auto) 64.2, Lymph % (Auto) 23.8, [place] % (Auto) 7.3, Eos % (Auto) 4.0, Baso % (Auto) 0.5, Absolute Neuts (auto) 3.5, Absolute Lymphs (auto) 1.30, Nucleated RBC % 0 06/12/22 06:10: Sodium 140, Potassium 4.3, Chloride 111 H, Carbon Dioxide 24.0, Anion Gap 5, BUN 15, Creatinine 0.76, Estim Creat Clear Calc 45.16, Est GFR (MDRD) Af Amer 97, Est GFR (MDRD) Non-Af 80, BUN/Creatinine Ratio 19.6, Glucose 101, Calcium 8.7, Total Bilirubin 0.90, AST 24, ALT 19, Alkaline Phosphatase 83, Total Protein 6.7, Albumin 3.0 L, Globulin 3.7, Albumin/Globulin Ratio 0.8 L, Triglycerides 68, Cholesterol 86, LDL Cholesterol 17, VLDL Cholesterol 14, HDL Cholesterol 55, TSH 0.89 06/12/22 06:22: POC Glucose 103 Radiography Diagnostic Testing: Radiology Impression Brain CT 06/11/22 12:57 IMPRESSION: Chronic involutional changes of the brain. Stable examination. Electronically Signed: Germain Billings MD at 14:15 EST , Chest X-Ray 06/11/22 14:05 IMPRESSION: No acute abnormality is seen. Electronically Signed: Germain Billings MD at 14:35 EST , Physical Exam Narrative GENERAL: cooperative HEENT: Atraumatic; normocephalic EYES; Anicteric, Normal Conjunctiva NECK; supple, normal thyroid, RESPIRATORY: Diminished to auscultation CARDIOVASCULAR: Regular S1 S2, GI: soft, normoactive bowel sounds, : No Renal angle tenderness; EXTREMITIES: No edema, no clubbing, MUSCULOSKELETAL: no muscle wasting NEURO: Right upper extremity hemiplegia SKIN: No Rash PSYCH; Flat affect Assessment & Plan Assessment/Plan (1) CVA (cerebral vascular accident): PLAN: Plan Patient is a 67-year-old lady with past medical history single for previous CVA with residual right upper extremity weakness as well as slurred speech who presented with speech difficulty as well as confusion admitted to a monitored bed for further management 1. Slurred speech with aphasia ? 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 Admitted to monitored bed ordered MRI which was negative for acute CVA. Patient appears to be back to her baseline 2. Seizure disorder ? Patient is on Keppra did continue patient to follow-up with her neurologist as outpatient 3. Hypertension - Blood pressure controlled, home medications continued with dose adjustment as needed 4. Diabetes mellitus type 2 ? Patient is on metformin this was held please on Accu-Cheks before meals and at bedtime with sliding scale coverage 5. Dyslipidemia -Patient is on statin therapy, continued at home dose 6. DVT prophylaxis ? SC Lovenox Time spent in the patient's overall evaluation,decision-making process, review of diagnostic data, adjustment of management, discussion with other providers, nursing nursing and ancillary staff involved in patient's care documentation, 40 Minutes Charges/Coding Visit Charges Inpatient E&M: 43517 Subs Hosp L2
--- NOTE | 2022-06-12 08:45 | MRI_ITS ---
EXAM: MR HEAD WITHOUT INTRAVENOUS CONTRAST CLINICAL INDICATION: CVA TECHNIQUE: Multiplanar and multisequence MR images of the brain were obtained without intravenous contrast. This report was created using [employer] report generation technology. COMPARISON: MRI brain without contrast 01/04/2021. FINDINGS: BRAIN AND EXTRA-AXIAL SPACES: Few T2 FLAIR hyperintensity foci in the subcortical white matter of both cerebral hemispheres are chronic white matter ischemic changes. Old ischemic infarct in the left posterior periventricular white matter extending down to the left retrolenticular white matter. This is unchanged along with the ex vacuo dilatation of lateral wall of the body of the left lateral ventricle. Old lacunar cystic infarct in the right thalamus is unchanged. No intra- or extra-axial hemorrhage. No intracranial mass or mass effect. Posterior fossa structures are unremarkable. No hydrocephalus. Basal cisterns are patent. No diffusion restriction to suspect acute or subacute ischemic infarct. SELLA: Unremarkable. Normal sella turcica, pituitary gland, infundibular stalk, optic chiasm and hypothalamus. AUDITORY SYSTEM: Unremarkable. The internal auditory canals are patent. BONES/JOINTS: Unremarkable. No discrete lytic or blastic abnormalities. SINUSES: Unremarkable as visualized. Clear. MASTOID AIR CELLS: Unremarkable as visualized. Clear. ORBITS: Unremarkable as visualized. Both globes, extraocular muscles, optic nerves and retrobulbar fat appear unremarkable. VASCULATURE: Unremarkable as visualized. Normal flow voids in the major intracranial circulation. MRI/Brain without Contrast IMPRESSION: 1. No MRI evidence of acute or subacute ischemic infarct or acute intracranial abnormality. 2. Old ischemic infarct in the left periventricular white matter extending to the left retrolenticular white matter and the ex vacuo dilatation in the lateral wall of the left lateral ventricle are unchanged. 3. Old lacunar ischemic infarct in the right thalamus is unchanged. 4. Few chronic subcortical white matter ischemic changes in both cerebral hemispheres are unchanged. 5. No significant interval changes or new finding when compared to . Electronically Signed: Sorin Salmeron MD at 10:25 EST ,
--- NOTE | 2022-06-12 08:45 | MRI_ITS ---
STUDY: MRA OF THE HEAD WITHOUT CONTRAST REASON FOR EXAM: Female, 67 years old. CVA TECHNIQUE: 3-D [id number] (TOF) imaging was performed with MIPs. The study was performed unenhanced. COMPARISON: CTA head and neck with contrast 01/03/2021. FINDINGS: Normal bilateral petrous carotid arteries. Normal right cavernous carotid artery with a normal supraclinoid bifurcation. Normal left cavernous carotid artery with a normal supraclinoid bifurcation. Normal right A1 segment of the anterior cerebral artery. Normal left A1 segment of the anterior cerebral artery. Normal intact anterior communicating artery (ACOM). Normal bilateral A2 segments of the anterior cerebral arteries. Normal right M1 and M2 segments of the middle cerebral arteries, with a normal M1 bifurcation. Normal left M1 and M2 segments of the middle cerebral arteries, with a normal M1 bifurcation. No visible right posterior communicating artery (PCOM). Normal left posterior communicating artery (PCOM). Normal bilateral vertebral arteries. The left is dominant. Normal basilar artery with a normal basilar bifurcation. The visualized bilateral superior cerebellar (SCA) arteries are normal. Normal bilateral P1, P2 and visualized P3 segments of the posterior cerebral arteries. There is no demonstrated aneurysm of the [place]. There is no major vessel occlusion or hemodynamically significant stenosis. MRI/MRA Head ONLY without Contrast IMPRESSION: Normal MRA of the head and unchanged when compared to CTA head of 01/03/2021. Electronically Signed: Sorin Salmeron MD at 10:37 EST ,
[2022-06-12] MEDS: Enoxaparin 40 MG/0.4 ML Syringe SC (09:48)
[2022-06-12] MEDS: Acetaminophen 325 MG Tablet 650 MG PO (09:49)
[2022-06-12] MEDS: levETIRAcetam 500 MG Tablet 1000 MG PO ×2 (09:49→22:10)
[2022-06-12] MEDS: Aspirin 81 MG TAB.CHEW PO (09:49)
[2022-06-12 10:09] LABS: Hemoglobin A1c 5.9 % (3.8-5.6)
[2022-06-12 11:50] LABS: Bedside Glucose 142 mg/dL (74-106)
--- NOTE | 2022-06-12 12:37 | CASEMGMT ---
Addendum entered and electronically signed by Esther Cruz RN 06/12/22 13:20: List of home health care providers including quality and resource use data and consistent with pt's medical needs and in-network with pt's insurance printed from [facility] and provided to pt. Pt states she is agreeable to home healthcare services. Will check back with pt and pt's granddaughter regarding pt choice. Maureen Cruz RN CM Original Note: Addendum entered and electronically signed by Esther Cruz RN 06/12/22 13:11: Transportation: Pt states she does not drive and her granddaughter transports her as needed. Pt states she would like to complete living will and HPOA papers. MINDY Valero notified. Maureen Cruz RN CM Original Note: KEVIN BUSTAMANTE DC Planning Assessment: Face to Face with patient for initial transition planning/care coordination assessment. KEVIN BUSTAMANTE introduced self and role at [facility]. Pt alert but with expressive aphasia and having difficulty communicating with this conventional underwriter. Pt provided permission for this KEVIN BUSTAMANTE to contact pt's granddaughter Cassie to conduct assessment. Call placed to Cassie who is agreeable to participating in assessment. Care providers, pharmacy and demographics verified. Admitting Dx: CVA PCP: Dr. Lopez Specialists: saw a neurologist in [place] at one time but has not had any recent follow-up Preferred Pharmacy: [facility] Insurance: [employer] [facility] with prescription benefit LNOK: mario Matthews Living arrangements: Pt lives alone in a two story home with a first floor set up and 3 steps to enter. Pt has been independent with ADLs including self care and household tasks. Pt's granddaughter checks on her frequently and a neighbor assists as needed. DME: shower chair, hand held shower SNF/HHC: denies Plan: pt's granddaughter requests pt to return home with home health services including a SN, PT/OT if needed. Explained that a list of home health providers will be left at pt's bedside for pt and granddaughter to review. PT/OT evaluations pending. Will continue to monitor and assist with DC needs as identified. Maureen Cruz RN CM
[2022-06-12 13:10] VITALS: BP 123/83; PULSE 79; RESP 18; TEMP 36.8; O2SAT 100
[2022-06-12 13:55] VITALS: BMI 25.2
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
[2022-06-12 15:28] LABS: Bacteria 0 SEEN /hpf (None Seen); Mucous, Urine 0 SEEN /hpf (<or=2+); Red Blood Cells-Urine 0 SEEN /hpf (0-5)
[2022-06-12 15:37] LABS: Color, Urine Yellow (Yellow); Glucose, Dipstick Normal (Normal); Ketone-Dipstick Negative (Negative); Leukocyte Esterase-Dipstick 500 /ul (Negative); Nitrite-Dipstick Negative (Negative); Occult Blood-Urine 25 /ul (Negative); Protein-Dipstick Negative (Negative); Urine Bilirubin Dipstick Negative (Negative); Urine Clarity Clear (Clear); Urine Urobilinogen Normal (Normal)
[2022-06-12 15:44] LABS: Squamous Epithelial Cells - UA 0-5 SEEN /hpf (5-10); White Blood Cells 5-10 SEEN /hpf (0-5)
--- NOTE | 2022-06-12 16:20 | CM.UR ---
KEVIN BUSTAMANTE face to face with pt and pt's granddaughter Cassie. Reviewed therapy recommendations including continued ST but not PT or OT. Pt and granddaughter expressed understanding. Discussed no intermediate need for home health. Pt and granddaughter agreeable to outpt ST. Script obtained from Dr. Hernandez and provided to pt's granddaughter who states pt had been to [facility] in the past. Explained that the [facility] Van can transport pt if needed. Pt and granddaughter agreeable to dc plan and deny any further questions or concerns. Maureen Cruz RN CM
[2022-06-12 17:01] LABS: Bedside Glucose 114 mg/dL (74-106)
[2022-06-12 17:45] VITALS: BP 130/81; PULSE 81; RESP 18; TEMP 36.7; O2SAT 99
[2022-06-12 22:05] VITALS: BP 126/80; PULSE 90; RESP 18; TEMP 36.8; O2SAT 99
[2022-06-12] MEDS: Atorvastatin Calcium 80 MG Tablet PO (22:10)
[2022-06-12] MEDS: Cefdinir 300 MG Capsule PO (22:12)
[2022-06-12 23:06] LABS: Bedside Glucose 143 mg/dL (74-106)
[2022-06-13 00:39] VITALS: BMI 25.2
[2022-06-13] MEDS: Acetaminophen 325 MG Tablet 650 MG PO (04:08)
[2022-06-13 04:18] VITALS: BP 141/85; PULSE 81; RESP 18; TEMP 36.7; O2SAT 98
[2022-06-13] MEDS: Insulin Lispro 100 UNIT/ML INSULN.PEN SC (06:23)
[2022-06-13 06:28] LABS: Absolute Lymphocyte Count 1.05 X10^3/uL (0.83-4.51); Absolute Neutrophil Count 3.4 X10^3/uL (2.0-7.7); Basophil# 0.02 X10^3/uL; Basophil% 0.4 % (0-1); Eosinophil# 0.23 X10^3/uL; Eosinophils% 4.5 % (0-5); Hematocrit 35.6 % (37-47); Hemoglobin 11.5 g/dL (12.0-15.0); Lymphocyte # 1.05 X10^3/ul (0.83-4.51); Lymphocyte % 20.4 % (19-41); Mean Corp Hgb Conc 32.3 g/dL (32-36); Mean Corpuscular Hgb 28.5 pg (27.0-32.0); Mean Corpuscular Volume 88.3 fL (81-99); Mean Platelet Vol. 10.4 fl (6.2-12.0); Monocyte# 0.39 X10^3/uL; Monocyte% 7.6 % (0-10); NRBC Flagged by Analyzer 0 % (0-5); Neutrophil # 3.42 X10^3/uL (2.7-7.7); Neutrophil % 66.5 % (47-70); Platelet Count 155 K/mm3 (150-450); RBC Distribution Width CV 13.4 % (11.6-14.6); RBC Distribution Width SD 43.6 fl (35.1-43.9); Red Blood Count 4.03 M/mm3 (4.2-5.4); White Blood Count 5.1 K/mm3 (4.4-11.0)
[2022-06-13 07:00] LABS: Bedside Glucose 155 mg/dL (74-106)
[2022-06-13 07:04] LABS: Anion Gap 6 (5-15); BUN 18 mg/dL (7-18); BUN/Creat Ratio 22.6 RATIO (10-20); Chloride 108 mmol/L (98-107); EST Glomerular Filtration Rate 76 mL/min (>60); Est Glom Filt Rate - Afr Amer 92 mL/min (>60); Estimated Creatinine Clearance 56.45 ml/min; Glucose 177 mg/dL (74-106); Magnesium 1.7 mg/dL (1.6-2.6); Phosphorus 3.3 mg/dL (2.5-4.9); Potassium 4.1 mmol/L (3.5-5.1); Sodium Level 138 mmol/L (136-145)
[2022-06-13 07:56] VITALS: O2SAT 98
[2022-06-13 08:08] VITALS: BP 157/89; PULSE 84; RESP 15; TEMP 36.6; O2SAT 100
[2022-06-13] MEDS: Enoxaparin 40 MG/0.4 ML Syringe SC (08:17)
[2022-06-13] MEDS: levETIRAcetam 500 MG Tablet 1000 MG PO (08:17)
[2022-06-13] MEDS: amLODIPine 5 MG Tablet PO (08:17)
[2022-06-13] MEDS: Aspirin 81 MG TAB.CHEW PO (08:17)
[2022-06-13] MEDS: Ramipril 10 MG Capsule PO (08:17)
[2022-06-13] MEDS: Cefdinir 300 MG Capsule PO (08:18)
--- NOTE | 2022-06-13 10:24 | PN.HOSP_ITS ---
Reason for Visit Reason for Visit: Diagnoses Cerebral infarction, unspecified (06/11/22) Aphasia (06/11/22) Unspecified convulsions (06/11/22) Subjective Subjective Urinalysis obtained the day prior came back consistent with cystitis culture sent. Patient seen this a.m. is tearful and talked about thinking about suicide. Suicide precautions subsequently initiated consult placed to the counseling services Objective Data Objective Data Vital Signs: Vital Signs Temp Pulse Resp BP Pulse Ox O2 Del Method 98 F 84 15 157/89 H 100 Room Air 06/13/22 08:08 06/13/22 08:08 06/13/22 08:08 06/13/22 08:08 06/13/22 08:08 06/13/22 08:10 Oxygen Delivery Method Room Air Weight: 66.3 kg Body Mass Index (BMI) 25.2 Intake & Output: Intake and Output for Last 24 Hours 06/11/22 06/12/22 06/13/22 23:59 23:59 23:59 Intake Total 350 / 350 2840.00 / 2840.00 Balance 350 / 350 2840.00 / 2840.00 Lab / Micro Data Result Diagrams: 06/13/22 05:53 06/13/22 05:53 Labs: Laboratory Results - last 24 hr 06/12/22 11:30: POC Glucose 142 H 06/12/22 15:20: Urine Color Yellow, Urine Clarity Clear, Urine pH 6.0, Ur Specif ic [place] 1.010, Urine Protein Negative, Urine Glucose (UA) Normal, Urine Ketones Negative, Urine Occult Blood 25 H, Urine Nitrite Negative, Urine Bilirubin Negative, Urine Urobilinogen Normal, Ur Leukocyte Esterase 500 H, Urine RBC 0 SEEN, Urine WBC 5-10 SEEN, Ur Squamous Epith Cells 0-5 SEEN, Urine Bacteria 0 SEEN, Urine Mucus 0 SEEN 06/12/22 16:34: POC Glucose 114 H 06/12/22 22:08: POC Glucose 143 H 06/13/22 05:53: WBC 5.1, RBC 4.03 L, Hgb 11.5 L, Hct 35.6 L, MCV 88.3, MCH 28.5, MCHC 32.3, RDW Std Deviation 43.6, RDW Coeff of Liudmila 13.4, Plt Count 155, MPV 10.4, Immature Gran % (Auto) 0.600, Neut % (Auto) 66.5, Lymph % (Auto) 20.4, [place] % (Auto) 7.6, Eos % (Auto) 4.5, Baso % (Auto) 0.4, Absolute Neuts (auto) 3.4, Absolute Lymphs (auto) 1.05, Nucleated RBC % 0 06/13/22 05:53: Sodium 138, Potassium 4.1, Chloride 108 H, Carbon Dioxide 24.0, Anion Gap 6, BUN 18, Creatinine 0.80, Estim Creat Clear Calc 56.45, Est GFR (MDRD) Af Amer 92, Est GFR (MDRD) Non-Af 76, BUN/Creatinine Ratio 22.6 H, Glucose 177 H, Calcium 9.0, Phosphorus 3.3, Magnesium 1.7 06/13/22 06:17: POC Glucose 155 H Radiography Diagnostic Testing: Radiology Impression Carotid Duplex 06/11/22 16:57 Interpretation Summary Irregular calcific plaque at the proximal right internal carotid artery with less than 50% stenosis Less than 50% stenosis right external carotid artery Irregular calcific plaque with shadowing at the proximal left internal carotid artery with 50 to 69% stenosis Less than 50% stenosis left external carotid artery Patent and antegrade vertebral arteries bilaterally No change from the previous examination of January 04, 2021 Ordering Physician: Rosalinda Blandon Referring Physician: Daniel Lopez Performed By: Arturo Holm RVT Brain MRI 06/12/22 08:45 IMPRESSION: 1. No MRI evidence of acute or subacute ischemic infarct or acute intracranial abnormality. 2. Old ischemic infarct in the left periventricular white matter extending to the left retrolenticular white matter and the ex vacuo dilatation in the lateral wall of the left lateral ventricle are unchanged. 3. Old lacunar ischemic infarct in the right thalamus is unchanged. 4. Few chronic subcortical white matter ischemic changes in both cerebral hemispheres are unchanged. 5. No significant interval changes or new finding when compared to . Electronically Signed: Sorin Salmeron MD at 10:25 EST , Head MRA 06/12/22 08:45 IMPRESSION: Normal MRA of the head and unchanged when compared to CTA head of 01/03/2021. Electronically Signed: Sorin Salmeron MD at 10:37 EST , Physical Exam Narrative GENERAL: cooperative HEENT: Atraumatic; normocephalic EYES; Anicteric, Normal Conjunctiva NECK; supple, normal thyroid, RESPIRATORY: Diminished to auscultation CARDIOVASCULAR: Regular S1 S2, GI: soft, normoactive bowel sounds, : No Renal angle tenderness; EXTREMITIES: No edema, no clubbing, MUSCULOSKELETAL: no muscle wasting NEURO: Right upper extremity hemiplegia SKIN: No Rash PSYCH; Flat affect Assessment & Plan Assessment/Plan (1) CVA (cerebral vascular accident): PLAN: Plan Patient is a 67-year-old lady with past medical history single for previous CVA with residual right upper extremity weakness as well as slurred speech who presented with speech difficulty as well as confusion admitted to a monitored bed for further management 1. Slurred speech with aphasia ? 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 Admitted to monitored bed ordered MRI which was negative for acute CVA. Patient appears to be back to her baseline 2. Seizure disorder ? Patient is on Keppra did continue patient to follow-up with her neurologist as outpatient 3. Hypertension - Blood pressure controlled, home medications continued with dose adjustment as needed 4. Diabetes mellitus type 2 ? Patient is on metformin this was held please on Accu-Cheks before meals and at bedtime with sliding scale coverage 5. Dyslipidemia -Patient is on statin therapy, continued at home dose 6. DVT prophylaxis ? SC Lovenox 7. Severe depression with suicidal ideation ? Suicide precautions initiated counseling services consulted. Patient started on low-dose SSRI Lexapro 10 mg daily 8. Acute cystitis ? Patient was started on p.o. cefdinir awaiting culture results Time spent in the patient's overall evaluation,decision-making process, review of diagnostic data, adjustment of management, discussion with other providers, nursing nursing and ancillary staff involved in patient's care documentation, 56 Minutes Charges/Coding Visit Charges Inpatient E&M: 75528 [facility] L3
[2022-06-13] MEDS: Escitalopram Oxalate 10 MG Tablet PO (11:10)
[2022-06-13 11:36] LABS: Bedside Glucose 85 mg/dL (74-106)
--- NOTE | 2022-06-13 12:00 | NURSING ---
Crisis evaluated patient and signed saftey plan. Placed on chart. Per SW patient can now come out of suicide precautions
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
--- NOTE | 2022-06-13 12:15 | PCM.DC.SUM ---
Providers Date of Admission: 06/11/22 Date of Discharge: 06/13/22 Primary Care Physician: Dr. Daniel Loepz MD Reason For Visit: Intermittent aphasia Diagnosis Discharge Diagnosis (1) CVA (cerebral vascular accident): Status: Acute Code(s): I63.9 - Cerebral infarction, unspecified Plan Patient is a 67-year-old lady with past medical history single for previous CVA with residual right upper extremity weakness as well as slurred speech who presented with speech difficulty as well as confusion admitted to a monitored bed for further management 1. Slurred speech with aphasia ? 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 Admitted to monitored bed ordered MRI which was negative for acute CVA. Patient appears to be back to her baseline 2. Seizure disorder ? Patient is on Keppra did continue patient to follow-up with her neurologist as outpatient 3. Hypertension - Blood pressure controlled, home medications continued with dose adjustment as needed 4. Diabetes mellitus type 2 ? Patient is on metformin this was held please on Accu-Cheks before meals and at bedtime with sliding scale coverage 5. Dyslipidemia -Patient is on statin therapy, continued at home dose 6. DVT prophylaxis ? SC Lovenox 7. Severe depression with suicidal ideation ? Suicide precautions initiated counseling services consulted. Patient started on low-dose SSRI Lexapro 10 mg daily ? Patient was seen in consultation by the counseling services safety plan was written for the patient prior to discharge 8. Acute cystitis ? Patient was started on p.o. cefdinir awaiting culture results Time spent in the patient's overall evaluation,decision-making process, review of diagnostic data, adjustment of management, discussion with other providers, nursing nursing and ancillary staff involved in patient's care documentation, 36 Minutes Medications at Discharge Home Medications metformin 500 mg tablet 500 mg PO BID BLOOD SUGAR 01/05/20 alendronate 70 mg tablet 70 mg PO MARTINEZ BONES 06/22/20 amlodipine 5 mg tablet 5 mg PO DAILY BLOOD PRESSURE 06/11/22 atorvastatin 80 mg tablet (Lipitor) 80 mg PO QHS CHLESTEROL 06/11/22 levetiracetam 500 mg tablet 1,000 mg PO BID SEIZURES 06/11/22 ramipril 10 mg capsule 10 mg PO DAILY BLOOD PRESSURE 06/11/22 aspirin 81 mg chewable tablet 81 mg PO BREAKFAST 90 days #90 tabs 06/13/22 cefdinir 300 mg capsule 300 mg PO Q12 5 days #10 caps 06/13/22 escitalopram oxalate 10 mg tablet 10 mg PO DAILY 90 days #90 tabs 06/13/22 Hospital Course Summary of Care Provided Minutes Spent on Discharge: 36 Physical Exam Narrative GENERAL: cooperative HEENT: Atraumatic; normocephalic EYES; Anicteric, Normal Conjunctiva NECK; supple, normal thyroid, RESPIRATORY: Diminished to auscultation CARDIOVASCULAR: Regular S1 S2, GI: soft, normoactive bowel sounds, : No Renal angle tenderness; EXTREMITIES: No edema, no clubbing, MUSCULOSKELETAL: no muscle wasting NEURO: Right upper extremity hemiplegia SKIN: No Rash PSYCH; Flat affect Weight / BMI Weight Weight: 66.3 kg Body Mass Index (BMI) 25.2 ABG / Lab / Microbiology Data Result Diagrams: 06/13/22 05:53 06/13/22 05:53 Laboratory: Laboratory Results - last 24 hr 06/12/22 15:20: Urine Color Yellow, Urine Clarity Clear, Urine pH 6.0, Ur Specific [place] 1.010, Urine Protein Negative, Urine Glucose (UA) Normal, Urine Ketones Negative, Urine Occult Blood 25 H, Urine Nitrite Negative, Urine Bilirubin Negative, Urine Urobilinogen Normal, Ur Leukocyte Esterase 500 H, Urine RBC 0 SEEN, Urine WBC 5-10 SEEN, Ur Squamous Epith Cells 0-5 SEEN, Urine Bacteria 0 SEEN, Urine Mucus 0 SEEN 06/12/22 16:34: POC Glucose 114 H 06/12/22 22:08: POC Glucose 143 H 06/13/22 05:53: WBC 5.1, RBC 4.03 L, Hgb 11.5 L, Hct 35.6 L, MCV 88.3, MCH 28.5, MCHC 32.3, RDW Std Deviation 43.6, RDW Coeff of Liudmila 13.4, Plt Count 155, MPV 10.4, Immature Gran % (Auto) 0.600, Neut % (Auto) 66.5, Lymph % (Auto) 20.4, [place] % (Auto) 7.6, Eos % (Auto) 4.5, Baso % (Auto) 0.4, Absolute Neuts (auto) 3.4, Absolute Lymphs (auto) 1.05, Nucleated RBC % 0 06/13/22 05:53: Sodium 138, Potassium 4.1, Chloride 108 H, Carbon Dioxide 24.0, Anion Gap 6, BUN 18, Creatinine 0.80, Estim Creat Clear Calc 56.45, Est GFR (MDRD) Af Amer 92, Est GFR (MDRD) Non-Af 76, BUN/Creatinine Ratio 22.6 H, Glucose 177 H, Calcium 9.0, Phosphorus 3.3, Magnesium 1.7 06/13/22 06:17: POC Glucose 155 H 06/13/22 11:09: POC Glucose 85 Radiography Diagnostic Testing: Radiology Impression Carotid Duplex 06/11/22 16:57 Interpretation Summary Irregular calcific plaque at the proximal right internal carotid artery with less than 50% stenosis Less than 50% stenosis right external carotid artery Irregular calcific plaque with shadowing at the proximal left internal carotid artery with 50 to 69% stenosis Less than 50% stenosis left external carotid artery Patent and antegrade vertebral arteries bilaterally No change from the previous examination of January 04, 2021 Ordering Physician: Rosalinda Blandon Referring Physician: Daniel Lopez Performed By: Arturo Holm RVT D/C Instructions Discharge Diet: No restrictions Discharge Activity: Return to Normal Activity Call your doctor if you observe: Fever of 101 or Higher, Shortness of breath, Fainting spells and Chest pain Meaningful Use Info Meaningful Use Diagnoses (Choose all that apply): None applicable Discharge Plan Admission Admit Date/Time: 06/11/22 15:48 Attending Provider: Yoel Hernandez Primary Care Provider: Daniel Lopez Consulting Providers: Rosalinda Blandon Discharge Orders/Prescriptions Prescriptions: New aspirin 81 mg Tablet,Chewable 81 mg PO BREAKFAST 90 Days Qty: 90 0RF cefdinir 300 mg Capsule 300 mg PO Q12 5 Days Qty: 10 0RF escitalopram oxalate 10 mg Tablet 10 mg PO DAILY 90 Days Qty: 90 0RF Continued alendronate 70 mg tablet 70 mg PO MARTINEZ metformin 500 MG tablet 500 mg PO BID amlodipine 5 mg tablet 5 mg PO DAILY ramipril 10 mg capsule 10 mg PO DAILY atorvastatin [Lipitor] 80 mg tablet 80 mg PO QHS levetiracetam 500 mg tablet 1,000 mg PO BID Referrals / Follow Up: Daniel Lopez MD [Primary Care Provider] - Within 1 Week Disposition Disposition (needs filled in before D/C Order can be placed): Home, Self Care Charges/Coding Visit Charges Inpatient E&M: 72004 Disch Hosp >30min
[2022-06-13] MEDS: Fluconazole 100 MG Tablet 200 MG PO (12:23)
--- NOTE | 2022-06-13 12:32 | CHAPLAIN ---
Type of Pastoral Visit _x__ Initial Visit ___ Follow-up Visit ___ On-call Visit ___ General Patient Visit ___ Spiritual Assessment ___ Family Conference ___ Bereavement ___ Rapid Response ___ Code Blue ___ Other (describe below) Pastoral Care Referral From _x__ Patient ___ Family ___ Nurse ___ Physician ___ Senior Regulatory Affairs Specialist ___ Dining Room Attendant _x__ Other (describe below) Sacrament/Intervention _x__ Active listening ___ Anointing ___ Latter Day ___ Bereavement ___ Communion _x__ Alicia exploration ___ ___ Life review _x__ Prayer ___ Reconciliation ___ Sacrament of Sick _x__ Supportive presence ___ Wedding ___ Other (describe below) Pastoral Comments Call from hospital screen operator that this patient had called 0 twice and was distressed; screen operator offered to contact this data center operator and patient was agreeable; met with patient in her room and a staff member was a designated sitter; pt smiled and began to talk; pt has difficulty getting her words out and yet with patience and time much of her conversation became understandable; pt described her home, a sister, her alevism as Mandaeism, several surgeries and aneurism, her limited arm and speech; much later in the visit the patient pointed finger to head and acted to shoot; pt stated she would not do that and indicated with circular motion of hand that it was a crazy thought in her brain; patient stated she did not need anything but a prayer; prayer given and pt was in tears and expressive of thankfulness to data center operator for the visit;
--- NOTE | 2022-06-13 13:39 | CASEMGMT ---
KEVIN CM in to discuss needs at discharge with patient and granddaughter. Both deny any further needs. Plan is to attend outpatient ST, script was given to family yesterday. Patient and granddaughter had no further questions or concerns at this time.
--- NOTE | 2022-06-13 14:08 | CASEMGMT ---
SW went to patient's room and her granddaughter Cassie was present. Patient was in agreement with completing Healthcare Power of School Director papers. Patient would like her granddaughter Cassie to be her Healthcare Power of School Director. Patient did not want any alternates. SW completed papers with patient. Copies were made and given to patient along with original. SW also placed a copy in patient's chart. Marylu KWON
[2022-06-13 14:24] VITALS: BP 125/75; PULSE 67; RESP 14; TEMP 36.8; O2SAT 98
[2022-06-13 14:47] VITALS: BMI 25.2
== END 2022-06-13 15:39 | disposition home or self-care (01) | DRG 92 ==
LOC: ED 16:32 → PCU 16:34
PROVIDERS: Admitting Provider Family Medicine; Emergency Provider Emergency Medicine; PCP Family Medicine; Visit Provider Internal Medicine
DX: R47.01 Aphasia (principal); F32.2 Major depressive disorder, single episode, severe without psychotic features; R45.851 Suicidal ideations; N30.00 Acute cystitis without hematuria; G93.89 Other specified disorders of brain; E11.9 Type 2 diabetes mellitus without complications; G40.909 Epilepsy, unspecified, not intractable, without status epilepticus; I69.331 Monoplegia of upper limb following cerebral infarction affecting right dominant side; I65.23 Occlusion and stenosis of bilateral carotid arteries; E78.00 Pure hypercholesterolemia, unspecified; I10 Essential (primary) hypertension; E78.5 Hyperlipidemia, unspecified; M48.02 Spinal stenosis, cervical region; Z87.891 Personal history of nicotine dependence; Z79.84 Long term (current) use of oral hypoglycemic drugs; H91.90 Unspecified hearing loss, unspecified ear; Z79.83 Long term (current) use of bisphosphonates; R47.81 Slurred speech
CPT/HCPCS: 36415; 70450; 70544; 70551; 71045; 80048; 80053; 80061; 81001; 82962; 83036; 83735; 84100; 84443; 85025; 85610; 85730; 92507; 92523; 93005; 93880; 94668; 95819; 97162; 97166; 99252; 99284; J7030; A4216; G0463

== ENCOUNTER 2022-06-23 09:00 | Emergency (ER) | payer MEDICARE, SELFPAY ==
[2022-06-23 09:04] VITALS: BP 149/69; PULSE 74; RESP 18; TEMP 36.1; O2SAT 98; BMI 26.9
--- NOTE | 2022-06-23 09:17 | CT_ITS ---
HISTORY: mental status change. TECHNIQUE: Multiple axial images were obtained of the head without intravenous contrast. A radiation dose optimization technique was used for this scan. 247 images. COMPARISON: 06/11/2022. FINDINGS: BRAIN PARENCHYMA: Multiple foci and zones of low attenuation in the bilateral cerebral white matter compatible with chronic small vessel ischemic gliosis. Old left periventricular infarct with ex vacuo dilatation of the left lateral ventricle. No acute intra-axial hemorrhage identified. CSF SPACES: Generalized volume loss. No midline shift or other significant mass effect. No acute extra-axial hemorrhage seen. OTHER: Intact calvarium. No significant air fluid levels in the paranasal sinuses or mastoid air cells. Unremarkable orbits. CT/Brain/Head without Contrast IMPRESSION: No acute intracranial process identified. Chronic involutional and white matter changes. Electronically Signed: Sharon Frederick MD at 10:46 EST ,
--- NOTE | 2022-06-23 09:18 | EKG12_ITS ---
Test Reason : CONFUSION Blood Pressure : / mmHG Vent. Rate : 070 BPM Atrial Rate : 070 BPM P-R Int : 186 ms QRS Dur : 074 ms QT Int : 394 ms P-R-T Axes : 060 052 032 degrees QTc Int : 425 ms Normal sinus rhythm Low voltage QRS Borderline ECG Confirmed by RAYMOND HOGAN, JHONATHAN ([id number]), technical writer and editor SAUL DUGAN ([id number]) on 06/24/2022 1:39:51 PM Referred By: Confirmed By:JHONATHAN ANDRADE MD
--- NOTE | 2022-06-23 09:20 | EDS_ITS ---
HPI History of Present Illness Chief Complaint: Confusion Detail of Chief Complaint: Increased confusion x2 days Narrative Narrative: Patient presents to the emergency department via EMS with increased confusion. Neighbors apparently called EMS as she has been knocking on their doors and threatening to harm her self and burn her house down. Patient's dog apparently has been running loose through the neighborhood. Patient with prior history of stroke. Apparently her caregiver is out of town on a cruise. Patient apparently waiting placement to assisted living facility. Patient denies feeling suicidal or homicidal. She has a bruise around her right eye and she states is from her dog. Patient with prior history of stroke and prior history of seizures. [facility] Medical History (Updated 06/23/22 @ 16:[address] Destini Salmeron, ) CVA (cerebral vascular accident) Diabetes mellitus Former tobacco use History of CVA (cerebrovascular accident) HLD (hyperlipidemia) Hypertension Monoparesis of right upper extremity Seizure Home Medications metformin 500 mg tablet 500 mg PO BID BLOOD SUGAR 01/05/20 [History Last Taken 06/11/22] alendronate 70 mg tablet 70 mg PO MARTINEZ BONES 06/22/20 [History Last Taken 06/09/22] amlodipine 5 mg tablet 5 mg PO DAILY BLOOD PRESSURE 06/11/22 [History Last Taken 06/11/22] atorvastatin 80 mg tablet (Lipitor) 80 mg PO QHS CHLESTEROL 06/11/22 [History Last Taken 06/10/22] levetiracetam 500 mg tablet 1,000 mg PO BID SEIZURES 06/11/22 [History Last Taken 06/11/22] ramipril 10 mg capsule 10 mg PO DAILY BLOOD PRESSURE 06/11/22 [History Last Taken 06/11/22] aspirin 81 mg chewable tablet 81 mg PO BREAKFAST 90 days #90 tabs 06/13/22 [Rx Last Taken Unknown] cefdinir 300 mg capsule 300 mg PO Q12 5 days #10 caps 06/13/22 [Rx Last Taken Unknown] escitalopram oxalate 10 mg tablet 10 mg PO DAILY 90 days #90 tabs 06/13/22 [Rx Last Taken Unknown] Allergy/AdvReac Type Severity Reaction Status Date / Time Iodinated Contrast Media Allergy Other Verified 06/23/22 09:12 [CONTRASTS] Corticosteroids AdvReac PT UNSURE Verified 06/23/22 09:12 (Glucocorticoids) OF REACTION [steroids] Family History (Updated 06/11/22 @ 15:[address] Rosalinda Blandon MD) Mother Diabetes CVA (cerebral vascular accident) Father Heart disease Surgical History No history of previous surgery Social History (Updated 06/11/22 @ 16:[address] Rosalinda Blandon MD) household members: none Smoking Status: Former smoker quit date: 05/05/00 pack-years: 20 alcohol intake: never substance use type: does not use ROS ROS ED Constitutional Constitutional ED: Reports systems reviewed and no addt'l complaints, except as documented; Denies body ache(s), change in weight or chills Eyes Eyes: Denies acute decrease in peripheral vision, change in vision, double vision or loss of vision ENT ENT ED: Reports none; Denies ear pain, lip swelling, loss taste/smell, neck pain, otalgia or sore throat Cardiovascular Cardiovascular: Reports none; Denies abdominal pain, chest pain with activity, leg edema, lightheadedness, palpitations, rapid heart rate or syncope Respiratory/Chest Respiratory/Chest: Reports none; Denies change in mental status, dry cough, dyspnea, hemoptysis, shortness of breath at rest or shortness of breath with exertion Gastrointestinal Gastrointestinal: Reports none; Denies abdominal pain, change in stool character, diarrhea, hematemesis, hematochezia, melena, rectal bleeding or vomiting Genitourinary Genitourinary ED: Reports none; Denies abdominal discomfort, anuria, dysuria, genital pain or polyuria Musculoskeletal Musculoskeletal: Reports none; Denies arthralgias, back pain, difficulty walking, extremity pain, muscle weakness or myalgias Integumentary Reports none; Denies abscess or rash Neurologic Neurologic: Reports none and other Details: Increased confusion ; Denies abnormal gait, confusion, focal weakness, frequent falls, headache(s), loss of vision, numbness, paresthesias, radicular pain, vertigo or weakness Psychiatric Psychiatric: Reports systems reviewed and no addt'l complaints, except as documented, none and suicidal thoughts; Denies behavioral changes, confusion, difficulty concentrating, hallucinations, suicidal ideation, tactile hallucinations or visual hallucinations Endocrine Endocrinology: Denies none, cold intolerance, excessive sweating, fatigue or heat intolerance Hematologic/Lymphatic Hematologic/Lymphatic: Reports none; Denies anemia, easy bleeding or easy bruising Allergic/Immunologic Allergic/Immunologic ED: Denies as per HPI, none, lip swelling, mouth swelling, throat swelling, tongue swelling or hives EXAM Physical Exam Const Vital Signs: 06/23/22 09:04 06/23/22 15:27 Temperature 97 F L 97.4 F L Temperature Source Temporal Temporal Pulse Rate 74 73 Respiratory Rate 18 18 Blood Pressure 149/69 H 135/82 H Blood Pressure Mean 95 99 Pulse Ox 98 94 Oxygen Delivery Method Room Air Room Air Positive well nourished and well developed General Appearance ED: well developed and NAD HEENT Reports TM's clear and moist mucous membranes HEENT Narrative: Ecchymosis and bruising around right orbit. No cellulitic changes. No trauma noted to the globe. normocephalic, atraumatic and trauma; Negative for tenderness Tympanic Membrane ED: Yes TM's clear Eyes PERRL and EOMs intact bilaterally General Eye ED: Negative for pale conjunctiva or scleral icterus Neck no lymphadenopathy, supple and no JVD General: Negative for tenderness Chest Wall inspection of chest normal and palpation of chest normal Chest: Negative for tenderness Resp normal respiratory effort and clear to auscultation bilaterally Effort and Inspection: Negative for respiratory distress or pain with movement Auscultation: Negative for rhonchi, wheezes or diminished lung sounds Cardio regular rate, regular rhythm, S1 normal heart sound, S2 normal heart sound and no murmurs Peripheral Pulses: pulses 2+ throughout GI normal to inspection, nondistended, normoactive bowel sounds, soft to palpation, non-tender, non-distended and no masses Back/Spine no CVA tenderness and no thoracic nor lumbar tenderness Extremity normal to inspection General Extremety ED: Negative for edema General Extremity: Negative for edema Neuro oriented x3, CN's II-XII intact bilaterally, no sensory deficits noted and gait normal Neuro Narrative: Patient with some slight expressive aphasia at times. She has right arm contracture from prior stroke. Sensorium / Orientation: awake, alert, oriented to person, oriented to place and oriented to time Motor Exam: strength 5/5 throughout and strength abnormal Psych mental status grossly normal Skin no rashes or lesions noted and no wounds MDM MDM MDM Narrative Medical decision making narrative: Patient lab work-up was unremarkable. Urinalysis and toxicology screen unremarkable. Patient was pink slipped by myself as I feel that she is unable to care for self. Patient feeling depressed and has expressed thoughts of self- harm to her neighbors 1 of which is here with her today. Patient with prior history of stroke. Patient with history of debility. Care of patient turned over to evening physician awaiting evaluation by crisis and final disposition as crisis is attempting placement to [facility] facility for definitive care. Lab Data Attestation: I reviewed the patient's lab results. Labs: Laboratory Results - last 24 hr 06/23/22 06/23/22 06/23/22 09:30 09:30 09:30 WBC 5.9 RBC 3.97 L Hgb 11.4 L Hct 35.6 L MCV 89.7 MCH 28.7 MCHC 32.0 RDW Std Deviation 45.2 H RDW Coeff of Liudmila 13.9 Plt Count 168 MPV 10.0 Immature Gran % (Auto) 0.300 Neut % (Auto) 65.5 Lymph % (Auto) 24.3 [place] % (Auto) 6.3 Eos % (Auto) 2.9 Baso % (Auto) 0.7 Absolute Neuts (auto) 3.9 Absolute Lymphs (auto) 1.43 Nucleated RBC % 0 Sodium 142 Potassium 4.4 Chloride 109 H Carbon Dioxide 28.0 Anion Gap 5 BUN 21 H Creatinine 0.90 Estim Creat Clear Calc 50.18 Est GFR (MDRD) Af Amer 80 Est GFR (MDRD) Non-Af 66 BUN/Creatinine Ratio 23.3 H Glucose 107 H Calcium 9.3 Total Bilirubin 0.70 AST 27 ALT 23 Alkaline Phosphatase 98 Troponin I High Sens 5 Total Protein 7.1 Albumin 3.4 Globulin 3.7 Albumin/Globulin Ratio 0.9 Urine Color Urine Clarity Urine pH Ur Specific [place] Urine Protein Urine Glucose (UA) Urine Ketones Urine Occult Blood Urine Nitrite Urine Bilirubin Urine Urobilinogen Ur Leukocyte Esterase Urine RBC Urine WBC Ur Squamous Epith Cells Urine Bacteria Urine Mucus Urine Opiates Screen Urine Methadone Screen Ur Barbiturates Screen Ur Phencyclidine Scrn Ur Amphetamines Screen MDMA (Ecstasy) Screen U Benzodiazepines Scrn Urine Cocaine Screen U Cannabinoids Screen Ur Drug Screen Comment Ethyl Alcohol < 3.0 06/23/22 06/23/22 10:23 10:23 WBC RBC Hgb Hct MCV MCH MCHC RDW Std Deviation RDW Coeff of Liudmila Plt Count MPV Immature Gran % (Auto) Neut % (Auto) Lymph % (Auto) [place] % (Auto) Eos % (Auto) Baso % (Auto) Absolute Neuts (auto) Absolute Lymphs (auto) Nucleated RBC % Sodium Potassium Chloride Carbon Dioxide Anion Gap BUN Creatinine Estim Creat Clear Calc Est GFR (MDRD) Af Amer Est GFR (MDRD) Non-Af BUN/Creatinine Ratio Glucose Calcium Total Bilirubin AST ALT Alkaline Phosphatase Troponin I High Sens Total Protein Albumin Globulin Albumin/Globulin Ratio Urine Color Yellow Urine Clarity Sl. Cloudy Urine pH 7.0 Ur Specific [place] 1.010 Urine Protein Negative Urine Glucose (UA) Normal Urine Ketones Negative Urine Occult Blood 10 H Urine Nitrite Negative Urine Bilirubin Negative Urine Urobilinogen Normal Ur Leukocyte Esterase 500 H Urine RBC 0-5 SEEN Urine WBC 0-5 SEEN Ur Squamous Epith Cells 0 SEEN Urine Bacteria 0 SEEN Urine Mucus 0 SEEN Urine Opiates Screen NEGATIVE Urine Methadone Screen NEGATIVE Ur Barbiturates Screen NEGATIVE Ur Phencyclidine Scrn NEGATIVE Ur Amphetamines Screen NEGATIVE MDMA (Ecstasy) Screen NEGATIVE U Benzodiazepines Scrn NEGATIVE Urine Cocaine Screen NEGATIVE U Cannabinoids Screen NEGATIVE Ur Drug Screen Comment Ethyl Alcohol Radiography Diagnostic Testing: Clinical Impression(s) from Imaging Studies Brain CT 06/23/22 09:17 IMPRESSION: No acute intracranial process identified. Chronic involutional and white matter changes. Electronically Signed: Sharon Frederick MD at 10:46 EST Reading Location ID and State: [facility] / [place] Tel , Service support , Discharge Plan Triage Chief Complaint: Confusion ED Provider: Destini Salmeron Dx/Rx/DC Orders Clinical Impression: Depression, Suicidal ideation, Abnormal behavior, Adult failure to thrive Prescriptions: No Action alendronate 70 mg tablet 70 mg PO MARTINEZ metformin 500 MG tablet 500 mg PO BID amlodipine 5 mg tablet 5 mg PO DAILY ramipril 10 mg capsule 10 mg PO DAILY atorvastatin [Lipitor] 80 mg tablet 80 mg PO QHS levetiracetam 500 mg tablet 1,000 mg PO BID aspirin 81 mg Tablet,Chewable 81 mg PO BREAKFAST 90 Days Qty: 90 0RF cefdinir 300 mg Capsule 300 mg PO Q12 5 Days Qty: 10 0RF escitalopram oxalate 10 mg Tablet 10 mg PO DAILY 90 Days Qty: 90 0RF Primary Care Provider: Daniel Lopez Referrals: Daniel Lopez MD [Primary Care Provider] -
[2022-06-23 09:35] LABS: Absolute Lymphocyte Count 1.43 X10^3/uL (0.83-4.51); Absolute Neutrophil Count 3.9 X10^3/uL (2.0-7.7); Basophil# 0.04 X10^3/uL; Basophil% 0.7 % (0-1); Eosinophil# 0.17 X10^3/uL; Eosinophils% 2.9 % (0-5); Hematocrit 35.6 % (37-47); Hemoglobin 11.4 g/dL (12.0-15.0); Lymphocyte # 1.43 X10^3/ul (0.83-4.51); Lymphocyte % 24.3 % (19-41); Mean Corpuscular Hgb 28.7 pg (27.0-32.0); Mean Corpuscular Volume 89.7 fL (81-99); Monocyte# 0.37 X10^3/uL; Monocyte% 6.3 % (0-10); NRBC Flagged by Analyzer 0 % (0-5); Neutrophil # 3.86 X10^3/uL (2.7-7.7); Neutrophil % 65.5 % (47-70); Platelet Count 168 K/mm3 (150-450); RBC Distribution Width CV 13.9 % (11.6-14.6); RBC Distribution Width SD 45.2 fl (35.1-43.9); Red Blood Count 3.97 M/mm3 (4.2-5.4); White Blood Count 5.9 K/mm3 (4.4-11.0)
[2022-06-23 09:50] LABS: Alcohol, Blood (Medical)-Serum < 3.0 mg/dL
[2022-06-23 09:54] LABS: ALB/GLOB Ratio 0.9 RATIO (0.9-2.4); AST(SGOT) 27 U/L (15-37); Alanine Aminotransfer ALT/SGPT 23 U/L (13-56); Albumin, Serum 3.4 g/dL (3.2-5.0); Alkaline Phosphatase 98 U/L (45-117); Anion Gap 5 (5-15); BUN 21 mg/dL (7-18); BUN/Creat Ratio 23.3 RATIO (10-20); Calcium,Total 9.3 mg/dL (8.5-10.1); Chloride 109 mmol/L (98-107); EST Glomerular Filtration Rate 66 mL/min (>60); Est Glom Filt Rate - Afr Amer 80 mL/min (>60); Estimated Creatinine Clearance 50.18 ml/min; Globulin 3.7 g/dL (2.2-4.2); Glucose 107 mg/dL (74-106); Potassium 4.4 mmol/L (3.5-5.1); Protein, Total 7.1 g/dL (6.4-8.2); Sodium Level 142 mmol/L (136-145); Troponin-I HS 5 pg/mL (3.0-54.0)
[2022-06-23] MEDS: 0.9% Normal Saline 1,000 ML 150 ML IV (10:28)
[2022-06-23 10:31] LABS: Bacteria 0 SEEN /hpf (None Seen); Mucous, Urine 0 SEEN /hpf (<or=2+); Squamous Epithelial Cells - UA 0 SEEN /hpf (5-10)
[2022-06-23 10:33] LABS: Color, Urine Yellow (Yellow); Glucose, Dipstick Normal (Normal); Ketone-Dipstick Negative (Negative); Leukocyte Esterase-Dipstick 500 /ul (Negative); Nitrite-Dipstick Negative (Negative); Occult Blood-Urine 10 /ul (Negative); Protein-Dipstick Negative (Negative); Urine Bilirubin Dipstick Negative (Negative); Urine Clarity Sl. Cloudy (Clear); Urine Urobilinogen Normal (Normal)
[2022-06-23 10:39] LABS: Red Blood Cells-Urine 0-5 SEEN /hpf (0-5); White Blood Cells 0-5 SEEN /hpf (0-5)
[2022-06-23 10:53] LABS: Amphetamine Urine VISTA NEGATIVE (<1000 ng/mL); Barbiturate Urine VISTA NEGATIVE (< 200 ng/mL); Benzodiazepine Urine VISTA NEGATIVE (< 200 ng/mL); Cocaine Urine VISTA NEGATIVE (< 300 ng/mL); Ecstacy Urine VISTA NEGATIVE (< 500 ng/mL); Methadone Urine VISTA NEGATIVE (< 300 ng/mL); PCP Urine VISTA NEGATIVE (< 25 ng/mL); THC Urine VISTA NEGATIVE (< 50 ng/mL); Vista UDS pH Range 7
--- NOTE | 2022-06-23 14:39 | ED.RN ---
FAXED INSURANCE INFO TO [employer]
[2022-06-23] MEDS: Ziprasidone IM 20 MG/ML VIAL IM (14:43)
[2022-06-23 15:27] VITALS: BP 135/82; PULSE 73; RESP 18; TEMP 36.3; O2SAT 94
[2022-06-23 17:00] VITALS: RESP 16
--- NOTE | 2022-06-23 17:54 | ED.RN ---
COVID RESULTS FAXED PER RADIATION SAFETY OFFICER.
--- NOTE | 2022-06-23 17:57 | ED.RN ---
COVID TEST FAXED TO [facility]
[2022-06-23 19:00] VITALS: RESP 18
--- NOTE | 2022-06-23 19:02 | NURSING ---
CALLED PHYSICIANS TO SET UP TRANSPORT WITH PHYSICIANS- AGNES 06/24/2022 @ [id number]
[2022-06-23 21:00] VITALS: RESP 16
[2022-06-23] MEDS: Acetaminophen 325 MG Tablet 650 MG PO (23:36)
[2022-06-23 23:48] VITALS: BP 145/80; PULSE 83; RESP 16; TEMP 36.8; O2SAT 100
[2022-06-24 01:00] VITALS: RESP 16
[2022-06-24 02:26] LABS: Bedside Glucose 126 mg/dL (74-106)
[2022-06-24 03:49] VITALS: RESP 16
[2022-06-24 06:00] VITALS: RESP 16
[2022-06-24 06:48] VITALS: BP 151/90; PULSE 54; RESP 16; TEMP 36.6; O2SAT 99
== END 2022-06-24 06:50 ==
PROVIDERS: Emergency Provider Emergency Medicine; PCP Family Medicine; Visit Provider Emergency Medicine
DX: F32.A Depression, unspecified (principal); E11.9 Type 2 diabetes mellitus without complications; R62.7 Adult failure to thrive; R45.851 Suicidal ideations; Z87.891 Personal history of nicotine dependence; I10 Essential (primary) hypertension; R41.0 Disorientation, unspecified; E78.5 Hyperlipidemia, unspecified; Z86.73 Personal history of transient ischemic attack (TIA), and cerebral infarction without residual deficits
CPT/HCPCS: 70450; 80053; 80307; 81001; 82077; 82962; 84484; 85025; 87811; 93005; 96360; 96361; 96372; 99284; J7030; A4216

== ENCOUNTER → 2022-07-26 | Outpatient (CLI) | payer MEDICARE, SELFPAY ==
[2022-07-26 15:54] LABS: Absolute Lymphocyte Count 1.82 X10^3/uL (0.83-4.51); Absolute Neutrophil Count 3.2 X10^3/uL (2.0-7.7); Basophil# 0.05 X10^3/uL; Basophil% 0.9 % (0-1); Eosinophil# 0.35 X10^3/uL; Hematocrit 35.3 % (37-47); Lymphocyte # 1.82 X10^3/ul (0.83-4.51); Lymphocyte % 31.1 % (19-41); Mean Corp Hgb Conc 31.2 g/dL (32-36); Mean Corpuscular Hgb 29.3 pg (27.0-32.0); Mean Corpuscular Volume 93.9 fL (81-99); Mean Platelet Vol. 11.3 fl (6.2-12.0); Monocyte% 6.8 % (0-10); NRBC Flagged by Analyzer 0 % (0-5); Neutrophil # 3.21 X10^3/uL (2.7-7.7); Neutrophil % 54.9 % (47-70); Platelet Count 206 K/mm3 (150-450); RBC Distribution Width CV 15.1 % (11.6-14.6); RBC Distribution Width SD 52.1 fl (35.1-43.9); Red Blood Count 3.76 M/mm3 (4.2-5.4); White Blood Count 5.9 K/mm3 (4.4-11.0)
[2022-07-26 16:06] LABS: ALB/GLOB Ratio 0.8 RATIO (0.9-2.4); AST(SGOT) 28 U/L (15-37); Alanine Aminotransfer ALT/SGPT 27 U/L (13-56); Albumin, Serum 3.1 g/dL (3.2-5.0); Alkaline Phosphatase 138 U/L (45-117); Anion Gap 2 (5-15); BUN 23 mg/dL (7-18); BUN/Creat Ratio 23.7 RATIO (10-20); Calcium,Total 8.8 mg/dL (8.5-10.1); Chloride 107 mmol/L (98-107); Cholesterol 130 mg/dL (200); Creatinine, Serum 0.97 mg/dL (0.55-1.02); EST Glomerular Filtration Rate 61 mL/min (>60); Est Glom Filt Rate - Afr Amer 73 mL/min (>60); Globulin 3.7 g/dL (2.2-4.2); Glucose 119 mg/dL (74-106); High Density Lipoprotein 54 mg/dL; Potassium 4.6 mmol/L (3.5-5.1); Protein, Total 6.8 g/dL (6.4-8.2); Sodium Level 140 mmol/L (136-145); Triglycerides 153 mg/dL; Very Low Density Lipoprotein 31 mg/dL (5-40)
[2022-07-26 17:01] LABS: Hemoglobin A1c 5.6 % (3.8-5.6)
== END | disposition home or self-care (01) ==
LOC: MFPLAB 14:22
PROVIDERS: PCP Family Medicine; Visit Provider Family Medicine
DX: E11.22 Type 2 diabetes mellitus with diabetic chronic kidney disease (principal); N18.9 Chronic kidney disease, unspecified
CPT/HCPCS: 36415; 80053; 80061; 83036; 85025

== ENCOUNTER → 2022-08-05 | Outpatient (CLI) | payer MEDICARE, SELFPAY ==
--- NOTE | 2022-08-05 08:06 | MRI_ITS ---
STUDY: MR PELVIS WITH T WITHOUT CONTRAST REASON FOR EXAM: Female, 67 years old. Follow up vulvar, perineal mass. TECHNIQUE: Standardized fat and water weighted pulse sequences were obtained in all 3 orthogonal planes, pre-and post contrast administration. 15 mL Clariscan was administered for the contrast portion of the examination. COMPARISON: MRI/MRA pelvis July 08, 2022. CT abdomen pelvis July 07, 2022. FINDINGS: Heterogeneous, septated, T2 hyperintense mass with heterogeneous enhancement involving the perineal region, somewhat right paramedian location with right bulbar involvement again seen. Mass measures approximately 7.0 x 3.8 x 6.1 cm in size. Previous measurements, 7.6 x 4.5 cm in size. Foci of calcification within the mass, better demonstrated on recent CT exam. Urinary bladder is moderately distended, unremarkable. Unchanged appearance of the pelvic sidewall. No significant pelvic adenopathy. Unchanged appearance of the osseous structures. Atrophy of the gluteal musculature. MRI/Pelvis W/WO Contrast IMPRESSION: No significant interval change in the appearance of the bulbar, peroneal mass. Electronically Signed: Avery Ramirez MD at 9:30 EDT ,
== END | disposition home or self-care (01) ==
PROVIDERS: PCP Family Medicine
DX: N90.89 Other specified noninflammatory disorders of vulva and perineum (principal); C20 Malignant neoplasm of rectum; D64.9 Anemia, unspecified
CPT/HCPCS: 36415; 72197; 80053; 82378; 82607; 82728; 83540; 83550; 83735; 84100; 85025; 85045; A9575

== ENCOUNTER 2022-08-16 08:50 | Day surgery (SDC) | payer MEDICARE, SELFPAY ==
[2022-08-16 09:25] VITALS: BP 153/90; PULSE 60; RESP 17; TEMP 36.4; O2SAT 97; BMI 27.6
[2022-08-16] MEDS: Lactated Ringers 1,000 ML 15 ML IV (09:25)
[2022-08-16 09:30] LABS: Bedside Glucose 120 mg/dL (74-106)
--- NOTE | 2022-08-16 09:41 | HP.PCM_ITS ---
History and Physical Date of Admission: 08/16/22 Date of Service:? 08/06/22 MR#: [id number] Acct: [id number] Name:? ROCÍO ORDONEZ Rep #: [id number] : 1955 ? ? Provider: Dr. Payton Velarde MD Age/Sex:? 67/F ? ? [place] [facility] [facility] [place] Status: Signed Intake Vital Signs ? 08/05/2313:09 08/06/2308:06 Height 5 ft 3 in 5 ft 3 in Weight: ? 162 lb BMI ? 28.7 BP ? 127/78 H Blood Pressure Location ? Lt brachial Position ? Sitting Respiration ? 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 Is patient in pain?: No Allergies Iodinated Contrast Media [CONTRASTS] Allergy (Verified 08/06/22 09:06) OtherCorticosteroids (Glucocorticoids) [steroids] Adverse Reaction (Verified 08/06/22 09:06) PT UNSURE OF REACTION Medications metformin 500 mg tablet 500 mg PO BID BLOOD SUGAR 01/05/20 [History Confirmed 08/06/22] alendronate 70 mg tablet 70 mg PO MARTINEZ BONES 06/22/20 [History Confirmed 08/06/22] atorvastatin 80 mg tablet (Lipitor) 80 mg PO QHS CHLESTEROL 06/11/22 [History Confirmed 08/06/22] levetiracetam 500 mg tablet 1,000 mg PO BID SEIZURES 06/11/22 [History Confirmed 08/06/22] aspirin 81 mg chewable tablet 81 mg PO BREAKFAST 90 days #90 tabs 06/13/22 [Rx Confirmed 08/06/22] cefdinir 300 mg capsule 300 mg PO Q12 5 days #10 caps 06/13/22 [Rx Confirmed 08/06/22] escitalopram oxalate 10 mg tablet 10 mg PO DAILY 90 days #90 tabs 06/13/22 [Rx Confirmed 08/06/22] hydroxyzine HCl 25 mg tablet 25 mg PO BID PRN 07/26/22 [History Confirmed 08/06/22] olanzapine 5 mg tablet 5 mg PO DAILY 07/26/22 [History Confirmed 08/06/22] PFSH Medical History? Anemia Bipolar 1 disorder CVA (cerebral vascular accident) Diabetes mellitus Dysarthria due to acute stroke Dyslipidemia Former tobacco use History of CVA (cerebrovascular accident) HLD (hyperlipidemia) Hypertension Hypertensive emergency Monoparesis of right upper extremity Rectum cancer Seizure Surgical History? No history of previous surgery Family History? Mother Diabetes CVA (cerebral vascular accident) ThrombocytopeniaFather Heart disease Social History? household members:? none Smoking Status:? Former smoker quit date: 05/05/00 pack-years: 20 alcohol intake:? never substance use type:? does not use HPI HPI HPI: 67-year-old female presents for discussion of port placement.? Patient was found to have distal rectal cancer in the perineum.? Patient does have a PET scan scheduled for 08/13.? Patient's never had previous port placement.? Patient did have a stroke 6 years ago is on 81 mg aspirin. ROS General General: No weight change, appetite, fatigue, colon cancer or breast cancer HEENT HEENT: No difficulty swallowing, eye injury, eye surgery, swollen glands or hoarseness Endo Endocrine: Yes diabetes mellitus; No thyroid disease, thyroid cancer, Hair loss, heat intolerance or cold intolerance Skin Skin: No rash or changing moles Musc Musculoskeletal: No back problems, arthritis, rheumatoid arthritis, gout or joint pain Cardio Cardiovascular: No murmur, pacemaker, heart disease, atrial fibrillation, high blood pressure, heart attack, heart stent, palpitations, shortness of breat with exertion or chest pain Psych Psychiatric: Yes depression and anxiety; No hearing voices Resp Respiratory: No shortness of breath, No sleep apnea, No cough, No COPD, No asthma, No emphysema and No wheezing Gastro Gastrointestinal: No abdominal pain, No nausea or vomiting, No diarrhea, No constipation, No blood in stool, No acid reflux, No hemorrhoids, No ulcers, No gallbladder problem and No black,tarry stools Myron Hematologic: Yes blood thinners, No blood disorders, Yes bleeding, No anemia and No blood clots Neuro Neurologic: No numbness, No tingling and Yes other (Right-sided upper extremity monoparesis due to previous stroke) Exam Const General: cooperative, healthy appearing and no acute distress [facility] Head: normal to inspection Neck Neck: supple Chest Other: Palpation upper chest bilaterally normal Resp Effort & Inspection: normal respiratory effort Cardio Rate: regular rate GI Inspection: non-distended Palpation: soft, no guarding and nontender Skin General: no rashes or lesions noted Neuro General: patient oriented x3 and other (Monoparesis of right upper extremity secondary to previous stroke) Extrem General: no clubbing, cyanosis or edema Psych Affect: normal affect Assessment and Plan Assessment and Plan (1) Encounter for insertion of venous access port: ?Status:?Acute (2) Rectum cancer: ?Status:?Acute Plan I have discussed above with the patient- Port-a-Cath placement.? Right possible left Patient has been counseled as to the risks/benefits of the procedure. I have explained the risks of the surgery, including but not limited to: infection, bleeding, injury to any blood vessels/nerves, injury to lungs (such as pneumothorax or hemothorax and need for chest tube), not having any access, nonfunctioning of port due to thrombosis, infection of port, etc.? the patient understands and agrees to proceed. I have answered all the patient's questions to the patient?s satisfaction and the patient has no further questions. Payton Velarde M.D. Pager: [phone] [facility] [address] [place] [address], [address] [place] [address] Office: [phone] Coding Level of Care Code Off vis,new,level 3 Diagnoses Encounter for insertion of venous access port? Z45.2 Rectum cancer? C20 08/06/22 0944 <Electronically signed by Payton Velarde MD> Date Payton Velarde MD
[2022-08-16] MEDS: Cefazolin 2 GM in 0.9% Normal Saline 100 ML IV (10:30)
[2022-08-16] MEDS: Bupivacaine 0.25% 30 ML Vial (10:43)
[2022-08-16] MEDS: Lidocaine 1% /Epi 1:100 (20ml) 20 ML Vial (10:43)
--- NOTE | 2022-08-16 11:06 | OP.PCM_ITS ---
Report of Operation Date of Procedure: 08/16/22 Pre-Operative Diagnosis: z45.2, rectal cancer Post-Operative Diagnosis: Same Surgery/Procedure Performed:: 1. Placement of right IJ Port-A-Cath 2. Use of ultrasound 3. Use of fluoroscopy Surgeon: Payton Velarde Type of Anesthesia: MAC/Supplemental Anesthesiologist: Daniel Clinton Special Medications: Ancef 2 g IV x1 Specimen's removed: None Estimated Blood Loss (mL): < 10 cc Description of Procedure: After informed consent was given, the patient was brought to the operating room and placed in the supine position. Appropriate time out protocol was followed. Patient was then given IV conscious sedation for anesthesia. The patient's r ight upper chest and neck were then prepped with a surgical skin preparation and sterile surgical drapes were placed. After proper landmarks were ascertained, the skin at the upper right chest area was then infiltrated with 1:1 mixture of 1% lidocaine with epinephrine and 0.5% marcaine. A needle trocar was then inserted into the right internal jugular vein with ultrasound guidance-multiple vessels were viewed with u/s and the right IJ was chosen-- and there was good aspiration of venous blood. A wire was then threaded into the needle trocar and this was visualized under fluoroscopy to e nsure that the wire was in the superior vena cava. Once this was done, then the needle trocar was removed. A small skin ke was made with an 11 blade knife at the wire entrance site. The dilator with the introducer sheath attached was then placed over the wire into the right internal jugular vein via the Seldinger technique and this was visualized under fluoroscopy. The dilator and sheath were in proper position as visualized by fluoroscopy. A subcutaneous pocket was then created caudad to the catheter insertion site. A transverse skin incision was made after the skin and subcutaneous tissues were infiltrated with local anesthetic. Blunt dissection was then used to create a space large enough for placement of the subcutaneous port. The catheter was then tunneled into the subcutaneous pocket. The wire and dilator were then removed. The catheter was then threaded into the introducer sheath and was positioned with its tip at the junction of the superior vena cava and the right atrium as visualized under fluoroscopy. The excess catheter was transected. The catheter was then attached to the subcutaneous port using manufacturers guidelines. The catheter was flushed with a heparin saline mixture prior to placement. Hemostasis was carefully controlled with electrocautery. The port was sutured to the subcutaneous fascia using 2-0 Vicryl suture at two sites. The port was then placed in the subcutaneous pocket. The incision were reapproximated with interrupted subdermal 3-0 vicryl sutures. The skin was reapproximated with 3-0 nylon suture in a interrupted fashion. Steristrips were used for reinforcement of the skin closure at IJ insertion site and a sterile opsite dressings were applied. The patient tolerated the procedure well. Implants Used: x Grafts/Implants Used: Bard 8 Fr ISP MRI implantable port Lot [id number] Complications none
--- NOTE | 2022-08-16 11:10 | DCINST_ITS ---
Discharge Instructions Procedure Port-A-Cath Diet Discharge Diet: Light diet - advance as tolerated Activity May shower in (days): 5 (Keep port site clean and dry x5 days. Neck incision okay to get wet after 1 day. Okay to lower shower and upper sponge bath. OR okay to taper off port site with a Ziploc bag to shower) Lifting Restrictions: No lifting > 15 pounds for 3 days with the arm on the side of the port Dressing / Incision Call your doctor if your incision/area has: Continuous Slow Oozing, Sudden Increased Bleeding, Increased Pain/ Swelling, Increased Redness, Foul Smelling Discharge and Swelling at the incision site Call your doctor if you observe: Fever of 101 or Higher Change Dressing in: 2 days Follow Up Care Please Follow Up With: Payton Velarde MD When: In 10 days for permanent suture removal?call office for appointment Test Results: Test results from this visit will be discussed in further detail at your follow- up appointment, if applicable. Discharge Plan Admission Attending Provider: Payton Velarde Primary Care Provider: Daniel Lopez Discharge Orders/Prescriptions Prescriptions: Continued alendronate 70 mg tablet 70 mg PO MARTINEZ hydroxyzine HCl 25 mg tablet 25 mg PO BID PRN (Reason: Itching) olanzapine 5 mg tablet 5 mg PO DAILY metformin 500 MG tablet 500 mg PO BID atorvastatin [Lipitor] 80 mg tablet 80 mg PO QHS levetiracetam 500 mg tablet 1,000 mg PO BID aspirin 81 mg Tablet,Chewable 81 mg PO BREAKFAST 90 Days Qty: 90 0RF escitalopram oxalate 10 mg Tablet 10 mg PO DAILY 90 Days Qty: 90 0RF Referrals / Follow Up: Daniel Lopez MD [Primary Care Provider] - Disposition Disposition (needs filled in before D/C Order can be placed): Home, Self Care
[2022-08-16 11:12] VITALS: BP 121/71; BP 153/90; PULSE 76; RESP 16; TEMP 36.2; O2SAT 96
[2022-08-16 11:15] VITALS: BP 129/71; BP 153/90; PULSE 69; RESP 16; O2SAT 94
--- NOTE | 2022-08-16 11:15 | RAD_ITS ---
STUDY: X-RAY CHEST REASON FOR EXAM: Female, 67 years old. Port Placement-PACU TECHNIQUE: Single AP portable view of the chest. COMPARISON: None. FINDINGS: Port on the right extends to the cavoatrial junction. The lungs are clear and expanded. There is no demonstrated pleural abnormality. Normal size heart. Normal mediastinum and zee. Normal visualized pulmonary arteries. Normal visualized aortic arch and descending thoracic aorta. There is demineralization of the osseous structures. Normal visualized ribs, clavicles, and shoulders. There is no demonstrated abnormality of the visualized soft tissue structures of the upper abdomen. RAD/Chest 1 View (Portable) IMPRESSION: Port placement. No pneumothorax. Electronically Signed: Ac Guan MD at 12:25 EDT ,
[2022-08-16 11:20] VITALS: BP 134/67; BP 153/90; PULSE 69; RESP 16; O2SAT 95
[2022-08-16 11:25] VITALS: BP 140/63; BP 153/90; PULSE 67; RESP 16; TEMP 36.3; O2SAT 95
[2022-08-16 12:25] VITALS: BP 153/90
== END 2022-08-16 12:43 | disposition home or self-care (01) ==
LOC: SDC 08:51 → AC 08:52
PROVIDERS: PCP Family Medicine; Referring Provider Surgery; Visit Provider Surgery
PROC: (CPT 36561; principal; 2022-08-16 10:15)
DX: Z45.2 Encounter for adjustment and management of vascular access device (principal); F31.9 Bipolar disorder, unspecified; C20 Malignant neoplasm of rectum; E11.9 Type 2 diabetes mellitus without complications; Z87.891 Personal history of nicotine dependence; E78.5 Hyperlipidemia, unspecified; Z86.73 Personal history of transient ischemic attack (TIA), and cerebral infarction without residual deficits; I10 Essential (primary) hypertension; D64.9 Anemia, unspecified
CPT/HCPCS: 36561; 00532; 71045; 77001; 82962; J7120; C1788; J2405

== ENCOUNTER → 2022-11-04 | Outpatient (CLI) | payer MEDICARE, SELFPAY ==
--- NOTE | 2022-11-04 07:54 | CT_ITS ---
STUDY: CT CHEST, ABDOMEN T PELVIS WITH CONTRAST REASON FOR EXAM: Female, 67 years old. RESTAGING RECTAL CANCER POST CHEMO/RT. RADIATION DOSAGE (If Supplied By Facility): CTDIvol = ( 13.01 ) mGy, DLP = ( 1405.65 ) mGycm TECHNIQUE: Transaxial imaging was performed following intravenous administration of Oral and amp; IV Readi-CAT and amp; 100mL Isovue-370. Multiplanar coronal and sagittal images were reformatted. Individualized dose optimization techniques were used for this CT. COMPARISON: Comparison is made with prior PET scan dated August 13, 2022. FINDINGS: CHEST A right-sided portacatheter is seen with the tip in the superior vena cava. The lungs are normal. There is no demonstrated pleural abnormality. Normal heart and pericardium. Normal mediastinum. Normal hilar regions. Normal unenhanced pulmonary arteries. Normal aorta arch and descending thoracic aorta. There are multi-level degenerative changes of the thoracic spine. There is no demonstrated abnormality of the visualized upper abdomen. ABDOMEN Normal liver. Normal gallbladder and extrahepatic biliary system. Normal spleen. Normal pancreas. Normal bilateral adrenal glands. Normal right kidney. Normal left kidney. Normal visualized stomach. Normal small intestine. Large amount of fecal material is seen in the colon. There is evidence of a 5.4 cm x 2.9 cm heterogeneous mass with areas of decreased density in the midline the peritoneum. Focal increased densities are seen within the. This most likely is postsurgical in nature. This is more prominent on the right side. There is diffuse atherosclerotic calcification of the abdominal aorta, without a demonstrated aneurysm. Normal inferior vena cava. Normal retroperitoneum. Normal abdominal wall. 40% loss of height of the superior endplate of the T12 vertebrae. PELVIS Normal urinary bladder. IUD is seen within the uterus. There is no pelvic fluid. There is no pelvic lymphadenopathy or mass lesion. There is diffuse atherosclerotic calcification of the pelvic arteries. CT/CT Chest, Abd, Pel w/Contrast IMPRESSION: Heterogeneous mass seen in the perineum slightly more prominent toward the right side of the midline. Postsurgical changes are seen. Electronically Signed: Germain Billings MD at 8:43 EDT ,
[2022-11-04] MEDS: 0.9% Saline Lock 10 ML Syringe IV (08:10)
== END | disposition home or self-care (01) ==
PROVIDERS: PCP Family Medicine; Referring Provider Internal Medicine Hematology & Oncology; Visit Provider Internal Medicine Hematology & Oncology
DX: C20 Malignant neoplasm of rectum (principal)
CPT/HCPCS: 71260; 74177; Q9967; A4216

== ENCOUNTER → 2023-04-08 | Outpatient (CLI) | payer MEDICARE, SELFPAY ==
--- NOTE | 2023-04-08 06:59 | CT_ITS ---
STUDY: CT CHEST, ABDOMEN T PELVIS WITH CONTRAST REASON FOR EXAM: Female, 68 years old. Rectal ca s/p neoadjuvant chemo/radiation-oral/IV RADIATION DOSAGE (If Supplied By Facility): CTDIvol = ( 12.65 ) mGy, DLP = ( 1909.61 ) mGycm TECHNIQUE: Transaxial imaging was performed following intravenous administration of Oral and amp; IV Readi-CAT and amp; 100mL Isovue-300. Multiplanar coronal and sagittal images were reformatted. Individualized dose optimization techniques were used for this CT. COMPARISON: Comparison is made with prior study November 04, 2022. FINDINGS: CHEST A right-sided Port-A-Cath is seen with the tip in the superior vena cava. Small benign-appearing bilateral axillary lymph nodes. The lungs are normal. There is no demonstrated pleural abnormality. There are calcifications of the coronary arteries. Normal mediastinum. Normal hilar regions. Normal unenhanced pulmonary arteries. Mild degree of calcific plaques at the level of the aortic arch. There are degenerative changes of the thoracic spine. Mild degree of loss of height of the superior endplate of the T10 or T11 vertebrae. Atrophy of the left kidney. Stable small left renal cyst. Small gallstones. ABDOMEN Normal liver. There are multiple small gallstones. Normal spleen. Normal pancreas. Normal bilateral adrenal glands. Normal right kidney. Atrophy of the left kidney. Stable cyst in the lateral inferior pole. Normal visualized stomach. Normal small intestine. Is evidence of a circumferential wall thickening involving the sigmoid colon as well as the rectum with increased markings in the surrounding peritoneal fat. If the patient has received radiation therapy, this may represent post radiation changes. This is new as compared to prior study. The appendix is visualized and appears normal. There is diffuse atherosclerotic calcification of the abdominal aorta, without a demonstrated aneurysm. Normal inferior vena cava. Normal retroperitoneum. The previously seen cystic structure in the right side of the perineum has decreased in size. Residual calcification in soft tissue prominence is seen. There are diffuse degenerative changes of the visualized lumbar spine. PELVIS Normal urinary bladder. IUD is seen within the pelvis. There is a 5 cm x 3 cm fluid collection in the region of the uterine cervix. This may represent fluid. There is no pelvic fluid. There is no pelvic lymphadenopathy or mass lesion. There is diffuse atherosclerotic calcification of the pelvic arteries. CT/CT Chest, Abd, Pel w/Contrast IMPRESSION: Findings suggestive of colitis involving the rectosigmoid colon. IUD seen within the uterus. Cystic structure seen in the cervical region of the uterus most likely representing fluid retention. Electronically Signed: Germain Billings MD at 15:18 EST ,
[2023-04-08] MEDS: 0.9 % NaCl (Sterile) Posiflush 10 mL IV (07:15)
== END | disposition home or self-care (01) ==
PROVIDERS: PCP Family Medicine; Referring Provider Nurse Practitioner Family; Visit Provider Nurse Practitioner Family
DX: C20 Malignant neoplasm of rectum (principal)
CPT/HCPCS: 71260; 74177; Q9967; A4216

== ENCOUNTER 2023-07-02 13:38 | Inpatient (IN) | payer MEDICARE, SELFPAY ==
[2023-07-02] VITALS (7 sets, daily range): BP systolic 117–158; BP diastolic 65–102; PULSE 78–83; RESP 16–19; TEMP 36.7; O2SAT 93–98; BMI 27.3
--- NOTE | 2023-07-02 14:06 | CT_ITS ---
STUDY: CT ABDOMEN AND PELVIS WITH CONTRAST REASON FOR EXAM: Female, 68 years old. GI bleed. Patient is on blood thinners. History of rectal cancer. RADIATION DOSAGE (If Supplied By Facility): CTDIvol = ( 10.92 ) mGy, DLP = ( 844.72 ) mGycm TECHNIQUE: Transaxial images were obtained from the dome of the diaphragm to the symphysis pubis without oral contrast. IV 100mL Isovue-370 was administered. Sagittal and coronal images were reconstructed. Individualized dose optimization techniques were used for this CT. COMPARISON: Comparison is made with prior examination dated April 08, 2023. FINDINGS: Mild increased linear markings at the right lung base suggestive of atelectasis and/or scarring. Coronary artery calcification. Bipolar pacemaker is seen. There is decreased attenuation of the liver consistent with steatosis. There are multiple gallstones. Mildly distended gallbladder. Normal spleen. Normal pancreas. Normal bilateral adrenal glands. Normal right kidney. Stable atrophy of the left kidney with stable cysts. Normal visualized stomach. Normal small intestine. Large amount of fecal material is seen in the colon. Stable circumferential wall thickening of the rectum in keeping with the history of rectal carcinoma. There is evidence of increased markings in the surrounding pelvic fat. A fluid containing spacer is seen between the bladder and the rectum most likely representing a protective barrier for radiation therapy. The uterus is enlarged. IUD is seen within the uterus. The appendix is visualized and appears normal. There is diffuse atherosclerotic calcification of the abdominal aorta and its major visceral branches, without a demonstrated aneurysm. Normal inferior vena cava. Normal retroperitoneum. Normal urinary bladder. Normal abdominal wall. There are mild degenerative changes of the visualized lumbar spine. CT/Abdomen/Pelvis W IV Cont ONLY IMPRESSION: Diffuse circumferential wall thickening of the rectum with an narrowing of the lumen. This is indicative of the patient''s history of a rectal carcinoma. Increased markings in the surrounding peritoneal fat. A fluid collection is seen between the uterus and the rectum most likely resulting in a protective device for radiation therapy. Multiple gallstones. Mildly distended gallbladder lumen. Fatty infiltration of the liver. Electronically Signed: Germain Billings MD at 15:38 EST ,
--- NOTE | 2023-07-02 14:08 | EX.ED.DYSGE1 ---
HPI History of Present Illness Chief Complaint: GI Bleed Informant: patient Narrative Narrative: Patient presents to local ECF secondary to GI bleed. She reports having intermittent rectal bleeding for the last several months. 2 weeks ago she fell and broke her right femur. She had surgery in [place] and is currently in a local ECF. She states had an ultrasound yesterday that revealed a DVT and they started her on Eliquis. She had minh blood with bowel movement this morning so she was sent to the emergency room. Patient's history does list rectal cancer, however when I asked her about this she states she has just assumed that is what she has but is never been evaluated. She states has never had a colonoscopy. On repeat examination family member is now in the room. She was asked about patient's history of reported rectal cancer. Granddaughter does state that she has colon cancer and recently finished treatment with radiation and chemotherapy with the [facility]-on[facility] group here at the hospital. She reportedly was supposed to go to [place] to see Dr. Cavazos for a surgery, but that got delayed because of the leg fracture. [facility] Medical History Acid reflux Anemia Anxiety Bipolar 1 disorder Cancer CVA (cerebral vascular accident) Dehydration Diabetes mellitus Diarrhea due to drug Drug induced neutropenia Dysarthria due to acute stroke Dyslipidemia Encounter for chemotherapy management Encounter for education Former smoker Former tobacco use High cholesterol History of CVA (cerebrovascular accident) History of echocardiogram HLD (hyperlipidemia) Hypertension Hypertensive emergency Iron deficiency anemia due to chronic blood loss Monoparesis of right upper extremity Prerenal azotemia Rectum cancer Seizure Thrombocytopenia Home Medications metformin 500 mg tablet 500 mg PO BID BLOOD SUGAR 01/05/20 [History Last Taken 07/02/23] alendronate 70 mg tablet 70 mg PO [facility] 06/22/20 [History Last Taken 07/02/23] atorvastatin 80 mg tablet (Lipitor) 80 mg PO QHS CHLESTEROL 06/11/22 [History Last Taken 07/01/23] levetiracetam 500 mg tablet 1,000 mg PO BID SEIZURES 06/11/22 [History Last Taken 07/02/23] escitalopram oxalate 10 mg tablet 10 mg PO DAILY DEPRESSION 90 days #90 tabs 06/13/22 [Rx Last Taken 07/02/23] acetaminophen 325 mg tablet 650 mg PO Q4H PRN PAIN 07/02/23 [History Last Taken Unknown] acetaminophen 500 mg tablet 1,000 mg PO Q8H PAIN 07/02/23 [History Last Taken 07/02/23] amlodipine 5 mg tablet 5 mg PO DAILY BLOOD PRESSURE 07/02/23 [History Last Taken 07/02/23] apixaban 5 mg tablet (Eliquis) 10 mg PO BID BLOOD THINNER 07/02/23 [History Last Taken 07/02/23] cholecalciferol (vitamin D3) 50 mcg (2,000 unit) capsule (Vitamin D3) 50 mcg PO DAILY SUPPLEMENT 07/02/23 [History Last Taken 07/02/23] cyclobenzaprine 5 mg tablet 5 mg PO TID MUSCLE SPASMS 07/02/23 [History Last Taken 07/02/23] docusate sodium 100 mg capsule 100 mg PO BID CONSTIPATION 07/02/23 [History Last Taken 07/02/23] ondansetron HCl 4 mg tablet 4 mg PO Q8H PRN NAUSEA/VOMITING 07/02/23 [History Last Taken 06/21/23] pantoprazole 40 mg tablet,delayed release 40 mg PO BID GERD 07/02/23 [History Last Taken 07/02/23] sodium di- and monophosphate-potassium phos monobasic 250 mg tablet (Luis Eduardo-Phos Neutral) 1 tab PO 4X/DAY HEALTH MAINTENANCE 07/02/23 [History Last Taken 07/02/23] Allergy/AdvReac Type Severity Reaction Status Date / Time Corticosteroids AdvReac PT UNSURE Verified 04/14/23 14:32 (Glucocorticoids) OF REACTION [steroids] Family History Mother Diabetes CVA (cerebral vascular accident) Thrombocytopenia Father Heart disease Surgical History No history of previous surgery Social History household members: none housing: group home Smoking Status: Former smoker quit date: 05/05/00 pack-years: 20 alcohol intake: never substance use type: does not use ROS ROS ED Constitutional Constitutional ED: Denies chills or fever(s) Eyes Eyes: Denies discharge from eye(s) ENT ENT ED: Denies discharge from eye(s), rhinorrhea or sore throat Cardiovascular Cardiovascular: Denies chest pain or palpitations Respiratory/Chest Respiratory/Chest: Denies cough or dyspnea Gastrointestinal Gastrointestinal: Reports other Details: Bright red blood per rectum ; Denies abdominal pain, diarrhea, nausea or vomiting Musculoskeletal Musculoskeletal: Reports extremity pain; Denies back pain Integumentary Denies Abrasions or rash Neurologic Neurologic: Denies headache(s) or weakness Psychiatric Psychiatric: Denies anxiety or depression Allergic/Immunologic Allergic/Immunologic ED: Denies lip swelling or urticaria EXAM Physical Exam Const Vital Signs: 07/02/23 13:39 07/02/23 13:40 07/02/23 15:38 Temperature 98.1 F Temperature Source Temporal Pulse Rate 83 83 81 Respiratory Rate 19 H 19 H 16 Blood Pressure 123/102 H 120/68 117/65 Blood Pressure Mean 109 85 82 Pulse Ox 95 95 98 Oxygen Delivery Method Room Air 07/02/23 17:00 Temperature Temperature Source Pulse Rate 82 Respiratory Rate 16 Blood Pressure 128/70 H Blood Pressure Mean 89 Pulse Ox 95 Oxygen Delivery Method Room Air Positive well nourished and well developed General Appearance ED: well developed HEENT Reports moist mucous membranes Eyes EOMs intact bilaterally Chest Wall inspection of chest normal and palpation of chest normal Resp normal respiratory effort and clear to auscultation bilaterally Cardio regular rate and regular rhythm GI non-tender Auscultation: hypoactive bowel sounds Palpation: soft Extremity Extremity Narrative: Mild edema to the right lower extremity. Surgical incision sites appear to be healing well with no sign of infection. Good distal pulses with normal sensation. Neuro oriented x3 Skin no rashes or lesions noted MDM MDM MDM Narrative Medical decision making narrative: IV line initiated. Patient had a CBC drawn this morning that revealed hemoglobin 9.0. This appears consistent with her values for the last 2 or 3 weeks. Labwork obtained to evaluate for leukocytosis, anemia, and electrolyte derangement. CT scan of the abdomen pelvis obtained to evaluate for any potential obvious mass. I will attempt to obtain the report from her venous ultrasound. History & Record Review Discussion w/independent historian: Patient and Family Additional record(s) reviewed:: Prior labs Lab Data Attestation: I reviewed the patient's lab results. Labs: Laboratory Results - last 24 hr 07/02/23 14:24 WBC 2.8 L RBC 3.01 L Hgb 8.8 L Hct 29.0 L MCV 96.3 MCH 29.2 MCHC 30.3 L RDW Std Deviation 59.7 H RDW Coeff of Liudmila 16.9 H Plt Count 166 MPV 10.3 Immature Gran % (Auto) 0.400 Neut % (Auto) 61.4 Lymph % (Auto) 23.3 [place] % (Auto) 9.5 Eos % (Auto) 4.7 Baso % (Auto) 0.7 Absolute Neuts (auto) 1.7 L Absolute Lymphs (auto) 0.64 L Nucleated RBC % 0 PT 13.8 INR 1.1 APTT 28.1 Sodium 141 Potassium 4.0 Chloride 109 H Carbon Dioxide 27.0 Anion Gap 5 BUN 17 Creatinine 0.72 Estim Creat Clear Calc 65.56 Est GFR (MDRD) Af Amer 103 Est GFR (MDRD) Non-Af 85 BUN/Creatinine Ratio 23.5 H Glucose 102 Calcium 8.3 L Blood Type O NEGATIVE Antibody Screen NEGATIVE Radiography Diagnostic Testing: Clinical Impression(s) from Imaging Studies Abdomen/Pelvis CT 07/02/23 14:06 IMPRESSION: Diffuse circumferential wall thickening of the rectum with an narrowing of the lumen. This is indicative of the patient''s history of a rectal carcinoma. Increased markings in the surrounding peritoneal fat. A fluid collection is seen between the uterus and the rectum most likely resulting in a protective device for radiation therapy. Multiple gallstones. Mildly distended gallbladder lumen. Fatty infiltration of the liver. Electronically Signed: Germain Billings MD at 15:38 EST , Treatment and Re-Evaluation :: Venous ultrasound from the ECF is obtained. Patient has evidence of an acute right common femoral vein DVT. There is normal compressibility obtained from the right profundofemoral vein, right femoral vein, right popliteal vein through the right popliteal vein trifurcation in the calf. CBC was a white count of 2.8 with a hemoglobin of 8.8. This does appear to be consistent with her prior values. Chemistry studies are unremarkable. Blood type is O-. CT scan of the abdomen pelvis reveals diffuse circumferential wall thickening of the rectum with narrowing of the lumen. This is indicative of the patient's history of rectal carcinoma. A fluid collection is seen between the uterus and rectum likely resulting in a protective device for radiation therapy. I discussed with the patient that given her increased rectal bleeding on Eliquis, she will likely need an IVC filter. I spoke with Dr. Valdez, GI. We reviewed her prior workup. He does feel that patient should be admitted for IVC filter and get her off of the Eliquis. He also feels that she will need a scope and he states he will put in orders for prep for this. I will speak with the hospitalist. After discussion with the hospitalist they do not feel comfortable keeping the patient here and do feel she should be transferred back to [facility]. I spoken with medicine at [facility] and they will accept the patient. They will call when bed is available. Discharge Plan Triage Chief Complaint: GI Bleed ED Provider: Anila Nguyen Dx/Rx/DC Orders Clinical Impression: Rectal bleed, Rectal cancer, DVT (deep venous thrombosis) Prescriptions: No Action alendronate 70 mg tablet 70 mg PO WE metformin 500 MG tablet 500 mg PO BID atorvastatin [Lipitor] 80 mg tablet 80 mg PO QHS levetiracetam 500 mg tablet 1,000 mg PO BID escitalopram oxalate 10 mg Tablet 10 mg PO DAILY 90 Days Qty: 90 0RF amlodipine 5 mg tablet 5 mg PO DAILY Eliquis 5 mg tablet 10 mg PO BID Rx Instructions: GIVE TWO TABLETS (10MG) BY MOUTH TWICE DAILY FOR DVT FOR 14 DAYS. START DATE: EVENING OF 07/01/2023 END DATE: MORNING OF 07/15/2023 Luis Eduardo-Phos 250 Neutral 250 mg tablet 1 tab PO 4X/DAY Rx Instructions: GIVE 250MG BY MOUTH BEFORE MEALS AND AT BEDTIME FOR HEALTH MAINTENANCE ondansetron HCl 4 mg tablet 4 mg PO Q8H PRN (Reason: NAUSEA/VOMITING ) pantoprazole 40 mg tablet,delayed release (DR/EC) 40 mg PO BID cholecalciferol (vitamin D3) [Vitamin D3] 50 mcg (2,000 unit) capsule 50 mcg PO DAILY docusate sodium 100 mg capsule 100 mg PO BID acetaminophen 500 mg tablet 1,000 mg PO Q8H cyclobenzaprine 5 mg tablet 5 mg PO TID acetaminophen 325 mg tablet 650 mg PO Q4H PRN (Reason: PAIN ) Primary Care Provider: Daniel Lopez Referrals: Daniel Lopez MD [Primary Care Provider] - Disposition Disposition: Acute Care Hospital Discharge Location: [facility]
--- NOTE | 2023-07-02 14:17 | ED.RN ---
THIS RN CONTACTED NURSE FLORES AT [facility] AND REQUESTED DVT STUDY AND MAR TO BE FAXED TO ED.
[2023-07-02 14:48] LABS: Anion Gap 5 (5-15); BUN 17 mg/dL (7-18); BUN/Creat Ratio 23.5 RATIO (10-20); Calcium,Total 8.3 mg/dL (8.5-10.1); Chloride 109 mmol/L (98-107); Creatinine, Serum 0.72 mg/dL (0.55-1.02); EST Glomerular Filtration Rate 85 mL/min (>60); Est Glom Filt Rate - Afr Amer 103 mL/min (>60); Estimated Creatinine Clearance 65.56 ml/min; Glucose 102 mg/dL (74-106); Sodium Level 141 mmol/L (136-145)
[2023-07-02 14:49] LABS: Absolute Lymphocyte Count 0.64 X10^3/uL (0.83-4.51); Absolute Neutrophil Count 1.7 X10^3/uL (2.0-7.7); Basophil# 0.02 X10^3/uL; Basophil% 0.7 % (0-1); Eosinophil# 0.13 X10^3/uL; Eosinophils% 4.7 % (0-5); Hemoglobin 8.8 g/dL (12.0-15.0); Lymphocyte # 0.64 X10^3/ul (0.83-4.51); Lymphocyte % 23.3 % (19-41); Mean Corp Hgb Conc 30.3 g/dL (32-36); Mean Corpuscular Hgb 29.2 pg (27.0-32.0); Mean Corpuscular Volume 96.3 fL (81-99); Mean Platelet Vol. 10.3 fl (6.2-12.0); Monocyte# 0.26 X10^3/uL; Monocyte% 9.5 % (0-10); NRBC Flagged by Analyzer 0 % (0-5); Neutrophil # 1.69 X10^3/uL (2.7-7.7); Neutrophil % 61.4 % (47-70); Platelet Count 166 K/mm3 (150-450); RBC Distribution Width CV 16.9 % (11.6-14.6); RBC Distribution Width SD 59.7 fl (35.1-43.9); Red Blood Count 3.01 M/mm3 (4.2-5.4); White Blood Count 2.8 K/mm3 (4.4-11.0)
[2023-07-02 14:59] LABS: International Normalized Ratio 1.1; Prothrombin Time (Protime)PT. 13.8 SECONDS (11.7-14.9)
[2023-07-02 15:00] LABS: Partial Thromboplast Time 28.1 Seconds (24.1-36.2)
[2023-07-02 19:26] LABS: Hematocrit 29.3 % (37-47); Hemoglobin 9.1 g/dL (12.0-15.0)
--- NOTE | 2023-07-02 19:26 | ED.RN ---
Pt granddaughter leaving and requesting to be updated on when pt is leaving. All questions answered.
[2023-07-03] VITALS (17 sets, daily range): BP systolic 125–148; BP diastolic 69–92; PULSE 70–88; RESP 12–19; TEMP 36.4–37; O2SAT 93–96; BMI 25.7
[2023-07-03 06:45] LABS: Anion Gap 3 (5-15); BUN 16 mg/dL (7-18); BUN/Creat Ratio 28.2 RATIO (10-20); Calcium,Total 8.6 mg/dL (8.5-10.1); Chloride 109 mmol/L (98-107); Creatinine, Serum 0.57 mg/dL (0.55-1.02); EST Glomerular Filtration Rate 112 mL/min (>60); Est Glom Filt Rate - Afr Amer 136 mL/min (>60); Estimated Creatinine Clearance 65.56 ml/min; Glucose 97 mg/dL (74-106); Sodium Level 141 mmol/L (136-145)
[2023-07-03 06:46] LABS: Basophil% 0.7 % (0-1); Eosinophils% 4.8 % (0-5); Hematocrit 29.5 % (37-47); Hemoglobin 9.1 g/dL (12.0-15.0); Lymphocyte % 20.7 % (19-41); Mean Corp Hgb Conc 30.8 g/dL (32-36); Mean Corpuscular Hgb 29.4 pg (27.0-32.0); Mean Corpuscular Volume 95.2 fL (81-99); Monocyte% 8.1 % (0-10); Neutrophil % 65.3 % (47-70); Platelet Count 165 K/mm3 (150-450); RBC Distribution Width CV 59.5 % (11.6-14.6); White Blood Count 2.7 K/mm3 (4.4-11.0)
[2023-07-03 06:47] LABS: Lymphocyte # 0.56 X10^3/ul (0.83-4.51); Neutrophil # 1.76 X10^3/uL (2.7-7.7)
[2023-07-03 06:48] LABS: Basophil# 0.02 X10^3/uL; Eosinophil# 0.13 X10^3/uL; Monocyte# 0.22 X10^3/uL
--- NOTE | 2023-07-03 07:41 | PCM.HP.STD ---
[facility] - General General Date of Service: 07/03/23 Chief Complaint: Gi bleed. HPI Narrative ROCÍO ORDONEZ, is a 68 F who presents with GI bleed. Says has been having ongoing rectal bleeding for about a month. 2 weeks ago, patient broke her hip and was subsequent found to have a right lower extremity DVT. Patient was started on Eliquis at that time. Patient was doing well up until just the past 3 days where the bleeding became worse. She presented to the emergency room here and hemoglobin was stable at 9. They reached out to the hospitalist who recommended transfer. Patient was accepted at [facility] but they do not have any beds available at that time and they verified this morning and they would not have any beds available least until this afternoon or evening. Patient feels fine otherwise. [facility] Medical History Acid reflux Anemia Anxiety Bipolar 1 disorder Cancer CVA (cerebral vascular accident) Dehydration Diabetes mellitus Diarrhea due to drug Drug induced neutropenia Dysarthria due to acute stroke Dyslipidemia Encounter for chemotherapy management Encounter for education Former smoker Former tobacco use High cholesterol History of CVA (cerebrovascular accident) History of echocardiogram HLD (hyperlipidemia) Hypertension Hypertensive emergency Iron deficiency anemia due to chronic blood loss Monoparesis of right upper extremity Prerenal azotemia Rectum cancer Seizure Thrombocytopenia Home Medications metformin 500 mg tablet 500 mg PO BID BLOOD SUGAR 01/05/20 [History Last Taken 07/02/23] alendronate 70 mg tablet 70 mg PO [facility] 06/22/20 [History Last Taken 07/02/23] atorvastatin 80 mg tablet (Lipitor) 80 mg PO QHS CHLESTEROL 06/11/22 [History Last Taken 07/01/23] levetiracetam 500 mg tablet 1,000 mg PO BID SEIZURES 06/11/22 [History Last Taken 07/02/23] escitalopram oxalate 10 mg tablet 10 mg PO DAILY DEPRESSION 90 days #90 tabs 06/13/22 [Rx Last Taken 07/02/23] acetaminophen 325 mg tablet 650 mg PO Q4H PRN PAIN 07/02/23 [History Last Taken Unknown] acetaminophen 500 mg tablet 1,000 mg PO Q8H PAIN 07/02/23 [History Last Taken 07/02/23] amlodipine 5 mg tablet 5 mg PO DAILY BLOOD PRESSURE 07/02/23 [History Last Taken 07/02/23] apixaban 5 mg tablet (Eliquis) 10 mg PO BID BLOOD THINNER 07/02/23 [History Last Taken 07/02/23] cholecalciferol (vitamin D3) 50 mcg (2,000 unit) capsule (Vitamin D3) 50 mcg PO DAILY SUPPLEMENT 07/02/23 [History Last Taken 07/02/23] cyclobenzaprine 5 mg tablet 5 mg PO TID MUSCLE SPASMS 07/02/23 [History Last Taken 07/02/23] docusate sodium 100 mg capsule 100 mg PO BID CONSTIPATION 07/02/23 [History Last Taken 07/02/23] ondansetron HCl 4 mg tablet 4 mg PO Q8H PRN NAUSEA/VOMITING 07/02/23 [History Last Taken 06/21/23] pantoprazole 40 mg tablet,delayed release 40 mg PO BID GERD 07/02/23 [History Last Taken 07/02/23] sodium di- and monophosphate-potassium phos monobasic 250 mg tablet (Luis Eduardo-Phos Neutral) 1 tab PO 4X/DAY HEALTH MAINTENANCE 07/02/23 [History Last Taken 07/02/23] Allergy/AdvReac Type Severity Reaction Status Date / Time Corticosteroids AdvReac PT UNSURE Verified 04/14/23 14:32 (Glucocorticoids) OF REACTION [steroids] Family History Mother Diabetes CVA (cerebral vascular accident) Thrombocytopenia Father Heart disease Surgical History No history of previous surgery Social History household members: none housing: detention Smoking Status: Former smoker quit date: 05/05/00 pack-years: 20 alcohol intake: never substance use type: does not use ROS ROS Narrative Right-sided hemiparesis status post stroke. Right lower extremity edema. All review of systems were negative except as mentioned above in the history of present illness and the other review of systems. Vital Signs Vital Signs Vital Signs: 07/02/23 13:39 07/02/23 13:40 07/02/23 15:38 Temperature 36.7 C Temperature Source Temporal Pulse Rate 83 83 81 Respiratory Rate 19 H 19 H 16 Blood Pressure 123/102 H 120/68 117/65 Blood Pressure Mean 109 85 82 Pulse Ox 95 95 98 Oxygen Delivery Method Room Air 07/02/23 17:00 07/02/23 19:00 07/02/23 21:00 Temperature Temperature Source Pulse Rate 82 81 82 Respiratory Rate 16 18 16 Blood Pressure 128/70 H 158/83 H 138/73 H Blood Pressure Mean 89 108 94 Pulse Ox 95 94 95 Oxygen Delivery Method Room Air Room Air Room Air 07/02/23 23:00 07/03/23 01:00 07/03/23 03:00 Temperature Temperature Source Pulse Rate 78 70 75 Respiratory Rate 16 15 14 Blood Pressure 135/74 H 130/70 H 132/79 H Blood Pressure Mean 94 90 96 Pulse Ox 93 93 93 Oxygen Delivery Method Room Air Room Air Room Air 07/03/23 05:00 07/03/23 07:00 07/03/23 07:12 Temperature 36.4 C L Temperature Source Pulse Rate 75 85 76 Respiratory Rate 16 17 18 Blood Pressure 139/74 H 145/69 H 137/92 H Blood Pressure Mean 95 94 107 Pulse Ox 93 94 93 Oxygen Delivery Method Room Air Weight Weight: 72.2 kg Body Mass Index (BMI) 27.3 Physical Exam Const alert and no apparent distress HEENT normocephalic and head/scalp atraumatic Neck no lymphadenopathy Resp normal respiratory effort, no retractions, no use of accessory muscles and clear to auscultation bilaterally Cardio regular rate, regular rhythm, S1 normal heart sound and S2 normal heart sound GI normal to inspection, nondistended, normoactive bowel sounds, soft to palpation, non-tender and non-distended GI Narrative: Rectal exam showed no bleeding or any mass. Cut out to the rectum patient did have a dimpling of her skin. No obvious wound appreciated. Extremity Extremity Narrative: Right lower extremity with edema and larger than left lower extremity. Neuro Neuro Narrative: Strength 05 on the left lower extremity. Psych affect normal Results Lab / Micro Data 07/03/23 06:04 07/03/23 06:04 Labs: Laboratory Results - last 24 hr 07/02/23 14:24: WBC 2.8 L, RBC 3.01 L, Hgb 8.8 L, Hct 29.0 L, MCV 96.3, MCH 29.2, MCHC 30.3 L, RDW Std Deviation 59.7 H, RDW Coeff of Liudmila 16.9 H, Plt Count 166, MPV 10.3, Immature Gran % (Auto) 0.400, Neut % (Auto) 61.4, Lymph % (Auto) 23.3, [place] % (Auto) 9.5, Eos % (Auto) 4.7, Baso % (Auto) 0.7, Absolute Neuts (auto) 1.7 L, Absolute Lymphs (auto) 0.64 L, Nucleated RBC % 0, PT 13.8, INR 1.1, APTT 28.1, Sodium 141, Potassium 4.0, Chloride 109 H, Carbon Dioxide 27.0, Anion Gap 5, BUN 17, Creatinine 0.72, Estim Creat Clear Calc 65.56, Est GFR (MDRD) Af Amer 103, Est GFR (MDRD) Non-Af 85, BUN/Creatinine Ratio 23.5 H, Glucose 102, Calcium 8.3 L, Blood Type O NEGATIVE, Antibody Screen NEGATIVE 07/02/23 19:19: Hgb 9.1 L, Hct 29.3 L 07/03/23 06:04: WBC 2.7 L, RBC 3.10 L, Hgb 9.1 L, Hct 29.5 L, MCV 95.2, MCH 29.4, MCHC 30.8 L, RDW Std Deviation 17.0 L, RDW Coeff of Liudmila 59.5 H, Plt Count 165, MPV 10.0, Immature Gran % (Auto) 0.400, Neut % (Auto) 65.3, Lymph % (Auto) 20.7, [place] % (Auto) 8.1, Eos % (Auto) 4.8, Baso % (Auto) 0.7, Absolute Neuts (auto) Not Reportable, Sodium 141, Potassium 4.0, Chloride 109 H, Carbon Dioxide 29.0, Anion Gap 3 L, BUN 16, Creatinine 0.57, Estim Creat Clear Calc 65.56, Est GFR (MDRD) Af Amer 136, Est GFR (MDRD) Non-Af 112, BUN/Creatinine Ratio 28.2 H, Glucose 97, Calcium 8.6 Imaging Radiology Impression Abdomen/Pelvis CT 07/02/23 14:06 IMPRESSION: Diffuse circumferential wall thickening of the rectum with an narrowing of the lumen. This is indicative of the patient''s history of a rectal carcinoma. Increased markings in the surrounding peritoneal fat. A fluid collection is seen between the uterus and the rectum most likely resulting in a protective device for radiation therapy. Multiple gallstones. Mildly distended gallbladder lumen. Fatty infiltration of the liver. Electronically Signed: Germain Billings MD at 15:38 EST , Assessment & Plan Assessment/Plan (1) DVT (deep venous thrombosis): (2) Rectal bleed: PLAN: Plan Right lower extremity DVT Outside study confirmed patient had right femoral DVT. Patient had been on Eliquis for that but that had been stopped due to the GI bleeding. Patient has had bleeding even before the Eliquis was even started this is likely due to the rectal cancer. Discussed with Dr. Lombardi. He will plan on performing an IVC filter July 03. Patient's last dose of Eliquis was on the . That will be held indefinitely. Stent procedure can be done here, I verified with the patient and she is comfortable canceling the transfer to [facility]. She does understand if she does require transfer later that we would have to restart the process. GI bleed Secondary to rectal cancer Discussed with Dr. Valdez. He will see the patient in consultation. Unclear if patient will require endoscopy while she is here. Patient states that she has never had endoscopy before. As I suspect that this is lower than etiology, will hold off on pantoprazole for now. Rectal cancer Patient does have history of vulvar cancer as well. It is unclear if these are 2 separate cancers or, given the proximity, the same cancer. Apparently there was a biopsy that confirmed rectal cancer. Patient was to see a colorectal surgeon to be evaluated for surgery but that is currently being held. Chronic conditions Seizure disorder: Continue with levetiracetam Vulvar cancer: Follow-up with oncology Diabetes mellitus type 2: Sign scale insulin. Hold metformin. Recent leg fracture: Status post repair. PT OT evaluate and treat. VTE prophylaxis with SCDs. Chemical prophylaxis contraindicated in light of GI bleed. CODE STATUS: Reviewed with patient. Patient wishes to be DNR Comfort Care arrest Disposition: Patient is currently a intermediate facility. Patient to be evaluated physical and Occupational Therapy. The plan is to get her back to intermediate facility when she is medically stable. Charges/Coding Visit Charges Inpatient E&M: 48557 Init Hosp L3
--- NOTE | 2023-07-03 09:00 | CON.PCM.SX_ITS ---
Assessment & Plan Assessment/Plan (1) DVT (deep venous thrombosis): PLAN: Plan I discussed with patient and her grandauter IVC Filter insertion procedure including risks, benefits, and recovery. All of her questions and concerns were addressed. She is agreeable to proceed. 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 Keep NPO until procedure. HPI Consult Data Date of Consult: 07/03/23 HPI Narrative HPI Narrative: ROCÍO ORDONEZ, is a 68 F who presented to the [facility] ER from [facility] on 07/02/23 with GI bleed. About 2 weeks ago she suffered a R femur fracture which was repaired at [facility]. A couple days ago at [facility] she had a venous duplex which revealed R CFV DVT and she was initiated on Eliquis. Following this, she had increased rectal bleeding resulting in her presentation. Eliquis has been held since 07/02. Her Hgb at presentation was 8.5, today is stable at 9.1. She is diagnosed with rectal cancer for which she has received chemoradiation treatment through [facility] here, but is not currently receiving either as she awaits surgical evaluation at [facility] (delayed due to her femur fracture). 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 She denies any prior VTE. She denies prior abdominal surgeries. Initially, plan was to transfer to [facility] who did accept but had no available beds. Given she is stable, plan is now for admission here for IVC Filter placement and GI consultation. ON LICENSE OF [facility] Medical History Acid reflux Anemia Anxiety Bipolar 1 disorder Cancer CVA (cerebral vascular accident) Dehydration Diabetes mellitus Diarrhea due to drug Drug induced neutropenia Dysarthria due to acute stroke Dyslipidemia Encounter for chemotherapy management Encounter for education Former smoker Former tobacco use High cholesterol History of CVA (cerebrovascular accident) History of echocardiogram HLD (hyperlipidemia) Hypertension Hypertensive emergency Iron deficiency anemia due to chronic blood loss Monoparesis of right upper extremity Prerenal azotemia Rectum cancer Seizure Thrombocytopenia Home Medications metformin 500 mg tablet 500 mg PO BID BLOOD SUGAR 01/05/20 [History Last Taken 07/02/23] alendronate 70 mg tablet 70 mg PO [facility] 06/22/20 [History Last Taken 07/02/23] atorvastatin 80 mg tablet (Lipitor) 80 mg PO QHS CHLESTEROL 06/11/22 [History Last Taken 07/01/23] levetiracetam 500 mg tablet 1,000 mg PO BID SEIZURES 06/11/22 [History Last Taken 07/02/23] escitalopram oxalate 10 mg tablet 10 mg PO DAILY DEPRESSION 90 days #90 tabs 06/13/22 [Rx Last Taken 07/02/23] acetaminophen 325 mg tablet 650 mg PO Q4H PRN PAIN 07/02/23 [History Last Taken Unknown] acetaminophen 500 mg tablet 1,000 mg PO Q8H PAIN 07/02/23 [History Last Taken ] amlodipine 5 mg tablet 5 mg PO DAILY BLOOD PRESSURE 07/02/23 [History Last Taken 07/02/23] apixaban 5 mg tablet (Eliquis) 10 mg PO BID BLOOD THINNER 07/02/23 [History Last Taken 07/02/23] cholecalciferol (vitamin D3) 50 mcg (2,000 unit) capsule (Vitamin D3) 50 mcg PO DAILY SUPPLEMENT 07/02/23 [History Last Taken 07/02/23] cyclobenzaprine 5 mg tablet 5 mg PO TID MUSCLE SPASMS 07/02/23 [History Last Taken 07/02/23] docusate sodium 100 mg capsule 100 mg PO BID CONSTIPATION 07/02/23 [History Last Taken 07/02/23] ondansetron HCl 4 mg tablet 4 mg PO Q8H PRN NAUSEA/VOMITING 07/02/23 [History Last Taken 06/21/23] pantoprazole 40 mg tablet,delayed release 40 mg PO BID GERD 07/02/23 [History L ast Taken 07/02/23] sodium di- and monophosphate-potassium phos monobasic 250 mg tablet (Luis Eduardo-Phos Ne utral) 1 tab PO 4X/DAY HEALTH MAINTENANCE 07/02/23 [History Last Taken 07/02/23] Allergy/AdvReac Type Severity Reaction Status Date / Time Corticosteroids AdvReac PT UNSURE Verified 04/14/23 14:32 (Glucocorticoids) OF REACTION [steroids] Family History Mother Diabetes CVA (cerebral vascular accident) Thrombocytopenia Father Heart disease Surgical History No history of previous surgery Social History household members: none housing: prison Smoking Status: Former smoker quit date: 05/05/00 pack-years: 20 alcohol intake: never substance use type: does not use Physical Exam Const alert, oriented x3 and no apparent distress HEENT normocephalic, head/scalp atraumatic and external nose normal Eyes PERRL and EOMs intact bilaterally General Eye: normal appearance of both eyes Neck General: normal visual inspection Resp normal respiratory effort and no retractions Effort and Inspection: able to speak in complete sentences Cardio Rate: regular rate Rhythm: regular rhythm Extremity Extremity Narrative: RLE edema Skin no rashes or lesions noted Neuro Neuro Narrative: Noted residual aphasia and right sided weakness from prior stroke, otherwise appears neurologically intact Psych mental status grossly normal and affect normal Appearance: grossly normal Lab / Micro Data 07/03/23 06:04 07/03/23 06:04 Labs: Laboratory Results - last 24 hr 07/02/23 14:24: WBC 2.8 L, RBC 3.01 L, Hgb 8.8 L, Hct 29.0 L, MCV 96.3, MCH 29.2, MCHC 30.3 L, RDW Std Deviation 59.7 H, RDW Coeff of Liudmila 16.9 H, Plt Count 166, MPV 10.3, Immature Gran % (Auto) 0.400, Neut % (Auto) 61.4, Lymph % (Auto) 23.3, [place] % (Auto) 9.5, Eos % (Auto) 4.7, Baso % (Auto) 0.7, Absolute Neuts (auto) 1.7 L, Absolute Lymphs (auto) 0.64 L, Nucleated RBC % 0, PT 13.8, INR 1.1, APTT 28.1, Sodium 141, Potassium 4.0, Chloride 109 H, Carbon Dioxide 27.0, Anion Gap 5, BUN 17, Creatinine 0.72, Estim Creat Clear Calc 65.56, Est GFR (MDRD) Af Amer 103, Est GFR (MDRD) Non-Af 85, BUN/Creatinine Ratio 23.5 H, Glucose 102, Calcium 8.3 L, Blood Type O NEGATIVE, Antibody Screen NEGATIVE 07/02/23 19:19: Hgb 9.1 L, Hct 29.3 L 02/29/24 06:04: WBC 2.7 L, RBC 3.10 L, Hgb 9.1 L, Hct 29.5 L, MCV 95.2, MCH 29.4, MCHC 30.8 L, RDW Std Deviation 17.0 L, RDW Coeff of Liudmila 59.5 H, Plt Count 165, MPV 10.0, Immature Gran % (Auto) 0.400, Neut % (Auto) 65.3, Lymph % (Auto) 20.7, [place] % (Auto) 8.1, Eos % (Auto) 4.8, Baso % (Auto) 0.7, Absolute Neuts (auto) Not Reportable, Sodium 141, Potassium 4.0, Chloride 109 H, Carbon Dioxide 29.0, Anion Gap 3 L, BUN 16, Creatinine 0.57, Estim Creat Clear Calc 65.56, Est GFR (MDRD) Af Amer 136, Est GFR (MDRD) Non-Af 112, BUN/Creatinine Ratio 28.2 H, Glucose 97, Calcium 8.6 Imaging Radiology Impression Abdomen/Pelvis CT 07/02/23 14:06 IMPRESSION: Diffuse circumferential wall thickening of the rectum with an narrowing of the lumen. This is indicative of the patient''s history of a rectal carcinoma. Increased markings in the surrounding peritoneal fat. A fluid collection is seen between the uterus and the rectum most likely resulting in a protective device for radiation therapy. Multiple gallstones. Mildly distended gallbladder lumen. Fatty infiltration of the liver. Electronically Signed: Germain Billings MD at 15:38 EST ,
[2023-07-03] MEDS: Escitalopram Oxalate 10 MG Tablet PO (11:36)
[2023-07-03] MEDS: levETIRAcetam 1,000 MG Tablet 1000 MG PO ×2 (11:36→22:34)
[2023-07-03] MEDS: Cholecalciferol (VIT D3) 25 MCG TABLET (1,000 UNITS) 50 MCG PO (11:36)
[2023-07-03] MEDS: Pantoprazole Sodium 40 MG Tablet PO ×2 (11:37→22:35)
[2023-07-03] MEDS: amLODIPine 5 MG Tablet PO (11:37)
[2023-07-03] MEDS: 0.9% Normal Saline (1000mL) 1,000 ML 15 ML IV (11:37)
[2023-07-03 11:54] LABS: Bedside Glucose 87 mg/dL (74-106)
[2023-07-03 12:06] LABS: Absolute Neutrophil Count 1.8 X10^3/uL (2.0-7.7); Basophil# 0.01 X10^3/uL; Basophil% 0.4 % (0-1); Eosinophil# 0.13 X10^3/uL; Eosinophils% 4.7 % (0-5); Hematocrit 31.3 % (37-47); Hemoglobin 9.8 g/dL (12.0-15.0); Lymphocyte % 21.8 % (19-41); Mean Corp Hgb Conc 31.3 g/dL (32-36); Mean Corpuscular Hgb 29.6 pg (27.0-32.0); Mean Corpuscular Volume 94.6 fL (81-99); Mean Platelet Vol. 10.2 fl (6.2-12.0); Monocyte# 0.23 X10^3/uL; Monocyte% 8.4 % (0-10); NRBC Flagged by Analyzer 0 % (0-5); Neutrophil # 1.77 X10^3/uL (2.7-7.7); Neutrophil % 64.3 % (47-70); POSITIVE DIFFERENTIAL YES; Platelet Count 164 K/mm3 (150-450); RBC Distribution Width CV 16.9 % (11.6-14.6); RBC Distribution Width SD 59.1 fl (35.1-43.9); Red Blood Count 3.31 M/mm3 (4.2-5.4); White Blood Count 2.8 K/mm3 (4.4-11.0)
[2023-07-03 12:27] LABS: Differential Indicated SCAN CRITERIA MET
[2023-07-03 13:07] LABS: Differential Comment SCANNED
--- NOTE | 2023-07-03 14:25 | PCM.OPRPT ---
Report of Operation Date of Procedure: 07/03/23 Pre-Operative Diagnosis: DVT Post-Operative Diagnosis: same Surgery/Procedure Performed:: insertion inferior vena cava filter Surgeon: Daniel Lombardi Type of Anesthesia: Local and Sedation,Conscious Description of Procedure: HPI: Patient is a 60-year-old female with known rectal cancer was completed neoadjuvant radiation and chemotherapy. She is in the process of being evaluated for need for surgery when she had a fall with a femur fracture. While convalescing she has developed leg edema and was found to have a DVT. After initiating anticoagulation she had significant GI bleeding so she presents now for filter placement. Description of procedure: Upon obtaining form consent and verification correct patient procedure and site patient taken to the Research Animal Facility Supervisor where she was positioned prepped draped in usual fashion. Time was performed conscious administered with fentanyl. Both of the common femoral veins were assessed with ultrasound and both appeared to be poorly compressible though visualization was difficult given soft tissue edema. Skin overlying the right common femoral vein and this was ties with 1% lidocaine and the vessel to be accessed with micropuncture needle wire. We had bleed back however were unable to advance the wire so the needle was withdrawn and manual pressure held after which we anesthetized the skin overlying left common femoral vein and accessed under ultrasound guidance with micropuncture needle wire. This was successful so the wire was exchanged for micropuncture sheath routine injection ilio caval venogram was performed revealed satisfactory positioning with no extravasation dissection and a patent IVC and left iliac vein system. Through the micropuncture sheath a J-wire is advanced and the micropuncture sheath exchanged out for the delivery sheath for a Cook Zach tulip filter. There is advanced into position at the L2 vertebral body and subtraction venacavogram was performed which revealed the confluence of the renal veins. Of note the left renal vein was abnormally low and the IVC superior to this was borderline caliber to be appropriate for vena cava filter placement. Given the location of the left renal vein and the dilated vena cava superiorly is felt the placement inferior to the left renal vein would be most appropriate. The dilator is withdrawn and the filter advanced in position and deployed. Given the more inferior positioning there is a fair bit of tilt however it was felt that this would still provide adequate protection and it did appear to well opposed both vena cava loss. Completion venacavogram confirmed positioning with tilt. Sheath was then withdrawn and pressure was held after which patient was returned to the PCU. Grafts/Implants Used: Cook Tulip filter
[2023-07-03] MEDS: Bisacodyl 5 MG Tablet 20 MG PO (16:27)
[2023-07-03 16:47] LABS: Bedside Glucose 84 mg/dL (74-106)
[2023-07-03] MEDS: Polyethylene Glycol 3350 BOWEL PREP PO (17:47)
[2023-07-03] MEDS: cycloBENZAPRine HCl 5 MG TABLET PO (22:35)
[2023-07-03] MEDS: Menthol/Lanolin/Calamine/Znox 113 GM Tube 1 APPLIC TOPICAL (22:39)
[2023-07-03] MEDS: Atorvastatin Calcium 80 MG Tablet PO (22:41)
[2023-07-03] MEDS: Ondansetron ODT 4 MG Tablet PO (22:47)
[2023-07-03 23:01] LABS: Bedside Glucose 126 mg/dL (74-106)
[2023-07-04] VITALS (8 sets, daily range): BP systolic 75–135; BP diastolic 64–83; PULSE 72–86; RESP 14–16; TEMP 36.3–37.2; O2SAT 93–96
[2023-07-04] MEDS: Ondansetron 4 MG/2 ML Vial IV (05:20)
--- NOTE | 2023-07-04 05:55 | EKG12_ITS ---
Test Reason : AM EKG Blood Pressure : / mmHG Vent. Rate : 082 BPM Atrial Rate : 082 BPM P-R Int : 212 ms QRS Dur : 088 ms QT Int : 388 ms P-R-T Axes : 036 -12 043 degrees QTc Int : 453 ms Sinus rhythm with 1st degree A-V block Otherwise normal ECG When compared with ECG of 23-JUN-2022 09:31, Questionable change in QRS axis Confirmed by AFIA HOGAN, REGINALDO ([id number]), video news editor SAUL DUGAN ([id number]) on 07/07/2023 2:01:05 PM Referred By: Confirmed By:NICKIE OREILLY MD
[2023-07-04 07:01] LABS: Absolute Lymphocyte Count 0.42 X10^3/uL (0.83-4.51); Absolute Neutrophil Count 3.7 X10^3/uL (2.0-7.7); Basophil# 0.02 X10^3/uL; Basophil% 0.4 % (0-1); Eosinophil# 0.18 X10^3/uL; Eosinophils% 3.9 % (0-5); Hematocrit 30.4 % (37-47); Hemoglobin 9.4 g/dL (12.0-15.0); Lymphocyte # 0.42 X10^3/ul (0.83-4.51); Lymphocyte % 9.1 % (19-41); Mean Corp Hgb Conc 30.9 g/dL (32-36); Mean Corpuscular Hgb 29.4 pg (27.0-32.0); Mean Platelet Vol. 10.3 fl (6.2-12.0); Monocyte# 0.34 X10^3/uL; Monocyte% 7.3 % (0-10); NRBC Flagged by Analyzer 0 % (0-5); Neutrophil # 3.68 X10^3/uL (2.7-7.7); Neutrophil % 79.3 % (47-70); POSITIVE DIFFERENTIAL YES; Platelet Count 175 K/mm3 (150-450); RBC Distribution Width CV 16.9 % (11.6-14.6); RBC Distribution Width SD 59.9 fl (35.1-43.9); White Blood Count 4.6 K/mm3 (4.4-11.0)
[2023-07-04 07:22] LABS: Bedside Glucose 115 mg/dL (74-106)
[2023-07-04 07:39] LABS: AST(SGOT) 22 U/L (15-37); Alanine Aminotransfer ALT/SGPT 16 U/L (13-56); Albumin, Serum 2.8 g/dL (3.2-5.0); Alkaline Phosphatase 120 U/L (45-117); Anion Gap 4 (5-15); BUN 10 mg/dL (7-18); BUN/Creat Ratio 13.8 RATIO (10-20); Calcium,Total 8.6 mg/dL (8.5-10.1); Chloride 107 mmol/L (98-107); Creatinine, Serum 0.73 mg/dL (0.55-1.02); EST Glomerular Filtration Rate 85 mL/min (>60); Est Glom Filt Rate - Afr Amer 103 mL/min (>60); Estimated Creatinine Clearance 63.79 ml/min; Globulin 3.7 g/dL (2.2-4.2); Glucose 112 mg/dL (74-106); Protein, Total 6.5 g/dL (6.4-8.2); Sodium Level 138 mmol/L (136-145)
--- NOTE | 2023-07-04 08:01 | PN.HOSP_ITS ---
Reason for Visit Reason for Visit: Diagnoses Acute embolism and thrombosis of unspecified deep veins of unspecified lower ex tremity (07/03/23) Hemorrhage of anus and rectum (07/03/23) Subjective Subjective Had an IVC filter placed last night. Feeling well. Still having bleeding but not as profound as it was before but consistent with how it was before starting anticoagulation. Objective Data Objective Data Vital Signs: Vital Signs Temp Pulse Resp BP Pulse Ox O2 Del Method 37.2 C 82 16 114/68 94 Room Air 07/04/23 07:53 07/04/23 07:53 07/04/23 07:53 07/04/23 07:53 07/04/23 07:53 07/04/23 07:53 Oxygen Delivery Method Room Air Weight: 68.039 kg Body Mass Index (BMI) 25.7 Intake & Output: Intake and Output for Last 24 Hours 07/02/23 07/03/23 07/04/23 23:59 23:59 23:59 Intake Total 3530 / 3530 0 / 0 Output Total 1400 / 1400 Balance 2130 / 2130 0 / 0 Lab / Micro Data 07/04/23 06:40 07/04/23 06:40 Labs: Laboratory Results - last 24 hr 07/03/23 11:22: POC Glucose 87 07/03/23 11:51: WBC 2.8 L, RBC 3.31 L, Hgb 9.8 L, Hct 31.3 L, MCV 94.6, MCH 29.6, MCHC 31.3 L, RDW Std Deviation 59.1 H, RDW Coeff of Liudmila 16.9 H, Plt Count 164, MPV 10.2, Immature Gran % (Auto) 0.400, Neut % (Auto) 64.3, Lymph % (Auto) 21.8, [place] % (Auto) 8.4, Eos % (Auto) 4.7, Baso % (Auto) 0.4, Absolute Neuts (auto) 1.8 L, Absolute Lymphs (auto) 0.60 L, Nucleated RBC % 0, Differential Comment SCANNED, Diff Path Review September07/03/23 16:25: POC Glucose 84 07/03/23 22:40: POC Glucose 126 H 07/04/23 06:19: POC Glucose 115 H 07/04/23 06:40: WBC 4.6, RBC 3.20 L, Hgb 9.4 L, Hct 30.4 L, MCV 95.0, MCH 29.4, MCHC 30.9 L, RDW Std Deviation 59.9 H, RDW Coeff of Liudmila 16.9 H, Plt Count 175, MPV 10.3, Immature Gran % (Auto) 0.000, Neut % (Auto) 79.3 H, Lymph % (Auto) 9.1 L, [place] % (Auto) 7.3, Eos % (Auto) 3.9, Baso % (Auto) 0.4, Absolute Neuts (auto) 3.7, Absolute Lymphs (auto) 0.42 L, Nucleated RBC % 0, Sodium 138, Potassium 4.0, Chloride 107, Carbon Dioxide 27.0, Anion Gap 4 L, BUN 10, Creatinine 0.73, Estim Creat Clear Calc 63.79, Est GFR (MDRD) Af Amer 103, Est GFR (MDRD) Non-Af 85, BUN/Creatinine Ratio 13.8, Glucose 112 H, Calcium 8.6, Total Bilirubin 0.60, Direct Bilirubin 0.20, AST 22, ALT 16, Alkaline Phosphatase 120 H, Total Protein 6.5, Albumin 2.8 L, Globulin 3.7 Physical Exam Const alert and no apparent distress HEENT head/scalp atraumatic and moist oral mucous membranes Resp normal respiratory effort, no retractions, no use of accessory muscles and clear to auscultation bilaterally Cardio regular rate, regular rhythm, S1 normal heart sound and S2 normal heart sound GI normal to inspection, nondistended, normoactive bowel sounds, soft to palpation, non-tender and non-distended Extremity normal to inspection Neuro Sensorium / Orientation: awake and alert Assessment & Plan Assessment/Plan (1) DVT (deep venous thrombosis): (2) Rectal bleed: PLAN: Plan Right lower extremity DVT * Outside study confirmed patient had right femoral DVT. Patient had been on Eliquis for that but that had been stopped due to the GI bleeding. Patient has had bleeding even before the Eliquis was even started this is likely due to the rectal cancer. * Patient's last dose of Eliquis was on the . That will be held indefinitely. * IVC filter placed * Anticoagulated on hold indefinitely. GI bleed * Secondary to rectal cancer * Discussed with Dr. Valdez. He will see the patient in consultation. Unclear if patient will require endoscopy while she is here. * Patient states that she has never had endoscopy before. * As I suspect that this is lower than etiology, will hold off on pantoprazole for now. Rectal cancer * Patient does have history of vulvar cancer as well. It is unclear if these are 2 separate cancers or, given the proximity, the same cancer. Apparently there was a biopsy that confirmed rectal cancer. Patient was to see a colorectal surgeon to be evaluated for surgery but that is currently being held. Chronic conditions * Seizure disorder: Continue with levetiracetam * Vulvar cancer: Follow-up with oncology * Diabetes mellitus type 2: Sign scale insulin. Hold metformin. * Recent leg fracture: Status post repair. PT OT evaluate and treat. VTE prophylaxis with SCDs. Chemical prophylaxis contraindicated in light of GI bleed. CODE STATUS: Reviewed with patient. Patient wishes to be DNR Comfort Care arrest Disposition: Patient is currently a [facility]. Patient to be evaluated physical and Occupational Therapy. The plan is to get her back to [facility] when she is medically stable. Charges/Coding Visit Charges Inpatient E&M: 82462 Subs Hosp L2
--- NOTE | 2023-07-04 08:50 | PCM.PN.SRG ---
Subjective Subjective Patient is seen resting comfortably in bed. She denies pain at the groin access sites, abdominal pain, new/worsening lower extremity discomfort or edema. Objective Data Objective Data Vital Signs: Vital Signs Temp Pulse Resp BP Pulse Ox O2 Del Method 98.9 F 82 16 114/68 94 Room Air 07/04/23 07:53 07/04/23 07:53 07/04/23 07:53 07/04/23 07:53 07/04/23 07:53 07/04/23 07:53 Oxygen Delivery Method Room Air Weight: 150 lb 0.005 oz Body Mass Index (BMI) 25.7 Intake & Output: Intake and Output for Last 24 Hours 07/02/23 07/03/23 07/04/23 23:59 23:59 23:59 Intake Total 3530 / 3530 0 / 0 Output Total 1400 / 1400 Balance 2130 / 2130 0 / 0 Lab / Micro Data 07/04/23 06:40 07/04/23 06:40 Labs: Laboratory Results - last 24 hr 07/03/23 11:22: POC Glucose 87 07/03/23 11:51: WBC 2.8 L, RBC 3.31 L, Hgb 9.8 L, Hct 31.3 L, MCV 94.6, MCH 29.6, MCHC 31.3 L, RDW Std Deviation 59.1 H, RDW Coeff of Liudmila 16.9 H, Plt Count 164, MPV 10.2, Immature Gran % (Auto) 0.400, Neut % (Auto) 64.3, Lymph % (Auto) 21.8, [place] % (Auto) 8.4, Eos % (Auto) 4.7, Baso % (Auto) 0.4, Absolute Neuts (auto) 1.8 L, Absolute Lymphs (auto) 0.60 L, Nucleated RBC % 0, Differential Comment SCANNED, Diff Path Review September07/03/23 16:25: POC Glucose 84 07/03/23 22:40: POC Glucose 126 H 07/04/23 06:19: POC Glucose 115 H 07/04/23 06:40: WBC 4.6, RBC 3.20 L, Hgb 9.4 L, Hct 30.4 L, MCV 95.0, MCH 29.4, MCHC 30.9 L, RDW Std Deviation 59.9 H, RDW Coeff of Liudmila 16.9 H, Plt Count 175, MPV 10.3, Immature Gran % (Auto) 0.000, Neut % (Auto) 79.3 H, Lymph % (Auto) 9.1 L, [place] % (Auto) 7.3, Eos % (Auto) 3.9, Baso % (Auto) 0.4, Absolute Neuts (auto) 3.7, Absolute Lymphs (auto) 0.42 L, Nucleated RBC % 0, Sodium 138, Potassium 4.0, Chloride 107, Carbon Dioxide 27.0, Anion Gap 4 L, BUN 10, Creatinine 0.73, Estim Creat Clear Calc 63.79, Est GFR (MDRD) Af Amer 103, Est GFR (MDRD) Non-Af 85, BUN/Creatinine Ratio 13.8, Glucose 112 H, Calcium 8.6, Total Bilirubin 0.60, Direct Bilirubin 0.20, AST 22, ALT 16, Alkaline Phosphatase 120 H, Total Protein 6.5, Albumin 2.8 L, Globulin 3.7 Physical Exam Const alert, oriented x3 and no apparent distress HEENT normocephalic, head/scalp atraumatic and external nose normal Eyes PERRL and EOMs intact bilaterally General Eye: normal appearance of both eyes Neck General: normal visual inspection Resp normal respiratory effort and no retractions Effort and Inspection: able to speak in complete sentences Cardio Rate: regular rate Rhythm: regular rhythm Extremity Extremity Narrative: stable RLE edema. Bilateral groin access sites with dry dressing C/D/I with not apparent bleeding, drainage, focal swelling. Minimal ecchymosis. Skin no rashes or lesions noted Neuro Neuro Narrative: Noted residual aphasia and right sided weakness from prior stroke, otherwise appears neurologically intact Psych mental status grossly normal and affect normal Appearance: grossly normal Assessment & Plan Assessment/Plan (1) DVT (deep venous thrombosis): PLAN: Plan Patient is s/p IVC filter insertion on 07/03/23. She has recovered well and access sites are without complication. Dry dressings may be removed tomorrow then okay to leave open to air. She should not lift greater than 20 pounds for 2 weeks. Will have her follow-up in the office as an outpatient in 3-4 weeks.
--- NOTE | 2023-07-04 08:58 | NURSING ---
Additional 2 tap water enemas administered back to back. Pt has small amt brown liquid stool in attends prior to enema. Enema resulted w/ small flecks of stool and light pink blood.
[2023-07-04] MEDS: Menthol/Lanolin/Calamine/Znox 113 GM Tube 1 APPLIC TOPICAL (11:09)
--- NOTE | 2023-07-04 12:50 | CASEMGMT ---
Social Work Pt is here from [facility], has been there for rehab. SW spoke w/pt, confirmed she would like to return to [facility] when ready, SNF list not needed. SW or d/c estate planning paralegal will send updates, PT/OT are still pending however. JORGE A Turner
--- NOTE | 2023-07-04 13:02 | CASEMGMT ---
Social Work SW did let [facility] know via [employer] that the updated med list is in the packet going to the [facility]. JORGE A Turner
[2023-07-04 14:32] LABS: Pathologist Review Reviewed
[2023-07-04 15:12] LABS: Bedside Glucose 91 mg/dL (74-106)
--- NOTE | 2023-07-04 15:56 | CASEMGMT ---
Social Work Updates sent to [facility], asked them to start precert and if they were to get precert to please call U dircectly. Green sheet w/transport form on chart. JORGE A Turner
--- NOTE | 2023-07-04 17:00 | COLBX_PTH ---
PATHOLOGY RESULTS PATIENT: ROCÍO ORDONEZ LOC: [facility] U#:[id number] AGE/SX: 68/F ROOM: [facility] RE07/03/[address]: Dr. Cisco Webber DO : 1955 BED: 1 DIS: 07/07/2023 SPEC #: [id number] RECD: 07/07/23 08:08 STATUS: HAYLEY REDanielito #: [id number] CORRY: 07/04/23 17:[address]: Tony Valdez DEPT: SURGICAL PATHOLOGY RECD BY: Sheila Murray ENTERED: 07/07/23 08:09 SP TYPE: COLON BX OTHR DR: DO Dr. Daniel Pederson DO Dr. Eric Smith, MD Dr. Eric Turney, MD Tissues: Rectum, NOS Procedures: Surgery Specimen Level IV Comments: @ Ordering doctor for SUIV edited from to @ by BRIDGETTE at 07/07/23 1429 @ Submitting doctor edited from to @ by BRIDGETTE at 07/07/23 1429 HEADER OPERATION: Colonoscopy, biopsies PRE-OP DIAGNOSIS: Rectal bleed TISSUE SUBMITTED: Rectum biopsy MICROSCOPIC DIAGNOSIS Rectum, biopsy: Fragments of colonic mucosa with mild nonspecific chronic inflammation and fibrosis of lamina propria. RUBY:maggy 07/08/2023 COMMENT Clinical correlation and appropriate follow up are necessary. Case has been reviewed in consultation with Dr. Tong who concurs with the above diagnosis. IDC:AM MICROSCOPIC DESCRIPTION Slides are reviewed. GROSS DESCRIPTION Received in fixative is one container labeled with the patient's name and designated rectum biopsy. The specimen consists of multiple irregular fragments of light shankar soft tissue that in aggregate measure 1.0 x 0.5 x 0.1 cm. The specimen is totally submitted in one cassette. / RUBY:maggy 07/07/2023 TC:3 CPT: 40831
[2023-07-04] MEDS: Lactated Ringers 1,000 ML 15 ML IV (17:12)
--- NOTE | 2023-07-04 17:49 | OP.COLON_ITS ---
Patient Name: Jemima Clay Procedure Date: 07/04/2023 5:19 PM Date of : 1955 Age: 68 Procedure: Colonoscopy Indications: High risk colon cancer surveillance: Personal history of colon cancer, Incidental - Hematochezia Providers: Tony Valdez DO Medicines: Monitored Anesthesia Care Patient Profile: This is a 68 year old female. Refer to note in patient chart for documentation of history and physical. Last Colonoscopy: none. The patient's first colonoscopy is today. Complications: No immediate complications. Procedure: Pre-Anesthesia Assessment: - Prior to the procedure, a History and Physical was performed, and patient medications and allergies were reviewed. The patient is competent. The risks and benefits of the procedure and the sedation options and risks were discussed with the patient. All questions were answered and informed consent was obtained. Patient identification and proposed procedure were verified by the physician in the pre-procedure area. Mental Status Examination: alert and oriented. Airway Examination: normal oropharyngeal airway and neck mobility. Respiratory Examination: clear to auscultation. CV Examination: normal. Prophylactic Antibiotics: The patient does not require prophylactic antibiotics. Prior Anticoagulants: The patient has taken no anticoagulant or antiplatelet agents. ASA Grade Assessment: III - A patient with severe systemic disease. After reviewing the risks and benefits, the patient was deemed in satisfactory condition to undergo the procedure. The anesthesia plan was to use monitored anesthesia care (MAC). Immediately prior to administration of medications, the patient was re-assessed for adequacy to receive sedatives. The heart rate, respiratory rate, oxygen saturations, blood pressure, adequacy of pulmonary ventilation, and response to care were monitored throughout the procedure. The physical status of the patient was re-assessed after the procedure. After I obtained informed consent, the scope was passed under direct vision. Throughout the procedure, the patient's blood pressure, pulse, and oxygen saturations were monitored continuously. The Colonoscope was introduced through the anus and advanced to the sigmoid colon. The colonoscopy was performed without difficulty. The patient tolerated the procedure well. The quality of the bowel preparation was fair. The rectum was photographed. Scope In: 5:22:40 PM Scope Out: 5:35:14 PM Total Procedure Duration Time 0 hours 12 minutes 34 seconds Findings: The perianal and digital rectal examinations were normal. A benign-appearing, intrinsic severe stenosis measuring 4 cm (in length) was found in the sigmoid colon and was non-traversed. Multiple large diffuse angiodysplastic lesions with bleeding on contact were found at the anus, in the rectum, in the recto-sigmoid colon and in the sigmoid colon. Biopsies were taken with a cold forceps for histology. Verification of patient identification for the specimen was done. Estimated blood loss was minimal. Impression: - Preparation of the colon was fair. - Stricture in the sigmoid colon. 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 Biopsied. Recommendation: - Return patient to hospital [facility] for ongoing care. - Full liquid diet. - Continue present medications. - Await pathology results. - Repeat colonoscopy to assess disease activity. - Radiation damage to the gastrointestinal (GI) tract can occur, yet the treatment is beneficial in fighting cancer. Hyperbaric oxygen therapy combats this otherwise rurcajboa-mo-laekr complication of radiation therapy. She can get APC to the rectum , sigmoid colon and anus. That would take multiple sessions. She would benefit more from hyperbaric oxygen treatment because of such a long segment to treat. Procedure Code(s): --- Professional --- 40752, 52, Colonoscopy, flexible; with biopsy, single or multiple CPT copyright 2021 [employer]. All rights reserved. The codes documented in this report are preliminary and upon customer pricing manager review may be revised to meet current compliance requirements. Tony Valdez DO 07/04/2023 5:48:34 PM This report has been signed electronically. Number of Addenda: 0 Note Initiated On: 07/04/2023 5:19 PM
--- NOTE | 2023-07-04 17:49 | OP.CCLET_ITS ---
07/04/2023 Daniel Lopez [address] [place] [address] Re : Colonoscopy procedure for Jemima Clay Dear Dr. Lopez This procedure was performed on Tuesday, July 04, 2023. My impressions and recommendations are as follows: Impressions : - Preparation of the colon was fair. - Stricture in the sigmoid colon. 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 Biopsied. Recommendations : - Return patient to hospital [facility] for ongoing care. - Full liquid diet. - Continue present medications. - Await pathology results. - Repeat colonoscopy to assess disease activity. - Radiation damage to the gastrointestinal (GI) tract can occur, yet the treatment is beneficial in fighting cancer. Hyperbaric oxygen therapy combats this otherwise iavejbqqo-ns-qqrwy complication of radiation therapy. She can get APC to the rectum , sigmoid colon and anus. That would take multiple sessions. She would benefit more from hyperbaric oxygen treatment because of such a long segment to treat. My findings are described in the full procedure note, which is enclosed. If I can be of further assistance, please feel free to contact me at . Sincerely, Tony Valdez, 07/04/2023 5:48:34 PM This report has been signed electronically.
[2023-07-04] MEDS: cycloBENZAPRine HCl 5 MG TABLET PO (20:46)
[2023-07-04] MEDS: levETIRAcetam 1,000 MG Tablet 1000 MG PO (20:47)
[2023-07-04] MEDS: Atorvastatin Calcium 80 MG Tablet PO (20:47)
[2023-07-04] MEDS: Pantoprazole Sodium 40 MG Tablet PO (20:47)
[2023-07-04] MEDS: metroNIDAZOLE 500 MG Tablet PO (20:48)
[2023-07-04] MEDS: Mesalamine 1.2 GM Tablet 2.39999999999999991 GM PO (20:48)
[2023-07-04 21:58] LABS: Bedside Glucose 110 mg/dL (74-106)
[2023-07-05 03:45] VITALS: BP 131/70; PULSE 96; RESP 15; TEMP 36.5; O2SAT 96
[2023-07-05] MEDS: cycloBENZAPRine HCl 5 MG TABLET PO ×3 (06:08→21:47)
[2023-07-05] MEDS: metroNIDAZOLE 500 MG Tablet PO ×3 (06:08→21:47)
[2023-07-05 06:48] LABS: Bedside Glucose 104 mg/dL (74-106)
[2023-07-05 07:55] LABS: Absolute Neutrophil Count 1.9 X10^3/uL (2.0-7.7); Basophil# 0.02 X10^3/uL; Basophil% 0.7 % (0-1); Eosinophil# 0.23 X10^3/uL; Eosinophils% 7.8 % (0-5); Hematocrit 29.7 % (37-47); Lymphocyte % 16.9 % (19-41); Mean Corp Hgb Conc 30.3 g/dL (32-36); Mean Corpuscular Hgb 29.2 pg (27.0-32.0); Mean Corpuscular Volume 96.4 fL (81-99); Mean Platelet Vol. 10.6 fl (6.2-12.0); Monocyte# 0.27 X10^3/uL; Monocyte% 9.1 % (0-10); NRBC Flagged by Analyzer 0 % (0-5); Neutrophil # 1.93 X10^3/uL (2.7-7.7); Neutrophil % 65.2 % (47-70); POSITIVE DIFFERENTIAL YES; Platelet Count 159 K/mm3 (150-450); RBC Distribution Width CV 16.6 % (11.6-14.6); RBC Distribution Width SD 58.9 fl (35.1-43.9); Red Blood Count 3.08 M/mm3 (4.2-5.4)
--- NOTE | 2023-07-05 07:59 | PCM.PN.HOSP ---
Reason for Visit Reason for Visit: Diagnoses Acute embolism and thrombosis of unspecified deep veins of unspecified lower extremity (07/03/23) Hemorrhage of anus and rectum (07/03/23) Subjective Subjective Still with bleeding. Feels well. Objective Data Objective Data Vital Signs: Vital Signs Temp Pulse Resp BP Pulse Ox O2 Del Method 36.5 C L 96 15 131/70 H 96 Room Air 07/05/23 03:45 07/05/23 03:45 07/05/23 03:45 07/05/23 03:45 07/05/23 03:45 07/05/23 03:45 Oxygen Delivery Method Room Air Weight: 68.039 kg Body Mass Index (BMI) 25.7 Intake & Output: Intake and Output for Last 24 Hours 07/03/23 07/04/23 07/05/23 23:59 23:59 23:59 Intake Total 3530 / 3530 1999 / 1999 Output Total 1400 / 1400 100 / 100 Balance 2130 / 2130 1900 / 1900 Lab / Micro Data 07/05/23 07:16 07/04/23 06:40 Labs: Laboratory Results - last 24 hr 07/03/23 11:51: Diff Path Review Reviewed 07/04/23 14:51: POC Glucose 91 07/04/23 21:40: POC Glucose 110 H 07/05/23 06:18: POC Glucose 104 07/05/23 07:16: WBC 3.0 L, RBC 3.08 L, Hgb 9.0 L, Hct 29.7 L, MCV 96.4, MCH 29.2, MCHC 30.3 L, RDW Std Deviation 58.9 H, RDW Coeff of Liudmila 16.6 H, Plt Count 159, MPV 10.6, Immature Gran % (Auto) 0.300, Neut % (Auto) 65.2, Lymph % (Auto) 16.9 L, Bremer % (Auto) 9.1, Eos % (Auto) 7.8 H, Baso % (Auto) 0.7, Absolute Neuts (auto) 1.9 L, Absolute Lymphs (auto) 0.50 L, Nucleated RBC % 0 Physical Exam Const alert and no apparent distress Eyes Eyes Narrative: Disconjugate pupils with the right being greater than left. Both are reactive to light with accommodation. Extremity normal to inspection Neuro Sensorium / Orientation: awake and alert Psych affect normal Assessment & Plan Assessment/Plan (1) DVT (deep venous thrombosis): (2) Rectal bleed: PLAN: Plan Right lower extremity DVT Outside study confirmed patient had right femoral DVT. Patient had been on Eliquis for that but that had been stopped due to the GI bleeding. Patient has had bleeding even before the Eliquis was even started this is likely due to the rectal cancer. Patient's last dose of Eliquis was on the . That will be held indefinitely. IVC filter placed Anticoagulated on hold indefinitely. GI bleed Patient underwent a colonoscopy on the first showed stricture in the sigmoid colon, multiple colonic angiodysplastic lesions resulting in severe radiation proctitis involving anus, rectum and sigmoid. These were biopsied. Concerning this is due to radiation proctitis. GI recommending outpatient follow-up for hyperbaric treatment. Reported history of rectal cancer Patient does have history of vulvar cancer as well. It is unclear if these are 2 separate cancers or, given the proximity, the same cancer. Apparently there was a biopsy that confirmed rectal cancer. Patient was to see a colorectal surgeon to be evaluated for surgery but that is currently being held. Colonoscopy here did not show any obvious rectal mass but did show radiation proctitis. Disconjugate pupils Both are reactive to light equally. I suspect probably chronic. Patient does not report any changes in her vision at this time. No additional workup at this time. Chronic conditions Seizure disorder: Continue with levetiracetam Vulvar cancer: Follow-up with oncology Diabetes mellitus type 2: Sign scale insulin. Hold metformin. Recent leg fracture: Status post repair. PT OT evaluate and treat. VTE prophylaxis with SCDs. Chemical prophylaxis contraindicated in light of GI bleed. CODE STATUS: Reviewed with patient. Patient wishes to be DNR Comfort Care arrest Disposition: Patient is currently a [facility] facility. Patient to be evaluated physical and Occupational Therapy. The plan is to get her back to [facility] facility when she is medically stable. Charges/Coding Visit Charges Inpatient E&M: 40902 Subs Hosp L2
[2023-07-05 08:18] VITALS: BP 128/62; PULSE 76; RESP 16; TEMP 36.3; O2SAT 95
[2023-07-05] MEDS: Menthol/Lanolin/Calamine/Znox 113 GM Tube 1 APPLIC TOPICAL (09:33)
[2023-07-05] MEDS: levETIRAcetam 1,000 MG Tablet 1000 MG PO ×2 (09:34→21:48)
[2023-07-05] MEDS: amLODIPine 5 MG Tablet PO (09:35)
[2023-07-05] MEDS: Mesalamine 1.2 GM Tablet 2.39999999999999991 GM PO (09:35)
[2023-07-05] MEDS: Escitalopram Oxalate 10 MG Tablet PO (09:35)
[2023-07-05] MEDS: Pantoprazole Sodium 40 MG Tablet PO ×2 (09:37→21:48)
[2023-07-05] MEDS: Cholecalciferol (VIT D3) 25 MCG TABLET (1,000 UNITS) 50 MCG PO (09:37)
[2023-07-05 11:52] LABS: Bedside Glucose 147 mg/dL (74-106)
[2023-07-05 13:20] VITALS: BP 112/63; PULSE 78; RESP 16; TEMP 36.6; O2SAT 99
[2023-07-05 16:19] LABS: Bedside Glucose 110 mg/dL (74-106)
[2023-07-05 16:20] VITALS: BP 101/59; PULSE 75; RESP 16; TEMP 36.6; O2SAT 94
[2023-07-05] MEDS: Atorvastatin Calcium 80 MG Tablet PO (21:48)
[2023-07-05 21:49] VITALS: BP 110/74; PULSE 78; RESP 18; TEMP 36.1; O2SAT 96
[2023-07-05 22:21] LABS: Bedside Glucose 113 mg/dL (74-106)
[2023-07-06 03:55] VITALS: BP 116/69; PULSE 72; RESP 18; TEMP 36.2; O2SAT 96
[2023-07-06] MEDS: cycloBENZAPRine HCl 5 MG TABLET PO ×3 (06:55→21:05)
[2023-07-06] MEDS: metroNIDAZOLE 500 MG Tablet PO ×3 (06:55→21:05)
[2023-07-06 07:15] LABS: Bedside Glucose 106 mg/dL (74-106)
--- NOTE | 2023-07-06 08:19 | PN.HOSP_ITS ---
Reason for Visit Reason for Visit: Diagnoses Acute embolism and thrombosis of unspecified deep veins of unspecified lower ex tremity (07/03/23) Hemorrhage of anus and rectum (07/03/23) Subjective Subjective Feels fine. No events. No further bleeding. Objective Data Objective Data Vital Signs: Vital Signs Temp Pulse Resp BP Pulse Ox O2 Del Method 36.2 C L 72 18 116/69 96 Room Air 07/06/23 03:55 07/06/23 03:55 07/06/23 03:55 07/06/23 03:55 07/06/23 03:55 07/06/23 03:55 Oxygen Delivery Method Room Air Weight: 68.039 kg Body Mass Index (BMI) 25.7 Intake & Output: Intake and Output for Last 24 Hours 07/04/23 07/05/23 07/06/23 23:59 23:59 23:59 Intake Total 1999 / 1999 240 / 240 0 / 0 Output Total 100 / 100 Balance 1900 / 1900 239 / 239 0 / 0 Lab / Micro Data 07/05/23 07:16 07/04/23 06:40 Labs: Laboratory Results - last 24 hr 07/05/23 11:29: POC Glucose 147 H 07/05/23 15:51: POC Glucose 110 H 07/05/23 21:59: POC Glucose 113 H 07/06/23 06:48: POC Glucose 106 Physical Exam Const alert and no apparent distress HEENT head/scalp atraumatic and moist oral mucous membranes Resp normal respiratory effort and no retractions Neuro Sensorium / Orientation: awake and alert Assessment & Plan Assessment/Plan (1) DVT (deep venous thrombosis): (2) Rectal bleed: PLAN: Plan Right lower extremity DVT * Outside study confirmed patient had right femoral DVT. Patient had been on Eliquis for that but that had been stopped due to the GI bleeding. Patient has had bleeding even before the Eliquis was even started this is likely due to the rectal cancer. * Patient's last dose of Eliquis was on the . That will be held indefinitely. * IVC filter placed * Anticoagulated on hold indefinitely. GI bleed * Patient underwent a colonoscopy on the first showed stricture in the sigmoid colon, multiple colonic angiodysplastic lesions resulting in severe radiation proctitis involving anus, rectum and sigmoid. These were biopsied. * Concerning this is due to radiation proctitis. GI recommending outpatient hyperbaric treatment. Reported history of rectal cancer * Patient does have history of vulvar cancer as well. It is unclear if these are 2 separate cancers or, given the proximity, the same cancer. Apparently there was a biopsy that confirmed rectal cancer. Patient was to see a colorectal surgeon to be evaluated for surgery but that is currently being held. * Colonoscopy here did not show any obvious rectal mass but did show radiation proctitis. Disconjugate pupils * Both are reactive to light equally. I suspect probably chronic. Patient does not report any changes in her vision at this time. * No additional workup at this time. Chronic conditions * Seizure disorder: Continue with levetiracetam * Vulvar cancer: Follow-up with oncology * Diabetes mellitus type 2: Sign scale insulin. Hold metformin. * Recent leg fracture: Status post repair. PT OT evaluate and treat. VTE prophylaxis with SCDs. Chemical prophylaxis contraindicated in light of GI bleed. CODE STATUS: Reviewed with patient. Patient wishes to be DNR Comfort Care arrest Disposition: Patient is currently a nursing home facility. Patient to be evaluated physical and Occupational Therapy. The plan is to get her back to nursing home facility when she is medically stable. Charges/Coding Visit Charges Inpatient E&M: 83139 Subs Hosp L1
[2023-07-06] MEDS: Cholecalciferol (VIT D3) 25 MCG TABLET (1,000 UNITS) 50 MCG PO (10:08)
[2023-07-06] MEDS: levETIRAcetam 1,000 MG Tablet 1000 MG PO ×2 (10:08→21:06)
[2023-07-06] MEDS: Pantoprazole Sodium 40 MG Tablet PO ×2 (10:08→21:06)
[2023-07-06] MEDS: Mesalamine 1.2 GM Tablet 2.39999999999999991 GM PO (10:08)
[2023-07-06] MEDS: amLODIPine 5 MG Tablet PO (10:09)
[2023-07-06] MEDS: Escitalopram Oxalate 10 MG Tablet PO (10:09)
[2023-07-06 10:11] VITALS: BP 118/65; PULSE 74; RESP 16; TEMP 36.7; O2SAT 94
[2023-07-06 12:19] LABS: Bedside Glucose 184 mg/dL (74-106)
[2023-07-06 16:00] VITALS: BP 112/66; PULSE 76; RESP 16; TEMP 36.3; O2SAT 95
--- NOTE | 2023-07-06 18:10 | PN.GI_ITS ---
Subjective Subjective The patient has not had any significant rectal bleeding. I told her she has significant radiation-induced proctitis and sigmoiditis. I recommended that she get hyperbaric oxygen therapy. However if she cannot get that then we can do several sessions of APC. She is having small bowel movements. I told her a lot of the colonoscopy cannot be performed due to severe stricturing in her colon at the level of the sigmoid colon secondary to radiation. Objective Data Objective Data Vital Signs: Vital Signs Temp Pulse Resp BP Pulse Ox O2 Del Method 97.4 F L 76 16 112/66 95 Room Air 07/06/23 16:00 07/06/23 16:00 07/06/23 16:00 07/06/23 16:00 07/06/23 16:00 07/06/23 16:00 Oxygen Delivery Method Room Air Weight: 150 lb 0.005 oz Body Mass Index (BMI) 25.7 Intake & Output: Intake and Output for Last 24 Hours 07/04/23 07/05/23 07/06/23 23:59 23:59 23:59 Intake Total 1999 / 1999 240 / 240 350 / 350 Output Total 100 / 100 650 / 650 Balance 1900 / 1900 239 / 239 -300 / -300 Lab / Micro Data 07/05/23 07:16 07/04/23 06:40 Labs: Laboratory Results - last 24 hr 07/05/23 21:59: POC Glucose 113 H 07/06/23 06:48: POC Glucose 106 07/06/23 12:01: POC Glucose 184 H Physical Exam Const alert and no apparent distress HEENT head/scalp atraumatic and moist oral mucous membranes Resp normal respiratory effort and no retractions Neuro Sensorium / Orientation: awake and alert Assessment & Plan Assessment/Plan (1) Rectal cancer: (2) Radiation proctitis: PLAN: Plan I told her that the medical recommendations for radiation proctitis are high- fiber diet, stool softeners and or hydrocortisone versus mesalamine based enemas. As she is not having a lot of rectal bleeding at this time due to the fact that she is off of anticoagulation I am just recommending a high-fiber diet which has already been instituted. If she wants to undergo APC and will take multiple sessions in least 4. This will be every other month for 4 months. Biopsies were taken of the rectum but they are pending. At this time she seems to be clinically stable. Charges/Coding Visit Charges Inpatient E&M: 17602 Subs Hosp L3
[2023-07-06 20:19] LABS: Bedside Glucose 118 mg/dL (74-106)
[2023-07-06] MEDS: Docusate Sodium 100 MG Capsule PO (21:05)
[2023-07-06] MEDS: Atorvastatin Calcium 80 MG Tablet PO (21:06)
[2023-07-06] MEDS: Menthol/Lanolin/Calamine/Znox 113 GM Tube 1 APPLIC TOPICAL (21:07)
[2023-07-06 21:50] VITALS: BP 112/67; PULSE 74; RESP 14; TEMP 36.6; O2SAT 97
[2023-07-06 22:28] LABS: Bedside Glucose 141 mg/dL (74-106)
[2023-07-07 03:45] VITALS: BP 124/67; PULSE 71; RESP 14; TEMP 36.4; O2SAT 97
[2023-07-07] MEDS: metroNIDAZOLE 500 MG Tablet PO ×2 (06:46→14:12)
[2023-07-07] MEDS: cycloBENZAPRine HCl 5 MG TABLET PO ×2 (06:46→14:12)
[2023-07-07 07:13] LABS: Bedside Glucose 104 mg/dL (74-106)
[2023-07-07] MEDS: Cholecalciferol (VIT D3) 25 MCG TABLET (1,000 UNITS) 50 MCG PO (07:44)
[2023-07-07] MEDS: Mesalamine 1.2 GM Tablet 2.39999999999999991 GM PO (07:44)
[2023-07-07] MEDS: levETIRAcetam 1,000 MG Tablet 1000 MG PO (07:44)
[2023-07-07] MEDS: Pantoprazole Sodium 40 MG Tablet PO (07:45)
[2023-07-07] MEDS: Docusate Sodium 100 MG Capsule PO (07:45)
[2023-07-07] MEDS: Escitalopram Oxalate 10 MG Tablet PO (07:45)
[2023-07-07] MEDS: amLODIPine 5 MG Tablet PO (07:46)
[2023-07-07] MEDS: Menthol/Lanolin/Calamine/Znox 113 GM Tube 1 APPLIC TOPICAL (07:48)
[2023-07-07 08:45] VITALS: BP 129/84; PULSE 177; RESP 18; TEMP 36.8; O2SAT 98
--- NOTE | 2023-07-07 08:45 | NURSING ---
Patient called out and stated that she felt like her heart was racing. This RN presented to bedside to assess patient and place her on cardiac monitor technician since she was previously off. she was found to be in SVT in the 170's with BP 129/84. She denied any other complaints at this time. Dr Webber notified and orders for 5mg IV Metoprolol received. Will give as ordered and reassess.
--- NOTE | 2023-07-07 09:54 | CASEMGMT ---
Addendum entered by Kristin Salazar 07/07/23 15:38: Social Work SW spoke w/the physician, the denial was upheld. SW let pt's granddaughter know this, she is fine w/pt returning to [facility] today. As per [facility], they had helped pt apply for Medicaid but pt did not qualify. Granddaughter is aware of this. They are working w/pt to figure out payment and fine w/pt returning. D/C transportation planning technician Andie setting up discharge. JORGE A Turner Original Note: Social Work Insurance called [employer] [facility] and stated they want to do a peer to peer: , option 5, need to call by 1:30pm. SW let physician know, he will get the information from shortly. SW spoke w/pt about how long she has been at [facility] and plan. Pt states went there from [facility]. She does not feel she can go home. SW explained the insurance is asking for a peer to peer, so we will see what they say, and go from there. SW inquired if insurance were going to cut her soon at [facility], she states she does not know. SW spoke w/Hali at [facility]. She states insurance was going to cut her on 07/02. She states pt was also at [facility] in a swing bed prior to coming to [facility]. She states pt has pending Medicaid and if [employer] denies pt can return under her pending Medicaid, and they will have pt participate in therapy through her part B. As per Hali we do not need to get a level of care. MINDY will continue to follow. JORGE A Turner
[2023-07-07 10:40] VITALS: BP 107/63; PULSE 75; RESP 16; TEMP 36.6; O2SAT 95
[2023-07-07 12:12] LABS: Bedside Glucose 146 mg/dL (74-106)
--- NOTE | 2023-07-07 13:43 | PCM.DC ---
Discharge Instructions Diet Discharge Diet: No restrictions Activity Discharge Activity: No Restrictions Weight Bearing Status: Full weight bearing Follow Up Care Test Results: Test results from this visit will be discussed in further detail at your follow-up appointment, if applicable. Discharge Plan Admission Admit Date/Time: 07/03/23 07:30 Primary Reason for Your Visit: GI bleed Attending Provider: Cisco Webber Primary Care Provider: Daniel Lopez Consulting Providers: Daniel Lombardi; Daniel Chester Discharge Orders/Prescriptions Prescriptions: Continued alendronate 70 mg tablet 70 mg PO WE metformin 500 MG tablet 500 mg PO BID atorvastatin [Lipitor] 80 mg tablet 80 mg PO QHS levetiracetam 500 mg tablet 1,000 mg PO BID escitalopram oxalate 10 mg Tablet 10 mg PO DAILY 90 Days Qty: 90 0RF amlodipine 5 mg tablet 5 mg PO DAILY Luis Eduardo-Phos 250 Neutral 250 mg tablet 1 tab PO 4X/DAY Rx Instructions: GIVE 250MG BY MOUTH BEFORE MEALS AND AT BEDTIME FOR HEALTH MAINTENANCE ondansetron HCl 4 mg tablet 4 mg PO Q8H PRN (Reason: NAUSEA/VOMITING ) pantoprazole 40 mg tablet,delayed release (DR/EC) 40 mg PO BID cholecalciferol (vitamin D3) [Vitamin D3] 50 mcg (2,000 unit) capsule 50 mcg PO DAILY docusate sodium 100 mg capsule 100 mg PO BID acetaminophen 500 mg tablet 1,000 mg PO Q8H cyclobenzaprine 5 mg tablet 5 mg PO TID acetaminophen 325 mg tablet 650 mg PO Q4H PRN (Reason: PAIN ) Discontinued Eliquis 5 mg tablet 10 mg PO BID Rx Instructions: GIVE TWO TABLETS (10MG) BY MOUTH TWICE DAILY FOR DVT FOR 14 DAYS. START DATE: EVENING OF 07/01/2023 END DATE: MORNING OF 07/15/2023 Referrals / Follow Up: Daniel Lopez MD [Primary Care Provider] - Disposition Disposition (needs filled in before D/C Order can be placed): Care Home Facility
--- NOTE | 2023-07-07 13:49 | PCM.DC.SUM ---
Providers Date of Admission: 07/03/23 Date of Discharge: 07/07/23 Primary Care Physician: Dr. Daniel Lopez MD Consultations 07/03/23 09:31 Consult: Gastroenterology Routine Consulting Provider: [facility] Reason for Consult: GI bleed EMERGENT Consult: No Notified: Yes Date Notified: 07/03/23 Time Notified: 07:40 Method of Notification: Verbal Consult: Vascular Surgery Routine Consulting Provider: Daniel Lombardi Reason for Consult: IVC filter EMERGENT Consult: No Notified: Yes Date Notified: 07/03/23 Time Notified: 07:39 Method of Notification: Text Reason For Visit: GI BLEED DVT Diagnosis Discharge Diagnosis (1) Rectal cancer: Status: Acute Code(s): C20 - Malignant neoplasm of rectum (2) Radiation proctitis: Status: Acute Code(s): K62.7 - Radiation proctitis Medications at Discharge Home Medications metformin 500 mg tablet 500 mg PO BID BLOOD SUGAR 01/05/20 alendronate 70 mg tablet 70 mg PO [employer] HEALTH 06/22/20 atorvastatin 80 mg tablet (Lipitor) 80 mg PO QHS CHLESTEROL 06/11/22 levetiracetam 500 mg tablet 1,000 mg PO BID SEIZURES 06/11/22 escitalopram oxalate 10 mg tablet 10 mg PO DAILY DEPRESSION 90 days #90 tabs 06/13/22 acetaminophen 325 mg tablet 650 mg PO Q4H PRN PAIN 07/02/23 acetaminophen 500 mg tablet 1,000 mg PO Q8H PAIN 07/02/23 amlodipine 5 mg tablet 5 mg PO DAILY BLOOD PRESSURE 07/02/23 cholecalciferol (vitamin D3) 50 mcg (2,000 unit) capsule (Vitamin D3) 50 mcg PO DAILY SUPPLEMENT 07/02/23 cyclobenzaprine 5 mg tablet 5 mg PO TID MUSCLE SPASMS 07/02/23 docusate sodium 100 mg capsule 100 mg PO BID CONSTIPATION 07/02/23 ondansetron HCl 4 mg tablet 4 mg PO Q8H PRN NAUSEA/VOMITING 07/02/23 pantoprazole 40 mg tablet,delayed release 40 mg PO BID GERD 07/02/23 sodium di- and monophosphate-potassium phos monobasic 250 mg tablet (Luis Eduardo-Phos Neutral) 1 tab PO 4X/DAY HEALTH MAINTENANCE 07/02/23 Hospital Course Operations None Procedures Colonoscopy Summary of Care Provided Minutes Spent on Discharge: 35 Hospital Course: Patient is a 68-year female who presented to [facility] ED on 07/02/2023 with recurrent GI bleeding. Hospital course as noted below. Patient was discharged [facility] to [facility] facility on 07[facility] in stable condition. 1. Lower GI bleed ? GI followed. S/p colonoscopy on 07/03 with findings consistent with severe radiation proctitis involving the anus, rectum and sigmoid colon. Per GI, recommendation is for hyperbaric oxygen therapy for treatment of radiation proctitis. If she is unable to get this, GI would be able to do several sessions of APC. High-fiber diet recommended. No need for stool softeners or steroid-based enemas at this time. Rectal biopsy samples pending. Outpatient follow-up with GI as needed. 2. Right lower extremity DVT Outside study confirmed patient had right femoral DVT shortly after her hip fracture. Had been on Eliquis for that, but Eliquis was discontinued due to GI bleeding as noted below. ? Vascular surgery followed. S/p IVC filter placement on 07/03. Anticoagulation will be held indefinitely. 3. Rectal cancer ? Follows with oncology. Has completed chemotherapy and radiation to this point, with plan for surgery in the near future. Recommend outpatient follow-up. Chronic medical conditions: ? Seizure disorder: Continue home levetiracetam. ? Vulvar cancer: Outpatient follow-up with oncology. ? Type 2 diabetes mellitus: Sliding scale insulin while inpatient. Okay to resume home metformin on discharge. ? Recent leg fracture: S/p repair. PT/OT/case management followed. Returning to SNF on discharge. Total clinical time spent by myself addressing the patient's discharge needs: 35 minutes. Physical Exam Const alert HEENT head/scalp atraumatic and moist oral mucous membranes Resp normal respiratory effort and no retractions Neuro Sensorium / Orientation: awake and alert Weight / BMI Weight Weight: 68.039 kg Body Mass Index (BMI) 25.7 ABG / Lab / Microbiology Data 07/05/23 07:16 07/04/23 06:40 Laboratory: Laboratory Results - last 24 hr 07/06/23 16:32: POC Glucose 118 H 07/06/23 22:09: POC Glucose 141 H 07/07/23 06:50: POC Glucose 104 07/07/23 11:54: POC Glucose 146 H D/C Instructions Discharge Diet: No restrictions Weight Bearing Status: Full weight bearing Meaningful Use Info Meaningful Use Diagnoses (Choose all that apply): None applicable Discharge Plan Admission Admit Date/Time: 07/03/23 07:30 Primary Reason for Your Visit: GI bleed Attending Provider: Cisco Webber Primary Care Provider: Daniel Lopez Consulting Providers: Daniel Lombardi; Daniel Chester Discharge Orders/Prescriptions Prescriptions: Continued alendronate 70 mg tablet 70 mg PO WE metformin 500 MG tablet 500 mg PO BID atorvastatin [Lipitor] 80 mg tablet 80 mg PO QHS levetiracetam 500 mg tablet 1,000 mg PO BID escitalopram oxalate 10 mg Tablet 10 mg PO DAILY 90 Days Qty: 90 0RF amlodipine 5 mg tablet 5 mg PO DAILY Luis Eduardo-Phos 250 Neutral 250 mg tablet 1 tab PO 4X/DAY Rx Instructions: GIVE 250MG BY MOUTH BEFORE MEALS AND AT BEDTIME FOR HEALTH MAINTENANCE ondansetron HCl 4 mg tablet 4 mg PO Q8H PRN (Reason: NAUSEA/VOMITING ) pantoprazole 40 mg tablet,delayed release (DR/EC) 40 mg PO BID cholecalciferol (vitamin D3) [Vitamin D3] 50 mcg (2,000 unit) capsule 50 mcg PO DAILY docusate sodium 100 mg capsule 100 mg PO BID acetaminophen 500 mg tablet 1,000 mg PO Q8H cyclobenzaprine 5 mg tablet 5 mg PO TID acetaminophen 325 mg tablet 650 mg PO Q4H PRN (Reason: PAIN ) Discontinued Eliquis 5 mg tablet 10 mg PO BID Rx Instructions: GIVE TWO TABLETS (10MG) BY MOUTH TWICE DAILY FOR DVT FOR 14 DAYS. START DATE: EVENING OF 07/01/2023 END DATE: MORNING OF 07/15/2023 Referrals / Follow Up: Daniel Lopez MD [Primary Care Provider] - Disposition Disposition (needs filled in before D/C Order can be placed): Jail Facility Charges/Coding Visit Charges Inpatient E&M: 57365 Disch Hosp >30min
--- NOTE | 2023-07-07 13:49 | PCM.TXEXTCAR ---
Diet Diet Order/Speech Therapy: 07/05/23 11:27 Diet: Regular - General Dietary Modifications:: High Fiber Diet Is pt able to select menu?: Yes Routine Orders/Code Status Code Status: DNRCC-A (okay to intubate) Wound(s) coccyx: Wound Type: Pressure Injury left groin: Wound Type: Surgical Incision Therapies Weight Bearing: Full weight bearing Physical Therapy: Eval and Treat Occupational Therapy: Eval and Treat Problem/Diagnosis (1) Rectal cancer: Status: Acute Code(s): C20 - Malignant neoplasm of rectum (2) Radiation proctitis: Status: Acute Code(s): K62.7 - Radiation proctitis Plan Patient is a 68-year female who presented to [facility] ED on 07/02/2023 with recurrent GI bleeding. Hospital course as noted below. Patient was discharged back to custodial facility on 07/06 in stable condition. 1. Lower GI bleed ? GI followed. S/p colonoscopy on 07/03 with findings consistent with severe radiation proctitis involving the anus, rectum and sigmoid colon. Per GI, recommendation is for hyperbaric oxygen therapy for treatment of radiation proctitis. If she is unable to get this, GI would be able to do several sessions of APC. High-fiber diet recommended. No need for stool softeners or steroid-based enemas at this time. Rectal biopsy samples pending. Outpatient follow-up with GI as needed. 2. Right lower extremity DVT Outside study confirmed patient had right femoral DVT shortly after her hip fracture. Had been on Eliquis for that, but Eliquis was discontinued due to GI bleeding as noted below. ? Vascular surgery followed. S/p IVC filter placement on 07/03. Anticoagulation will be held indefinitely. 3. Rectal cancer ? Follows with oncology. Has completed chemotherapy and radiation to this point, with plan for surgery in the near future. Recommend outpatient follow-up. Chronic medical conditions: ? Seizure disorder: Continue home levetiracetam. ? Vulvar cancer: Outpatient follow-up with oncology. ? Type 2 diabetes mellitus: Sliding scale insulin while inpatient. Okay to resume home metformin on discharge. ? Recent leg fracture: S/p repair. PT/OT/case management followed. Returning to SNF on discharge. Total clinical time spent by myself addressing the patient's discharge needs: 35 minutes. Allergies/Procedures Done in Hospital Allergies Corticosteroids (Glucocorticoids) [steroids] Adverse Reaction (Verified 04/14/23 14:32) PT UNSURE OF REACTION Procedures: Colonoscopy and - (CT abdomen pelvis with IV contrast) Type of Care/Length of Stay Estimated LOS: Convalescent Care Less Than 30 days Type of Care Needed: Skilled Rehab Potential: Fair Prognosis: Fair Additional Orders/Day of Discharge H&P will serve as current which was dated: 07/02/23 Day of Discharge: 07/07/23 Dietary and Speech Recommendations Dietitian Recommendations/Changes: recommend advance diet as tolerated to regular; ensure w/ medpass if PO intake at meals fails Discharge Plan Admission Admit Date/Time: 07/03/23 07:30 Primary Reason for Your Visit: GI bleed Attending Provider: Cisco Webber Primary Care Provider: Daniel Lopez Consulting Providers: Daniel Lombardi; Daniel Chester Discharge Orders/Prescriptions Prescriptions: Continued alendronate 70 mg tablet 70 mg PO WE metformin 500 MG tablet 500 mg PO BID atorvastatin [Lipitor] 80 mg tablet 80 mg PO QHS levetiracetam 500 mg tablet 1,000 mg PO BID escitalopram oxalate 10 mg Tablet 10 mg PO DAILY 90 Days Qty: 90 0RF amlodipine 5 mg tablet 5 mg PO DAILY Luis Eduardo-Phos 250 Neutral 250 mg tablet 1 tab PO 4X/DAY Rx Instructions: GIVE 250MG BY MOUTH BEFORE MEALS AND AT BEDTIME FOR HEALTH MAINTENANCE ondansetron HCl 4 mg tablet 4 mg PO Q8H PRN (Reason: NAUSEA/VOMITING ) pantoprazole 40 mg tablet,delayed release (DR/EC) 40 mg PO BID cholecalciferol (vitamin D3) [Vitamin D3] 50 mcg (2,000 unit) capsule 50 mcg PO DAILY docusate sodium 100 mg capsule 100 mg PO BID acetaminophen 500 mg tablet 1,000 mg PO Q8H cyclobenzaprine 5 mg tablet 5 mg PO TID acetaminophen 325 mg tablet 650 mg PO Q4H PRN (Reason: PAIN ) Discontinued Eliquis 5 mg tablet 10 mg PO BID Rx Instructions: GIVE TWO TABLETS (10MG) BY MOUTH TWICE DAILY FOR DVT FOR 14 DAYS. START DATE: EVENING OF 07/01/2023 END DATE: MORNING OF 07/15/2023 Referrals / Follow Up: Daniel Lopez MD [Primary Care Provider] - Disposition Disposition (needs filled in before D/C Order can be placed): Residential Facility Charges/Coding Visit Charges Inpatient E&M: 62309 Disch Hosp >30min
--- NOTE | 2023-07-07 15:43 | CASEMGMT ---
Discharge Planning Discharge orders, signed med list, and transport time sent to [facility] via [facility]. Physicians will transport patient by wheelchair at 6p. Nursing, SW, patient, and her granddaughter updated. Andie Matthew, Discharge Planning Asst.
--- NOTE | 2023-07-07 16:53 | NURSING ---
Report called to CC to Liliam BROWN
[2023-07-07 17:12] VITALS: BP 112/68; PULSE 71; RESP 16; TEMP 36.7; O2SAT 97
[2023-07-07] MEDS: 0.9% Saline Lock 10 ML Syringe IV (17:13)
--- NOTE | 2023-07-07 18:20 | PN.GI_ITS ---
Subjective Subjective The patient is doing well and has not had any signs or symptoms of lower GI bleeding. Objective Data Objective Data Vital Signs: Vital Signs Temp Pulse Resp BP Pulse Ox O2 Del Method 98.1 F 71 16 112/68 97 Room Air 07/07/23 17:12 07/07/23 17:12 07/07/23 17:12 07/07/23 17:12 07/07/23 17:12 07/07/23 17:12 Oxygen Delivery Method Room Air Weight: 150 lb 0.005 oz Body Mass Index (BMI) 25.7 Intake & Output: Intake and Output for Last 24 Hours 07/05/23 07/06/23 07/07/23 23:59 23:59 23:59 Intake Total 240 / 240 650 / 650 1200 / 1200 Output Total 850 / 850 400 / 400 Balance 239 / 239 -200 / -200 800 / 800 Lab / Micro Data 07/05/23 07:16 07/04/23 06:40 Labs: Laboratory Results - last 24 hr 07/06/23 16:32: POC Glucose 118 H 07/06/23 22:09: POC Glucose 141 H 07/07/23 06:50: POC Glucose 104 07/07/23 11:54: POC Glucose 146 H Physical Exam Const alert and no apparent distress HEENT head/scalp atraumatic and moist oral mucous membranes Resp normal respiratory effort and no retractions Neuro Sensorium / Orientation: awake and alert Assessment & Plan Assessment/Plan (1) Rectal cancer: (2) Radiation proctitis: PLAN: Plan I told her that the medical recommendations for radiation proctitis are high- fiber diet, stool softeners and or hydrocortisone versus mesalamine based enemas. As she is not having a lot of rectal bleeding at this time due to the fact that she is off of anticoagulation I am just recommending a high-fiber diet which has already been instituted. If she wants to undergo APC and will take multiple sessions in least 4. This will be every other month for 4 months. Biopsies were taken of the rectum but they are pending. At this time she seems to be clinically stable. Charges/Coding Visit Charges Inpatient E&M: 14271 Subs Hosp L3
== END 2023-07-07 18:10 | disposition skilled nursing facility (03) | DRG 393 ==
LOC: ED 23:31 → PCU 07-03 09:27
PROVIDERS: Internal Medicine Gastroenterology; Emergency Provider Emergency Medicine; PCP Family Medicine; Visit Provider Hospitalist
PROC: 0DJD8ZZ Inspection of Lower Intestinal Tract, Via Natural or Artificial Opening Endoscopic (ICD-10-PCS; CPT 45378; principal; 2023-07-04 16:55)
DX: K62.7 Radiation proctitis (principal); K55.21 Angiodysplasia of colon with hemorrhage; I82.411 Acute embolism and thrombosis of right femoral vein; C20 Malignant neoplasm of rectum; E11.9 Type 2 diabetes mellitus without complications; G40.909 Epilepsy, unspecified, not intractable, without status epilepticus; F31.9 Bipolar disorder, unspecified; I10 Essential (primary) hypertension; I69.322 Dysarthria following cerebral infarction; E78.5 Hyperlipidemia, unspecified; I69.320 Aphasia following cerebral infarction; Z79.83 Long term (current) use of bisphosphonates; Z87.891 Personal history of nicotine dependence; Z79.84 Long term (current) use of oral hypoglycemic drugs; Z92.21 Personal history of antineoplastic chemotherapy; Z66 Do not resuscitate; Z85.89 Personal history of malignant neoplasm of other organs and systems
CPT/HCPCS: 36415; 36591; 37191; 74177; 76937; 80048; 80076; 82962; 85014; 85018; 85025; 85027; 85610; 85730; 86850; 86900; 86901; 88305; 93005; 97110; 97162; 97166; 97530; 97535; 99152; 99153; 99285; C1880; C1894; J7030; J7120; Q9967; A4216; C1769; J2405

== ENCOUNTER → 2023-07-02 | Outpatient (REF) | payer MEDICARE, SELFPAY ==
[2023-07-02 08:20] LABS: Hematocrit 29.6 % (37-47); Mean Corp Hgb Conc 30.4 g/dL (32-36); Mean Corpuscular Hgb 29.4 pg (27.0-32.0); Mean Corpuscular Volume 96.7 fL (81-99); Mean Platelet Vol. 10.8 fl (6.2-12.0); Platelet Count 163 K/mm3 (150-450); RBC Distribution Width CV 17.2 % (11.6-14.6); Red Blood Count 3.06 M/mm3 (4.2-5.4); White Blood Count 2.7 K/mm3 (4.4-11.0)
== END ==
LOC: OLS.SW 05:25
PROVIDERS: PCP Family Medicine; Visit Provider Internal Medicine
DX: I10 Essential (primary) hypertension (principal); E11.9 Type 2 diabetes mellitus without complications
CPT/HCPCS: 36415; 85027

== ENCOUNTER → 2023-07-08 | Outpatient (REF) | payer MEDICARE, SELFPAY ==
[2023-07-08 09:44] LABS: Absolute Lymphocyte Count 0.55 X10^3/uL (0.83-4.51); Absolute Neutrophil Count 1.4 X10^3/uL (2.0-7.7); Basophil# 0.03 X10^3/uL; Basophil% 1.2 % (0-1); Eosinophils% 8.2 % (0-5); Hematocrit 31.2 % (37-47); Hemoglobin 9.4 g/dL (12.0-15.0); Lymphocyte # 0.55 X10^3/ul (0.83-4.51); Lymphocyte % 22.6 % (19-41); Mean Corp Hgb Conc 30.1 g/dL (32-36); Mean Corpuscular Hgb 28.8 pg (27.0-32.0); Mean Corpuscular Volume 95.7 fL (81-99); Mean Platelet Vol. 10.7 fl (6.2-12.0); Monocyte# 0.28 X10^3/uL; Monocyte% 11.5 % (0-10); NRBC Flagged by Analyzer 0 % (0-5); Neutrophil # 1.36 X10^3/uL (2.7-7.7); Neutrophil % 56.1 % (47-70); POSITIVE DIFFERENTIAL YES; Platelet Count 153 K/mm3 (150-450); RBC Distribution Width CV 16.7 % (11.6-14.6); RBC Distribution Width SD 58.1 fl (35.1-43.9); Red Blood Count 3.26 M/mm3 (4.2-5.4); White Blood Count 2.4 K/mm3 (4.4-11.0)
[2023-07-08 09:45] LABS: Differential Indicated SCAN CRITERIA MET
[2023-07-08 09:54] LABS: Vitamin B12 311 pg/mL (211-911); Vitamin D,25 Hydroxy 62.3 ng/mL
[2023-07-08 10:10] LABS: ALB/GLOB Ratio 0.7 RATIO (0.9-2.4); AST(SGOT) 22 U/L (15-37); Alanine Aminotransfer ALT/SGPT 16 U/L (13-56); Albumin, Serum 2.7 g/dL (3.2-5.0); Alkaline Phosphatase 127 U/L (45-117); Anion Gap 1 (5-15); BUN 20 mg/dL (7-18); BUN/Creat Ratio 30.2 RATIO (10-20); Calcium,Total 8.4 mg/dL (8.5-10.1); Chloride 108 mmol/L (98-107); Creatinine, Serum 0.66 mg/dL (0.55-1.02); EST Glomerular Filtration Rate 94 mL/min (>60); Est Glom Filt Rate - Afr Amer 114 mL/min (>60); Globulin 3.7 g/dL (2.2-4.2); Glucose 101 mg/dL (74-106); Potassium 4.3 mmol/L (3.5-5.1); Protein, Total 6.4 g/dL (6.4-8.2); Sodium Level 138 mmol/L (136-145); Thyroid Stim Hormone (TSH) 3.52 uIU/mL (0.358-3.74)
[2023-07-08 10:29] LABS: Hemoglobin A1c 5.2 % (3.8-5.6)
[2023-07-10 12:09] LABS: KEPPRA (LEVETIRACETAM) 17.9 ug/mL (10.0-40.0)
[2023-07-11 08:43] LABS: Pathologist Review Reviewed
== END ==
LOC: OLS.SW 05:00
PROVIDERS: PCP Family Medicine; Visit Provider Internal Medicine
DX: D64.9 Anemia, unspecified (principal); E11.9 Type 2 diabetes mellitus without complications; I10 Essential (primary) hypertension; E78.5 Hyperlipidemia, unspecified; C20 Malignant neoplasm of rectum; Z86.73 Personal history of transient ischemic attack (TIA), and cerebral infarction without residual deficits; S72.141D Displaced intertrochanteric fracture of right femur, subsequent encounter for closed fracture with routine healing; E55.9 Vitamin D deficiency, unspecified
CPT/HCPCS: 36415; 80053; 80177; 82306; 82607; 83036; 83735; 84443; 85025

== ENCOUNTER → 2023-07-14 | Outpatient (REF) | payer MEDICARE, SELFPAY ==
[2023-07-14 09:13] LABS: Hematocrit 31.9 % (37-47); Hemoglobin 9.7 g/dL (12.0-15.0); Mean Corp Hgb Conc 30.4 g/dL (32-36); Mean Corpuscular Hgb 29.5 pg (27.0-32.0); Mean Platelet Vol. 10.8 fl (6.2-12.0); Platelet Count 134 K/mm3 (150-450); RBC Distribution Width CV 16.2 % (11.6-14.6); RBC Distribution Width SD 58.2 fl (35.1-43.9); Red Blood Count 3.29 M/mm3 (4.2-5.4); White Blood Count 3.3 K/mm3 (4.4-11.0)
[2023-07-14 09:46] LABS: Anion Gap 7 (5-15); BUN 16 mg/dL (7-18); Calcium,Total 8.7 mg/dL (8.5-10.1); Chloride 107 mmol/L (98-107); Creatinine, Serum 0.73 mg/dL (0.55-1.02); EST Glomerular Filtration Rate 85 mL/min (>60); Est Glom Filt Rate - Afr Amer 102 mL/min (>60); Ferritin 128 ng/mL (8-252); Glucose 93 mg/dL (74-106); Iron 48 ug/dL (50-170); Potassium 4.4 mmol/L (3.5-5.1); Sodium Level 141 mmol/L (136-145)
== END ==
LOC: OLS.SW 05:00
PROVIDERS: PCP Family Medicine; Visit Provider Internal Medicine
DX: D64.9 Anemia, unspecified (principal); E11.9 Type 2 diabetes mellitus without complications
CPT/HCPCS: 36415; 80048; 82728; 83540; 85027

== ENCOUNTER → 2023-07-21 | Outpatient (REF) | payer MEDICARE, SELFPAY ==
[2023-07-21 08:26] LABS: Hematocrit 33.9 % (37-47); Hemoglobin 10.7 g/dL (12.0-15.0); Mean Corp Hgb Conc 31.6 g/dL (32-36); Mean Corpuscular Hgb 29.6 pg (27.0-32.0); Mean Corpuscular Volume 93.9 fL (81-99); Mean Platelet Vol. 10.3 fl (6.2-12.0); Platelet Count 133 K/mm3 (150-450); RBC Distribution Width CV 15.8 % (11.6-14.6); RBC Distribution Width SD 54.9 fl (35.1-43.9); Red Blood Count 3.61 M/mm3 (4.2-5.4); White Blood Count 2.6 K/mm3 (4.4-11.0)
[2023-07-21 09:18] LABS: Anion Gap 5 (5-15); BUN 10 mg/dL (7-18); BUN/Creat Ratio 15.7 RATIO (10-20); Calcium,Total 8.4 mg/dL (8.5-10.1); Chloride 106 mmol/L (98-107); Creatinine, Serum 0.64 mg/dL (0.55-1.02); EST Glomerular Filtration Rate 99 mL/min (>60); Est Glom Filt Rate - Afr Amer 119 mL/min (>60); Glucose 108 mg/dL (74-106); Potassium 3.8 mmol/L (3.5-5.1); Sodium Level 137 mmol/L (136-145)
== END ==
LOC: OLS.SW 05:00
PROVIDERS: PCP Family Medicine; Visit Provider Internal Medicine
DX: D64.9 Anemia, unspecified (principal); E11.9 Type 2 diabetes mellitus without complications; I10 Essential (primary) hypertension; E78.5 Hyperlipidemia, unspecified; C20 Malignant neoplasm of rectum; G40.909 Epilepsy, unspecified, not intractable, without status epilepticus; S72.141D Displaced intertrochanteric fracture of right femur, subsequent encounter for closed fracture with routine healing
CPT/HCPCS: 36415; 80048; 85027

== ENCOUNTER → 2023-07-28 | Outpatient (REF) | payer MEDICARE, SELFPAY ==
[2023-07-28 12:15] LABS: Hemoglobin A1c 4.9 % (3.8-5.6)
== END ==
LOC: OLS.SW 05:00
PROVIDERS: PCP Family Medicine; Visit Provider Internal Medicine
DX: E11.9 Type 2 diabetes mellitus without complications (principal)
CPT/HCPCS: 36415; 83036

== ENCOUNTER → 2023-08-04 | Outpatient (REF) | payer MEDICARE, SELFPAY ==
[2023-08-04 08:41] LABS: Hematocrit 35.7 % (37-47); Hemoglobin 11.2 g/dL (12.0-15.0); Mean Corp Hgb Conc 31.4 g/dL (32-36); Mean Corpuscular Hgb 28.9 pg (27.0-32.0); Mean Platelet Vol. 10.8 fl (6.2-12.0); Platelet Count 195 K/mm3 (150-450); RBC Distribution Width CV 14.8 % (11.6-14.6); RBC Distribution Width SD 49.6 fl (35.1-43.9); Red Blood Count 3.88 M/mm3 (4.2-5.4); White Blood Count 4.3 K/mm3 (4.4-11.0)
== END ==
LOC: OLS.SW 04:00
PROVIDERS: PCP Family Medicine; Referring Provider Internal Medicine; Visit Provider Internal Medicine
DX: R79.89 Other specified abnormal findings of blood chemistry (principal)
CPT/HCPCS: 36415; 85027

== ENCOUNTER 2023-08-13 15:59 | Observation (INO) | payer MEDICARE, SELFPAY ==
[2023-08-13] VITALS (9 sets, daily range): BP systolic 139–162; BP diastolic 74–93; PULSE 82–89; RESP 14–18; TEMP 36.3–36.8; O2SAT 97–99; BMI 27.3; BMI 25.4
--- NOTE | 2023-08-13 16:03 | CT_ITS ---
We are attempting to reach an attending provider to discuss findings. An addendum with communication details will be sent when the communication is complete. EXAM: CT HEAD WITHOUT INTRAVENOUS CONTRAST CLINICAL INDICATION: Neuro deficit, acute, stroke suspected TECHNIQUE: Multiple axial images were obtained of the head without intravenous contrast. This CT exam was performed using one or more of the following dose reduction techniques: automated exposure control, adjustment of the mA and/or kV according to patient size, and/or use of iterative reconstruction technique. COMPARISON: No relevant prior studies available. FINDINGS: BRAIN AND EXTRA-AXIAL SPACES: There is hypoattenuation in the periventricular white matter. There is remote lacunar infarct in the left thalamus. No intra- or extra-axial hemorrhage. No intracranial mass or mass effect. Posterior fossa structures are unremarkable. No hydrocephalus. Basal cisterns are patent. BONES/JOINTS: Unremarkable. No discrete lytic or blastic abnormalities. SINUSES: Unremarkable as visualized. Clear. MASTOID AIR CELLS: Unremarkable. Clear. ORBITS: Visualized globes, extraocular muscles, optic nerves and retrobulbar fat appear unremarkable. CT/STROKE Brain/Head without Cont IMPRESSION: 1. No acute intracranial abnormality. 2. Underlying small vessel ischemia. 3. Aspects score 10. Electronically Signed: Tono Floyd MD at 16:20 EDT ,
--- NOTE | 2023-08-13 16:03 | EKG12_ITS ---
Test Reason : POSS STROKE Blood Pressure : / mmHG Vent. Rate : 081 BPM Atrial Rate : 081 BPM P-R Int : 198 ms QRS Dur : 088 ms QT Int : 384 ms P-R-T Axes : 026 -18 035 degrees QTc Int : 446 ms Normal sinus rhythm Normal ECG Confirmed by Bill Kirkland ([id number]), film and video editor RHEA CUNNINGHAM ([id number]) on 08/15/2023 7:17:08 AM Referred By: Confirmed By:Bill Kirkland
--- NOTE | 2023-08-13 16:04 | CT_ITS ---
We are attempting to reach an attending provider to discuss findings. An addendum with communication details will be sent when the communication is complete. EXAM: CT ANGIOGRAPHY HEAD AND NECK WITH INTRAVENOUS CONTRAST CLINICAL INDICATION: Neuro deficit, acute, stroke suspected TECHNIQUE: [place] [facility]/head and neck CT angiography protocol performed with intravenous contrast. This CT exam was performed using one or more of the following dose reduction techniques: automated exposure control, adjustment of the mA and/or kV according to patient size, and/or use of iterative reconstruction technique. MIP reconstructed images were created and reviewed. CONTRAST: IV 100mL [id number] COMPARISON: No relevant prior studies available. FINDINGS: HEAD: RIGHT ANTERIOR CEREBRAL ARTERY: Unremarkable. No occlusion or significant stenosis. Anterior communicating artery is present. No aneurysm. RIGHT MIDDLE CEREBRAL ARTERY: Unremarkable. No occlusion or significant stenosis. No aneurysm. RIGHT POSTERIOR CEREBRAL ARTERY: Unremarkable. No occlusion or significant stenosis. No aneurysm. RIGHT INTRACRANIAL INTERNAL CAROTID ARTERY: Unremarkable. No significant stenosis. No dissection or occlusion. RIGHT INTRACRANIAL VERTEBRAL ARTERY: Unremarkable. No significant stenosis. No dissection or occlusion. LEFT ANTERIOR CEREBRAL ARTERY: Unremarkable. No occlusion or significant stenosis. No aneurysm. LEFT MIDDLE CEREBRAL ARTERY: Unremarkable. No occlusion or significant stenosis. No aneurysm. LEFT POSTERIOR CEREBRAL ARTERY: Unremarkable. No occlusion or significant stenosis. No aneurysm. LEFT INTRACRANIAL INTERNAL CAROTID ARTERY: Unremarkable. No significant stenosis. No dissection or occlusion. LEFT INTRACRANIAL VERTEBRAL ARTERY: Unremarkable. No significant stenosis. No dissection or occlusion. BASILAR ARTERY: Unremarkable. No occlusion or significant stenosis. No aneurysm. OTHER VASCULATURE: No vascular malformation. NECK: RIGHT COMMON CAROTID ARTERY: Unremarkable. No significant stenosis. No dissection or occlusion. RIGHT EXTRACRANIAL INTERNAL CAROTID ARTERY: There is mild calcific plaque in the carotid bulbs bilaterally. There is no stenosis. No dissection or occlusion. RIGHT EXTERNAL CAROTID ARTERY: Unremarkable. No occlusion. RIGHT EXTRACRANIAL VERTEBRAL ARTERY: Unremarkable. No significant stenosis. No dissection or occlusion. LEFT COMMON CAROTID ARTERY: Unremarkable. No significant stenosis. No dissection or occlusion. LEFT EXTRACRANIAL INTERNAL CAROTID ARTERY: See above. LEFT EXTERNAL CAROTID ARTERY: Unremarkable. No occlusion. LEFT EXTRACRANIAL VERTEBRAL ARTERY: Unremarkable. No significant stenosis. No dissection or occlusion. BRACHIOCEPHALIC AND SUBCLAVIAN ARTERIES: Unremarkable as visualized. No occlusion or significant stenosis. LUNG APICES: Unremarkable as visualized. HEAD and NECK: BONES/JOINTS: Unremarkable. No discrete lytic or blastic abnormalities. SOFT TISSUES: Unremarkable. CAROTID STENOSIS REFERENCE USING NASCET CRITERIA: % ICA stenosis = (1 - narrowest ICA diameter/diameter of distal cervical ICA) x 100. Mild - <50% stenosis. Moderate - 50-69% stenosis. Severe - 70-94% stenosis. Near occlusion - 95-99% stenosis. Occluded - 100% stenosis. CT/STROKE CTA Head AND Neck W/Con IMPRESSION: No acute findings in the arteries of the head and neck. Electronically Signed: Tono Floyd MD at 16:23 EDT ,
--- NOTE | 2023-08-13 16:06 | ED.VIS.STROK ---
HPI History of Present Illness Chief Complaint: Stroke Alert Narrative Narrative: History and physical limited secondary to dementia. Patient is in a long term facility, history of CVA with right-sided weakness/paralysis. According to EMS, last known well time was at 9:00 this morning, 7 hours ago. assisted facility had reported to full charge bookkeeper that last known well time was at noon, 4 hours ago. Family reported noted facial droop on the right today. She was sent in for evaluation of the right-sided facial droop. [facility] Medical History Acid reflux Anemia Anxiety Bipolar 1 disorder Cancer CVA (cerebral vascular accident) Dehydration Diabetes mellitus Diarrhea due to drug Drug induced neutropenia Dysarthria due to acute stroke Dyslipidemia Encounter for chemotherapy management Encounter for education Former smoker Former tobacco use High cholesterol History of CVA (cerebrovascular accident) History of echocardiogram HLD (hyperlipidemia) Hypertension Hypertensive emergency Iron deficiency anemia due to chronic blood loss Monoparesis of right upper extremity Prerenal azotemia Rectal cancer Rectum cancer Seizure Thrombocytopenia Home Medications metformin 500 mg tablet 500 mg PO BID BLOOD SUGAR 01/05/20 [History Last Taken 07/02/23] alendronate 70 mg tablet 70 mg PO [facility] 06/22/20 [History Last Taken 07/02/23] atorvastatin 80 mg tablet (Lipitor) 80 mg PO QHS CHLESTEROL 06/11/22 [History Last Taken 07/01/23] levetiracetam 500 mg tablet 1,000 mg PO BID SEIZURES 06/11/22 [History Last Taken 07/02/23] escitalopram oxalate 10 mg tablet 10 mg PO DAILY DEPRESSION 90 days #90 tabs 06/13/22 [Rx Last Taken 07/02/23] acetaminophen 325 mg tablet 650 mg PO Q4H PRN PAIN 07/02/23 [History Last Taken Unknown] acetaminophen 500 mg tablet 1,000 mg PO Q8H PAIN 07/02/23 [History Last Taken 07/02/23] amlodipine 5 mg tablet 5 mg PO DAILY BLOOD PRESSURE 07/02/23 [History Last Taken 07/02/23] cholecalciferol (vitamin D3) 50 mcg (2,000 unit) capsule (Vitamin D3) 50 mcg PO DAILY SUPPLEMENT 07/02/23 [History Last Taken 07/02/23] cyclobenzaprine 5 mg tablet 5 mg PO TID MUSCLE SPASMS 07/02/23 [History Last Taken 07/02/23] docusate sodium 100 mg capsule 100 mg PO BID CONSTIPATION 07/02/23 [History Last Taken 07/02/23] ondansetron HCl 4 mg tablet 4 mg PO Q8H PRN NAUSEA/VOMITING 07/02/23 [History Last Taken 06/21/23] pantoprazole 40 mg tablet,delayed release 40 mg PO BID GERD 07/02/23 [History Last Taken 07/02/23] sodium di- and monophosphate-potassium phos monobasic 250 mg tablet (Luis Eduardo-Phos Neutral) 1 tab PO 4X/DAY [facility]INTE[facility] 07/02/23 [History Last Taken 07/02/23] Allergy/AdvReac Type Severity Reaction Status Date / Time Iodinated Contrast Media Allergy Mild Itching Verified 08/13/23 17:30 prednisone Allergy Mild Hives Verified 08/13/23 17:30 Corticosteroids AdvReac PT UNSURE Verified 08/13/23 17:30 (Glucocorticoids) OF REACTION [steroids] Family History Mother Diabetes CVA (cerebral vascular accident) Thrombocytopenia Father Heart disease Surgical History No history of previous surgery Social History household members: none housing: correction Smoking Status: Former smoker quit date: 05/05/00 pack-years: 20 alcohol intake: never substance use type: does not use ROS ROS ED ROS Narrative Limited secondary to bipolar disorder/dementia. Constitutional: No fever, no chills. HEENT: No sore throat. No neck pain. No loss of vision. No rhinorrhea. Right-sided facial droop. Cardiovascular: No chest pain. No palpitations. No pedal edema. Respiratory: No cough, no shortness of breath. Abdominal: No abdominal pain. No nausea. No vomiting. Genitourinary: No dysuria. No hematuria. Musculoskeletal: No myalgias. No arthralgias. Neurologic: No headaches. No dizziness. No lightheadedness. Right-sided facial droop. Skin: No rash. No change in color. Psychiatric: No depression. No anxiety. EXAM Physical Exam Narrative Exam Narrative: Afebrile. Vital signs noted. HEENT: Normocephalic. Atraumatic. PERRL, EOMI. Neck soft and supple. No point tenderness or step off. Cardiovascular: Regular rate and rhythm. No murmurs, rubs, or gallops appreciated. Respiratory: No tachypnea. Lungs clear to auscultation bilaterally. Gastrointestinal: Abdomen soft, nontender, with normoactive bowel sounds. No rebound or guarding. Neurological: Awake. Alert. Chronic right arm paralysis with chronic right arm weakness, chronic dysarthria for an NIH of 9. Noted facial droop on right which is the only new finding reportedly. Skin: No rash. Normal color. No pallor. Musculoskeletal: No pedal edema. Const Vital Signs: 08/13/23 16:15 08/13/23 16:03 08/13/23 16:03 Temperature 97.8 F 97.8 F Temperature Source Temporal Temporal Pulse Rate 84 Respiratory Rate 16 Blood Pressure 146/93 H Blood Pressure Mean 110 Pulse Ox 97 Oxygen Delivery Method Room Air Room Air 08/13/23 15:59 08/13/23 16:28 08/13/23 16:59 Temperature 97.8 F 97.8 F Temperature Source Temporal Temporal Pulse Rate 85 82 83 Respiratory Rate 16 16 16 Blood Pressure 146/93 H 151/91 H 162/90 H Blood Pressure Mean 110 111 114 Pulse Ox 98 97 98 Oxygen Delivery Method Room Air Room Air Room Air 08/13/23 17:00 Temperature Temperature Source Pulse Rate 84 Respiratory Rate 18 Blood Pressure 160/87 H Blood Pressure Mean 111 Pulse Ox 99 Oxygen Delivery Method Room Air NIHSS NIHSS Initial: 1a Level of Consciousness: 0 1b LOC Questions (Score 2 if aphasic/stupor): 1 1c LOC Commands (Only score 1st attempt): 0 3 Visual: 0 4 Facial Palsy: 1 5 Motor Arm Right (UN = amputation/fusion): 4 (Chronic) 5 Motor Arm Left: 0 6 Motor Leg Right: 1 6 Motor Leg Left: 0 7 Limb ataxia (Only + if out of proportion): 0 8 Sensory (Aphasia/stupor=0 or 1, coma=2): 0 9 Best Language: 1 (Chronic) 10 Dysarthria (mute, coma=2, intubated=UN): 1 (Chronic) 11 Extinction and Inattention (only scored if +): 0 Total Score: 9 MDM MDM MDM Narrative Medical decision making narrative: Patient was made a stroke team upon arrival given her right-sided facial droop. I feel that she is outside the window for TNK as EMS reports her last known well time was at 9:00 this morning which was approximately 7 hours ago. She already has right upper extremity deficit. Additionally, she has a baseline dysarthria from previous stroke. I reviewed the patient's laboratory work, she has normal white count of 4.4, hemoglobin stable at 10.6 with platelet count normal at 191. Her coagulation studies are negative with an INR of 1.0 and a PTT 27.7, sodium normal at 140 with potassium normal at 3.8, BUN of 14 and creatinine 0.67, glucose appropriately elevated at 96. High-sensitivity troponin is less than 3. Cbarn-pu-[id number] glucose was 87. I did receive a call from the radiologist regarding the CT of the brain which shows no acute process, I reviewed the radiology report as well which comments on small vessel ischemia. Also in discussion with the radiologist, the CTA of the head and neck shows no large vessel occlusion. I also discussed the patient with the teleneurologist and the patient is not a TNK candidate as her last known well time was at 9 AM. However, was felt that she needed to be admitted for MRI for her facial droop. Her dysarthria and right-sided weakness is chronic including the right arm paralysis, and the right leg weakness. I discussed patient with Dr. Romero for observation on PCU. She is in stable condition. History & Record Review Discussion w/independent historian: EMS personnel Additional record(s) reviewed:: Prior labs Lab Data Attestation: I reviewed the patient's lab results. Labs: Laboratory Results - last 24 hr 08/13/23 08/13/23 16:05 16:28 WBC 4.4 RBC 3.66 L Hgb 10.6 L Hct 33.8 L MCV 92.3 MCH 29.0 MCHC 31.4 L RDW Std Deviation 51.7 H RDW Coeff of Liudmila 15.3 H Plt Count 191 MPV 10.2 Immature Gran % (Auto) 0.200 Neut % (Auto) 69.1 Lymph % (Auto) 16.5 L [place] % (Auto) 10.4 H Eos % (Auto) 3.6 Baso % (Auto) 0.2 Absolute Neuts (auto) 3.1 Absolute Lymphs (auto) 0.73 L Nucleated RBC % 0 PT 13.1 INR 1.0 APTT 27.7 Sodium 140 Potassium 3.8 Chloride 108 H Carbon Dioxide 31.0 Anion Gap 1 L BUN 14 Creatinine 0.67 Estim Creat Clear Calc 65.60 Est GFR (MDRD) Af Amer 112 Est GFR (MDRD) Non-Af 92 BUN/Creatinine Ratio 20.8 H Glucose 96 Calcium 8.2 L Troponin I High Sens < 3 L POC Glucose 87 Radiography Diagnostic Testing: Clinical Impression(s) from Imaging Studies Brain CT 08/13/23 16:03 IMPRESSION: 1. No acute intracranial abnormality. 2. Underlying small vessel ischemia. 3. Aspects score 10. Electronically Signed: Tono Floyd MD at 16:20 EDT , ADDENDUM: 08/13/23 1631 IMPRESSION: 1. No acute intracranial abnormality. 2. Underlying small vessel ischemia. 3. Aspects score 10. N.B. : The above Results were Read Back by Tono Floyd MD to Sorin Ritchie MD, and understanding confirmed on 08/13/2023 16:24:38 (ET). Electronically Signed: Tono Floyd MD at 16:20 EDT , Head/Neck CTA 08/13/23 16:04 IMPRESSION: No acute findings in the arteries of the head and neck. Electronically Signed: Tono Floyd MD at 16:23 EDT , ADDENDUM: 08/13/23 1631 IMPRESSION: No acute findings in the arteries of the head and neck. N.B. : The above Results were Read Back by Tono Floyd MD to Sorin Ritchie MD, and understanding confirmed on 08/13/2023 16:24:49 (ET). Electronically Signed: Tono Floyd MD at 16:23 EDT , Chest X-Ray 08/13/23 16:40 IMPRESSION: No acute findings in the chest. Electronically Signed: Tono Floyd MD at 16:59 EDT , Stroke Documentation Questions Stroke Team Activated: Yes Reviewed Inclusion/Exclusion criteria: Yes Was Patient considered for Endovascular Intervention?: No-CTA negative, determined not to be an endovascular candidate IV Thrombolytic Administered: No Discharge Plan Dx/Rx/DC Orders Clinical Impression: Facial droop, History of CVA in adulthood, Type 2 diabetes mellitus Disposition Disposition: Acute Care [facility]
--- NOTE | 2023-08-13 16:14 | ED.RN ---
pt not in room to complete nihs
--- NOTE | 2023-08-13 16:16 | CHAPLAIN ---
Type of Pastoral Visit ___ Initial Visit ___ Follow-up Visit ___ On-call Visit ___ General Patient Visit ___ Spiritual Assessment ___ Family Conference ___ Bereavement _x__ Rapid Response ___ Code Blue ___ Other (describe below) Pastoral Care Referral From ___ Patient ___ Family ___ Nurse ___ Physician ___ Burial Vault Setter ___ Diaper Folder _x__ Other (describe below) Sacrament/Intervention ___ Active listening ___ Anointing ___ Mandaeism ___ Bereavement ___ Communion ___ Alicia exploration ___ ___ Life review ___ Prayer ___ Reconciliation ___ Sacrament of Sick _x__ Supportive presence ___ Wedding ___ Other (describe below) Pastoral Comments responded to stroke alert in the ED; was present when pt arrived from SNF; no family members were present; waited for family members to show up but no one did while waiting; offered staff that this type caster would return if desired
[2023-08-13 16:24] LABS: Absolute Lymphocyte Count 0.73 X10^3/uL (0.83-4.51); Absolute Neutrophil Count 3.1 X10^3/uL (2.0-7.7); Basophil# 0.01 X10^3/uL; Basophil% 0.2 % (0-1); Eosinophil# 0.16 X10^3/uL; Eosinophils% 3.6 % (0-5); Hematocrit 33.8 % (37-47); Hemoglobin 10.6 g/dL (12.0-15.0); Lymphocyte # 0.73 X10^3/ul (0.83-4.51); Lymphocyte % 16.5 % (19-41); Mean Corp Hgb Conc 31.4 g/dL (32-36); Mean Corpuscular Volume 92.3 fL (81-99); Mean Platelet Vol. 10.2 fl (6.2-12.0); Monocyte# 0.46 X10^3/uL; Monocyte% 10.4 % (0-10); NRBC Flagged by Analyzer 0 % (0-5); Neutrophil # 3.05 X10^3/uL (2.7-7.7); Neutrophil % 69.1 % (47-70); Platelet Count 191 K/mm3 (150-450); RBC Distribution Width CV 15.3 % (11.6-14.6); RBC Distribution Width SD 51.7 fl (35.1-43.9); Red Blood Count 3.66 M/mm3 (4.2-5.4); White Blood Count 4.4 K/mm3 (4.4-11.0)
--- NOTE | 2023-08-13 16:28 | ED.RN ---
dr. mujica speaks with [facility] dr. they agree to admit for mri. dr. mujica gives order for dropping nihs to q4
--- NOTE | 2023-08-13 16:40 | RAD_ITS ---
EXAM: XR CHEST, 1 VIEW CLINICAL INDICATION: Neuro deficit, acute, stroke suspected TECHNIQUE: Frontal view of the chest. COMPARISON: 08/16/2022 FINDINGS: LUNGS AND PLEURAL SPACES: Unremarkable. No consolidation or edema. No pneumothorax. No effusion. HEART: Unremarkable. Cardiac silhouette not enlarged. MEDIASTINUM: Central airways and mediastinal contour are unremarkable. BONES/JOINTS: Unremarkable. No acute fracture. SOFT TISSUES: Unremarkable. TUBES, LINES AND DEVICES: Right-sided Port-A-Cath in stable position. RAD/Chest 1 View IMPRESSION: No acute findings in the chest. Electronically Signed: Tono Floyd MD at 16:59 EDT ,
[2023-08-13 16:44] LABS: Prothrombin Time (Protime)PT. 13.1 SECONDS (11.7-14.9)
[2023-08-13 16:45] LABS: Partial Thromboplast Time 27.7 Seconds (24.1-36.2)
[2023-08-13 16:46] LABS: Bedside Glucose 87 mg/dL (74-106)
[2023-08-13 16:52] LABS: Anion Gap 1 (5-15); BUN 14 mg/dL (7-18); BUN/Creat Ratio 20.8 RATIO (10-20); Calcium,Total 8.2 mg/dL (8.5-10.1); Chloride 108 mmol/L (98-107); Creatinine, Serum 0.67 mg/dL (0.55-1.02); EST Glomerular Filtration Rate 92 mL/min (>60); Est Glom Filt Rate - Afr Amer 112 mL/min (>60); Glucose 96 mg/dL (74-106); Potassium 3.8 mmol/L (3.5-5.1); Sodium Level 140 mmol/L (136-145); Troponin-I HS < 3 pg/mL (3.0-54.0)
--- NOTE | 2023-08-13 17:41 | HP.PCM.HOS_ITS ---
HPI - General General Date of Admission: 08/13/23 HPI Narrative ROCÍO ORDONEZ, is a 68 F who presents to the hospital from SNF with concerns for new stroke. She has a history of a stroke from about 8 years ago which is left her with right-sided paralysis, at the time there is also some's speech deficits though snf is saying that she had new deficits today with right facial droop. She was found to be dysarthric and aphasic as well though there is some confusion whether or not this is baseline for her. Aside from her aphasia/dysarthria, the rest of her neurological exam appears to be at baseline and she is outside of the window for TNK. She does have an extensive past me dical history with rectal cancer and vulvar cancer that was treated with chemotherapy and radiation. 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 She will need to follow-up with surgery as an outpatient for her rectal adenocarcinoma. [facility] Medical History Acid reflux Anemia Anxiety Bipolar 1 disorder Cancer CVA (cerebral vascular accident) Dehydration Diabetes mellitus Diarrhea due to drug Drug induced neutropenia Dysarthria due to acute stroke Dyslipidemia Encounter for chemotherapy management Encounter for education Former smoker Former tobacco use High cholesterol History of CVA (cerebrovascular accident) History of echocardiogram HLD (hyperlipidemia) Hypertension Hypertensive emergency Iron deficiency anemia due to chronic blood loss Monoparesis of right upper extremity Prerenal azotemia Rectal cancer Rectum cancer Seizure Thrombocytopenia Home Medications metformin 500 mg tablet 500 mg PO BID BLOOD SUGAR 01/05/20 [History Last Taken 07/02/23] alendronate 70 mg tablet 70 mg PO [facility] 06/22/20 [History Last Taken 07/02/23] atorvastatin 80 mg tablet (Lipitor) 80 mg PO QHS CHLESTEROL 06/11/22 [History Last Taken 07/01/23] levetiracetam 500 mg tablet 1,000 mg PO BID SEIZURES 06/11/22 [History Last Taken 07/02/23] escitalopram oxalate 10 mg tablet 10 mg PO DAILY DEPRESSION 90 days #90 tabs 06/13/22 [Rx Last Taken 07/02/23] acetaminophen 325 mg tablet 650 mg PO Q4H PRN PAIN 07/02/23 [History Last Taken Unknown] acetaminophen 500 mg tablet 1,000 mg PO Q8H PAIN 07/02/23 [History Last Taken 07/02/23] amlodipine 5 mg tablet 5 mg PO DAILY BLOOD PRESSURE 07/02/23 [History Last Taken 07/02/23] cholecalciferol (vitamin D3) 50 mcg (2,000 unit) capsule (Vitamin D3) 50 mcg PO DAILY SUPPLEMENT 07/02/23 [History Last Taken 07/02/23] cyclobenzaprine 5 mg tablet 5 mg PO TID MUSCLE SPASMS 07/02/23 [History Last Taken 07/02/23] docusate sodium 100 mg capsule 100 mg PO BID CONSTIPATION 07/02/23 [History Last Taken 07/02/23] ondansetron HCl 4 mg tablet 4 mg PO Q8H PRN NAUSEA/VOMITING 07/02/23 [History Last Taken 06/21/23] pantoprazole 40 mg tablet,delayed release 40 mg PO BID GERD 07/02/23 [History Last Taken 07/02/23] sodium di- and monophosphate-potassium phos monobasic 250 mg tablet (Luis Eduardo-Phos Neutral) 1 tab PO 4X/DAY [facility]INTENAN[facility] 07/02/23 [History Last Taken 07/02/23] Allergy/AdvReac Type Severity Reaction Status Date / Time Iodinated Contrast Media Allergy Mild Itching Verified 08/13/23 17:30 prednisone Allergy Mild Hives Verified 08/13/23 17:30 Corticosteroids AdvReac PT UNSURE Verified 08/13/23 17:30 (Glucocorticoids) OF REACTION [steroids] Family History Mother Diabetes CVA (cerebral vascular accident) Thrombocytopenia Father Heart disease Surgical History No history of previous surgery Social History household members: none housing: snf Smoking Status: Former smoker quit date: 05/05/00 pack-years: 20 alcohol intake: never substance use type: does not use ROS Constitutional Constitutional: Denies chills, fatigue, fever(s) or malaise Eyes Eyes: Denies blurry vision ENT HEENT: Denies headache(s) or nasal discharge Cardiovascular Cardiovascular: Denies chest pain, dyspnea on exertion or syncope Respiratory/Chest Respiratory/Chest: Denies cough, shortness of breath at rest or shortness of breath with exertion Gastrointestinal Gastrointestinal: Denies constipation, diarrhea, nausea or vomiting Genitourinary Genitourinary: Denies dysuria Neurologic Neurologic: Reports abnormal speech; Denies focal weakness, numbness or tremor(s) Psychiatric Psychiatric: Denies anxiety or depression Vital Signs Vital Signs Vital Signs: 08/13/23 16:15 08/13/23 16:03 08/13/23 16:03 Temperature 97.8 F 97.8 F Temperature Source Temporal Temporal Pulse Rate 84 Respiratory Rate 16 Blood Pressure 146/93 H Blood Pressure Mean 110 Pulse Ox 97 Oxygen Delivery Method Room Air Room Air 08/13/23 15:59 08/13/23 16:28 08/13/23 16:59 Temperature 97.8 F 97.8 F Temperature Source Temporal Temporal Pulse Rate 85 82 83 Respiratory Rate 16 16 16 Blood Pressure 146/93 H 151/91 H 162/90 H Blood Pressure Mean 110 111 114 Pulse Ox 98 97 98 Oxygen Delivery Method Room Air Room Air Room Air 08/13/23 17:00 Temperature Temperature Source Pulse Rate 84 Respiratory Rate 18 Blood Pressure 160/87 H Blood Pressure Mean 111 Pulse Ox 99 Oxygen Delivery Method Room Air Weight Weight: 159 lb 6.307 oz Body Mass Index (BMI) 27.3 Physical Exam Narrative General: Alert, Oriented x3, Cooperative, No apparent distress HEENT: Atraumatic, PERRLA, EOMI, Normocephalic Oral: Moist Mucosa Neck: Supple, No JVD Lungs: Diminished, Normal air movement, No rhonchi, No wheeze, No rales Cardiovascular: Regular rate, Regular Rhythm, Normal S1, Normal S2, No murmurs Abdomen: Soft, Non Tender, Non-Distended, No Hepato-splenomegaly Extremities: No edema, Capillary Refill Less than 3 Seconds Skin: No rashes, No breakdown Musculoskeletal: No Tenderness to Palpation of Joints or Extremities Neurological: Chronic right-sided paralysis in her right upper extremity and right lower extremity, dysarthric and aphasic, no obvious facial droop Psych/Mental Status: Normal Affect, Appropriate Results Lab / Micro Data 08/13/23 16:05 08/13/23 16:05 Labs: Laboratory Results - last 24 hr 08/13/23 16:05: WBC 4.4, RBC 3.66 L, Hgb 10.6 L, Hct 33.8 L, MCV 92.3, MCH 29.0, MCHC 31.4 L, RDW Std Deviation 51.7 H, RDW Coeff of Liudmila 15.3 H, Plt Count 191, MPV 10.2, Immature Gran % (Auto) 0.200, Neut % (Auto) 69.1, Lymph % (Auto) 16.5 L, [place] % (Auto) 10.4 H, Eos % (Auto) 3.6, Baso % (Auto) 0.2, Absolute Neuts (auto) 3.1, Absolute Lymphs (auto) 0.73 L, Nucleated RBC % 0, PT 13.1, INR 1.0, APTT 27.7, Sodium 140, Potassium 3.8, Chloride 108 H, Carbon Dioxide 31.0, Anion Gap 1 L, BUN 14, Creatinine 0.67, Estim Creat Clear Calc 65.60, Est GFR (MDRD) Af Amer 112, Est GFR (MDRD) Non-Af 92, BUN/Creatinine Ratio 20.8 H, Glucose 96, Calcium 8.2 L, Troponin I High Sens < 3 L 08/13/23 16:28: POC Glucose 87 Imaging Radiology Impression Brain CT 08/13/23 16:03 IMPRESSION: 1. No acute intracranial abnormality. 2. Underlying small vessel ischemia. 3. Aspects score 10. Electronically Signed: Tono Floyd MD at 16:20 EDT Reading Location ID and State: [facility] / CT Tel , Service support , ADDENDUM: 08/13/23 1631 IMPRESSION: 1. No acute intracranial abnormality. 2. Underlying small vessel ischemia. 3. Aspects score 10. N.B. : The above Results were Read Back by Tono Floyd MD to Sorin Ritchie MD, and understanding confirmed on 08/13/2023 16:24:38 (ET). Electronically Signed: Tono Floyd MD at 16:20 EDT , Head/Neck CTA 08/13/23 16:04 IMPRESSION: No acute findings in the arteries of the head and neck. Electronically Signed: Tono Floyd MD at 16:23 EDT , ADDENDUM: 08/13/23 1631 IMPRESSION: No acute findings in the arteries of the head and neck. N.B. : The above Results were Read Back by Tono Floyd MD to Sorin Ritchie MD, and understanding confirmed on 08/13/2023 16:24:49 (ET). Electronically Signed: Tono Floyd MD at 16:23 EDT Reading Location ID and State: [facility] / CT Tel , Service support , Chest X-Ray 08/13/23 16:40 IMPRESSION: No acute findings in the chest. Electronically Signed: Tono Floyd MD at 16:59 EDT , Assessment & Plan Assessment/Plan (1) Facial droop: PLAN: Plan 1. Possible facial droop with new CVA in the setting of an old CVA ? Cannot be on any anticoagulation ? CTA of the head and neck was unremarkable ? MRI and echo pending ? Continue stroke protocol ? PT/OT 2. Essential HTN/HLD ? Continue with Lipitor ? Continue with Norvasc ? Will monitor her blood pressures and make changes as necessary 3. Seizure disorder ? Continue with Keppra ? Stable 4. GERD ? Stable ? Continue with PPI 5. Anxiety/depression ? Stable ? Continue with her home medications 6. Vulvar and rectal cancer with proctitis and GI bleeding/right femoral DVT ? Continue with PPI ? No anticoagulation ? IVC filter was placed in 07/03/2023 ? Is still recommended that she follow with a surgeon at the [facility] 7. Type 2 diabetes ? Unclear if medications are still necessary as she does not appear to have hyperglycemia since 2022 ? Will place her on Accu-Cheks ACHS without any correction at this time DVT: SCDs Charges/Coding Visit Charges Inpatient E&M: 34940 Init Hosp L2
--- NOTE | 2023-08-13 18:06 | MRI_ITS ---
STUDY: MRI BRAIN WITHOUT CONTRAST REASON FOR EXAM: Female, 68 years old. cva TECHNIQUE: Standardized multiplanar fat and water weighted pulse sequences were obtained. COMPARISON: CT of the brain August 13, 2023 MRI of the brain 40 12/22/2022 FINDINGS: Mild atrophy and periventricular white matter ischemic change without mass affect or restricted diffusion. . Old deep white matter infarct in the left frontal parietal region. Normal bilateral basal ganglia. Normal thalami. There is no extra-axial fluid accumulation. Normal flow voids within the major intracranial circulation suggesting patency by spin echo criteria. Normal sella turcica, pituitary gland, infundibular stalk, optic chiasm and hypothalamus. Normal tectal plate and pineal gland. Normal midbrain, jodie and medulla. Normal cerebellum. Normal basal cisterns. Normal bilateral temporal bones. Normal bilateral internal auditory canals. No demonstrated orbital abnormality, within the constraints of a routine brain study. Mild mucosal thickening of the sphenoid sinuses Normal calvarium and skull base. Normal visualized soft tissue structures. Normal visualized upper cervical spine. No significant change since prior study MRI/Brain without Contrast IMPRESSION: [Mild atrophy and periventricular white matter ischemic changes as well as old deep white matter infarct in left frontal parietal region. No evidence for acute infarct. Electronically Signed: Marquise Gonzalez MD at 22:02 EDT ,
--- NOTE | 2023-08-13 18:06 | ECHOD_ITS ---
Reason For Study: TIA/CVA Procedure This was a 2D Doppler, Color Flow transthoracic echocardiogram. Exam performed portable in patient room. Left Ventricle Normal LV size. The estimated ejection fraction is 65 %. No evidence for diastolic dysfunction. No regional wall motion abnormalities noted. Right Ventricle Normal RV size. Normal systolic function. Atria Normal left atrium. Normal right atrium. No doppler evidence for ASD. Mitral Valve There is no mitral valve stenosis. No mitral valve insufficiency. Tricuspid Valve There is no tricuspid stenosis. Trivial tricuspid valve insufficiency. Unable to estimate RV systolic pressure due to insufficient tricuspid regurgitant envelope. Aortic Valve Trisinus/trileaflet aortic valve. There is no aortic stenosis. No aortic valve insufficiency. Pulmonic Valve There is no pulmonic valvular stenosis. No pulmonic valve insufficiency. Great Vessels Normal aortic root. Pericardium/Pleural No pericardial effusion. Medication Previous NEGATIVE Bubble Study. MMode/2D Measurements & Calculations LVIDd: 4.1 cm IVSd: 0.94 cm Ao root diam: 3.4 cm LVIDs: 2.7 cm LVPWd: 0.89 cm LA dimension: 3.5 cm RVDd: 3.2 cm FS: 34.2 % LAV(MOD-bp): 32.4 ml LA A4 area: 12.0 cm2 RA A4 area: 9.8 cm2 LAV(MOD-bp) Indexed: 18.8 ml/m2 LAV(MOD-sp2): 36.0 ml LAV(MOD-sp4): 24.6 ml TAPSE: 1.6 cm Time Measurements MV dec time: 0.20 sec Doppler Measurements & Calculations MV E max reginald: 79.7 cm/sec Lat Peak E' Reginald: 8.2 cm/sec Med Peak E' Reginald: 7.8 cm/sec MV A max reginald: 102.9 cm/sec E/E' lat: 9.8 E/E' med: 10.2 MV E/A: 0.77 MV V2 max: 117.1 cm/sec MV P1/2t max reginald: 95.6 cm/sec Ao V2 max: 112.1 cm/sec MV max P.5 mmHg MV P1/2t: 70.9 msec Ao max P.0 mmHg MV V2 mean: 67.0 cm/sec MV dec slope: 394.9 cm/sec2 Ao V2 mean: 80.9 cm/sec MV mean P.1 mmHg MVA(P1/2t): 3.1 cm2 Ao mean P.9 mmHg MV V2 VTI: 32.9 cm Ao V2 VTI: 26.1 cm AV (velocity ratio): 0.89 LV V1 max: 103.6 cm/sec PA V2 max: 82.5 cm/sec LV V1 max P.3 mmHg PA V2 mean: 55.7 cm/sec LV V1 mean P.5 mmHg LV V1 mean: 74.5 cm/sec LV V1 VTI: 23.2 cm ECHO/Echo Complete Interpretation Summary The estimated ejection fraction is 65 %. No evidence for diastolic dysfunction. Ordering Physician: Getachew Romero Referring Physician: Daniel Lopez MD Performed By: Johnny Leyva RCS
[2023-08-13] MEDS: levETIRAcetam 1,000 MG Tablet 1000 MG PO (22:13)
[2023-08-13] MEDS: Atorvastatin Calcium 80 MG Tablet PO (22:14)
[2023-08-13] MEDS: Docusate Sodium 100 MG Capsule PO (22:14)
[2023-08-13] MEDS: cycloBENZAPRine HCl 5 MG TABLET PO (22:15)
[2023-08-13] MEDS: Pantoprazole Sodium 40 MG Tablet PO (22:15)
[2023-08-13] MEDS: Acetaminophen 500 MG Tablet 1000 MG PO (22:15)
[2023-08-13 22:39] LABS: Bedside Glucose 104 mg/dL (74-106)
[2023-08-14 02:00] VITALS: BP 128/72; PULSE 85; RESP 18; TEMP 36.3; O2SAT 94
[2023-08-14 04:32] VITALS: O2SAT 95
[2023-08-14] MEDS: cycloBENZAPRine HCl 5 MG TABLET PO ×2 (05:26→16:00)
[2023-08-14] MEDS: Acetaminophen 500 MG Tablet 1000 MG PO ×2 (05:27→16:00)
[2023-08-14 05:57] VITALS: BP 137/81; PULSE 80; RESP 18; TEMP 36.3; O2SAT 94
[2023-08-14 06:27] LABS: Bedside Glucose 87 mg/dL (74-106)
--- NOTE | 2023-08-14 07:21 | PCM.PN.HOSP ---
Reason for Visit Reason for Visit: Diagnoses Facial weakness (08/13/23) Objective Data Objective Data Vital Signs: Vital Signs Temp Pulse Resp BP Pulse Ox O2 Del Method 97.4 F L 80 18 137/81 H 94 Room Air 08/14/23 05:57 08/14/23 05:57 08/14/23 05:57 08/14/23 05:57 08/14/23 05:57 08/14/23 05:57 Oxygen Delivery Method Room Air Weight: 148 lb Body Mass Index (BMI) 25.4 Intake & Output: Intake and Output for Last 24 Hours 08/12/23 08/13/23 08/14/23 23:59 23:59 23:59 Intake Total 350 / 350 Output Total 700 / 700 200 / 200 Balance -350 / -350 -200 / -200 Lab / Micro Data 08/13/23 16:05 08/13/23 16:05 Labs: Laboratory Results - last 24 hr 08/13/23 16:05: WBC 4.4, RBC 3.66 L, Hgb 10.6 L, Hct 33.8 L, MCV 92.3, MCH 29.0, MCHC 31.4 L, RDW Std Deviation 51.7 H, RDW Coeff of Liudmila 15.3 H, Plt Count 191, MPV 10.2, Immature Gran % (Auto) 0.200, Neut % (Auto) 69.1, Lymph % (Auto) 16.5 L, [place] % (Auto) 10.4 H, Eos % (Auto) 3.6, Baso % (Auto) 0.2, Absolute Neuts (auto) 3.1, Absolute Lymphs (auto) 0.73 L, Nucleated RBC % 0, PT 13.1, INR 1.0, APTT 27.7, Sodium 140, Potassium 3.8, Chloride 108 H, Carbon Dioxide 31.0, Anion Gap 1 L, BUN 14, Creatinine 0.67, Estim Creat Clear Calc 65.60, Est GFR (MDRD) Af Amer 112, Est GFR (MDRD) Non-Af 92, BUN/Creatinine Ratio 20.8 H, Glucose 96, Calcium 8.2 L, Troponin I High Sens < 3 L 08/13/23 16:28: POC Glucose 87 08/13/23 22:12: POC Glucose 104 08/14/23 06:00: POC Glucose 87 Radiography Diagnostic Testing: Radiology Impression Brain CT 08/13/23 16:03 IMPRESSION: 1. No acute intracranial abnormality. 2. Underlying small vessel ischemia. 3. Aspects score 10. Electronically Signed: Tono Floyd MD at 16:20 EDT Reading Location ID and State: [facility] / [place] Tel , Service support , ADDENDUM: 08/13/23 1631 IMPRESSION: 1. No acute intracranial abnormality. 2. Underlying small vessel ischemia. 3. Aspects score 10. N.B. : The above Results were Read Back by Tono Floyd MD to Sorin Ritchie MD, and understanding confirmed on 08/13/2023 16:24:38 (ET). Electronically Signed: Tono Floyd MD at 16:20 EDT Reading Location ID and State: [facility] / [place] Tel , Service support , Head/Neck CTA 08/13/23 16:04 IMPRESSION: No acute findings in the arteries of the head and neck. Electronically Signed: Tono Floyd MD at 16:23 EDT Reading Location ID and State: [facility] / [place] Tel , Service support , ADDENDUM: 08/13/23 1631 IMPRESSION: No acute findings in the arteries of the head and neck. N.B. : The above Results were Read Back by Tono Floyd MD to Sorin Ritchie MD, and understanding confirmed on 08/13/2023 16:24:49 (ET). Electronically Signed: Tono Floyd MD at 16:23 EDT Reading Location ID and State: [facility] / [place] Tel , Service support , Chest X-Ray 08/13/23 16:40 IMPRESSION: No acute findings in the chest. Electronically Signed: Tono Floyd MD at 16:59 EDT , Brain MRI 08/13/23 18:06 IMPRESSION: [Mild atrophy and periventricular white matter ischemic changes as well as old deep white matter infarct in left frontal parietal region. No evidence for acute infarct. Electronically Signed: Marquise Gonzalez MD at 22:02 EDT , Assessment & Plan Assessment/Plan (1) Facial droop: PLAN: Plan 68-year-old female with history of bipolar 1 disorder and dementia was admitted from residential home right-sided facial droop and slurred speech. 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 1. Possible facial droop with new CVA in the setting of an old CVA ? Cannot be on any anticoagulation ? CTA of the head and neck was unremarkable ? MRI and echo pending ? Continue stroke protocol ? PT/OT 2. Essential HTN/HLD ? Continue with Lipitor ? Continue with Norvasc ? Will monitor her blood pressures and make changes as necessary 3. Seizure disorder ? Continue with Keppra ? Stable 4. GERD ? Stable ? Continue with PPI 5. Anxiety/depression ? Stable ? Continue with her home medications 6. Vulvar and rectal cancer with proctitis and GI bleeding/right femoral DVT. History of radiation proctitis. ? Continue with PPI ? determined to not candidate for anticoagulation ? IVC filter was placed in 07/03/2023 ? Is still recommended that she follow with a surgeon at the [facility] 7. Type 2 diabetes ? Unclear if medications are still necessary as she does not appear to have hyperglycemia since 2022 ? Will place her on Accu-Cheks ACHS without any correction at this time DVT: SCDs
[2023-08-14 07:22] LABS: Basophil# 0.01 X10^3/uL; Basophil% 0.2 % (0-1); Eosinophil# 0.14 X10^3/uL; Eosinophils% 3.5 % (0-5); Hematocrit 34.2 % (37-47); Hemoglobin 10.8 g/dL (12.0-15.0); Lymphocyte % 12.4 % (19-41); Mean Corp Hgb Conc 31.6 g/dL (32-36); Mean Corpuscular Hgb 29.3 pg (27.0-32.0); Mean Corpuscular Volume 92.9 fL (81-99); Mean Platelet Vol. 9.9 fl (6.2-12.0); Monocyte# 0.34 X10^3/uL; Monocyte% 8.5 % (0-10); NRBC Flagged by Analyzer 0 % (0-5); Neutrophil # 3.01 X10^3/uL (2.7-7.7); Neutrophil % 74.9 % (47-70); POSITIVE DIFFERENTIAL YES; Platelet Count 182 K/mm3 (150-450); RBC Distribution Width CV 15.1 % (11.6-14.6); RBC Distribution Width SD 51.8 fl (35.1-43.9); Red Blood Count 3.68 M/mm3 (4.2-5.4)
--- NOTE | 2023-08-14 07:26 | TREXTCAR_ITS ---
Diet Diet Order/Speech Therapy: 08/13/23 18:06 Diet: Cardiac - Heart Healthy Food consistency:: Regular Liquid Consistency:: Regular/Thin Routine Orders/Code Status Suppository Type: Dulcolax 10mg Suppository Frequency: Daily PRN Code Status: DNRCC-A (No intubation.) Therapies Weight Bearing: Weight bearing as tolerated Extremity Affected:: Left Lower and Left Upper Physical Therapy: Eval and Treat Occupational Therapy: Eval and Treat Speech Therapy: Eval and Treat Problem/Diagnosis (1) Facial droop: Status: Acute Code(s): R29.810 - Facial weakness Plan 68-year-old female with history of bipolar 1 disorder and dementia was admitted from care home home right-sided facial droop and slurred speech. 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 1. Possible facial droop with new CVA in the setting of an old CVA ? Cannot be on any anticoagulation ? CTA of the head and neck was unremarkable ? MRI and echo pending ? Continue stroke protocol ? PT/OT 2. Essential HTN/HLD ? Continue with Lipitor ? Continue with Norvasc ? Will monitor her blood pressures and make changes as necessary 3. Seizure disorder ? Continue with Keppra ? Stable 4. GERD ? Stable ? Continue with PPI 5. Anxiety/depression ? Stable ? Continue with her home medications 6. Vulvar and rectal cancer with proctitis and GI bleeding/right femoral DVT. History of radiation proctitis. ? Continue with PPI ? determined to not candidate for anticoagulation ? IVC filter was placed in 07/03/2023 ? Is still recommended that she follow with a surgeon at the [facility] 7. Type 2 diabetes ? Unclear if medications are still necessary as she does not appear to have hyperglycemia since 2022 ? Will place her on Accu-Cheks ACHS without any correction at this time DVT: SCDs Allergies/Procedures Done in Hospital Allergies Iodinated Contrast Media Allergy (Mild, Verified 08/13/23 17:30) Itching prednisone Allergy (Mild, Verified 08/13/23 17:30) Hives Corticosteroids (Glucocorticoids) [steroids] Adverse Reaction (Verified 08/13/23 17:30) PT UNSURE OF REACTION Type of Care/Length of Stay Estimated LOS: Convalescent Care Less Than 30 days Type of Care Needed: Residential/Assisted Living Rehab Potential: Good Prognosis: Good Additional Orders/Day of Discharge Day of Discharge: 08/14/23 Discharge Plan Admission Admit Date/Time: 08/13/23 17:39 Primary Reason for Your Visit: Acute stroke ruled out. Attending Provider: Anthony Christina Primary Care Provider: Daniel Lopez Consulting Providers: Getachew Romero Instructions Additional Instructions / Restrictions: Recommended to follow-up with a neurologist in 1 month. Discharge Orders/Prescriptions Prescriptions: Continued alendronate 70 mg tablet 70 mg PO WE metformin 500 MG tablet 500 mg PO BID atorvastatin [Lipitor] 80 mg tablet 80 mg PO QHS levetiracetam 500 mg tablet 1,000 mg PO BID escitalopram oxalate 10 mg Tablet 10 mg PO DAILY 90 Days Qty: 90 0RF amlodipine 5 mg tablet 5 mg PO DAILY Luis Eduardo-Phos 250 Neutral 250 mg tablet 1 tab PO 4X/DAY Rx Instructions: GIVE 250MG BY MOUTH BEFORE MEALS AND AT BEDTIME FOR HEALTH MAINTENANCE ondansetron HCl 4 mg tablet 4 mg PO Q8H PRN (Reason: NAUSEA/VOMITING ) pantoprazole 40 mg tablet,delayed release (DR/EC) 40 mg PO BID cholecalciferol (vitamin D3) [Vitamin D3] 50 mcg (2,000 unit) capsule 50 mcg PO DAILY docusate sodium 100 mg capsule 100 mg PO BID acetaminophen 500 mg tablet 1,000 mg PO Q8H cyclobenzaprine 5 mg tablet 5 mg PO TID Discontinued acetaminophen 325 mg tablet 650 mg PO Q4H PRN (Reason: PAIN ) Referrals / Follow Up: Daniel Lopez MD [Primary Care Provider] - Trey Multani MD [Non-Staff -Ordering Privileges] - Within 1 Month Disposition Disposition (needs filled in before D/C Order can be placed): Home, Self Care
[2023-08-14 07:32] VITALS: O2SAT 94
[2023-08-14 08:27] LABS: Anion Gap 2 (5-15); BUN 8 mg/dL (7-18); BUN/Creat Ratio 13.2 RATIO (10-20); Calcium,Total 8.8 mg/dL (8.5-10.1); Chloride 108 mmol/L (98-107); Cholesterol 125 mg/dL (200); Creatinine, Serum 0.61 mg/dL (0.55-1.02); EST Glomerular Filtration Rate 104 mL/min (>60); Est Glom Filt Rate - Afr Amer 126 mL/min (>60); Glucose 94 mg/dL (74-106); High Density Lipoprotein 45 mg/dL; Potassium 3.6 mmol/L (3.5-5.1); Sodium Level 139 mmol/L (136-145); Triglycerides 118 mg/dL; Very Low Density Lipoprotein 24 mg/dL (5-40)
--- NOTE | 2023-08-14 09:18 | PCM.DC.SUM ---
Providers Date of Admission: 08/13/23 Date of Discharge: 08/14/23 Primary Care Physician: Dr. Daniel Lopez MD Reason For Visit: CVA Diagnosis Discharge Diagnosis (1) Facial droop: Status: Acute Code(s): R29.810 - Facial weakness Plan 68-year-old female with history of bipolar 1 disorder and dementia was admitted from [facility] home right-sided facial droop and slurred speech. She has old right-sided paralysis and some speech deficit. 1. Acute stroke ruled out. Possible facial droop with history of old left frontal parietal deep white matter ischemic stroke.: Patient was admitted in PCU. On nuclear monitoring technician. Sinus rhythm. MRI brain does not show acute stroke. CTA did not show LVO or major stenosis. 2D echo is pending but previous echo of 2020, bubble contrast was negative for PFO/ASD. Fasting lipid profile within normal limit. TSH and A1c normal. ?PT OT and speech therapy evaluation to complete a stroke protocol. Patient can be discharged to SNF 2. Essential HTN/HLD ? Continue with Lipitor ? Continue with Norvasc 3. Seizure disorder ? Continue with Keppra ? Stable 4. GERD ? Stable ? Continue with PPI 5. Anxiety/depression ? Stable ? Continue with her home medications 6. Vulvar and rectal cancer with proctitis and GI bleeding/right femoral DVT. History of radiation proctitis. ? Continue with PPI ? determined to not candidate for anticoagulation or antiplatelet agent ? IVC filter was placed in 07/03/2023 ? Is still recommended that she follow with a surgeon at the [facility] 7. Type 2 diabetes ? Unclear if medications are still necessary as she does not appear to have hyperglycemia since 2022 ?Glucose 87-104 as per Accu-Cheks with DVT: SCDs Discharge medication reconciliation done. Discharge follow-up instructions completed. Discharge process discussed with the patient and all questions were answered to patient's satisfaction. Follow with PCP in 1 to 2 weeks Total time spent, exact 35 minutes on discharge meds reconciliation, examination, coordination of care with nurses and ancillary staff, review of imaging and blood test and discussion with the patient on follow-up instructions. Medications at Discharge Home Medications metformin 500 mg tablet 500 mg PO BID BLOOD SUGAR 01/05/20 alendronate 70 mg tablet 70 mg PO [facility] 06/22/20 atorvastatin 80 mg tablet (Lipitor) 80 mg PO QHS CHLESTEROL 06/11/22 levetiracetam 500 mg tablet 1,000 mg PO BID SEIZURES 06/11/22 escitalopram oxalate 10 mg tablet 10 mg PO DAILY DEPRESSION 90 days #90 tabs 06/13/22 acetaminophen 500 mg tablet 1,000 mg PO Q8H PAIN 07/02/23 amlodipine 5 mg tablet 5 mg PO DAILY BLOOD PRESSURE 07/02/23 cholecalciferol (vitamin D3) 50 mcg (2,000 unit) capsule (Vitamin D3) 50 mcg PO DAILY SUPPLEMENT 07/02/23 cyclobenzaprine 5 mg tablet 5 mg PO TID MUSCLE SPASMS 07/02/23 docusate sodium 100 mg capsule 100 mg PO BID CONSTIPATION 07/02/23 ondansetron HCl 4 mg tablet 4 mg PO Q8H PRN NAUSEA/VOMITING 07/02/23 pantoprazole 40 mg tablet,delayed release 40 mg PO BID GERD 07/02/23 sodium di- and monophosphate-potassium phos monobasic 250 mg tablet (Luis Eduardo-Phos Neutral) 1 tab PO 4X/DAY HEALTH MAINTENANCE 07/02/23 Physical Exam Narrative Patient has a history of bipolar disorder. She gets tangential in history taking and dementia therefore history is difficult and talks irrelevant, not related to the topic. Has [id number] weakness from previous stroke. Had vulvar and rectal cancer with history of GI bleed in the past Physical exam General: Alert, Oriented x3, Cooperative HEENT: Atraumatic, PERRLA, EOMI, Normocephalic Oral: Oral mucosa dry. No Gingival or Mucosal Lesions/ Ulcerations Neck: Supple, No JVD, Negative Carotid Bruits Chest wall/Lungs: Air entry diminished in bilateral lung bases. No crepitation/rhonchi Cardiovascular: Sinus rhythm, Normal S1, Normal S2, soft systolic murmur. Abdomen: Bowel Sounds Present, Soft, Non Tender, Non-Distended : No dysuria. No renal angle tenderness. No suprapubic tenderness. Extremities: No edema, Capillary Refill Less than 3 Seconds Skin: No rashes, No breakdown Musculoskeletal: No Tenderness to Palpation of Joints or Extremities. Right-sided weakness, right arm no movement. Right leg falls. Neurological: No clear facial droop. NIH stroke scale High mostly from previous stroke 11. Psych/Mental Status: Flat affect. Weight / BMI Weight Weight: 148 lb Body Mass Index (BMI) 25.4 ABG / Lab / Microbiology Data 08/14/23 06:20 08/14/23 06:20 Laboratory: Laboratory Results - last 24 hr 08/13/23 16:05: WBC 4.4, RBC 3.66 L, Hgb 10.6 L, Hct 33.8 L, MCV 92.3, MCH 29.0, MCHC 31.4 L, RDW Std Deviation 51.7 H, RDW Coeff of Liudmila 15.3 H, Plt Count 191, MPV 10.2, Immature Gran % (Auto) 0.200, Neut % (Auto) 69.1, Lymph % (Auto) 16.5 L, [place] % (Auto) 10.4 H, Eos % (Auto) 3.6, Baso % (Auto) 0.2, Absolute Neuts (auto) 3.1, Absolute Lymphs (auto) 0.73 L, Nucleated RBC % 0, PT 13.1, INR 1.0, APTT 27.7, Sodium 140, Potassium 3.8, Chloride 108 H, Carbon Dioxide 31.0, Anion Gap 1 L, BUN 14, Creatinine 0.67, Estim Creat Clear Calc 65.60, Est GFR (MDRD) Af Amer 112, Est GFR (MDRD) Non-Af 92, BUN/Creatinine Ratio 20.8 H, Glucose 96, Calcium 8.2 L, Troponin I High Sens < 3 L 08/13/23 16:28: POC Glucose 87 08/13/23 22:12: POC Glucose 104 08/14/23 06:00: POC Glucose 87 08/14/23 06:20: WBC 4.0 L, RBC 3.68 L, Hgb 10.8 L, Hct 34.2 L, MCV 92.9, MCH 29.3, MCHC 31.6 L, RDW Std Deviation 51.8 H, RDW Coeff of Liudmila 15.1 H, Plt Count 182, MPV 9.9, Immature Gran % (Auto) 0.500, Neut % (Auto) 74.9 H, Lymph % (Auto) 12.4 L, [place] % (Auto) 8.5, Eos % (Auto) 3.5, Baso % (Auto) 0.2, Absolute Neuts (auto) 3.0, Absolute Lymphs (auto) 0.50 L, Nucleated RBC % 0, Sodium 139, Potassium 3.6, Chloride 108 H, Carbon Dioxide 29.0, Anion Gap 2 L, BUN 8, Creatinine 0.61, Estim Creat Clear Calc 63.40, Est GFR (MDRD) Af Amer 126, Est GFR (MDRD) Non-Af 104, BUN/Creatinine Ratio 13.2, Glucose 94, Calcium 8.8, Triglycerides 118, Cholesterol 125, LDL Cholesterol 56, VLDL Cholesterol 24, HDL Cholesterol 45 Radiography Diagnostic Testing: Radiology Impression Brain CT 08/13/23 16:03 IMPRESSION: 1. No acute intracranial abnormality. 2. Underlying small vessel ischemia. 3. Aspects score 10. Electronically Signed: Tono Floyd MD at 16:20 EDT , ADDENDUM: 08/13/23 1631 IMPRESSION: 1. No acute intracranial abnormality. 2. Underlying small vessel ischemia. 3. Aspects score 10. N.B. : The above Results were Read Back by Tono Floyd MD to Sorin Ritchie MD, and understanding confirmed on 08/13/2023 16:24:38 (ET). Electronically Signed: Tono Floyd MD at 16:20 EDT , Head/Neck CTA 08/13/23 16:04 IMPRESSION: No acute findings in the arteries of the head and neck. Electronically Signed: Tono Floyd MD at 16:23 EDT , ADDENDUM: 08/13/23 1631 IMPRESSION: No acute findings in the arteries of the head and neck. N.B. : The above Results were Read Back by Tono Floyd MD to Sorin Ritchie MD, and understanding confirmed on 08/13/2023 16:24:49 (ET). Electronically Signed: Tono Floyd MD at 16:23 EDT , Chest X-Ray 08/13/23 16:40 IMPRESSION: No acute findings in the chest. Electronically Signed: Tono Floyd MD at 16:59 EDT , Brain MRI 08/13/23 18:06 IMPRESSION: [Mild atrophy and periventricular white matter ischemic changes as well as old deep white matter infarct in left frontal parietal region. No evidence for acute infarct. Electronically Signed: Marquise Gonzalez MD at 22:02 EDT , Meaningful Use Info Meaningful Use Diagnoses (Choose all that apply): None applicable Discharge Plan Admission Admit Date/Time: 08/13/23 17:39 Primary Reason for Your Visit: Acute stroke ruled out. Attending Provider: Anthony Christina Primary Care Provider: Daniel Lopez Consulting Providers: Getachew Romero Instructions Additional Instructions / Restrictions: Recommended to follow-up with a neurologist in 1 month. Discharge Orders/Prescriptions Prescriptions: Continued alendronate 70 mg tablet 70 mg PO WE metformin 500 MG tablet 500 mg PO BID atorvastatin [Lipitor] 80 mg tablet 80 mg PO QHS levetiracetam 500 mg tablet 1,000 mg PO BID escitalopram oxalate 10 mg Tablet 10 mg PO DAILY 90 Days Qty: 90 0RF amlodipine 5 mg tablet 5 mg PO DAILY Luis Eduardo-Phos 250 Neutral 250 mg tablet 1 tab PO 4X/DAY Rx Instructions: GIVE 250MG BY MOUTH BEFORE MEALS AND AT BEDTIME FOR HEALTH MAINTENANCE ondansetron HCl 4 mg tablet 4 mg PO Q8H PRN (Reason: NAUSEA/VOMITING ) pantoprazole 40 mg tablet,delayed release (DR/EC) 40 mg PO BID cholecalciferol (vitamin D3) [Vitamin D3] 50 mcg (2,000 unit) capsule 50 mcg PO DAILY docusate sodium 100 mg capsule 100 mg PO BID acetaminophen 500 mg tablet 1,000 mg PO Q8H cyclobenzaprine 5 mg tablet 5 mg PO TID Discontinued acetaminophen 325 mg tablet 650 mg PO Q4H PRN (Reason: PAIN ) Referrals / Follow Up: Daniel Lopez MD [Primary Care Provider] - Trey Multani MD [Non-Staff -Ordering Privileges] - Within 1 Month Disposition Disposition (needs filled in before D/C Order can be placed): Home, Self Care Charges/Coding Visit Charges Inpatient E&M: 57983 Disch Hosp >30min
--- NOTE | 2023-08-14 09:43 | PHA.DC.MR.R ---
Pharmacy [place] Med Reconciliation Pharmacy Service has performed discharge medication reconciliation for this patient. The patient's discharge medication list was reviewed for discrepancies and discrepancies were resolved. Medications at Discharge Home Medications metformin 500 mg tablet 500 mg PO BID BLOOD SUGAR 01/05/20 alendronate 70 mg tablet 70 mg PO [facility] 06/22/20 atorvastatin 80 mg tablet (Lipitor) 80 mg PO QHS CHLESTEROL 06/11/22 levetiracetam 500 mg tablet 1,000 mg PO BID SEIZURES 06/11/22 escitalopram oxalate 10 mg tablet 10 mg PO DAILY DEPRESSION 90 days #90 tabs 06/13/22 acetaminophen 500 mg tablet 1,000 mg PO Q8H PAIN 07/02/23 amlodipine 5 mg tablet 5 mg PO DAILY BLOOD PRESSURE 07/02/23 cholecalciferol (vitamin D3) 50 mcg (2,000 unit) capsule (Vitamin D3) 50 mcg PO DAILY SUPPLEMENT 07/02/23 cyclobenzaprine 5 mg tablet 5 mg PO TID MUSCLE SPASMS 07/02/23 docusate sodium 100 mg capsule 100 mg PO BID CONSTIPATION 07/02/23 ondansetron HCl 4 mg tablet 4 mg PO Q8H PRN NAUSEA/VOMITING 07/02/23 pantoprazole 40 mg tablet,delayed release 40 mg PO BID GERD 07/02/23 sodium di- and monophosphate-potassium phos monobasic 250 mg tablet (Luis Eduardo-Phos Neutral) 1 tab PO 4X/DAY HEALTH MAINTENANCE 07/02/23
--- NOTE | 2023-08-14 09:49 | CASEMGMT ---
SW sent updates to [facility] via [employer] and let them know patient will be returning today. Marylu Bertrand [employer]STRUCTION FRAMERChito KWON
[2023-08-14 10:00] VITALS: BP 152/80; PULSE 83; RESP 16; TEMP 37; O2SAT 99
[2023-08-14] MEDS: Pantoprazole Sodium 40 MG Tablet PO (10:10)
[2023-08-14] MEDS: amLODIPine 5 MG Tablet PO (10:10)
[2023-08-14] MEDS: levETIRAcetam 1,000 MG Tablet 1000 MG PO (10:10)
[2023-08-14] MEDS: Docusate Sodium 100 MG Capsule PO (10:10)
[2023-08-14] MEDS: Escitalopram Oxalate 10 MG Tablet PO (10:10)
[2023-08-14 10:35] VITALS: BMI 25.4
--- NOTE | 2023-08-14 10:41 | CASEMGMT ---
SW spoke with patient and confirmed her plan is to return to [facility] at discharge. Patient is aware she will return today. Plan: d/c back to [facility] under intermediate level of care. Physicians will transport. Marylu KWON
[2023-08-14 12:03] LABS: Bedside Glucose 102 mg/dL (74-106)
--- NOTE | 2023-08-14 14:40 | CASEMGMT ---
Patient is ready for discharge back to [facility]. SW called Physicians and arranged for patient to get picked up at 5p via wheelchair. SW will send orders to [facility] once completed. Plan: d/c back to [facility] under intermediate level of care. Physicians will transport via wheelchair at 5p. Marylu KWON
[2023-08-14 15:57] VITALS: BP 145/75; PULSE 90; RESP 16; TEMP 36.7; O2SAT 96
--- NOTE | 2023-08-14 16:30 | NURSING ---
Report called to JAD Jay at [facility]. superintendent automotive time for patient is 1700.
== END 2023-08-14 09:13 | disposition intermediate care facility (04) ==
LOC: ED 17:35 → PCU 17:43
PROVIDERS: Admitting Provider Family Medicine; Emergency Provider Emergency Medicine; PCP Family Medicine; Visit Provider Internal Medicine
DX: R29.810 Facial weakness (principal); I69.351 Hemiplegia and hemiparesis following cerebral infarction affecting right dominant side; C20 Malignant neoplasm of rectum; F31.9 Bipolar disorder, unspecified; F03.90 Unspecified dementia, unspecified severity, without behavioral disturbance, psychotic disturbance, mood disturbance, and anxiety; I82.409 Acute embolism and thrombosis of unspecified deep veins of unspecified lower extremity; G40.909 Epilepsy, unspecified, not intractable, without status epilepticus; E11.9 Type 2 diabetes mellitus without complications; R47.1 Dysarthria and anarthria; Z79.84 Long term (current) use of oral hypoglycemic drugs; I10 Essential (primary) hypertension; K62.7 Radiation proctitis; R47.01 Aphasia; Z87.891 Personal history of nicotine dependence; Z79.83 Long term (current) use of bisphosphonates; E78.00 Pure hypercholesterolemia, unspecified; K21.9 Gastro-esophageal reflux disease without esophagitis; Z79.899 Other long term (current) drug therapy; R47.81 Slurred speech; I36.1 Nonrheumatic tricuspid (valve) insufficiency
CPT/HCPCS: 36415; 70450; 70496; 70498; 70551; 71045; 80048; 80061; 80177; 82962; 84484; 85025; 85027; 85610; 85730; 92523; 93005; 93306; 94762; 97162; 97166; 97802; 99221; 99285; Q9967; G0378

== ENCOUNTER → 2023-08-13 | Outpatient (REF) | payer MEDICARE, SELFPAY ==
[2023-08-13 08:20] LABS: Hematocrit 32.1 % (37-47); Mean Corp Hgb Conc 31.2 g/dL (32-36); Mean Corpuscular Hgb 28.9 pg (27.0-32.0); Mean Corpuscular Volume 92.8 fL (81-99); Mean Platelet Vol. 10.5 fl (6.2-12.0); Platelet Count 188 K/mm3 (150-450); RBC Distribution Width CV 15.3 % (11.6-14.6); RBC Distribution Width SD 52.2 fl (35.1-43.9); Red Blood Count 3.46 M/mm3 (4.2-5.4)
[2023-08-15 13:08] LABS: KEPPRA (LEVETIRACETAM) 28.8 ug/mL (10.0-40.0)
== END ==
LOC: OLS.SW 05:00
PROVIDERS: PCP Family Medicine; Visit Provider Internal Medicine
DX: G40.909 Epilepsy, unspecified, not intractable, without status epilepticus (principal); C20 Malignant neoplasm of rectum; Z86.73 Personal history of transient ischemic attack (TIA), and cerebral infarction without residual deficits; I10 Essential (primary) hypertension; E78.5 Hyperlipidemia, unspecified
CPT/HCPCS: 36415; 80177; 85027

== ENCOUNTER → 2023-08-26 05:00 | Outpatient (REF) | payer MEDICARE, SELFPAY ==
[2023-08-26 08:26] LABS: Anion Gap 5 (5-15); BUN 14 mg/dL (7-18); Calcium,Total 8.2 mg/dL (8.5-10.1); Chloride 106 mmol/L (98-107); Creatinine, Serum 0.64 mg/dL (0.55-1.02); EST Glomerular Filtration Rate 99 mL/min (>60); Est Glom Filt Rate - Afr Amer 119 mL/min (>60); Glucose 88 mg/dL (74-106); Hematocrit 32.5 % (37-47); Hemoglobin 10.2 g/dL (12.0-15.0); Mean Corp Hgb Conc 31.4 g/dL (32-36); Mean Corpuscular Hgb 28.8 pg (27.0-32.0); Mean Corpuscular Volume 91.8 fL (81-99); Mean Platelet Vol. 10.1 fl (6.2-12.0); Platelet Count 205 K/mm3 (150-450); RBC Distribution Width CV 14.9 % (11.6-14.6); RBC Distribution Width SD 50.5 fl (35.1-43.9); Red Blood Count 3.54 M/mm3 (4.2-5.4); Sodium Level 141 mmol/L (136-145); White Blood Count 4.7 K/mm3 (4.4-11.0)
== END ==
LOC: OLS.SW 05:00
PROVIDERS: PCP Family Medicine; Visit Provider Internal Medicine
DX: D64.9 Anemia, unspecified (principal); I10 Essential (primary) hypertension; E78.5 Hyperlipidemia, unspecified; E11.9 Type 2 diabetes mellitus without complications; I69.351 Hemiplegia and hemiparesis following cerebral infarction affecting right dominant side; I63.9 Cerebral infarction, unspecified
CPT/HCPCS: 36415; 80048; 85027

== ENCOUNTER 2023-09-01 19:38 | Emergency (ER) | payer MEDICARE, SELFPAY ==
[2023-09-01 19:40] VITALS: BP 118/55; PULSE 96; RESP 18; TEMP 36.4; O2SAT 96; BMI 25.7
--- NOTE | 2023-09-01 19:56 | CT_ITS ---
EXAM: CT HEAD AND CERVICAL SPINE WITHOUT INTRAVENOUS CONTRAST CLINICAL INDICATION: head injury, pain. TECHNIQUE: Helically acquired images were obtained of the head/brain and cervical spine without intravenous contrast. 2D reformatted images were reviewed. This CT exam was performed using one or more of the following dose reduction techniques: automated exposure control, adjustment of the mA and/or kV according to patient size, and/or use of iterative reconstruction technique. COMPARISON: MRI brain, 08/13/2023 FINDINGS: BRAIN AND EXTRA-AXIAL SPACES: Chronic infarct involving the left thalamus, internal capsule, and omalley radiata with associated encephalomalacia. There is non-specific periventricular hypoattenuation which is most commonly related to chronic microvascular ischemic disease in a patient of this age. There is no mass, mass-effect, or shift of the midline structures. No evidence of acute infarct or acute intracranial hemorrhage. There is no evidence of pathologic extra-axial fluid. There is no hydrocephalus. Patent basal cisterns. Posterior fossa structures are unremarkable. SKULL: No significant abnormality. No discrete lytic or blastic abnormalities. SINUSES: No significant findings. MASTOID AIR CELLS: No significant abnormality. Clear. VERTEBRAE: Multilevel facet, uncovertebral joint, and endplate osteophytosis. No fracture. No traumatic subluxation. No discrete lytic or blastic abnormality. Normal alignment. Normal craniocervical junction and cervicothoracic junction. DISCS/SPINAL CANAL/NEURAL FORAMINA: Multilevel intervertebral disc height loss. Mild multilevel spinal canal stenosis. Mild multilevel neural foraminal narrowing. SOFT TISSUES: Right frontal/supraorbital scalp soft tissue swelling. No prevertebral soft tissue swelling. VASCULATURE: Arteriosclerosis. Vascular calcifications in the neck. LYMPH NODES: No significant abnormality. No cervical adenopathy. THYROID: Low-attenuation left thyroid nodule measuring approximately 1.2 cm. LUNG APICES: Normal as visualized. Clear. TUBES, LINES AND DEVICES: Right-sided central venous catheter. CT/Spine Cervical without Contras IMPRESSION: 1. Right frontal/supraorbital scalp soft tissue swelling. 2. Chronic ischemic changes. No CT evidence of acute intracranial pathology. 3. Degenerative changes in the spine. No acute pathology in the cervical spine. 4. Low-attenuation left thyroid nodule measuring approximately 1.2 cm. ACR White Paper guidelines (Andrea JK, et al. JACR 2015;12(2):143-50) suggest no follow-up is necessary. Electronically Signed: Mark Hampton DO at 20:45 EDT ,
--- NOTE | 2023-09-01 19:57 | EX.ED.GENINJ ---
HPI <SOLEDAD Ledbetter - Last Filed: 09/01/23 22:05> History of Present Illness Chief Complaint: Fall Narrative Narrative: Patient presenting today due to a head injury that occurred this evening. She is presenting from a [facility] facility. She was being transferred by staff from the chair to the bed when she fell and hit her head. She has a laceration to her right ear. Unsure whether or not tetanus is up-to-date. Patient does have a history of CVA with right-sided weakness/paralysis and dementia and is unable to provide a significant history. [facility] <SOLEDAD Ledbetter - Last Filed: 09/01/23 22:05> [facility] Medical History Acid reflux Anemia Anxiety Bipolar 1 disorder Cancer CVA (cerebral vascular accident) Dehydration Diabetes mellitus Diarrhea due to drug Drug induced neutropenia Dysarthria due to acute stroke Dyslipidemia Encounter for chemotherapy management Encounter for education Former smoker Former tobacco use High cholesterol History of CVA (cerebrovascular accident) History of echocardiogram HLD (hyperlipidemia) Hypertension Hypertensive emergency Iron deficiency anemia due to chronic blood loss Monoparesis of right upper extremity Prerenal azotemia Rectal cancer Rectum cancer Seizure Thrombocytopenia Home Medications metformin 500 mg tablet 500 mg PO BID BLOOD SUGAR 01/05/20 [History Last Taken 07/02/23] alendronate 70 mg tablet 70 mg PO [facility] 06/22/20 [History Last Taken 07/02/23] atorvastatin 80 mg tablet (Lipitor) 80 mg PO QHS CHLESTEROL 06/11/22 [History Last Taken 07/01/23] levetiracetam 500 mg tablet 1,000 mg PO BID SEIZURES 06/11/22 [History Last Taken 07/02/23] escitalopram oxalate 10 mg tablet 10 mg PO DAILY DEPRESSION 90 days #90 tabs 06/13/22 [Rx Last Taken 07/02/23] acetaminophen 500 mg tablet 1,000 mg PO Q8H PAIN 07/02/23 [History Last Taken 07/02/23] amlodipine 5 mg tablet 5 mg PO DAILY BLOOD PRESSURE 07/02/23 [History Last Taken 07/02/23] cholecalciferol (vitamin D3) 50 mcg (2,000 unit) capsule (Vitamin D3) 50 mcg PO DAILY SUPPLEMENT 07/02/23 [History Last Taken 07/02/23] cyclobenzaprine 5 mg tablet 5 mg PO TID MUSCLE SPASMS 07/02/23 [History Last Taken 07/02/23] docusate sodium 100 mg capsule 100 mg PO BID CONSTIPATION 07/02/23 [History Last Taken 07/02/23] pantoprazole 40 mg tablet,delayed release 40 mg PO BID GERD 07/02/23 [History Last Taken 07/02/23] sodium di- and monophosphate-potassium phos monobasic 250 mg tablet (Luis Eduardo-Phos Neutral) 1 tab PO 4X/DAY HEALTH MAINTENANCE 07/02/23 [History Last Taken 07/02/23] Allergy/AdvReac Type Severity Reaction Status Date / Time Iodinated Contrast Media Allergy Mild Itching Verified 08/13/23 17:30 prednisone Allergy Mild Hives Verified 08/13/23 17:30 Corticosteroids AdvReac PT UNSURE Verified 08/13/23 17:30 (Glucocorticoids) OF REACTION [steroids] Family History Mother Diabetes CVA (cerebral vascular accident) Thrombocytopenia Father Heart disease Surgical History No history of previous surgery Social History household members: none housing: retirement Smoking Status: Former smoker quit date: 05/05/00 pack-years: 20 alcohol intake: never substance use type: does not use ROS <SOLEDAD Ledbetter - Last Filed: 09/01/23 22:05> ROS ED Review of Systems ROS Unobtainable: due to mental condition EXAM <SOLEDAD Ledbetter - Last Filed: 09/01/23 22:05> Physical Exam Const Vital Signs: 09/01/23 19:40 09/01/23 19:45 09/01/23 23:18 Temperature 97.6 F L 98.1 F Temperature Source Temporal Pulse Rate 96 90 Respiratory Rate 18 21 H Respiratory Effort Normal Respiratory Depth Normal Blood Pressure 118/55 L 126/80 H Blood Pressure Mean 76 95 Pulse Ox 96 97 Oxygen Delivery Method Room Air Positive well nourished, well developed and no apparent distress General Appearance ED: well developed HEENT Reports normocephalic HEENT Narrative: Complex 1 cm full-thickness linear laceration through the R tragus, no CSF otorrhea Mouth ED: Yes moist mucous membranes normal Eyes PERRL and EOMs intact bilaterally Neck full ROM and supple Chest Wall inspection of chest normal Resp normal respiratory effort and clear to auscultation bilaterally Cardio regular rate and regular rhythm GI soft to palpation, non-tender, non-distended and no masses Back/Spine normal ROM and normal to inspection Extremity normal to inspection and full ROM Neuro oriented x3, CN's II-XII intact bilaterally, moves all extremities, no focal motor deficits and no sensory deficits noted Sensorium / Orientation: awake and alert Psych mental status grossly normal and thought process normal <Dr. Antonino Aguilar, DO - Last Filed: 09/01/23 23:21> Physical Exam Const Vital Signs: 09/01/23 19:40 09/01/23 19:45 09/01/23 23:18 Temperature 97.6 F L 98.1 F Temperature Source Temporal Pulse Rate 96 90 Respiratory Rate 18 21 H Respiratory Effort Normal Respiratory Depth Normal Blood Pressure 118/55 L 126/80 H Blood Pressure Mean 76 95 Pulse Ox 96 97 Oxygen Delivery Method Room Air PROC <SOLEDAD Ledbetter - Last Filed: 09/01/23 22:05> Procedures Lacerations laceration: Length: 0.39 in Shape: complex, linear Laceration repair: Irrigated, Lidocaine and Skin sutures Number of Sutures/Garland: 5 Suture Information: Ethilon, Simple and 6-0 MDM <SOLEDAD Ledbetter - Last Filed: 09/01/23 22:05> [facility] Narrative Medical decision making narrative: Patient presenting due to a head injury that occurred this evening. She was being transferred from the chair to the bed when she fell and hit the right side of her head against an object causing a laceration to the R tragus. Tetanus will be updated. CT scan of the head and neck will be obtained to rule out intracranial bleed and cervical fracture and are negative for acute findings. Laceration was cleaned with saline and chlorhexidine. Repaired with sutures. She will be discharged with wound care instructions. Return instructions given. She will be discharged home in stable condition and is comfortable with plan. I did discuss this with patient's emergency contact, her granddaughter who is comfortable with plan. Radiography Diagnostic Testing: Clinical Impression(s) from Imaging Studies Brain CT 09/01/23 19:56 IMPRESSION: 1. Right frontal/supraorbital scalp soft tissue swelling. 2. Chronic ischemic changes. No CT evidence of acute intracranial pathology. 3. Degenerative changes in the spine. No acute pathology in the cervical spine. 4. Low-attenuation left thyroid nodule measuring approximately 1.2 cm. ACR White Paper guidelines (Andrea JK, et al. JACR 2015;12(2):143-50) suggest no follow-up is necessary. Electronically Signed: Mark VBrii Hampton DO at 20:45 EDT , Cervical Spine CT 09/01/23 19:56 IMPRESSION: 1. Right frontal/supraorbital scalp soft tissue swelling. 2. Chronic ischemic changes. No CT evidence of acute intracranial pathology. 3. Degenerative changes in the spine. No acute pathology in the cervical spine. 4. Low-attenuation left thyroid nodule measuring approximately 1.2 cm. ACR White Paper guidelines (Andrea JK, et al. JACR 2015;12(2):143-50) suggest no follow-up is necessary. Electronically Signed: Mark Angel Hampton DO at 20:45 EDT , <Dr. Antonino Aguilar, DO - Last Filed: 09/01/23 23:21> [facility] Narrative Medical decision making narrative: Patient presenting due to a head injury that occurred this evening. She was being transferred from the chair to the bed when she fell and hit the right side of her head against an object causing a laceration to the R tragus. Tetanus will be updated. CT scan of the head and neck will be obtained to rule out intracranial bleed and cervical fracture and are negative for acute findings. Laceration was cleaned with saline and chlorhexidine. Repaired with sutures. She will be discharged with wound care instructions. Return instructions given. She will be discharged home in stable condition and is comfortable with plan. I did discuss this with patient's emergency contact, her granddaughter who is comfortable with plan. This patient was seen with a PA/WOOD GETTER Individually assessed they patient including history and physical. I have reviewed everything on the chart that is available and agree with the documentation provided by the PA/WOOD GETTER including discussion about the assessment, treatment plan, discussion, and return precautions. Patient presenting after fall. She laceration to the right tragus region. CT imaging of the head and neck were negative. Laceration was repaired and please see procedure note. Patient was discussed with her granddaughter and will be discharged back to her facility. Radiography Diagnostic Testing: Clinical Impression(s) from Imaging Studies Brain CT 09/01/23 19:56 IMPRESSION: 1. Right frontal/supraorbital scalp soft tissue swelling. 2. Chronic ischemic changes. No CT evidence of acute intracranial pathology. 3. Degenerative changes in the spine. No acute pathology in the cervical spine. 4. Low-attenuation left thyroid nodule measuring approximately 1.2 cm. ACR White Paper guidelines (Andrea JK, et al. JACR 2015;12(2):143-50) suggest no follow-up is necessary. Electronically Signed: Mark Hampton DO at 20:45 EDT , Cervical Spine CT 09/01/23 19:56 IMPRESSION: 1. Right frontal/supraorbital scalp soft tissue swelling. 2. Chronic ischemic changes. No CT evidence of acute intracranial pathology. 3. Degenerative changes in the spine. No acute pathology in the cervical spine. 4. Low-attenuation left thyroid nodule measuring approximately 1.2 cm. ACR White Paper guidelines (Andrea JK, et al. JACR 2015;12(2):143-50) suggest no follow-up is necessary. Electronically Signed: Mark Hampton DO at 20:45 EDT , Discharge Plan Triage Chief Complaint: Fall ED Midlevel Provider: Maddy Welch ED Provider: Antonino Aguilar Dx/Rx/DC Orders Clinical Impression: Dementia, Head injury, Fall, Laceration of ear, complex Instructions: ED Head Injury (Adult), ED Laceration, All Closures Prescriptions: No Action alendronate 70 mg tablet 70 mg PO WE metformin 500 MG tablet 500 mg PO BID atorvastatin [Lipitor] 80 mg tablet 80 mg PO QHS levetiracetam 500 mg tablet 1,000 mg PO BID escitalopram oxalate 10 mg Tablet 10 mg PO DAILY 90 Days Qty: 90 0RF amlodipine 5 mg tablet 5 mg PO DAILY Luis Eduardo-Phos 250 Neutral 250 mg tablet 1 tab PO 4X/DAY Rx Instructions: GIVE 250MG BY MOUTH BEFORE MEALS AND AT BEDTIME FOR HEALTH MAINTENANCE pantoprazole 40 mg tablet,delayed release (DR/EC) 40 mg PO BID cholecalciferol (vitamin D3) [Vitamin D3] 50 mcg (2,000 unit) capsule 50 mcg PO DAILY docusate sodium 100 mg capsule 100 mg PO BID acetaminophen 500 mg tablet 1,000 mg PO Q8H cyclobenzaprine 5 mg tablet 5 mg PO TID Primary Care Provider: Daniel Lopez Referrals: Daniel Lopez MD [Primary Care Provider] - 7 Days for suture removal Activity Restrictions/Additional Instructions: Have sutures removed in 7 days. You can apply antibiotic ointment such as bacitracin ointment to the ear. Return for any concerning symptoms or signs of infection. Disposition Disposition: Home, Self Care
[2023-09-01] MEDS: Diphth,Pertuss(Acell),Tet Vac 0.5 ML Vial IM (20:50)
[2023-09-01] MEDS: Lidocaine 1% (20 ml mdv) 20 ML Vial 10 ML INFILT (21:03)
[2023-09-01 23:18] VITALS: BP 126/80; PULSE 90; RESP 21; TEMP 36.7; O2SAT 97
[2023-09-01 23:30] VITALS: BP 143/72; PULSE 90; RESP 19; O2SAT 97
--- NOTE | 2023-09-02 01:17 | ED.RN ---
Pt motioned this RN to come into room. Pt states she's been trying to get someone to help her for hours. This RN stated that she was just in the room offering her a blanket. Pt denies that this occurred. This RN asked how she could help her. Pt states that you can help get me out of here. This RN reminded pt that her transport was coming soon. Pt said go fuck yourself. This RN told pt that her language and treatment of this RN was inappropriate and that she has been provided several kind gestures to make her more comfortable including yogurt and cookies, a tv remote and pillow and blankets. Pt stuck tongue out at this RN and spit. This RN told pt that was inappropriate and her behavior wouldn't be tolerated and left the room.
[2023-09-02 02:39] VITALS: BP 153/75; PULSE 97; RESP 18; O2SAT 97
== END 2023-09-02 02:54 | disposition home or self-care (01) ==
PROVIDERS: Emergency Provider Student in an Organized Health Care Education/Training Program; PCP Family Medicine; Visit Provider Student in an Organized Health Care Education/Training Program
DX: S01.311A Laceration without foreign body of right ear, initial encounter (principal); I69.352 Hemiplegia and hemiparesis following cerebral infarction affecting left dominant side; F03.90 Unspecified dementia, unspecified severity, without behavioral disturbance, psychotic disturbance, mood disturbance, and anxiety; G40.909 Epilepsy, unspecified, not intractable, without status epilepticus; E11.9 Type 2 diabetes mellitus without complications; Z87.891 Personal history of nicotine dependence; E78.00 Pure hypercholesterolemia, unspecified; I10 Essential (primary) hypertension; Z79.84 Long term (current) use of oral hypoglycemic drugs; Z79.899 Other long term (current) drug therapy; Z85.048 Personal history of other malignant neoplasm of rectum, rectosigmoid junction, and anus; Z92.21 Personal history of antineoplastic chemotherapy; F41.9 Anxiety disorder, unspecified; W07.XXXA Fall from chair, initial encounter; Y92.129 Unspecified place in nursing home as the place of occurrence of the external cause; Z23 Encounter for immunization; S09.90XA Unspecified injury of head, initial encounter
CPT/HCPCS: 13151; 70450; 72125; 90715; 99284

== ENCOUNTER → 2023-09-02 | Outpatient (REF) | payer MEDICARE, SELFPAY ==
[2023-09-02 08:07] LABS: Hematocrit 32.2 % (37-47); Hemoglobin 10.3 g/dL (12.0-15.0); Mean Corpuscular Hgb 29.5 pg (27.0-32.0); Mean Corpuscular Volume 92.3 fL (81-99); Mean Platelet Vol. 10.3 fl (6.2-12.0); Platelet Count 177 K/mm3 (150-450); RBC Distribution Width CV 15.6 % (11.6-14.6); RBC Distribution Width SD 52.7 fl (35.1-43.9); Red Blood Count 3.49 M/mm3 (4.2-5.4); White Blood Count 4.8 K/mm3 (4.4-11.0)
[2023-09-02 08:25] LABS: Anion Gap 5 (5-15); BUN 9 mg/dL (7-18); BUN/Creat Ratio 17.4 RATIO (10-20); Calcium,Total 8.4 mg/dL (8.5-10.1); Chloride 109 mmol/L (98-107); Creatinine, Serum 0.52 mg/dL (0.55-1.02); EST Glomerular Filtration Rate 125 mL/min (>60); Est Glom Filt Rate - Afr Amer 151 mL/min (>60); Glucose 98 mg/dL (74-106); Potassium 3.7 mmol/L (3.5-5.1); Sodium Level 141 mmol/L (136-145)
== END ==
LOC: OLS.SW 05:00
PROVIDERS: PCP Family Medicine; Visit Provider Internal Medicine
DX: I10 Essential (primary) hypertension (principal); E11.9 Type 2 diabetes mellitus without complications; D64.9 Anemia, unspecified
CPT/HCPCS: 36415; 80048; 85027

== ENCOUNTER → 2024-01-16 | Outpatient (CLI) | payer MEDICARE, SELFPAY ==
[2024-01-16 12:36] LABS: Erythrocyte Sedimentation Rate 10 mm/hr (0-30)
[2024-01-16 12:45] LABS: Absolute Lymphocyte Count 0.85 X10^3/uL (0.83-4.51); Absolute Neutrophil Count 4.1 X10^3/uL (2.0-7.7); Basophil# 0.02 X10^3/uL; Basophil% 0.4 % (0-1); Eosinophil# 0.14 X10^3/uL; Eosinophils% 2.6 % (0-5); Hematocrit 40.6 % (37-47); Hemoglobin 13.2 g/dL (12.0-15.0); Lymphocyte # 0.85 X10^3/ul (0.83-4.51); Lymphocyte % 15.7 % (19-41); Mean Corp Hgb Conc 32.5 g/dL (32-36); Mean Corpuscular Hgb 29.2 pg (27.0-32.0); Mean Corpuscular Volume 89.8 fL (81-99); Mean Platelet Vol. 10.7 fl (6.2-12.0); Monocyte# 0.29 X10^3/uL; Monocyte% 5.4 % (0-10); NRBC Flagged by Analyzer 0 % (0-5); Neutrophil # 4.11 X10^3/uL (2.7-7.7); Neutrophil % 75.7 % (47-70); Platelet Count 163 K/mm3 (150-450); RBC Distribution Width CV 13.9 % (11.6-14.6); RBC Distribution Width SD 44.9 fl (35.1-43.9); Red Blood Count 4.52 M/mm3 (4.2-5.4); White Blood Count 5.4 K/mm3 (4.4-11.0)
[2024-01-16 13:25] LABS: ALB/GLOB Ratio 0.9 RATIO (0.9-2.4); AST(SGOT) 19 U/L (15-37); Alanine Aminotransfer ALT/SGPT 20 U/L (13-56); Albumin, Serum 3.6 g/dL (3.2-5.0); Alkaline Phosphatase 109 U/L (45-117); Anion Gap 6 (5-15); BUN 18 mg/dL (7-18); BUN/Creat Ratio 22.5 RATIO (10-20); CRP < 2.90 mg/L (0.0-3.0); Calcium,Total 9.2 mg/dL (8.5-10.1); Chloride 107 mmol/L (98-107); EST Glomerular Filtration Rate 76 mL/min (>60); Est Glom Filt Rate - Afr Amer 92 mL/min (>60); Glucose 122 mg/dL (74-106); Protein, Total 7.6 g/dL (6.4-8.2); Sodium Level 141 mmol/L (136-145)
[2024-01-16 14:29] LABS: Hemoglobin A1c 5.8 % (3.8-5.6)
== END | disposition home or self-care (01) ==
LOC: MFPLAB 10:22
PROVIDERS: PCP Family Medicine; Visit Provider Family Medicine
DX: C51.9 Malignant neoplasm of vulva, unspecified (principal); E11.8 Type 2 diabetes mellitus with unspecified complications
CPT/HCPCS: 36415; 80053; 83036; 84443; 85025; 85652; 86140

== ENCOUNTER 2024-02-23 09:10 | Day surgery (SDC) | payer MEDICARE, SELFPAY ==
[2024-02-23] VITALS (8 sets, daily range): BP systolic 105–137; BP diastolic 67–80; PULSE 67–83; RESP 16; TEMP 36.1–36.8; O2SAT 92–98; BMI 28.0
--- NOTE | 2024-02-23 09:46 | PCM.PRE.AN2 ---
ASA Classification* ASA Classification ASA Classification: 2 Assessment & Plan Anesthesia* Anesthesia Assessment Anesthesia Assessment: Discussed sedation and/or anesthesia options, risks, benefits, and alternatives with patient/parents/legal guardian/POA. Questions invited. The patient/parents/legal guardian/POA seems to understand and agrees to proceed with anesthesia plan. Reviewed the physical assessment, medical history, allergy history and patient home medications list prior to surgery/procedure/anesthetic and documented any changes. Performed airway and anesthesia risk assessments. Anesthesia Type Anesthesia Type: MAC Anesthesia Focused Assessment* Temperature: 98.3 F Pulse Rate: 83 Blood Pressure: 137/75 Respiratory Rate: 16 Pulse Ox: 96 Airway Assessment Mouth opens: >3 cm Mallampati Score: II Focused Labs Anesthesia Preop lab: CBC WBC 5.3 K/mm3 (4.4-11.0) 01/26/24 12:16 RBC 4.36 M/mm3 (4.2-5.4) 01/26/24 12:16 Hgb 12.7 g/dL (12.0-15.0) 01/26/24 12:16 Hct 38.1 % (37-47) 01/26/24 12:16 Plt Count 142 K/mm3 (150-450) L 01/26/24 12:16 CHEMISTRY Potassium 4.0 mmol/L (3.5-5.1) 01/26/24 12:16 Sodium 141 mmol/L (136-145) 01/26/24 12:16 Magnesium 2.0 mg/dL (1.6-2.6) 07/08/23 06:30 Phosphorus 2.6 mg/dL (2.5-4.9) 02/18/23 08:13 BUN 13 mg/dL (7-18) 01/26/24 12:16 Creatinine 0.74 mg/dL (0.55-1.02) 01/26/24 12:16 Glucose 102 mg/dL (74-106) 01/26/24 12:16 POC Glucose 102 mg/dL (74-106) 08/14/23 11:42 TSH 1.170 uIU/mL (0.358-3.740) 01/16/24 10:22 COAG PT 13.1 SECONDS (11.7-14.9) 08/13/23 16:05 Pre-Assessment Diagnosis/Proposed Procedure Planned Operative Procedure(s): Flexible Sigmoidoscopy Anesthesia History 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 When Was Last Pacemaker Check QUESTION #4 FULL TEXT: You/Your Family Experience fever (hyperthermia) with Anesthesia Last Oral Intake Last Oral intake: Last Oral Intake NPO since 20:30 02/23/24 09:34 Meds taken in AM with sips of Yes 02/23/24 09:34 water? Meds patient instructed to take am of surgery PONV PONV - human development professor: PONV - human development professor Female HX of Motion Sickness HX of N/V After Surgery Non-Smoker Duration of Surgery greater than 60 minutes Number of Risk Factors PONV Score Height & Weight Height & Weight: Anesthesia: Height & Weight Height 5 ft 4 in 02/23/24 09:34 Weight: 74 kg 02/23/24 09:34 Body Mass Index (BMI) 28.0 02/23/24 09:34 Respiratory Assessment Respiratory Assessment - human development professor: Respiratory Tract Infection Hx - human development professor Hx Respiratory Tract Infection No 08/09/22 14:08 STOP Sleep Apnea STOP Sleep Apnea - human development professor: STOP Sleep Apnea - human development professor Hx Hypertension Yes 08/14/23 12:11 Hx Sleep Apnea Yes 08/13/23 18:44 CPAP No 08/13/23 18:44 BIPAP No 08/13/23 18:44 Do you snore loudly (louder than talking or can be heard Do you often feel tired/ fatigued/ sleepy during daytime? Has anyone observed you stop breathing during sleep? STOP Results QUESTION #5 FULL TEXT : Do you snore loudly (louder than talking or can be heard through closed doors)? 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 Specify any problems Hx of Preganancy in last 3 Months Nurse Filling Out Transfusion & Questions: Date: Time: Patient unable to answer at this time (ie. confused, unrespo /Reproduction History /Reproductive History - human development professor: /Reproductive Hx- human development professor Hx Now Gestational Age (in weeks): EDC: Hx Hx Para Hx Section SAB No 08/09/22 14:08 PFSH Medical History Facial droop Rectal cancer Drug induced neutropenia Thrombocytopenia Dehydration Acid reflux Encounter for education Diarrhea due to drug Encounter for chemotherapy management Prerenal azotemia Iron deficiency anemia due to chronic blood loss Cancer Anxiety High cholesterol Former smoker History of echocardiogram Anemia Rectum cancer Dyslipidemia Bipolar 1 disorder CVA (cerebral vascular accident) Former tobacco use HLD (hyperlipidemia) Monoparesis of right upper extremity History of CVA (cerebrovascular accident) Dysarthria due to acute stroke Seizure Diabetes mellitus Hypertensive emergency Hypertension Home Medications ?Medication ?Instructions ?Recorded ?Last Taken ?Type alendronate 70 mg tablet 70 mg PO [facility] 06/22/20 02/19/24 History atorvastatin 80 mg tablet (Lipitor) 80 mg PO QHS CHLESTEROL 06/11/22 02/22/24 History levetiracetam 500 mg tablet 1,000 mg PO BID SEIZURES 06/11/22 02/22/24 History escitalopram oxalate 10 mg tablet 10 mg PO DAILY DEPRESSION 90 days 06/13/22 02/22/24 Rx #90 tabs acetaminophen 500 mg tablet 1,000 mg PO Q8H PRN PAIN 07/02/23 02/16/24 History amlodipine 5 mg tablet 5 mg PO DAILY BLOOD PRESSURE 07/02/23 02/22/24 History docusate sodium 100 mg capsule 100 mg PO BID PRN CONSTIPATION 07/02/23 07/02/23 History pantoprazole 40 mg tablet,delayed 40 mg PO BID GERD 07/02/23 02/22/24 History release sodium di- and 1 tab PO 4X/DAY HEALTH MAINTENANCE 07/02/23 02/22/24 History monophosphate-potassium phos monobasic 250 mg tablet (Luis Eduardo-Phos Neutral) venlafaxine 37.5 mg 37.5 mg PO DAILY 02/23/24 02/22/24 History capsule,extended release 24 hr Allergy/AdvReac Type Severity Reaction Status Date / Time Iodinated Contrast Media Allergy Mild Itching Verified 02/23/24 09:29 prednisone Allergy Mild Hives Verified 02/23/24 09:29 Corticosteroids AdvReac PT UNSURE Verified 02/23/24 09:29 (Glucocorticoids) (steroids) OF REACTION Family History Mother Diabetes CVA (cerebral vascular accident) Thrombocytopenia Father Heart disease Surgical History No history of previous surgery Social History household members: none housing: [facility] Smoking Status: Former smoker quit date: 05/05/00 pack-years: 20 alcohol intake: never substance use type: does not use Review of Systems (Anesthesia) ROS Narrative System reviewed and no additional complaints, except as documented.
--- NOTE | 2024-02-23 10:02 | HP.PCM_ITS ---
History and Physical Date of Admission: 02/23/24 Date of Service: 02/02/24 MR#: [id number] Acct: [id number] Name: ROCÍO ORDONEZ Rep #: [id number] : 1955 Provider: Dr. Payton Velarde MD Age/Sex: 68/F Location: [facility] Status: Signed Intake Vital Signs 01/25/2413:04 02/01/2414:35 Height 5 ft 4 in 5 ft 4 in Weight: 156 lb 158 lb BMI 26.7 27.1 BP 125/82 H 129/79 H Blood Pressure Location Lt brachial Lt brachial Position Sitting Sitting Respiration 16 18 Pulse 88 77 Pulse Source Monitor Monitor Temp 97.7 F L Pulse Oximetry (%) 96 94 Oxygen Delivery Method room air room air Intake Visit Reasons: DISCUSS SIGMOIDOSCOPY Chief Complaint: Rectum cancer follow-up/sigmoidoscopy Education And Training Coordinator Required: No Accompanied by: Granddaughter Is patient in pain?: No Allergies Iodinated Contrast Media Allergy (Mild, Verified 02/02/24 14:37) Itchingprednisone Allergy (Mild, Verified 02/02/24 14:37) HivesCorticosteroids (Glucocorticoids) (steroids) Adverse Reaction (Verified 02/02/24 14:37) PT UNSURE OF REACTION Medications ?Medication ?Instructions ?Recorded ?Confirmed ?Type metformin 500 mg tablet 500 mg PO BID BLOOD SUGAR 01/05/20 02/02/24 History alendronate 70 mg tablet 70 mg PO [facility] 06/22/20 02/02/24 History atorvastatin 80 mg tablet (Lipitor) 80 mg PO QHS CHLESTEROL 06/11/22 02/02/24 History levetiracetam 500 mg tablet 1,000 mg PO BID SEIZURES 06/11/22 02/02/24 History escitalopram oxalate 10 mg tablet 10 mg PO DAILY DEPRESSION 90 days 06/13/22 02/02/24 Rx #90 tabs acetaminophen 500 mg tablet 1,000 mg PO Q8H PAIN 07/02/23 02/02/24 History amlodipine 5 mg tablet 5 mg PO DAILY BLOOD PRESSURE 07/02/23 02/02/24 History cholecalciferol (vitamin D3) 50 50 mcg PO DAILY SUPPLEMENT 07/02/23 02/02/24 History mcg (2,000 unit) capsule (Vitamin D3) cyclobenzaprine 5 mg tablet 5 mg PO TID MUSCLE SPASMS 07/02/23 02/02/24 History docusate sodium 100 mg capsule 100 mg PO BID CONSTIPATION 07/02/23 02/02/24 History pantoprazole 40 mg tablet,delayed 40 mg PO BID GERD 07/02/23 02/02/24 History release sodium di- and 1 tab PO 4X/DAY HEALTH MAINTENANCE 07/02/23 02/02/24 History monophosphate-potassium phos monobasic 250 mg tablet (Luis Eduardo-Phos Neutral) Have you fallen in the past year?: Yes (Twice) [facility] Medical History Facial droop Rectal cancer Drug induced neutropenia Thrombocytopenia Dehydration Acid reflux Encounter for education Diarrhea due to drug Encounter for chemotherapy management Prerenal azotemia Iron deficiency anemia due to chronic blood loss Cancer Anxiety High cholesterol Former smoker History of echocardiogram Anemia Rectum cancer Dyslipidemia Bipolar 1 disorder CVA (cerebral vascular accident) Former tobacco use HLD (hyperlipidemia) Monoparesis of right upper extremity History of CVA (cerebrovascular accident) Dysarthria due to acute stroke Seizure Diabetes mellitus Hypertensive emergency Hypertension Surgical History No history of previous surgery Family History Mother Diabetes CVA (cerebral vascular accident) ThrombocytopeniaFather Heart disease Social History household members: none housing: assisted Smoking Status: Former smoker quit date: 05/05/00 pack-years: 20 alcohol intake: never substance use type: does not use HPI HPI HPI: 60-year-old female presents for flexible sigmoidoscopy for surveillance due to history of rectal cancer accompanied with her granddaughter. Patient was treated with chemo and radiation late 2022. Patient was lost to follow-up until January 2024. Plan per oncology is to have a flexible sigmoidoscopy/proctoscopy every 3 to 4 months and then a full colonoscopy at a year. Patient states she has bowel movements daily denies any blood. Patient denies any abdominal pain. Patient did have a previous colonoscopy July 2023 due to a GI bleed which did not show any residual mass in the rectum per report. ROS General General: Yes colon cancer; No weight change, appetite, fatigue, breast cancer or weakness HEENT HEENT: No difficulty swallowing, eye injury, eye surgery, swollen glands or hoarseness Endo Endocrine: No thyroid disease, diabetes mellitus, thyroid cancer, Hair loss, heat intolerance or cold intolerance Skin Skin: No rash or changing moles Breast Breast: No left breast lump, right breast lump, nipple discharge, breast pain, abnormal mammogram, abnormal US or breast enlargement Musc Musculoskeletal: No back problems, arthritis, rheumatoid arthritis, gout or joint pain Cardio Cardiovascular: Yes high blood pressure; No murmur, pacemaker, heart disease, atrial fibrillation, heart attack, heart stent, palpitations, shortness of breat with exertion or chest pain Psych Psychiatric: No depression, anxiety or hearing voices Resp Respiratory: No shortness of breath, No sleep apnea, No cough, No COPD, No asthma, No emphysema and No wheezing Gastro Gastrointestinal: No abdominal pain, No nausea or vomiting, No diarrhea, No constipation, No blood in stool, No acid reflux, No hemorrhoids, No ulcers, No gallbladder problem and No black,tarry stools Myron Hematologic: No blood thinners, No blood disorders, No bleeding, No anemia and No blood clots Neuro Neurologic: No system reviewed and no additional complaints, except as doc umented, No as per HPI, No abnormal gait, No abnormal hearing, No abnormal movements, No abnormal speech, No behavioral changes, No burning sensations, No confusion, No convulsions, No disequilibrium, No dizziness, No localized weakness, No frequent falls, No headache(s), No lack of coordination, No loss of vision, No memory loss, No numbness, No other visual disturbances, No radicular pain, No restless legs, No sensory deficit, No syncope, No tingling, No tremor(s), No weakness and No other (history of stroke. Paralysis right arm. Altered gait) Exam Const General: cooperative, comfortable and no acute distress [facility] Head: normocephalic and atraumatic Neck Neck: supple Chest Other: Right IJ Port-A-Cath in place incision well-healed Resp Effort & Inspection: normal respiratory effort Cardio Rate: regular rate GI Inspection: non-distended Palpation: soft, no hernias and nontender Skin General: no rashes or lesions noted Neuro General: patient oriented x3 Extrem General: normal to inspection Psych Mental Status: mental status grossly normal Attitude: cooperative Assessment and Plan Assessment and Plan (1) Rectum cancer: Status: Chronic Plan I have discussed the above with the patient. Will plan for a flexible sigmoidoscopy every 3 to 4 months per oncology recommendation for surveillance status post chemo and radiation for rectal cancer. With complete colonoscopy in 1 year I have explained the risks/benefits of the procedure and described the procedure. I have discussed the risks with the patient, including but not limited to: infection, bleeding, perforation of the GI tract requiring emerg ency surgery, inability to complete the procedure, injury to any internal organs, complications of anesthesia, etc. - the patient understands and agrees to proceed. I have answered all the patient's questions to the patient's satisfaction and the patient has no further questions. The patient has been given instructions for the colon cleansing preparation. Okay for light breakfast and lunch and then clears only after lunch with MiraLAX Dulcolax prep. Payton Velarde M.D. Pager: [phone] [facility] [address] [place] [address], [address] [place] [address] Office: [phone] Coding Level of Care Code Off vis,new,level 3 Diagnoses Rectum cancer C20 Clinical Quality Measures Falls Risk Screening/Assistive Devices Have you fallen in the past year?: Yes (Twice) 02/03/24 0938 <Electronically signed by Payton Velarde MD> Date Payton Velarde MD
[2024-02-23 10:14] LABS: Bedside Glucose 104 mg/dL (74-106)
--- NOTE | 2024-02-23 11:13 | POSTOPAN2_ITS ---
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 Spontaneous unlabored Yes 02/23/24 11:13 PRINTING PRESS MACHINE OPERATOR.MDOT respirations Mental status Awake,Calm 02/23/24 11:13 PRINTING PRESS MACHINE OPERATOR.MDOT nausea No 02/23/24 11:13 PRINTING PRESS MACHINE OPERATOR.MDOT Vomiting No 02/23/24 11:13 PRINTING PRESS MACHINE OPERATOR.MDOT Anesthesia Postop Eval I: Fluid Summary Crystalloid volume administer 20 02/23/24 11:13 PRINTING PRESS MACHINE OPERATOR.MDOT (ml) Colloids volume administered ( ml) Blood Product volume administered (ml) Total IV fluid infused 20 02/23/24 11:13 PRINTING PRESS MACHINE OPERATOR.MDOT Anesthesia Postop Eval I: Summary Notes Anesthesia Complication No 02/23/24 11:13 PRINTING PRESS MACHINE OPERATOR.MDOT Anesthesia Complication Comment: Post-operative progress note Anesthesia: Postop Eval II Evaluation Mental status: Awake and Calm Pain Level: 0 nausea: No Vomiting: No Complications Anesthesia Complication: No
--- NOTE | 2024-02-23 11:13 | PCM.POST.ANE ---
Anesthesia: Postop Eval I Current Vital Signs Temperature: 97 F Pulse Rate: 67 Blood Pressure: 122/72 Respiratory Rate: 16 Pulse Ox: 98 Oxygen Delivery Method: Room Air Assessment Airway patent: Yes Spontaneous unlabored respirations: Yes Mental status: Awake and Calm nausea: No Vomiting: No Anesthesia Complication: No Fluid Hydration Crystalloid volume administer (ml): 20 Total IV fluid infused: 20 Progress Note Anesthesia document: Postop Eval 1 completed: Yes
--- NOTE | 2024-02-23 11:13 | PCM.POSTANE2 ---
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.MDOT Spontaneous unlabored Yes 02/23/24 11:13 SUPERVISOR FUR FLOOR WORKER.MDOT respirations Mental status Awake,Calm 02/23/24 11:13 SUPERVISOR FUR FLOOR WORKER.MDOT nausea No 02/23/24 11:13 SUPERVISOR FUR FLOOR WORKER.MDOT Vomiting No 02/23/24 11:13 SUPERVISOR FUR FLOOR WORKER.MDOT Anesthesia Postop Eval I: Fluid Summary Crystalloid volume administer 20 02/23/24 11:13 SUPERVISOR FUR FLOOR WORKER.MDOT (ml) Colloids volume administered ( ml) Blood Product volume administered (ml) Total IV fluid infused 20 02/23/24 11:13 SUPERVISOR FUR FLOOR WORKER.MDOT Anesthesia Postop Eval I: Summary Notes Anesthesia Complication No 02/23/24 11:13 SUPERVISOR FUR FLOOR WORKER.MDOT Anesthesia Complication Comment: Post-operative progress note Anesthesia: Postop Eval II Evaluation Mental status: Awake and Calm Pain Level: 0 nausea: No Vomiting: No Complications Anesthesia Complication: No
--- NOTE | 2024-02-23 15:27 | OP.CCLET_ITS ---
02/23/2024 Daniel Lopez [address] [place] [address] Re : Flexible Sigmoidoscopy procedure for Jemima Clay Dear Dr. Lopez This procedure was performed on Friday, February 23, 2024. My impressions and recommendations are as follows: Impressions : - Firmest of tissue with no discrete mass found on digital rectal exam. - Normal mucosa in the rectum and in the sigmoid colon. - No specimens collected. Recommendations : - Continue present medications. My findings are described in the full procedure note, which is enclosed. If I can be of further assistance, please feel free to contact me at Doctor phone number(s): , Work: . Sincerely, MD Payton Garcia MD 02/23/2024 11:22:46 AM This report has been signed electronically.
--- NOTE | 2024-02-23 15:27 | OP.FLEXSIG_ITS ---
Patient Name: Jemima Clay Procedure Date: 02/23/2024 11:01 AM Date of : 1955 Age: 69 Procedure: Flexible Sigmoidoscopy Indications: Personal history of malignant rectal neoplasm, s/p chemo/radiation Providers: Payton Velarde MD Medicines: Monitored Anesthesia Care Patient Profile: This is a 69 year old female. Last Colonoscopy: july 2023 at [facility]. Complications: No immediate complications. Procedure: Pre-Anesthesia Assessment: - Prior to the procedure, a History and Physical was performed, and patient medications and allergies were reviewed. The patient's tolerance of previous anesthesia was also reviewed. The risks and benefits of the procedure and the sedation options and risks were discussed with the patient. All questions were answered, and informed consent was obtained. Prior Anticoagulants: The patient has taken no anticoagulant or antiplatelet agents. ASA Grade Assessment: Per anesthesia. After reviewing the risks and benefits, the patient was deemed in satisfactory condition to undergo the procedure. After obtaining informed consent, the endoscope was passed under direct vision. Throughout the procedure, the patient's blood pressure, pulse, and oxygen saturations were monitored continuously. The Colonoscope was introduced through the anus and advanced to the sigmoid colon. The flexible sigmoidoscopy was accomplished without difficulty. The patient tolerated the procedure well. The quality of the bowel preparation was good. Scope In: 11:06:15 AM Scope Out: 11:11:41 AM Total Procedure Duration Time 0 hours 5 minutes 26 seconds Findings: The digital rectal exam findings include firmest of tissue with no discrete mass. Normal mucosa was found in the rectum and in the sigmoid colon. Posterior vulva has mass concerning on inspection for cancer surrounding by area of oozing. Does not communication with rectum. Impression: - Firmest of tissue with no discrete mass found on digital rectal exam. - Normal mucosa in the rectum and in the sigmoid colon. - No specimens collected. Recommendation: - Continue present medications. Procedure Code(s): --- Professional --- 50416, PT, Sigmoidoscopy, flexible; diagnostic, including collection of specimen(s) by brushing or washing, when performed (separate procedure) Diagnosis Code(s): --- Professional --- Z85.048, Personal history of other malignant neoplasm of rectum, rectosigmoid junction, and anus CPT copyright 2021 [employer]. All rights reserved. The codes documented in this report are preliminary and upon manager transfer review may be revised to meet current compliance requirements. MD Payton Garcia MD 02/23/2024 11:22:46 AM This report has been signed electronically. Number of Addenda: 0 Note Initiated On: 02/23/2024 11:01 AM
== END 2024-02-23 11:56 | disposition home or self-care (01) ==
LOC: EN 09:12 → AC 09:12
PROVIDERS: PCP Family Medicine; Referring Provider Family Medicine; Visit Provider Surgery
PROC: 0DJD8ZZ Inspection of Lower Intestinal Tract, Via Natural or Artificial Opening Endoscopic (ICD-10-PCS; CPT 45330; principal; 2024-02-23 10:25)
DX: Z85.048 Personal history of other malignant neoplasm of rectum, rectosigmoid junction, and anus (principal); C80.0 Disseminated malignant neoplasm, unspecified; E11.9 Type 2 diabetes mellitus without complications; Z92.3 Personal history of irradiation; Z79.84 Long term (current) use of oral hypoglycemic drugs; Z92.21 Personal history of antineoplastic chemotherapy; Z87.891 Personal history of nicotine dependence; E78.00 Pure hypercholesterolemia, unspecified; I10 Essential (primary) hypertension; Z86.73 Personal history of transient ischemic attack (TIA), and cerebral infarction without residual deficits; Z79.899 Other long term (current) drug therapy; K21.9 Gastro-esophageal reflux disease without esophagitis; F41.9 Anxiety disorder, unspecified
CPT/HCPCS: 45330; 82962

== ENCOUNTER → 2024-03-02 | Outpatient (CLI) | payer MEDICARE, SELFPAY ==
--- NOTE | 2024-03-02 | IMM_PTH ---
PATIENT: ROCÍO ORDONEZ LOC: [facility] U#:[id number] AGE/SX: 69/F ROOM: RE03/02/[address]: Dr. Anila aCdena DO : 1955 BED: DIS: 03/02/2024 SPEC #: [id number] RECD: 03/04/24 11:33 STATUS: HAYLEY REQ #: [id number] CORRY: 03/02/24 00:[address]: Anila Cadena DEPT: IMMUNOHISTOCHEMISTRY RECD BY: Ron Miller ENTERED: 03/04/24 11:34 SP TYPE: IMMUNO OTHR DR: Dr. Daniel Lopez MD Tissues: Vulva, NOS Procedures: RCC (add) NAPSIN A (add) CK20 (add) CK5-6 (add) CK7 (add) CK8 (add) HEP PAR (add) KI-67 (add) P53 (add) VA (add) TTF1 (add) Pankeratin (add) P40 (add) CDX2 (add) ER (initial) PHYSICIAN & [address] [address] SPECIMEN INFORMATION: Tissue Source: Vulva Clinical Info: Vulvar lesion Specimen Number: [id number] CPT code: 25404,81100u56 METHODOLOGY: Deparaffinized sections of prefer/formalin-fixed tissue or PAP/DQ stained slides are incubated with monoclonal/polyclonal antibodies/oligonucleotide probes. Localization is made via biotin free immunoperoxidase method. Appropriate controls are performed and reacted as expected. Results on target cell population are indicated in the following table: RESULTS: ANTIBODY / CLONE RESULT ER (6F11) negative VA (1E2) negative AE1-3 (AE1/AE3/PCK26) positive CK7 (OV-TL12/30) positive CK8 (04jepgJ17) positive CK20 (KS20.8) positive CDX2 (NDF1557Q) positive TTF-1 (8G7G3/1) negative Napsin A (Rabbit Polyclonal) negative HepPar (OCh1E5) positive (aberrant staining) RCC (PN-15) negative CK5-6 (D5 & 1684) negative P40 (BC28) negative P53 (DO-7) positive (indeterminate pattern) Ki-67 (30-9) positive, high These tests were developed and their performance characteristics determined by [facility]. They may not have been cleared or approved by the U.S. Food and Drug Administration. The FDA has determined that such clearance or approval is not necessary. The above immunohistochemical/dualISH markers are ordered and reviewed by the Pathologist. INTERPRETATION: Vulva, biopsy: Metastatic adenocarcinoma. See comment. COMMENT: Morphology and IHC profile favor colonic/rectal primary. 03/05/2024
--- NOTE | 2024-03-02 13:40 | VUL_PTH ---
PATIENT: ROCÍO ORDONEZ LOC: [facility] U#:[id number] AGE/SX: 69/F ROOM: RE03/02/[address]: Dr. Anila Cadena DO : 1955 BED: DIS: 03/02/2024 SPEC #: [id number] RECD: 03/02/24 17:07 STATUS: HAYLEY LARA #: [id number] CORRY: 03/02/24 13:[address]: Anila Cadena DEPT: SURGICAL PATHOLOGY RECD BY: Blanca Fajardo ENTERED: 03/03/24 13:49 SP TYPE: VULVA BX OTHR DR: Dr. Daniel Lopez MD Tissues: Vulva, NOS Procedures: Surgery Specimen Level IV HEADER OPERATION: Vulvar biopsy PRE-OP DIAGNOSIS: Vulvar lesion TISSUE SUBMITTED: Vulva MICROSCOPIC DIAGNOSIS Vulvar lesion, biopsy: Metastatic adenocarcinoma. See note and comment. Note: Immunohistochemistry ([id number]) supports the above diagnosis. Morphology and IHC profile favors colonic/rectal primary. 03/04/2024 COMMENT Please also make reference to previous specimen [id number], rectum, biopsy with diagnosis of fragments of colonic mucosa with mild non-specific chronic inflammation and fibrosis of lamina propria and additional specimen from [facility], [id number] skin, left labia majora, biopsy with diagnosis of adenocarcinoma, skin, right labia majora, biopsy with diagnosis of adenocarcinoma. IHC for microsatellite instability (mismatch repair protein) can be performed, if clinically indicated. Please notify the laboratory if they are needed. Molecular studies on the tumor can be performed if clinically indicated. Please notify the laboratory if they are needed. As per EMR, patient has history of rectal cancer, s/p chemo and radiation therapy. This case has been reviewed in consultation with Dr. Mendiola who concurs with the above diagnosis. IDC:PW MICROSCOPIC DESCRIPTION Slides are reviewed. GROSS DESCRIPTION Received is one container labeled with the patient's name and not further designated. The specimen consists of multiple irregular fragments of hemorrhagic soft tissue that in aggregate measure 2.0 x 1.0 x 0.2 cm. The specimen is totally submitted in one cassette. 03/03/2024 TC:0 [facility]:[id number] ADDENDUM ADDENDUM ADDENDUM ADDENDUM ADDENDUM ADDENDUM ADDENDUM ADDENDUM ADDENDUM ADDENDUM ADDENDUM ADDENDUM ADDENDUM ADDENDUM ADDENDUM ADDENDUM ADDENDUM ADDENDUM ADDENDUM ADDENDUM ADDENDUM ADDENDUM ADDENDUM ADDENDUM ADDENDUM ADDENDUM ADDENDUM 04/30/2024 10:32 ADDENDUM 04/30/2024 10:32 ADDENDUM 04/30/2024 10:32 ADDENDUM 04/30/2024 10:32 ADDENDUM 04/30/2024 10:32 ONKOSIGHT NGS REPORT FROM [facility] RESULT SUMMARY: ABNORMAL Detected genomic alterations Tier 11: Variants of Potential Clinical Significance SMAD4 p.(135Ter) TP53 p.(Qbe432Frq) BRAF p.(Kwt350Ica) Tier lll: Variants of Unknown Clinical Significance ATR p.(Mmc1123Cnd) IMMUNOTHERAPY BIOMARKERS: Tumor Mutation [place]: LOW (7.8 mutations/MB) Microsatellite Instability: MSI NEGATIVE (3.28%) PERTINENT NEGATIVE RESULTS: The following genes are NEGATIVE for clinically relevant mutations. Mutational hotspots and surrounding exonic regions were interrogated for DNA level point mutations and indels (fusions not assayed). Please see complete report in e-chart or EMR
== END | disposition home or self-care (01) ==
LOC: LABSPEC 15:54
PROVIDERS: PCP Family Medicine; Referring Provider Obstetrics & Gynecology; Visit Provider Obstetrics & Gynecology
DX: N90.89 Other specified noninflammatory disorders of vulva and perineum (principal)
CPT/HCPCS: 88305; 88341; 88342

== ENCOUNTER → 2024-03-15 | Outpatient (CLI) | payer MEDICARE, SELFPAY ==
[2024-03-15 16:08] LABS: CREATININE FINGERSTICK < 1.0 mg/dL (0.55-1.02); EGFR FINGERSTICK > 60.0000 mL/min (>60)
== END | disposition home or self-care (01) ==
PROVIDERS: PCP Family Medicine; Referring Provider Internal Medicine Hematology & Oncology; Visit Provider Internal Medicine Hematology & Oncology
DX: C20 Malignant neoplasm of rectum (principal)
CPT/HCPCS: 72197; A9575; A4216

== ENCOUNTER → 2024-03-16 | Outpatient (CLI) | payer MEDICARE, SELFPAY ==
--- NOTE | 2024-03-16 08:33 | CT_ITS ---
HISTORY: Rectal cancer follow-up. TECHNIQUE: CT of the chest and abdomen was performed after the intravenous administration of 100 mL Isovue-300. Coronal and sagittal reformatted images. Individualized dose optimization techniques were used for this CT. 1258 images. COMPARISON: 04/08/2023, 11/04/2022. FINDINGS: CENTRAL AIRWAYS: Patent. LUNGS: Clear. PLEURA: No pneumothorax or significant pleural effusion. HEART/PERICARDIUM: Heart within normal limits in size. No pericardial effusion. AORTA/VESSELS: No thoracic aortic aneurysm or dissection flap. Mild atherosclerosis. No large central filling defect identified in the pulmonary arteries. Right chest wall port with catheter tip in the superior cavoatrial junction MEDIASTINUM/KIRAN: 1 cm left thyroid nodule. No pathologically enlarged lymph nodes. BOWEL: Bowel including appendix nondilated. Moderate stool in the visualized portion of the colon. PERITONEUM: No significant free fluid or pathologically enlarged lymph nodes. LIVER: No enhancing mass. GALLBLADDER: Small gallstones. SPLEEN/PANCREAS/ADRENAL GLANDS: Homogeneous and nonenlarged. KIDNEYS: No hydronephrosis. Moderate left renal atrophy with chronic small cysts; follow-up not indicated. VESSELS: IVC filter in place. No abdominal aortic aneurysm. Mild atherosclerosis. OSSEOUS STRUCTURES: Degenerative change without suspicious osteoblastic or osteolytic lesion. Chronic mild T2 compression fracture with interval sclerosis of the superior endplate. Mild T11 compression fracture with a Schmorl''s node in the superior endplate, which may be subacute. Chronic mild T12 compression fracture. CT/CT Chest AND Abd W/ Contrast IMPRESSION: No evidence of metastatic disease in the chest or abdomen. Refer to MRI pelvis prior day for other findings. Subacute-chronic thoracic compression fractures as above. IVC filter is noted. Recommend determining if there is a management place in place for this IVC filter. If not, then recommend referral to an interventional radiologist on a nonemergent basis for evaluation. Electronically Signed: Sharon Frederick MD at 16:03 EST ,
[2024-03-16] MEDS: 0.9 % NaCl (Sterile) Posiflush 10 mL IV (08:40)
[2024-03-16] MEDS: 0.9% Saline Lock 10 ML Syringe IV (08:50)
== END | disposition home or self-care (01) ==
LOC: CT 08:31
PROVIDERS: PCP Family Medicine; Referring Provider Internal Medicine Hematology & Oncology; Visit Provider Internal Medicine Hematology & Oncology
DX: C20 Malignant neoplasm of rectum (principal)
CPT/HCPCS: 71260; 74160; Q9967; A4216

== ENCOUNTER → 2024-12-13 | Outpatient (CLI) | payer MEDICARE, SELFPAY ==
[2024-12-13 12:05] LABS: Hematocrit 39.5 % (37-47); Hemoglobin 13.1 g/dL (12.0-15.0); Immature Granulocytes Count 0.050 X10^3/uL (0.0-0.0); Mean Corp Hgb Conc 33.2 g/dL (32-36); Mean Corpuscular Volume 87.6 fL (81-99); Mean Platelet Vol. 10.5 fl (6.2-12.0); NRBC Flagged by Analyzer 0 % (0-5); Platelet Count 210 K/mm3 (150-450); RBC Distribution Width CV 14.3 % (11.6-14.6); RBC Distribution Width SD 45.2 fl (35.1-43.9); Red Blood Count 4.51 M/mm3 (4.2-5.4); White Blood Count 7.6 K/mm3 (4.4-11.0)
[2024-12-13 12:34] LABS: AST(SGOT) 22 U/L (<=31); Alanine Aminotransfer ALT/SGPT 14 U/L (<=34); Albumin, Serum 4.1 g/dL (3.4-4.8); Alkaline Phosphatase 104 U/L (35-104); Anion Gap 14 (5-15); BUN 15 mg/dL (4-19); BUN/Creat Ratio 16.0 RATIO (10-20); Calcium,Total 9.5 mg/dL (7.6-11.0); Carbon Dioxide 25.9 mmol/L (21.0-32.0); Chloride 101 mmol/L (98-108); Globulin 3.6 g/dL (2.2-4.2); Glucose 145 mg/dL (70-99); Potassium 4.2 mmol/L (3.3-5.1)
== END | disposition home or self-care (01) ==
LOC: MFPLAB 11:02
PROVIDERS: PCP Family Medicine; Visit Provider Family Medicine
DX: F31.81 Bipolar II disorder (principal); E11.22 Type 2 diabetes mellitus with diabetic chronic kidney disease
CPT/HCPCS: 36415; 80053; 85025